=== PATIENT | female | born 1940 | race Caucasian/White ===

== ENCOUNTER 2016-03-01 17:26 | Inpatient (IN) | payer MEDICARE ==
[~2016-03-01] VITALS: Ht 167.6 cm; Wt 68.7 kg
[~2016-03-01 17:26] MED LIST: ALDA50TA2 PO; ARTI99.0 OU; ATEN100T PO; ATEN25TA PO; ATEN50TA2 PO; BACITAB3 PO; CALC500C16 PO; CITA10TA5 PO; CLEO150C PO; DICY1CAP8 PO; DIGO0.12 PO; DILT180C53 PO; FERR325T PO; FLAG500T PO; FURO20TA2 PO; LACT10SO29 PO; LISI-542 PO; MAALSUS20 PO; MAALSUS8 PO; MUPI2OI TOP; PANT40TA2 PO; POTA10CA PO; SENO8.6T10 PO; SPIR25TA2 PO; SUCR1SS PO; SUCR1TA PO; SYST1SOL OU; TENO1TAB4 PO; TRAM50TA2 PO; TYLE325T5 PO; VANC1CAP6 PO; VITA-130 PO; XANA0.25 PO; XIFA550T PO
[2016-03-01 18:43] LABS: EOS # 0.1 K/mm3 (0.0-0.50); EOS % 2.2 % (0.0-3.0); LARGE UNSTAINED CELL # 0.2 K/mm3 (0.0-0.4); LARGE UNSTAINED CELL % 4.6 % (0.0-4.0); LYMPH # 0.6 K/mm3 (1.5-4.5); MEAN CORPUSCULAR HEMOGLOBIN 25.2 pg (27.0-33.0); MEAN CORPUSCULAR HGB CONC 30.6 g/dl (32.0-36.5); MEAN CORPUSCULAR VOLUME 82.2 fl (80.0-96.0); MONO # 0.6 K/mm3 (0.0-0.8); NEUTROPHILS # 2.8 K/mm3 (1.8-7.7); NEUTROPHILS % 66.2 % (36.0-66.0); PLATELET COUNT, AUTOMATED 208 k/mm3 (150-450); RED CELL DISTRIBUTION WIDTH 15.8 % (11.5-14.5); WHITE BLOOD COUNT 4.2 K/mm3 (4.0-10.0)
[2016-03-01 18:55] LABS: ALBUMIN 3.3 GM/DL (3.2-5.2); ALBUMIN/GLOBULIN RATIO 0.97 (1.00-1.93); ALT/SGPT 29 U/L (12-78); AMYLASE 44 U/L (25-115); ANION GAP 7 MEQ/L (8-16); AST/SGOT 35 U/L (15-37); BILIRUBIN,DIRECT 0.3 MG/DL (0.0-0.2); BILIRUBIN,TOTAL 0.8 MG/DL (0.2-1.0); BLOOD UREA NITROGEN 16 MG/DL (7-18); CARBON DIOXIDE LEVEL 27 MEQ/L (21-32); CHLORIDE LEVEL 107 MEQ/L (98-107); CREATININE FOR GFR 0.95 MG/DL (0.55-1.02); GLOMERULAR FILTRATION RATE > 60.0 (>39); GLUCOSE, FASTING 94 MG/DL (83-110); POTASSIUM SERUM 4.2 MEQ/L (3.5-5.1); SODIUM LEVEL 141 MEQ/L (136-145); TOTAL PROTEIN 6.7 GM/DL (6.4-8.2)
[2016-03-01 19:06] LABS: ALKALINE PHOSPHATASE 157 U/L (45-117); DIGOXIN LEVEL 0.6 NG/ML (0.5-2.0); FREE T4 1.27 NG/DL (0.76-1.46)
[2016-03-01] MEDS ORDERED: ISOVUE-370 76% 100ML VIAL (Q9967) As Ordered ONE (19:10)
--- NOTE | 2016-03-01 19:42 | REP ---
AP portable chest: 03/01/2016. Clinical history: Chest pain. Comparison: 02/11/2016, CT chest 02/08/2016. Findings: Mild cardiomegaly with left ventricular configuration of the heart noted. There is a single lead pacer over the left upper chest with lead terminating in the right ventricle. The aorta is mildly tortuous, but normal for age. Airway is intact. Appears to be some venous hypertension, developed since the previous study. I see no macho edema, pleural effusion or dense consolidation. Some underlying minor fibrotic changes noted. No abnormal widening of the mediastinum. Bones demineralized. No free air under the diaphragm. Impression: 1. Some mild cardiomegaly with single lead pacer, but with new mild venous hypertension now present. No pleural effusion, macho edema or dense consolidation. Signed by Elier White MD 03/01/2016 08:06 P
--- NOTE | 2016-03-01 20:20 | REPUSA ---
CLINICAL HISTORY: Chest pain, exclude PE. TECHNIQUE: Multiple incremental axial, coronal and oblique images are obtained from the thoracic inle t to the upper abdomen. Intravenous contrast material was administered as per pulmonary embolism prot ocol. COMMENTS: Dual lead pacemaker is noted in the left chest wall. Scattered left pleural based calcifications seen, please correlate clinically to exclude asbestos exp osure. There is excellent opacification of pulmonary arterial system without evidence for pulmonary embolism . Aorta is of normal caliber without evidence for dissection or aneurysm. There is no evidence of pleural or parenchymal mass. There are no pleural effusions. There is no evid ence of hilar or mediastinal lymphadenopathy. The heart and great vessels are within normal limits. The bony structures are free of lytic or blastic lesions. Multilevel degenerative changes are seen in volving the visualized thoracolumbar spine. Scattered calcifications are seen involving the aorta and major branches compatible with atherosclero sis. IMPRESSION: No evidence for pulmonary embolism. Scattered left pleural based calcifications seen, please correlate clinically to exclude asbestos exp osure. Thank you for your kind referral of this patient.
--- NOTE | 2016-03-01 20:50 | REPUSA ---
CLINICAL HISTORY: Abdominal pain. TECHNIQUE: Multiple axial CT images were obtained through the abdomen and pelvis after administration of intravenous contrast material. COMMENTS: Comparison is made with the prior study dated 02/08/16. The liver is markedly lobulated compatible with cirrhosis. There is no intra or extrahepatic biliary ductal dilatation. There is evidence of wedge shaped area of hypoenhancement in the mid spleen compatible with infarct. Status post cholecystectomy. The pancreas is of normal contour and attenuation characteristics. There is no evidence of adrenal mass. Small hiatal hernia is present. Both kidneys demonstrate prompt and equal nephrograms. The kidneys are normal in size, shape and configuration. There is no evidence of renal or ureteral mass. No renal or ureteral calculi are identified. There is no hydroureter or hydronephrosis. There is no evidence for appendicitis. Diffuse colonic diverticulosis is present. No evidence for small or large bowel obstruction. There is no evidence of abdominal lymphadenopathy. Small amount of perihepatic ascites is seen. Moderate amount of feces is present in the left colon suggesting constipation. There are marked esophageal varices is present compatible with portal hypertension. There is markedly dilated and tortuous recanalized paraumbilical vein. This is also seen in the setting of cirrhosis. Multiple small mesenteric lymph nodes are seen. There is no evidence of intrinsic or extrinsic bladder mass. Images of the lung bases show no evidence of pleural or parenchymal mass. There are no pleural effusions. Left pleural based calcifications are present suggesting remote asbestos exposure. The bony structures are free of lytic or blastic lesions. Multilevel degenerative changes are seen involving the thoracolumbar spine. Scattered calcifications are seen involving the aorta and major branches compatible with atherosclerosis. IMPRESSION: 1. There is evidence of wedge shaped area of hypoenhancement over the mid spleen compatible with infarct. 2. The liver is markedly lobulated compatible with cirrhosis.Small amount of perihepatic ascites is seen. 3. Signs of portal hypertension. 4. Enteritis has resolved since the prior study. Otherwise no interval change.
[2016-03-01] MEDS ORDERED: FERR325T PO (21:02)
[2016-03-01] MEDS ORDERED: ATEN25TA PO (21:02)
[2016-03-01] MEDS ORDERED: SUCR1TAB56 PO (21:02)
[2016-03-01] MEDS ORDERED: TRAM50TA2 PO (21:02)
[2016-03-02] VITALS (7 sets, daily range): BP systolic 90–124; BP diastolic 51–74
[2016-03-02] MEDS ORDERED: PANTOPRAZOLE 40MG INJ (PROTONIX) (C9113) As Ordered ONE (01:20)
[2016-03-02] MEDS ORDERED: PANTOPRAZOLE 40MG TAB (PROTONIX) As Ordered ONE ×2 (01:31→07:48)
[2016-03-02] MEDS: SUCRALFATE 1 GM TAB PO SCH ×5 (01:31→20:20)
[2016-03-02] MEDS: PANTOPRAZOLE 40MG TAB (PROTONIX) PO SCH ×3 (01:34→20:21)
--- NOTE | 2016-03-02 02:19 | HPE ---
DATE OF ADMISSION: 03/01/2016 PRIMARY CARE PROVIDER: Dr. Tiwari. VP [employer] WE[employer]: Dr. Gibbs. CHIEF COMPLAINT: Chest pain. HISTORY OF PRESENT ILLNESS: Ms. Brown is a 75-year-old female with past medical history of atrial fibrillation, status post pacemaker, liver cirrhosis, and also recently diagnosed splenic infarct from last admission in January. Patient was admitted from 02/07 to 02/10, at that time for abdominal pain and subsequently was found to have infarction to her spleen. Since her discharge on the , she was doing well up until approximately 3-4 days ago when she started complaining of worsening chest pain. At baseline, has chest pain with exertion since her pacemaker placement in November 2014. At baseline, has chest pain only when she exerts herself or after ambulation. 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 However, approximately 3-4 days ago started having worsening pain. It started while she was just walking about inside her home. Pain is located in the left side of the left chest, "pinching" in nature, without radiation. Associated with palpitations, which she noticed after her atenolol was decreased from 50 twice a day down to 25 once a day at her last discharge. Also endorses white productive cough which is chronic, bilateral lower extremity edema, lightheadedness, dizziness, weakness, and one episode of nausea. She actually felt weaker today and as she ambulated to the kitchen to do some dishes, she started feeling weak and dizzy and almost passed out, but fortunately got hold of something in time. No syncopal episode. No pillow orthopnea, paroxysmal nocturnal dyspnea. Sleeps on six pillows normally. Does report shortness of breath when her chest pain comes on, but the duration of that lasts while she ambulates and resolves with rest. She was supposed to have her pacemaker interrogated in December; however, because of cancellation, this was not performed. Last visit to primary care provider (PCP) was last month with no changes to medications. She actually had one episode of sharp stabbing pain to her chest while waiting in the emergency room (ER) that lasted approximately 2 minutes and resolved on its own. Pain located also in her left chest. No nausea, vomiting, or shortness of breath at that time. The patient was simply lying in bed when the episode occurred. PAST MEDICAL HISTORY: 1. 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 2. Clostridium (C) difficile colitis. 3. Cirrhosis with portal hypertension. 4. Splenic infarction January 2016. 5. Atrial fibrillation not on anticoagulation due to splenic infarct and recurrent gastrointestinal (GI) bleed. 6. Iron deficiency anemia. 7. Echocardiogram from November 2014 reports ejection fraction (EF) of 75%, right ventricular systolic pressure 30, normal left ventricular (LV) size and wall motion thickness, mildly dilated left atrium with impairment of LV diastolic relaxation, normal right heart chamber with borderline pulmonary hypertension, severe mitral annular calcification without clear inflow tract obstruction, aortic valve sclerosis without stenosis. 8. Diastolic heart failure, EF 75%. 9. Depression. PAST SURGICAL HISTORY: 1. Hysterectomy. 2. Pacemaker insertion. 3. Tonsillectomy. 4. Esophagogastroduodenoscopy (EGD) with banding. 5. Cholecystectomy. 6. Cataract extraction. 7. 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 ALLERGIES: MEPERIDINE, PENICILLIN, SULFA, BENADRYL, unknown reactions. HOME MEDICATIONS: - atenolol 25 mg by mouth daily, dose was changed from previous admission which was 50 mg by mouth twice a day - dicyclomine 10 mg by mouth before food as needed - digoxin 0.125 mg by mouth daily - ferrous sulfate 325 mg by mouth daily - Lasix 20 mg by mouth daily - Bacid one tablet by mouth daily - Protonix 40 mg by mouth twice a day - Systane eye drops one drop both eyes twice a day - spironolactone 25 mg by mouth twice a day - sucralfate 1 gram by mouth before food, nightly - tramadol 50 mg every 8 hours as needed SOCIAL HISTORY: No past, present tobacco. No alcohol or drug use. 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 She had traveled extensively including to [place], [place], [place], [place], [place]. No exposure to asbestos, tuberculosis she is aware of. FAMILY HISTORY: There is history of cardiac disease in her mother requiring pacemaker placement. REVIEW OF SYSTEMS: GENERAL: Denies fevers, chills, night sweats. Positive for approximately 30-pound weight loss in the last year and a half due to constantly being sick and in and out of the hospital. Positive for decreased appetite. HEENT: Positive for headache, lightheadedness as above. No difficulty with speech and swallow. She does report metallic taste to food causing her to have decreased appetite. CARDIOVASCULAR: As above. PULMONARY: As above. GASTROINTESTINAL: Positive for esophageal varices, liver disease, splenic infarct. Had one episode of nausea. No emesis, no hematemesis, hematochezia, melena. GENITOURINARY: No dysuria, urinary urgency, frequency. ONCOLOGY: No history of malignancy. HEMATOLOGY: History of iron deficiency anemia that required transfusions in the past. NEUROLOGICAL: Positive for paresthesia to bilateral hands. No paralysis. MUSCULOSKELETAL: Positive for chronic back pain and leg pain. Has been using a cane with ambulation. ENDOCRINE: No known thyroid or diabetes. LYMPHATICS: No new bumps, lumps, swelling anywhere in neck, axilla, or groin. PHYSICAL EXAMINATION: VITAL SIGNS: Blood pressure 126/66, blood pressure fluctuates anywhere in 101 systolic to 141, heart rate in the 60s to 70s, respiratory rate 18, temperature 96.4, pulse oximetry 100% on room air. Body mass index (BMI) 24. GENERAL: The patient was lying in bed, comfortable, in no acute distress. Alert, awake, oriented times three. No respiratory distress. PSYCHIATRIC: Sad affect, is frustrated at the thought of having to come in and out of the hospital since her pacemaker. HEENT: Normocephalic, atraumatic. Dry oral mucosa. Mouth is edentulous, no sores, lesions, ulcers appreciated. Extraocular movements intact. No facial weakness. NECK: Supple. Trachea midline. No jugular venous distention (JVD). CHEST: Symmetric chest rise. No accessory muscle use. Breath sounds diminished in lung base. Left chest with palpable pacemaker. HEART: Irregular, but not tachycardic, variable S1, S2. No appreciable murmurs. ABDOMEN: Soft, mildly tender to palpation right upper quadrant. No guarding. No rebound. No peritoneal sign. Bowel sounds present. EXTREMITIES: There is fullness to her leg with excessive skin with 1-2+ pitting edema. NEUROLOGIC: Sensory intact. No focal deficits. Did not assess gait. LABORATORY DATA: WBC 4.2, hemoglobin 10.6, hematocrit 34.6, this is improved compared to last discharge, platelets 208, neutrophils 66.2. Sodium 141, potassium 4.2, chloride 107, carbon dioxide 27, BUN 16, creatinine 0.95, glucose 94, calcium 9, direct bilirubin 0.3. AST 35, ALT 29, alkaline phosphatase 157. Troponin is negative. Total protein 6.7. Free T4 1.27. Chest x-ray with mild cardiomegaly with a single chamber pacemaker. No pleural effusion, edema or consolidation. CTA no evidence of PE, scattered left lower base calcifications. CT abdomen and pelvis shows evidence of prior splenic infarct, cirrhotic liver with perihepatic ascites, portal hypertension. No interval change compared to previous. EKG shows rate of 67, irregular. Nonspecific ST-T wave abnormality that was present on prior EKG, low voltage. IMPRESSION AND PLAN: Ms. Brown is a 75-year-old female with past medical history of tachycardia- bradycardia (tachy-eugenia) syndrome, status post pacemaker placement, liver cirrhosis, splenic infarct, presented with chest pain. 1. Chest pain. Possible causes include cardiac, pulmonary, infectious, musculoskeletal versus other. Patient will be admitted and closely monitored in the progressive care unit (PCU). Continue to trend troponin, check EKG in the morning. Patient had a CTA that was unrevealing for a pulmonary embolism (PE). Continue supportive treatment for pain. Her pain is reproducible on physical exam, which is more reassuring. Patient cannot be on aspirin due to varices. 2. Weakness. Could be due to cardiac or iron deficiency anemia. Will check orthostatic blood pressure, stool occult. 3. Tachy-eugenia syndrome, status post pacemaker placement. She is also on atenolol 25 daily. Previously was on 50 twice a day. Her blood pressure has actually been running on the low end; therefore, will continue current dose for now. 4. Atrial fibrillation, as above, she could not be on anticoagulation due to splenic infarct and also recurrent varices requiring banding. Continue digoxin. Level is therapeutic. 5. Iron deficiency anemia. Continue iron supplementation. 6. Diastolic heart failure. Currently appears to be compensated. Will consider continuing her diuretic with hold parameter. 7. Gastroesophageal reflux disease (GERD). Continue home dose Protonix and Carafate. 8. Deep venous thrombosis (DVT) prophylaxis. Check stool occult before considering pharmacological. My preceptor for this patient encounter was Dr. Kya Ling. The preceptor was physically present in the building during the encounter and was fully available as needed. All aspects of the patient interview, examination, medical decision making process, and medical care plan development were reviewed and approved by the preceptor. The preceptor is aware and concurs with the plan as stated in the body of this note and will attest to such by his/her co-signature. SHANEKA
[2016-03-02] MEDS ORDERED: traMADol 50 MG TAB As Ordered ONE (04:06)
[2016-03-02] MEDS: traMADol 50 MG TAB PO PRN ×2 (04:07→15:00)
[2016-03-02 06:52] LABS: BASO % 1.3 % (0.0-1.0); EOS # 0.1 K/mm3 (0.0-0.50); EOS % 3.2 % (0.0-3.0); LARGE UNSTAINED CELL # 0.2 K/mm3 (0.0-0.4); LARGE UNSTAINED CELL % 4.6 % (0.0-4.0); LYMPH # 0.5 K/mm3 (1.5-4.5); LYMPH % 11.9 % (24.0-44.0); MEAN CORPUSCULAR HGB CONC 30.4 g/dl (32.0-36.5); MONO # 0.5 K/mm3 (0.0-0.8); MONO % 13.2 % (0.0-5.0); NEUTROPHILS # 2.6 K/mm3 (1.8-7.7); NEUTROPHILS % 65.8 % (36.0-66.0); PLATELET COUNT, AUTOMATED 177 k/mm3 (150-450); WHITE BLOOD COUNT 3.9 K/mm3 (4.0-10.0)
[2016-03-02 07:10] LABS: ANION GAP 7 MEQ/L (8-16); BLOOD UREA NITROGEN 15 MG/DL (7-18); CALCIUM LEVEL 8.7 MG/DL (8.8-10.2); CARBON DIOXIDE LEVEL 25 MEQ/L (21-32); CHLORIDE LEVEL 111 MEQ/L (98-107); CREATININE FOR GFR 0.87 MG/DL (0.55-1.02); GLOMERULAR FILTRATION RATE > 60.0 (>39); GLUCOSE, FASTING 90 MG/DL (83-110); POTASSIUM SERUM 3.9 MEQ/L (3.5-5.1); SODIUM LEVEL 143 MEQ/L (136-145)
[2016-03-02] MEDS ORDERED: ATENOLOL 25 MG TAB As Ordered ONE (07:48)
[2016-03-02] MEDS ORDERED: FUROSEMIDE 20 MG TAB As Ordered ONE (07:48)
[2016-03-02] MEDS ORDERED: DIGOXIN 0.25 MG TAB As Ordered ONE (07:49)
[2016-03-02] MEDS: DIGOXIN 0.125 MG TAB PO SCH (07:59)
[2016-03-02] MEDS: FUROSEMIDE 20 MG TAB PO SCH (07:59)
[2016-03-02] MEDS: ATENOLOL 25 MG TAB PO SCH (08:00)
[2016-03-02] MEDS: FERROUS SULFATE 325MG TAB PO SCH (10:03)
[2016-03-02] MEDS: SENOKOT S TAB PO SCH ×2 (10:03→20:21)
[2016-03-02] MEDS: SPIRONOLACTONE 25 MG TAB PO SCH ×2 (10:03→20:21)
[2016-03-02] MEDS ORDERED: ONDANSETRON 4MG/2ML VIAL (J2405) As Ordered ONE (12:55)
[2016-03-02] MEDS: ONDANSETRON 4MG/2ML VIAL (J2405) IV PRN (12:57)
--- NOTE | 2016-03-02 15:01 | IPNPDOC ---
Assessment/Plan Date Seen The patient was seen on 03/02/16. Plan / VTE VTE Prophylaxis Ordered?: Yes Plan Plan Text 1. Chest pain. Patient states that her chest pain has been chronic over the last 2+ years localized to the superficial musculoskeletal region around the pacemaker insertion site and reproducible on palpation She describes the pain as discomfort and "pinching sensation." EKG with no acute ST changes Troponin negative 3 CTA negative for pulmonary embolism Continue to monitor on telemetry. 2. Tachy-eugenia syndrome, status post pacemaker placement in 11/[address] Alcaraz Continue atenolol 3. Atrial fibrillation Not a candidate for anticoagulation given history of esophageal varices, splenic infarct Continue digoxin, level is therapeutic. 4. Liver cirrhosis and portal hypertension Cont Lasix, Aldactone 5. Iron deficiency anemia. Continue iron supplementation. 6. Diastolic heart failure. Currently appears to be compensated. 7. Gastroesophageal reflux disease (GERD). Continue home dose Protonix and Carafate. 8. Deep venous thrombosis (DVT) prophylaxis. SCDs Subjective Review of Systems CC/HPI The patient is a 75-year-old female admitted with a reason for visit of Chest Pain. General: Denies: Chills, Night Sweats Constitutional: Denies: Chills, Fever Eyes: Denies: Pain, Vision change ENT: Denies: Ear Pain, Head Aches Skin: Denies: Lesions, Rash Pulmonary: Denies: Cough, Dyspnea Cardiovascular: Denies: Chest Pain, Palpitations Gastrointestinal: Denies: Nausea, Vomiting Genitourinary: Denies: Dysuria, Frequency Hematologic: Denies: Bleeding Excessively, Bruising Objective Physical Examination General Exam: Positive: Alert, Cooperative, No Acute Distress ENT Exam: Positive: Atraumatic, Mucous membr. moist/pink Chest Exam: Positive: Clear to auscultation, Normal air movement Heart Exam: Positive: Normal S1, Normal S2, Rate Normal Abdomen Exam: Positive: Soft, Negative: Tenderness Extremity Exam: Negative: Edema, Swelling, Tenderness Vital Signs/I&O Vital Signs Date Time Temp Pulse Resp B/P Pulse Ox O2 Delivery O2 Flow Rate FiO2 03/02/16 12:00 97.7 67 16 106/55 100 Room Air I&O- Last 24 Hours up to 6 AM 03/02/16 06:00 Intake Total 240 ml Output Total 0 ml Balance 240 ml Laboratory Data Labs 24H Laboratory Tests 2 03/01/16 18:19: Aspartate Amino Transf (AST/SGOT) 35, Alanine Aminotransferase (ALT/SGPT) 29, Alkaline Phosphatase 157H, Total Bilirubin 0.8, Direct Bilirubin 0.3H, Albumin 3.3, Albumin/Globulin Ratio 0.97L, Amylase Level 44, Anion Gap 7L, White Blood Count 4.2, Red Blood Count 4.21, Hemoglobin 10.6L, Hematocrit 34.6L, Mean Corpuscular Volume 82.2, Mean Corpuscular Hemoglobin 25.2L, Mean Corpuscular Hemoglobin Concent 30.6L, Red Cell Distribution Width 15.8H, Platelet Count 208 , Neutrophils (%) (Auto) 66.2H, Lymphocytes (%) (Auto) 13.0L, Monocytes (%) ( Auto) 13.0H, Eosinophils (%) (Auto) 2.2, Basophils (%) (Auto) 1.0, Neutrophils # (Auto) 2.8, Lymphocytes # (Auto) 0.6L, Monocytes # (Auto) 0.6, Eosinophils # ( Auto) 0.1, Basophils # (Auto) 0.0, Calcium Level 9.0, Creatine Kinase MB 1.2, Creatine Kinase MB Relative Index 3.87, Digoxin Level 0.6, Free Thyroxine 1.27, Glomerular Filtration Rate > 60.0, Large Unclassified Cells # 0.2, Large Unclassified Cells % 4.6H, Lipase 262, Thyroid Stimulating Hormone (TSH) 2.090, Total Creatine Kinase 31, Total Protein 6.7, Troponin I < 0.02 03/01/16 23:31: Creatine Kinase MB 1.0, Creatine Kinase MB Relative Index 4.00, Total Creatine Kinase 25L, Troponin I < 0.02 03/02/16 06:33: Anion Gap 7L, White Blood Count 3.9L, Red Blood Count 4.07, Hemoglobin 10.2L, Hematocrit 33.3L, Mean Corpuscular Volume 82.0, Mean Corpuscular Hemoglobin 25.0L, Mean Corpuscular Hemoglobin Concent 30.4L, Red Cell Distribution Width 16.0H, Platelet Count 177, Neutrophils (%) (Auto) 65.8, Lymphocytes (%) (Auto) 11.9L, Monocytes (%) (Auto) 13.2H, Eosinophils (%) (Auto) 3.2H, Basophils (%) ( Auto) 1.3H, Neutrophils # (Auto) 2.6, Lymphocytes # (Auto) 0.5L, Monocytes # ( Auto) 0.5, Eosinophils # (Auto) 0.1, Basophils # (Auto) 0.0, Calcium Level 8.7L , Glomerular Filtration Rate > 60.0, Large Unclassified Cells # 0.2, Large Unclassified Cells % 4.6H, Troponin I < 0.02, Blood Urea Nitrogen 15, Creatinine 0.87, Sodium Level 143, Potassium Level 3.9, Chloride Level 111H, Carbon Dioxide Level 25 CBC/BMP Laboratory Tests 03/01/16 18:19 Red Blood Count 4.21, Mean Corpuscular Volume 82.2, Mean Corpuscular Hemoglobin 25.2 L, Mean Corpuscular Hemoglobin Concent 30.6 L, Red Cell Distribution Width 15.8 H, Neutrophils (%) (Auto) 66.2 H, Lymphocytes (%) (Auto) 13.0 L, Monocytes (%) (Auto) 13.0 H, Eosinophils (%) (Auto) 2.2, Basophils (%) (Auto) 1.0, Neutrophils # (Auto) 2.8, Lymphocytes # (Auto) 0.6 L, Monocytes # (Auto) 0.6, Eosinophils # (Auto) 0.1, Basophils # (Auto) 0.0 03/02/16 06:33 Red Blood Count 4.07, Mean Corpuscular Volume 82.0, Mean Corpuscular Hemoglobin 25.0 L, Mean Corpuscular Hemoglobin Concent 30.4 L, Red Cell Distribution Width 16.0 H, Neutrophils (%) (Auto) 65.8, Lymphocytes (%) (Auto) 11.9 L, Monocytes (% ) (Auto) 13.2 H, Eosinophils (%) (Auto) 3.2 H, Basophils (%) (Auto) 1.3 H, Neutrophils # (Auto) 2.6, Lymphocytes # (Auto) 0.5 L, Monocytes # (Auto) 0.5, Eosinophils # (Auto) 0.1, Basophils # (Auto) 0.0, Calcium Level 8.7 L JOAN BOWLING MD Mar 02, 2016 15:01
--- NOTE | 2016-03-02 15:09 | EDDOCDS ---
Physician Documentation [facility] Name: Pilar Brown Age: 75 yrs Sex: Female : 1940 Arrival Date: 03/01/2016 Time: 17:26 Bed Admit Hold Private MD: Marina Disposition: 03/01/16 22:02 Hospitalization ordered by Kya Ling for Inpatient Admission. Preliminary diagnosis are Unstable angina, Abdominal and pelvic pain. - Bed requested for PCU. - Status is Inpatient Admission. srm - Condition is Stable. - Problem is new. - Symptoms have improved. Historical: - Allergies: Benadryl (hyper and shaky); Meperidine; PENICILLINS; SULFA (SULFONAMIDES); - Home Meds: 1. atenolol 25 mg oral tab once daily 2. ferrous sulfate 325 mg (65 mg iron) Oral cpER daily 3. tramadol 50 mg Oral tab every 8 hours as needed 4. digoxin 125 mcg Oral tab 1 tab once daily 5. furosemide 20 mg Oral tab 1 tab once daily 6. pantoprazole 40 mg oral tab 1 tab 2 times per day 7. Systane (PF) 0.4-0.3 % ophthalmic dpet twice a day 8. spironolactone 25 mg Oral tab 1 tab 2 times per day 9. Sucralfate Oral 10. sucralfate 1 gram Oral tab four times a day 11. dicyclomine 10 mg Oral cap before meals as needed - PMHx: Atrial Fib; Cataracts; c-diff; Cirrhosis; esophageal varicies; GERD; Depression; Hypertension; gi bleed; - PSHx: Cholecystectomy; Pacemaker Insertion; - Social history: Smoking status: Patient states was never smoker of tobacco. No barriers to communication noted, The patient speaks fluent Iranian, Speaks appropriately for age. - Family history: Not pertinent. - : The pt / caregiver states he / she is not on anticoagulants. Home medication list is obtained from the patient. - Exposure Risk Screening:: None identified. Vital Signs: 03/01 17:28 BP 126 / 66; Pulse 79; Resp 18; Temp 96.4; Pulse Ox 100% ; Weight 68.49 kg / 150.99 cmb lbs; Height 5 ft. 6 in. (167.64 cm); Pain 5/10; 17:38 BP 141 / 62 (auto/); af2 17:42 Pulse 68 MON; Pulse Ox 100% ; af2 17:45 BP 132 / 63 (auto/); af2 17:46 Pulse 69 MON; Pulse Ox 100% ; af2 18:00 BP 114 / 55 (auto/); ead 18:01 Pulse 71 MON; Pulse Ox 100% ; ead 18:19 BP 114 / 56 (auto/); ead 18:20 Pulse 68 MON; Resp 18; Pulse Ox 100% on R/A; ead 18:34 BP 105 / 55 (auto/); af2 18:35 Pulse 67 MON; Pulse Ox 100% ; af2 18:49 BP 102 / 50 (auto/); af2 18:50 Pulse 65 MON; Pulse Ox 100% ; af2 19:19 BP 103 / 56 (auto/); af2 19:20 Pulse 75 MON; Pulse Ox 100% ; af2 19:48 BP 103 / 50 (auto/); af2 19:48 Pulse 69 MON; Pulse Ox 98% ; af2 20:19 BP 101 / 55 (auto/); af2 20:20 Pulse 70 MON; Pulse Ox 99% ; af2 20:48 BP 117 / 57 (auto/); af2 20:48 Pulse 72 MON; Pulse Ox 99% ; af2 21:19 BP 103 / 58 (auto/); af2 21:20 Pulse 72 MON; Pulse Ox 98% ; af2 21:48 BP 105 / 58 (auto/); af2 21:48 Pulse 68 MON; Pulse Ox 98% ; af2 17:28 Body Mass Index 24.37 (68.49 kg, 167.64 cm) cmb MDM: 17:34 ECG WITH READING ER PHYS+CARDIAG ordered. EDMS 17:58 IV Saline Lock ordered. ml 17:58 Flagger/Pulse Ox/q 15 min VS ordered. ml 17:58 Rhythm Strip to chart ordered. ml 17:58 CBC with Diff Ordered. EDMS 17:58 MED Profile Ordered. EDMS 17:58 CIP Ordered. EDMS 17:58 Troponin Ordered. EDMS 17:58 Liver Profile Ordered. EDMS 17:58 Amylase Ordered. EDMS 17:58 Lipase Ordered. EDMS 17:58 Digoxin Level Ordered. EDMS 17:58 TSH with Free T4 Ordered. EDMS 18:00 Chest, 1 View Ordered. EDMS 19:00 CBC with Diff Reviewed. ml 19:00 MED Profile Reviewed. ml 19:00 Troponin Reviewed. ml 19:00 Amylase Reviewed. ml 19:00 Lipase Reviewed. ml 19:03 Repeat EKG (put time details section) ordered. ml 19:03 Redraw CIP &Troponin (put time in details section) ordered. ml 19:04 CT ABD & PELVIS: IV Contrast Only Ordered. EDMS 19:04 CT Chest Angio R/O PE Ordered. EDMS 19:05 Financial registration complete. zo 19:05 Redraw CIP &Troponin (put time in details section) complete. ml3 19:05 Repeat EKG (put time details section) complete. ml3 19:06 CARDIAC MARKER PANEL Ordered. EDMS 19:08 ECG WITH READING ER PHYS ordered. EDMS 19:11 [facility] Payment Agreement was scanned into [employer] and attached to record. zo 20:35 BED REQUEST+ADM ordered. EDMS 23:33 CBC WITH DIFFERENTIAL Ordered. EDMS 23:35 Admission / Observation Status ordered. EDMS 23:35 REGULAR DIET ordered. EDMS 23:35 TROPONIN Ordered. EDMS 23:36 PHYSICAL THERAPY EVAL & TREAT ordered. EDMS 23:37 OCCULT BLOOD STOOL SPECIMEN Ordered. EDMS 23:38 ELECTROCARDIOGRAM ADULT ordered. EDMS 03/02 04:05 BASIC METABOLIC PROFILE Ordered. EDMS 13:33 T-Sheet-- Draft Copy was scanned into [employer] and attached to record. gb Signatures: Dispatcher [employer] EDTrinity HealthDalton Aguilar MD MD ml Michelson, Staci, ANGELIKA CARNEY [facility] Des, Lucia, Reg Reg Evert Fernandez RN RN mlb1 Saji Garces, Command Center Officer Unit ml3 Ken Osborn Emily, RN RN ead Sourwine, Sharon, RN RN sls2 Darcy Cortez MD MD fg The chart was reviewed and I authenticate all verbal orders and agree with the evaluation and treatment provided.Corrections: (The following items were deleted from the chart) 04:05 03/01 23:33 BASIC METABOLIC PROFILE ordered. EDMD EDMS Attachments: 19:11 [facility] Payment Agreement zo 03/02 13:33 T-Sheet-- Draft Copy gb MTDD
--- NOTE | 2016-03-02 15:10 | EDDOCDS ---
Nurse's Notes [facility] Name: Pilar Brown Age: 75 yrs Sex: Female : 1940 Arrival Date: 03/01/2016 Time: 17:26 Bed Admit Hold Private MD: Marina Diagnosis: Unstable angina;Abdominal and pelvic pain Presentation: 03/01 17:33 Presenting complaint: Patient states: Intermittent left anterior chest pain began mlb1 Sunday with SOB. Aspirin was not taken prior to arrival. Adult Sepsis Screening: The patient does not have new or worsening altered mentation. Patient's respiratory rate is less than 22. Systolic blood pressure is greater than 100. Patient has a qSOFA score of 0- Negative Sepsis Screen. Suicide/Homicide risk assessment- the patient denies having any suicidal and/or homicidal ideations and does not present with any other emotional, behavioral or mental health complaints. Status: Patient is not a food service agent or dependent. Transition of care: patient was not received from another setting of care. Red Flag criteria, patient assessed and taken directly to a bed. 17:33 Acuity: VICENTE Level 2 mlb1 17:33 Method Of Arrival: Walkin/Carried/Asstd mlb1 Triage Assessment: 17:39 General: Appears in no apparent distress, Behavior is anxious, cooperative. Pain: mlb1 Location: anterior aspect of left upper chest Pain currently is 4 out of 10 on a pain scale. Neurological: No deficits noted. Respiratory: Airway is patent Respiratory effort is even, unlabored. Historical: - Allergies: Benadryl (hyper and shaky); Meperidine; PENICILLINS; SULFA (SULFONAMIDES); - Home Meds: 1. atenolol 25 mg oral tab once daily 2. ferrous sulfate 325 mg (65 mg iron) Oral cpER daily 3. tramadol 50 mg Oral tab every 8 hours as needed 4. digoxin 125 mcg Oral tab 1 tab once daily 5. furosemide 20 mg Oral tab 1 tab once daily 6. pantoprazole 40 mg oral tab 1 tab 2 times per day 7. Systane (PF) 0.4-0.3 % ophthalmic dpet twice a day 8. spironolactone 25 mg Oral tab 1 tab 2 times per day 9. Sucralfate Oral 10. sucralfate 1 gram Oral tab four times a day 11. dicyclomine 10 mg Oral cap before meals as needed - PMHx: Atrial Fib; Cataracts; c-diff; Cirrhosis; esophageal varicies; GERD; Depression; Hypertension; gi bleed; - PSHx: Cholecystectomy; Pacemaker Insertion; - Social history: Smoking status: Patient states was never smoker of tobacco. No barriers to communication noted, The patient speaks fluent [place], Speaks appropriately for age. - Family history: Not pertinent. - : The pt / caregiver states he / she is not on anticoagulants. Home medication list is obtained from the patient. - Exposure Risk Screening:: None identified. Screenin:10 Screening information is obtained from the patient, family members. Fall risk: No risks ead identified. Assistance ADL's: requires no assistance with activities of daily living. Nutritional screening: No deficits noted. Advance Directives: Currently, there is no health care proxy. There is no active DNR order. There is a living will, but a copy is not available at this time. There is an active Power of High Density Talc Coater Operator, Dheeraj Brown (son). information regarding advance directives can be obtained from Dheeraj Brown [phone]. home support is adequate. 18:42 Abuse/DV Screen: The patient / caregiver reports he/she is: not in a situation that ead causes fear, pain or injury. Assessment: 18:26 General: Appears in no apparent distress, Behavior is appropriate for age, cooperative. ead Pain: Location: anterior aspect of left upper chest Pain Quality of pain is described as pinching, Pain began 1 day ago. Neurological: Level of Consciousness is awake, alert, obeys commands, Oriented to person, place, time. Neurological: Denies dizziness. Cardiovascular: Rhythm is irregular. Cardiovascular:. Cardiovascular: Capillary refill < 3 seconds Heart tones S1 S2 present. Respiratory: Airway is patent Respiratory effort is even, unlabored, Reports shortness of breath on exertion. Respiratory: Breath sounds are clear bilaterally. GI: Denies nausea, vomiting, pain. Derm: Skin is pink, warm & dry. 19:13 General: Appears in no apparent distress, Behavior is appropriate for age, cooperative, af2 assumed care of pt at this time. pt assisted with ambulation to bathroom at this time. offers no further complaints. . Neurological: Level of Consciousness is awake, alert, obeys commands, Oriented to person, place, time. Cardiovascular: Capillary refill < 3 seconds in bilateral fingers Heart tones S1 S2 present Rhythm is irregular. Respiratory: Airway is patent Respiratory effort is even, unlabored, Breath sounds are clear bilaterally. Reports shortness of breath on exertion. Derm: Skin is pink, warm & dry. 19:38 General: pt transported down to CT at this time, tolerated procedure well. piv patent, af2 free of edema and erythema.. 20:30 General: Appears in no apparent distress, Behavior is appropriate for age, cooperative. af2 Neurological: Level of Consciousness is awake, alert, obeys commands, Oriented to person, place, time. Cardiovascular: Rhythm is irregular. Respiratory: Airway is patent Respiratory effort is even, unlabored. Derm: Skin is pink, warm & dry. 21:30 General: Appears in no apparent distress, Behavior is appropriate for age, cooperative. af2 Neurological: Level of Consciousness is awake, alert, obeys commands, Oriented to person, place, time. Cardiovascular: Rhythm is irregular. Respiratory: Airway is patent Respiratory effort is even, unlabored. Derm: Skin is pink, warm & dry. 21:45 General: Appears in no apparent distress, Behavior is cooperative, pt states she had an af2 episode of sharp chest pain that went away quickly. notified. . 22:45 General: Appears in no apparent distress, Behavior is appropriate for age, cooperative. af2 General: pt lying on stretcher resting quietly with eyes closed. . Neurological: Level of Consciousness is awake, alert, obeys commands. Cardiovascular: Rhythm is irregular. Respiratory: Airway is patent Respiratory effort is even, unlabored. Derm: Skin is pink, warm & dry. Vital Signs: 17:28 BP 126 / 66; Pulse 79; Resp 18; Temp 96.4; Pulse Ox 100% ; Weight 68.49 kg; Height 5 cmb ft. 6 in. (167.64 cm); Pain 5/10; 17:38 BP 141 / 62 (auto/); af2 17:42 Pulse 68 MON; Pulse Ox 100% ; af2 17:45 BP 132 / 63 (auto/); af2 17:46 Pulse 69 MON; Pulse Ox 100% ; af2 18:00 BP 114 / 55 (auto/); ead 18:01 Pulse 71 MON; Pulse Ox 100% ; ead 18:19 BP 114 / 56 (auto/); ead 18:20 Pulse 68 MON; Resp 18; Pulse Ox 100% on R/A; ead 18:34 BP 105 / 55 (auto/); af2 18:35 Pulse 67 MON; Pulse Ox 100% ; af2 18:49 BP 102 / 50 (auto/); af2 18:50 Pulse 65 MON; Pulse Ox 100% ; af2 19:19 BP 103 / 56 (auto/); af2 19:20 Pulse 75 MON; Pulse Ox 100% ; af2 19:48 BP 103 / 50 (auto/); af2 19:48 Pulse 69 MON; Pulse Ox 98% ; af2 20:19 BP 101 / 55 (auto/); af2 20:20 Pulse 70 MON; Pulse Ox 99% ; af2 20:48 BP 117 / 57 (auto/); af2 20:48 Pulse 72 MON; Pulse Ox 99% ; af2 21:19 BP 103 / 58 (auto/); af2 21:20 Pulse 72 MON; Pulse Ox 98% ; af2 21:48 BP 105 / 58 (auto/); af2 21:48 Pulse 68 MON; Pulse Ox 98% ; af2 17:28 Body Mass Index 24.37 (68.49 kg, 167.64 cm) [facility] Vitals: 17:28 Log In Time: March 01, 2016 at 17:26. [facility] ED Course: 17:28 Patient visited by Natalie Cagle. cmb 17:28 [facility] is Private Physician. cmb 17:28 Patient moved to Waiting cmb 17:30 Maegan Burgos,RN is Primary Nurse. cmb 17:30 Patient moved to 2 cmb 17:32 RN notified that patient meets Red Flag criteria. cmb 17:33 Patient visited by Evert Fernandez, RN. mlb1 17:34 Triage Initiated mlb1 17:40 Patient visited by Evert Fernandez, RN. mlb1 17:41 Dalton Dove MD is Attending Physician. ml 17:41 Patient visited by Dalton Dove MD. ml 17:43 Patient visited by Riana Howard PCA. jlf 17:43 EKG done. (by ED staff). Reviewed by Dalton Dove MD. jlf 18:11 The patient / caregiver is instructed regarding the plan of care and ED course. Cardiac ead monitor on. Pulse ox on. NIBP on. 18:15 Inserted saline lock: 20 gauge in left antecubital area and blood collected. The ead patient tolerated the procedure well. 18:26 Patient visited by Maegan Burgos,ANGELIKA. ead 18:29 Patient visited by Maegan Burgos RN. ead 19:11 [facility] Payment Agreement was scanned into [employer] and attached to record. zo 19:12 Debi Duncan RN is Primary Nurse. af2 19:13 Patient visited by Debi Duncan RN. af2 19:14 Patient visited by Debi Duncan RN. af2 19:17 Attending Physician role handed off by Dalton Dove MD fg 19:17 Darcy Cortez MD is Attending Physician. fg 19:39 Patient visited by Debi Duncan RN. af2 20:24 Chest, 1 View Returned. EDMS 20:25 CT Chest Angio R/O PE Returned. EDMS 20:45 Patient visited by Yadi Álvarez PCA. yobany 21:31 CT ABD & PELVIS: IV Contrast Only Returned. EDMS 21:50 Patient visited by Debi Duncan RN. af2 21:54 Patient visited by Elif Joseph PCA. cln 21:54 EKG done. (by ED staff). Reviewed by Darcy Cortez MD. cln 21:56 Patient visited by Debi Duncan RN. af2 22:02 Kya Ling is Hospitalizing Provider. fg 22:07 Patient moved to Admit Hold cz 22:29 Patient moved to 7 cz 22:33 Patient moved to Admit Hold ml3 22:57 Primary Nurse role handed off by Maegan Burgos RN rs6 23:11 Patient visited by Debi Duncan RN. af2 23:32 CARDIAC MARKER PANEL Sent. cln 12 00:06 Patient moved to 21 cz 00:50 Patient visited by Debi Duncan RN. af2 02:43 Patient moved to Admit Hold cz 06:59 Primary Nurse role handed off by Debi Duncan RN mcp 13:33 T-Sheet-- Draft Copy was scanned into [employer] and attached to record. gb Order Results: Lab Order: CBC with Diff; SPEC'M 01/11/17 18:19 Test: WHITE BLOOD COUNT; Value: 4.2; Range: 4.0-10.0; Units: K/mm3; Status: F Test: RED BLOOD COUNT; Value: 4.21; Range: 4.00-5.40; Units: M/mm3; Status: F Test: HEMOGLOBIN; Value: 10.6; Range: 12.0-16.0; Abnormal: Below low normal; Units: g/dl; Status: F Test: HEMATOCRIT; Value: 34.6; Range: 36.0-47.0; Abnormal: Below low normal; Units: %; Status: F Test: MEAN CORPUSCULAR VOLUME; Value: 82.2; Range: 80.0-96.0; Units: fl; Status: F Test: MEAN CORPUSCULAR HEMOGLOBIN; Value: 25.2; Range: 27.0-33.0; Abnormal: Below low normal; Units: pg; Status: F Test: MEAN CORPUSCULAR HGB CONC; Value: 30.6; Range: 32.0-36.5; Abnormal: Below low normal; Units: g/dl; Status: F Test: RED CELL DISTRIBUTION WIDTH; Value: 15.8; Range: 11.5-14.5; Abnormal: Above high normal; Units: %; Status: F Test: PLATELET COUNT, AUTOMATED; Value: 208; Range: 150-450; Units: k/mm3; Status: F Test: NEUTROPHILS %; Value: 66.2; Range: 36.0-66.0; Abnormal: Above high normal; Units: %; Status: F Test: LYMPH %; Value: 13.0; Range: 24.0-44.0; Abnormal: Below low normal; Units: %; Status: F Test: MONO %; Value: 13.0; Range: 0.0-5.0; Abnormal: Above high normal; Units: %; Status: F Test: EOS %; Value: 2.2; Range: 0.0-3.0; Units: %; Status: F Test: BASO %; Value: 1.0; Range: 0.0-1.0; Units: %; Status: F Test: LARGE UNSTAINED CELL %; Value: 4.6; Range: 0.0-4.0; Abnormal: Above high normal; Units: %; Status: F Test: NEUTROPHILS #; Value: 2.8; Range: 1.8-7.7; Units: K/mm3; Status: F Test: LYMPH #; Value: 0.6; Range: 1.5-4.5; Abnormal: Below low normal; Units: K/mm3; Status: F Test: MONO #; Value: 0.6; Range: 0.0-0.8; Units: K/mm3; Status: F Test: EOS #; Value: 0.1; Range: 0.0-0.50; Units: K/mm3; Status: F Test: BASO #; Value: 0.0; Range: 0.0-0.2; Units: K/mm3; Status: F Test: LARGE UNSTAINED CELL #; Value: 0.2; Range: 0.0-0.4; Units: K/mm3; Status: F Lab Order: MED Profile; SPEC'M 03/01/16 18:19 Test: GLUCOSE, FASTING; Value: 94; Range: 83-110; Units: MG/DL; Status: F Test: BLOOD UREA NITROGEN; Value: 16; Range: 7-18; Units: MG/DL; Status: F Test: CREATININE FOR GFR; Value: 0.95; Range: 0.55-1.02; Units: MG/DL; Status: F Test: GLOMERULAR FILTRATION RATE; Value: > 60.0; Range: >39; Status: F Test: SODIUM LEVEL; Value: 141; Range: 136-145; Units: MEQ/L; Status: F Test: POTASSIUM SERUM; Value: 4.2; Range: 3.5-5.1; Units: MEQ/L; Status: F Test: CHLORIDE LEVEL; Value: 107; Range: 98-107; Units: MEQ/L; Status: F Test: CARBON DIOXIDE LEVEL; Value: 27; Range: 21-32; Units: MEQ/L; Status: F Test: ANION GAP; Value: 7; Range: 8-16; Abnormal: Below low normal; Units: MEQ/L; Status: F Test: CALCIUM LEVEL; Value: 9.0; Range: 8.8-10.2; Units: MG/DL; Status: F Test Note: ; Units are mL/min/1.73 m2 Chronic Kidney Disease Staging per NKF: Stage I & II GFR >=60 Normal to Mildly Decreased Stage III GFR 30-59 Moderately Decreased Stage IV GFR 15-29 Severely Decreased Stage V GFR <15 Very Little GFR Left ESRD GFR <15 on FIRE SPRINKLER FITTER Lab Order: CIP; SPEC'M 03/01/16 18:19 Test: CPK CREATINE PHOSPHOKINASE; Value: 31; Range: 26-192; Units: U/L; Status: F Test: CK-MB VALUE MASS; Value: 1.2; Range: 0.0-3.6; Units: NG/ML; Status: F Test: MB/CK RELATIVE INDEX; Value: 3.87; Range: < OR =4; Status: F Test Note: ; DIAGNOSIS CRITERIA MMB ng/ml Relative Index (RI) NON-AMI < or = 5 N/A [place] > 5 < or = 4 AMI > 5 > 4 Lab Order: Troponin; SPEC'M 03/01/16 18:19 Test: TROPONIN I; Value: < 0.02; Range: < 0.10; Units: NG/ML; Status: F Test Note: ; Troponin I Reference Interval for [employer] LOCI: 99th Percentile= 0.00-0.045 ng/ml Risk Stratification: <= 0.10 ng/ml Decreased Risk for Adverse Clinical Events. 0.10-1.50 ng/ml Increased Risk for Adverse Clinical Events. Evaluation of additional criterion and/or repeat testing in 2-6 hours is suggested to rule out myocardial damage. >= 1.50 ng/ml Indicative of Myocardial Injury. Lab Order: Liver Profile; SPEC'M 03/01/16 18:19 Test: AST/SGOT; Value: 35; Range: 15-37; Units: U/L; Status: F Test: ALT/SGPT; Value: 29; Range: 12-78; Units: U/L; Status: F Test: ALKALINE PHOSPHATASE; Value: 157; Range: 45-117; Abnormal: Above high normal; Units: U/L; Status: F Test: BILIRUBIN,TOTAL; Value: 0.8; Range: 0.2-1.0; Units: MG/DL; Status: F Test: BILIRUBIN,DIRECT; Value: 0.3; Range: 0.0-0.2; Abnormal: Above high normal; Units: MG/DL; Status: F Test: TOTAL PROTEIN; Value: 6.7; Range: 6.4-8.2; Units: GM/DL; Status: F Test: ALBUMIN; Value: 3.3; Range: 3.2-5.2; Units: GM/DL; Status: F Test: ALBUMIN/GLOBULIN RATIO; Value: 0.97; Range: 1.00-1.93; Abnormal: Below low normal; Status: F Lab Order: Amylase; [facility] 03/01/16 18:19 Test: AMYLASE; Value: 44; Range: 25-115; Units: U/L; Status: F Lab Order: Lipase; [facility] 03/01/16 18:19 Test: LIPASE; Value: 262; Range: 73-393; Units: U/L; Status: F Lab Order: Digoxin Level; [facility] 03/01/16 18:19 Test: DIGOXIN LEVEL; Value: 0.6; Range: 0.5-2.0; Units: NG/ML; Status: F Lab Order: TSH with Free T4; [facility] 03/01/16 18:19 Test: THYROID STIMULATING HORMONE; Value: 2.090; Range: 0.358-3.740; Units: uIU/ML; Status: F Test: FREE T4; Value: 1.27; Range: 0.76-1.46; Units: NG/DL; Status: F Lab Order: CARDIAC MARKER PANEL; [facility] 03/01/16 23:31 Test: CPK CREATINE PHOSPHOKINASE; Value: 25; Range: 26-192; Abnormal: Below low normal; Units: U/L; Status: F Test: CK-MB VALUE MASS; Value: 1.0; Range: 0.0-3.6; Units: NG/ML; Status: F Test: MB/CK RELATIVE INDEX; Value: 4.00; Range: < OR =4; Status: F Test: TROPONIN I; Value: < 0.02; Range: < 0.10; Units: NG/ML; Status: F Test Note: ; DIAGNOSIS CRITERIA MMB ng/ml Relative Index (RI) NON-AMI < or = 5 N/A [place] > 5 < or = 4 AMI > 5 > 4 Lab Order: CBC WITH DIFFERENTIAL; [facility] 03/02/16 06:33 Test: WHITE BLOOD COUNT; Value: 3.9; Range: 4.0-10.0; Abnormal: Below low normal; Units: K/mm3; Status: F Test: RED BLOOD COUNT; Value: 4.07; Range: 4.00-5.40; Units: M/mm3; Status: F Test: HEMOGLOBIN; Value: 10.2; Range: 12.0-16.0; Abnormal: Below low normal; Units: g/dl; Status: F Test: HEMATOCRIT; Value: 33.3; Range: 36.0-47.0; Abnormal: Below low normal; Units: %; Status: F Test: MEAN CORPUSCULAR VOLUME; Value: 82.0; Range: 80.0-96.0; Units: fl; Status: F Test: MEAN CORPUSCULAR HEMOGLOBIN; Value: 25.0; Range: 27.0-33.0; Abnormal: Below low normal; Units: pg; Status: F Test: MEAN CORPUSCULAR HGB CONC; Value: 30.4; Range: 32.0-36.5; Abnormal: Below low normal; Units: g/dl; Status: F Test: RED CELL DISTRIBUTION WIDTH; Value: 16.0; Range: 11.5-14.5; Abnormal: Above high normal; Units: %; Status: F Test: PLATELET COUNT, AUTOMATED; Value: 177; Range: 150-450; Units: k/mm3; Status: F Test: NEUTROPHILS %; Value: 65.8; Range: 36.0-66.0; Units: %; Status: F Test: LYMPH %; Value: 11.9; Range: 24.0-44.0; Abnormal: Below low normal; Units: %; Status: F Test: MONO %; Value: 13.2; Range: 0.0-5.0; Abnormal: Above high normal; Units: %; Status: F Test: EOS %; Value: 3.2; Range: 0.0-3.0; Abnormal: Above high normal; Units: %; Status: F Test: BASO %; Value: 1.3; Range: 0.0-1.0; Abnormal: Above high normal; Units: %; Status: F Test: LARGE UNSTAINED CELL %; Value: 4.6; Range: 0.0-4.0; Abnormal: Above high normal; Units: %; Status: F Test: NEUTROPHILS #; Value: 2.6; Range: 1.8-7.7; Units: K/mm3; Status: F Test: LYMPH #; Value: 0.5; Range: 1.5-4.5; Abnormal: Below low normal; Units: K/mm3; Status: F Test: MONO #; Value: 0.5; Range: 0.0-0.8; Units: K/mm3; Status: F Test: EOS #; Value: 0.1; Range: 0.0-0.50; Units: K/mm3; Status: F Test: BASO #; Value: 0.0; Range: 0.0-0.2; Units: K/mm3; Status: F Test: LARGE UNSTAINED CELL #; Value: 0.2; Range: 0.0-0.4; Units: K/mm3; Status: F Lab Order: TROPONIN; SPEC'M 03/02/16 06:33 Test: TROPONIN I; Value: < 0.02; Range: < 0.10; Units: NG/ML; Status: F Test Note: ; Troponin I Reference Interval for [employer] LOCI: 99th Percentile= 0.00-0.045 ng/ml Risk Stratification: <= 0.10 ng/ml Decreased Risk for Adverse Clinical Events. 0.10-1.50 ng/ml Increased Risk for Adverse Clinical Events. Evaluation of additional criterion and/or repeat testing in 2-6 hours is suggested to rule out myocardial damage. >= 1.50 ng/ml Indicative of Myocardial Injury. Lab Order: BASIC METABOLIC PROFILE; SPEC'M 03/02/16 06:33 Test: GLUCOSE, FASTING; Value: 90; Range: 83-110; Units: MG/DL; Status: F Test: BLOOD UREA NITROGEN; Value: 15; Range: 7-18; Units: MG/DL; Status: F Test: CREATININE FOR GFR; Value: 0.87; Range: 0.55-1.02; Units: MG/DL; Status: F Test: GLOMERULAR FILTRATION RATE; Value: > 60.0; Range: >39; Status: F Test: SODIUM LEVEL; Value: 143; Range: 136-145; Units: MEQ/L; Status: F Test: POTASSIUM SERUM; Value: 3.9; Range: 3.5-5.1; Units: MEQ/L; Status: F Test: CHLORIDE LEVEL; Value: 111; Range: 98-107; Abnormal: Above high normal; Units: MEQ/L; Status: F Test: CARBON DIOXIDE LEVEL; Value: 25; Range: 21-32; Units: MEQ/L; Status: F Test: ANION GAP; Value: 7; Range: 8-16; Abnormal: Below low normal; Units: MEQ/L; Status: F Test: CALCIUM LEVEL; Value: 8.7; Range: 8.8-10.2; Abnormal: Below low normal; Units: MG/DL; Status: F Test Note: ; Units are mL/min/1.73 m2 Chronic Kidney Disease Staging per NKF: Stage I & II GFR >=60 Normal to Mildly Decreased Stage III GFR 30-59 Moderately Decreased Stage IV GFR 15-29 Severely Decreased Stage V GFR <15 Very Little GFR Left ESRD GFR <15 on FIRE SPRINKLER FITTER Radiology Order: Chest, 1 View Test: Chest, 1 View REASON FOR EXAMINATION: Chest Pain; AP portable chest: 03/01/2016.; ; Clinical history: Chest pain.; ; Comparison: 02/11/2016, CT chest 02/08/2016.; ; Findings: Mild cardiomegaly with left ventricular configuration of the heart; noted. There is a single lead pacer over the left upper chest with lead; terminating in the right ventricle. The aorta is mildly tortuous, but normal for; age. Airway is intact. Appears to be some venous hypertension, developed since; the previous study. I see no macho edema, pleural effusion or dense; consolidation. Some underlying minor fibrotic changes noted. No abnormal; widening of the mediastinum. Bones demineralized.; ; No free air under the diaphragm.; ; Impression:; ; 1. Some mild cardiomegaly with single lead pacer, but with new mild venous; hypertension now present. No pleural effusion, macho edema or dense; consolidation.; ; ; ; ; Signed by; Elier White MD 03/01/2016 08:06 P; Radiology Order: CT ABD & PELVIS: IV Contrast Only Test: CT ABD & PELVIS: IV Contrast Only REASON FOR EXAMINATION: Abdomen Pain; ; CLINICAL HISTORY: Abdominal pain.; TECHNIQUE: Multiple axial CT images were obtained through the abdomen and pelvis after administration; of intravenous contrast material.; COMMENTS:; Comparison is made with the prior study dated 02/08/16.; The liver is markedly lobulated compatible with cirrhosis. There is no intra or extrahepatic biliary; ductal dilatation. There is evidence of wedge shaped area of hypoenhancement in the mid spleen; compatible with infarct. Status post cholecystectomy. The pancreas is of normal contour and; attenuation characteristics. There is no evidence of adrenal mass. Small hiatal hernia is present.; Both kidneys demonstrate prompt and equal nephrograms. The kidneys are normal in size, shape; and configuration. There is no evidence of renal or ureteral mass. No renal or ureteral calculi are; identified. There is no hydroureter or hydronephrosis.; There is no evidence for appendicitis. Diffuse colonic diverticulosis is present. No; evidence for small or large bowel obstruction. There is no evidence of abdominal lymphadenopathy.; Small amount of perihepatic ascites is seen. Moderate amount of feces is present in the left colon; suggesting constipation. There are marked esophageal varices is present compatible with portal; hypertension. There is markedly dilated and tortuous recanalized paraumbilical vein. This is also; seen in the setting of cirrhosis. Multiple small mesenteric lymph nodes are seen.; There is no evidence of intrinsic or extrinsic bladder mass.; Images of the lung bases show no evidence of pleural or parenchymal mass. There are no pleural; effusions. Left pleural based calcifications are present suggesting remote asbestos exposure.; The bony structures are free of lytic or blastic lesions. Multilevel degenerative changes; are seen involving the thoracolumbar spine.; Scattered calcifications are seen involving the aorta and major branches compatible with; atherosclerosis.; IMPRESSION:; 1. There is evidence of wedge shaped area of hypoenhancement over the mid spleen compatible with; infarct.; 2. The liver is markedly lobulated compatible with cirrhosis.Small amount of perihepatic ascites is; seen.; 3. Signs of portal hypertension.; 4. Enteritis has resolved since the prior study. Otherwise no interval change.; ; ; Radiology Order: CT Chest Angio R/O PE Test: CT Chest Angio R/O PE REASON FOR EXAMINATION: Chest Pain; ; CLINICAL HISTORY: Chest pain, exclude PE.; TECHNIQUE: Multiple incremental axial, coronal and oblique images are obtained from the thoracic inle; t to the upper abdomen. Intravenous contrast material was administered as per pulmonary embolism prot; ocol.; COMMENTS:; Dual lead pacemaker is noted in the left chest wall.; Scattered left pleural based calcifications seen, please correlate clinically to exclude asbestos exp; osure.; There is excellent opacification of pulmonary arterial system without evidence for pulmonary embolism; . Aorta is of normal caliber without evidence for dissection or aneurysm.; There is no evidence of pleural or parenchymal mass. There are no pleural effusions. There is no evid; ence of hilar or mediastinal lymphadenopathy. The heart and great vessels are within normal limits.; The bony structures are free of lytic or blastic lesions. Multilevel degenerative changes are seen in; volving the visualized thoracolumbar spine.; Scattered calcifications are seen involving the aorta and major branches compatible with atherosclero; sis.; IMPRESSION:; No evidence for pulmonary embolism.; Scattered left pleural based calcifications seen, please correlate clinically to exclude asbestos exp; osure.; Thank you for your kind referral of this patient.; ; Outcome: 03/01 22:02 Decision to Hospitalize by Provider. fg 03/02 15:08 Patient left the ED. srm Signatures: Dispatcher [employer] EDMS Dalton Dove MD MD ml Lelia Silva RN RN srm Tomasa Shepherd RN RN mcp Zecher, Calvin, Lucia Santamaria RN, Evert Conn RN RN mlb1 Saji Garces, Resin Painter Unit ml3 Ken Osborn Destiny, EMPLOYMENT SERVICE SPECIALIST EMPLOYMENT SERVICE SPECIALIST yobany Natalie Cagle cmb Riana Howard, EMPLOYMENT SERVICE SPECIALIST EMPLOYMENT SERVICE SPECIALIST Maegan Arzate,RN RN Mary Joyner, EMPLOYMENT SERVICE SPECIALIST EMPLOYMENT SERVICE SPECIALIST rs6 Debi Duncan,RN RN af2 Darcy Cortez MD MD fg Nichols, Crystal, EMPLOYMENT SERVICE SPECIALIST EMPLOYMENT SERVICE SPECIALIST cln MTDD
[2016-03-03] MEDS ORDERED: SLF 3 ML SYR IV PRN (01:00)
[2016-03-03 01:18] VITALS: BP 115/66
[2016-03-03 04:45] VITALS: BP 103/54
[2016-03-03 05:35] LABS: MEAN CORPUSCULAR HEMOGLOBIN 24.8 pg (27.0-33.0); MEAN CORPUSCULAR HGB CONC 30.9 g/dl (32.0-36.5); MEAN CORPUSCULAR VOLUME 80.1 fl (80.0-96.0); PLATELET COUNT, AUTOMATED 166 k/mm3 (150-450); RED CELL DISTRIBUTION WIDTH 17.4 % (11.5-14.5); WHITE BLOOD COUNT 3.5 K/mm3 (4.0-10.0)
[2016-03-03 05:41] LABS: CALCIUM LEVEL 8.8 MG/DL (8.8-10.2); CREATININE FOR GFR 1.08 MG/DL (0.55-1.02); GLOMERULAR FILTRATION RATE 52.9 (>39); POTASSIUM SERUM 4.2 MEQ/L (3.5-5.1)
[2016-03-03 06:04] LABS: ANISOCYTOSIS 2+; BASOPHILS 4 % (0-4); EOSINOPHILS 3 % (0-5); HYPOCHROMASIA 2+
[2016-03-03 06:05] LABS: OVALOCYTES 1+
[2016-03-03] MEDS: SLF 3 ML SYR IV SCH ×3 (06:07→20:28)
[2016-03-03] MEDS: SUCRALFATE 1 GM TAB PO SCH ×4 (07:41→20:27)
[2016-03-03 07:56] VITALS: BP 104/56
[2016-03-03] MEDS ORDERED: NS 1,000 ML IV SCH (08:15)
--- NOTE | 2016-03-03 08:26 | ECGEPIP ---
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
--- NOTE | 2016-03-03 08:26 | ECGEPIP ---
Stationary ECG Study [facility] - ED Test Date: 2016-03-01 Pat Name: CONCEPCION GERMAIN Department: Room: [place] [address] Gender: F Office Helper: caro : 1940 Requested By: Dalton Dove Order Number: [id number] Reading MD: Darwin Correa Measurements Intervals [place] Rate: 69 P: IN: 0 QRS: 12 QRSD: 78 T: -29 QT: 390 QTc: 420 Interpretive Statements ATRIAL FIBRILLATION NONSPECIFIC ST & T-WAVE ABNORMALITY Electronically Signed On 03-03-2016 8:26:10 EST by Darwin Correa
[2016-03-03] MEDS: ATENOLOL 25 MG TAB PO SCH (09:40)
[2016-03-03] MEDS: FERROUS SULFATE 325MG TAB PO SCH (09:40)
[2016-03-03] MEDS: DIGOXIN 0.125 MG TAB PO SCH (09:40)
[2016-03-03] MEDS: PANTOPRAZOLE 40MG TAB (PROTONIX) PO SCH ×2 (09:40→20:27)
[2016-03-03] MEDS: SENOKOT S TAB PO SCH ×2 (09:40→20:27)
--- NOTE | 2016-03-03 09:50 | ECGEPIP ---
Stationary ECG Study [facility] Test Date: 2016-03-02 Pat Name: CONCEPCION GERMAIN Department: Room: [place] [address] Gender: F Police Detention Attendant: BAYLEE : 1940 Requested By: CHAS Byrnes Order Number: [id number] Reading MD: Emmanuel Robertson Measurements Intervals [place] Rate: 64 P: CT: 0 QRS: 5 QRSD: 85 T: -26 QT: 416 QTc: 429 Interpretive Statements Atrial fibrillation Low limb lead volatges ELECTRONIC VENTRICULAR PACEMAKER -- CONTOUR ANALYSIS BASED ON INTRINSIC RHYTHM Nonspecific ST-T wave abnormalities Similar to previous tracing from 03-01-16 Electronically Signed On 03-03-2016 9:50:02 EST by Emmanuel Robertson
[2016-03-03 12:00] VITALS: BP 106/53
--- NOTE | 2016-03-03 14:44 | IPNPDOC ---
Assessment/Plan Date Seen The patient was seen on 03/03/16. Plan / VTE VTE Prophylaxis Ordered?: Yes Plan Plan Text 1. Chest pain. Patient states that her chest pain has been chronic over the last 2+ years localized to the superficial musculoskeletal region around the pacemaker insertion site and reproducible on palpation She describes the pain as discomfort and "pinching sensation." EKG with no acute ST changes Troponin negative 3 CTA negative for pulmonary embolism Patient states that her chest pain has resolved at this time Continue to monitor on telemetry. Acute Kidney Injury Serum Creat 1.08 today (Baseline 0.8-0.9) Will hold nephrotoxins IVF Hydration Repeat BMP in the AM 2. Tachy-eugenia syndrome, status post pacemaker placement in 11/[address] Alcaraz Continue atenolol 3. Atrial fibrillation Not a candidate for anticoagulation given history of esophageal varices, splenic infarct Continue digoxin, level is therapeutic. 4. Liver cirrhosis and portal hypertension Cont Lasix, Aldactone 5. Iron deficiency anemia. Continue iron supplementation. 6. Diastolic heart failure. Currently appears to be compensated. 7. Gastroesophageal reflux disease (GERD). Continue home dose Protonix and Carafate. 8. Deep venous thrombosis (DVT) prophylaxis. SCDs Subjective Review of Systems CC/HPI The patient is a 75-year-old female admitted with a reason for visit of Chest Pain. General: Denies: Chills, Night Sweats Constitutional: Denies: Chills, Fever Eyes: Denies: Pain, Vision change ENT: Denies: Ear Pain, Head Aches Skin: Denies: Lesions, Rash Pulmonary: Denies: Cough, Dyspnea Cardiovascular: Denies: Orthopnea, Palpitations Gastrointestinal: Denies: Abdominal Pain, Nausea, Vomiting Hematologic: Denies: Bleeding Excessively, Bruising Objective Physical Examination General Exam: Positive: Alert, Cooperative, No Acute Distress ENT Exam: Positive: Atraumatic, Mucous membr. moist/pink Chest Exam: Positive: Clear to auscultation, Normal air movement Heart Exam: Positive: Normal S1, Normal S2, Rate Normal Abdomen Exam: Positive: Soft, Negative: Tenderness Extremity Exam: Negative: Edema, Swelling, Tenderness Vital Signs/I&O Vital Signs Date Time Temp Pulse Resp B/P Pulse Ox O2 Delivery O2 Flow Rate FiO2 03/03/16 12:00 96.8 67 18 106/53 99 Room Air I&O- Last 24 Hours up to 6 AM 03/03/16 05:59 Intake Total 1560 ml Output Total 1625 ml Balance -65 ml Laboratory Data Labs 24H Laboratory Tests 2 03/03/16 05:07: Anion Gap 9, Anisocytosis 2+, White Blood Count 3.5L, Red Blood Count 4.13, Hemoglobin 10.2L, Hematocrit 33.0L, Mean Corpuscular Volume 80.1, Mean Corpuscular Hemoglobin 24.8L, Mean Corpuscular Hemoglobin Concent 30.9L, Red Cell Distribution Width 17.4H, Platelet Count 166, Neutrophils (%) (Auto) , Lymphocytes (%) (Auto) , Monocytes (%) (Auto) , Eosinophils (%) (Auto) , Basophils (%) (Auto) , Neutrophils # (Auto) , Lymphocytes # (Auto) , Monocytes # (Auto) , Eosinophils # (Auto) , Basophils # (Auto) , Basophils (Manual) 4, Blood Urea Nitrogen 17, Creatinine 1.08H, Sodium Level 141, Potassium Level 4.2 , Chloride Level 106, Carbon Dioxide Level 26, Calcium Level 8.8, Eosinophils ( Manual) 3, Glomerular Filtration Rate 52.9, Hypochromasia 2+, Large Unclassified Cells # , Large Unclassified Cells % , Lymphocytes (Manual) 12L, Monocytes (Manual) 8, Neutrophils 73, Ovalocytes 1+, Platelet Estimate NORMAL CBC/BMP Laboratory Tests 03/03/16 05:07 Calcium Level 8.8, Red Blood Count 4.13, Mean Corpuscular Volume 80.1, Mean Corpuscular Hemoglobin 24.8 L, Mean Corpuscular Hemoglobin Concent 30.9 L, Red Cell Distribution Width 17.4 H, Neutrophils (%) (Auto) , Lymphocytes (%) (Auto) , Monocytes (%) (Auto) , Eosinophils (%) (Auto) , Basophils (%) (Auto) , Neutrophils # (Auto) , Lymphocytes # (Auto) , Monocytes # (Auto) , Eosinophils # (Auto) , Basophils # (Auto) JOAN BOWLING MD Mar 03, 2016 14:44
[2016-03-03 15:59] VITALS: BP 102/54
[2016-03-03 20:00] VITALS: BP 116/54
[2016-03-04] VITALS (7 sets, daily range): BP systolic 98–136; BP diastolic 51–74
[2016-03-04 05:33] LABS: BASO % 0.7 % (0.0-1.0); EOS # 0.1 K/mm3 (0.0-0.50); EOS % 2.9 % (0.0-3.0); LARGE UNSTAINED CELL # 0.2 K/mm3 (0.0-0.4); LARGE UNSTAINED CELL % 4.3 % (0.0-4.0); LYMPH # 0.7 K/mm3 (1.5-4.5); LYMPH % 16.1 % (24.0-44.0); MEAN CORPUSCULAR HEMOGLOBIN 25.4 pg (27.0-33.0); MEAN CORPUSCULAR HGB CONC 30.7 g/dl (32.0-36.5); MEAN CORPUSCULAR VOLUME 82.6 fl (80.0-96.0); MONO # 0.6 K/mm3 (0.0-0.8); MONO % 13.2 % (0.0-5.0); NEUTROPHILS # 2.6 K/mm3 (1.8-7.7); NEUTROPHILS % 62.8 % (36.0-66.0); PLATELET COUNT, AUTOMATED 152 k/mm3 (150-450); WHITE BLOOD COUNT 4.2 K/mm3 (4.0-10.0)
[2016-03-04 05:42] LABS: ANION GAP 7 MEQ/L (8-16); BLOOD UREA NITROGEN 14 MG/DL (7-18); CALCIUM LEVEL 8.5 MG/DL (8.8-10.2); CARBON DIOXIDE LEVEL 25 MEQ/L (21-32); CHLORIDE LEVEL 111 MEQ/L (98-107); CREATININE FOR GFR 0.85 MG/DL (0.55-1.02); GLOMERULAR FILTRATION RATE > 60.0 (>39); GLUCOSE, FASTING 87 MG/DL (83-110); POTASSIUM SERUM 4.1 MEQ/L (3.5-5.1); SODIUM LEVEL 143 MEQ/L (136-145)
[2016-03-04] MEDS: SLF 3 ML SYR IV SCH ×3 (06:37→21:39)
[2016-03-04] MEDS: DIGOXIN 0.125 MG TAB PO SCH (08:07)
[2016-03-04] MEDS: PANTOPRAZOLE 40MG TAB (PROTONIX) PO SCH ×2 (08:07→21:40)
[2016-03-04] MEDS: SENOKOT S TAB PO SCH ×2 (08:07→21:00)
[2016-03-04] MEDS: FERROUS SULFATE 325MG TAB PO SCH (08:07)
[2016-03-04] MEDS: SUCRALFATE 1 GM TAB PO SCH ×5 (08:07→21:40)
[2016-03-04] MEDS: ATENOLOL 50 MG TAB PO SCH ×2 (09:00→21:00)
[2016-03-04] MEDS: FUROSEMIDE 20 MG TAB PO SCH ×2 (10:15→10:33)
[2016-03-04] MEDS: SPIRONOLACTONE 25 MG TAB PO SCH ×3 (10:15→21:00)
[2016-03-04] MEDS: ATENOLOL 25 MG TAB PO SCH (10:16)
[2016-03-04] MEDS ORDERED: MOM 30ML SUSPENSION UDC PO PRN (11:15)
--- NOTE | 2016-03-04 11:38 | IPNPDOC ---
Assessment/Plan Date Seen The patient was seen on 03/04/16. Plan / VTE VTE Prophylaxis Ordered?: Yes Plan Plan Text 1. Chest pain. Patient states that her chest pain has been chronic over the last 2+ years localized to the superficial musculoskeletal region around the pacemaker insertion site and reproducible on palpation She describes the pain as discomfort and "pinching sensation." EKG with no acute ST changes Troponin negative 3 CTA negative for pulmonary embolism The patient was scheduled to be discharged home this morning, however she developed atrial fibrillation with rapid ventricular rate upon walking. However , she had not taken her atenolol dose this morning. I did reach out to Dr. 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 We will continue to monitor her at this time Acute Kidney Injury, resolved Serum Creatinine back to baseline 2. Tachy-eugenia syndrome, status post pacemaker placement in 11/[address] Alcaraz Continue atenolol 3. Atrial fibrillation Not a candidate for anticoagulation given history of esophageal varices, splenic infarct Continue digoxin, level is therapeutic. 4. Liver cirrhosis and portal hypertension Cont Lasix, Aldactone 5. Iron deficiency anemia. Continue iron supplementation. 6. Diastolic heart failure. Currently appears to be compensated. 7. Gastroesophageal reflux disease (GERD). Continue home dose Protonix and Carafate. 8. Deep venous thrombosis (DVT) prophylaxis. SCDs Subjective Review of Systems CC/HPI The patient is a 75-year-old female admitted with a reason for visit of Chest Pain. General: Denies: Chills, Night Sweats Constitutional: Denies: Chills, Fever Eyes: Denies: Pain, Vision change ENT: Denies: Ear Pain, Head Aches Skin: Denies: Lesions, Rash Pulmonary: Denies: Cough, Dyspnea Cardiovascular: Reports: Chest Pain, Denies: Palpitations Gastrointestinal: Denies: Abdominal Pain, Nausea, Vomiting Hematologic: Denies: Bleeding Excessively, Bruising Objective Physical Examination General Exam: Positive: Alert, Cooperative, No Acute Distress ENT Exam: Positive: Atraumatic, Mucous membr. moist/pink Chest Exam: Positive: Clear to auscultation, Normal air movement Heart Exam: Positive: Normal S1, Normal S2 Telemetry: Positive: Atrial fibrillation Abdomen Exam: Positive: Soft, Negative: Tenderness Extremity Exam: Negative: Edema, Swelling, Tenderness Vital Signs/I&O Vital Signs Date Time Temp Pulse Resp B/P Pulse Ox O2 Delivery O2 Flow Rate FiO2 03/04/16 10:16 92 98/56 03/04/16 08:14 Room Air 03/04/16 08:03 96.9 18 98 03/04/16 00:00 I&O- Last 24 Hours up to 6 AM 03/04/16 05:59 Intake Total 1415 ml Output Total 500 ml Balance 915 ml Laboratory Data Labs 24H Laboratory Tests 2 03/04/16 04:47: Anion Gap 7L, White Blood Count 4.2, Red Blood Count 3.73L, Hemoglobin 9.5L, Hematocrit 30.8L, Mean Corpuscular Volume 82.6, Mean Corpuscular Hemoglobin 25.4L, Mean Corpuscular Hemoglobin Concent 30.7L, Red Cell Distribution Width 16.0H, Platelet Count 152, Neutrophils (%) (Auto) 62.8, Lymphocytes (%) (Auto) 16.1L, Monocytes (%) (Auto) 13.2H, Eosinophils (%) (Auto) 2.9, Basophils (%) ( Auto) 0.7, Neutrophils # (Auto) 2.6, Lymphocytes # (Auto) 0.7L, Monocytes # ( Auto) 0.6, Eosinophils # (Auto) 0.1, Basophils # (Auto) 0.0, Blood Urea Nitrogen 14, Creatinine 0.85, Sodium Level 143, Potassium Level 4.1, Chloride Level 111H, Carbon Dioxide Level 25, Calcium Level 8.5L, Glomerular Filtration Rate > 60.0, Large Unclassified Cells # 0.2, Large Unclassified Cells % 4.3H CBC/BMP Laboratory Tests 03/04/16 04:47 Calcium Level 8.5 L, Red Blood Count 3.73 L, Mean Corpuscular Volume 82.6, Mean Corpuscular Hemoglobin 25.4 L, Mean Corpuscular Hemoglobin Concent 30.7 L, Red Cell Distribution Width 16.0 H, Neutrophils (%) (Auto) 62.8, Lymphocytes (%) ( Auto) 16.1 L, Monocytes (%) (Auto) 13.2 H, Eosinophils (%) (Auto) 2.9, Basophils (%) (Auto) 0.7, Neutrophils # (Auto) 2.6, Lymphocytes # (Auto) 0.7 L, Monocytes # (Auto) 0.6, Eosinophils # (Auto) 0.1, Basophils # (Auto) 0.0 JOAN BOWLING MD Mar 04, 2016 11:38
[2016-03-04] MEDS ORDERED: LACTULOSE 20 GM/30 ML SYRUP UD PO PRN (12:30)
[2016-03-04] MEDS ORDERED: BISACODYL 10 MG SUPP PR PRN (14:45)
[2016-03-04] MEDS: ONDANSETRON 4MG/2ML VIAL (J2405) IV PRN (15:12)
--- NOTE | 2016-03-04 16:08 | EDDOCDS ---
Physician Documentation [facility] Name: Pilar Brown Age: 75 yrs Sex: Female : 1940 Arrival Date: 03/01/2016 Time: 17:26 Bed Admit Hold Private MD: Marina Disposition: 03/01/16 22:02 Hospitalization ordered by Kya Ling for Inpatient Admission. Preliminary diagnosis are Unstable angina, Abdominal and pelvic pain. - Bed requested for PCU. - Status is Inpatient Admission. srm - Condition is Stable. - Problem is new. - Symptoms have improved. Historical: - Allergies: Benadryl (hyper and shaky); Meperidine; PENICILLINS; SULFA (SULFONAMIDES); - Home Meds: 1. atenolol 25 mg oral tab once daily 2. ferrous sulfate 325 mg (65 mg iron) Oral cpER daily 3. tramadol 50 mg Oral tab every 8 hours as needed 4. digoxin 125 mcg Oral tab 1 tab once daily 5. furosemide 20 mg Oral tab 1 tab once daily 6. pantoprazole 40 mg oral tab 1 tab 2 times per day 7. Systane (PF) 0.4-0.3 % ophthalmic dpet twice a day 8. spironolactone 25 mg Oral tab 1 tab 2 times per day 9. Sucralfate Oral 10. sucralfate 1 gram Oral tab four times a day 11. dicyclomine 10 mg Oral cap before meals as needed - PMHx: Atrial Fib; Cataracts; c-diff; Cirrhosis; esophageal varicies; GERD; Depression; Hypertension; gi bleed; - PSHx: Cholecystectomy; Pacemaker Insertion; - Social history: Smoking status: Patient states was never smoker of tobacco. No barriers to communication noted, The patient speaks fluent Grenadian, Speaks appropriately for age. - Family history: Not pertinent. - : The pt / caregiver states he / she is not on anticoagulants. Home medication list is obtained from the patient. - Exposure Risk Screening:: None identified. Vital Signs: 03/01 17:28 BP 126 / 66; Pulse 79; Resp 18; Temp 96.4; Pulse Ox 100% ; Weight 68.49 kg / 150.99 cmb lbs; Height 5 ft. 6 in. (167.64 cm); Pain 5/10; 17:38 BP 141 / 62 (auto/); af2 17:42 Pulse 68 MON; Pulse Ox 100% ; af2 17:45 BP 132 / 63 (auto/); af2 17:46 Pulse 69 MON; Pulse Ox 100% ; af2 18:00 BP 114 / 55 (auto/); ead 18:01 Pulse 71 MON; Pulse Ox 100% ; ead 18:19 BP 114 / 56 (auto/); ead 18:20 Pulse 68 MON; Resp 18; Pulse Ox 100% on R/A; ead 18:34 BP 105 / 55 (auto/); af2 18:35 Pulse 67 MON; Pulse Ox 100% ; af2 18:49 BP 102 / 50 (auto/); af2 18:50 Pulse 65 MON; Pulse Ox 100% ; af2 19:19 BP 103 / 56 (auto/); af2 19:20 Pulse 75 MON; Pulse Ox 100% ; af2 19:48 BP 103 / 50 (auto/); af2 19:48 Pulse 69 MON; Pulse Ox 98% ; af2 20:19 BP 101 / 55 (auto/); af2 20:20 Pulse 70 MON; Pulse Ox 99% ; af2 20:48 BP 117 / 57 (auto/); af2 20:48 Pulse 72 MON; Pulse Ox 99% ; af2 21:19 BP 103 / 58 (auto/); af2 21:20 Pulse 72 MON; Pulse Ox 98% ; af2 21:48 BP 105 / 58 (auto/); af2 21:48 Pulse 68 MON; Pulse Ox 98% ; af2 17:28 Body Mass Index 24.37 (68.49 kg, 167.64 cm) cmb MDM: 17:34 ECG WITH READING ER PHYS+CARDIAG ordered. EDMS 17:58 IV Saline Lock ordered. ml 17:58 Medical Lab Technician/Pulse Ox/q 15 min VS ordered. ml 17:58 Rhythm Strip to chart ordered. ml 17:58 CBC with Diff Ordered. EDMS 17:58 MED Profile Ordered. EDMS 17:58 CIP Ordered. EDMS 17:58 Troponin Ordered. EDMS 17:58 Liver Profile Ordered. EDMS 17:58 Amylase Ordered. EDMS 17:58 Lipase Ordered. EDMS 17:58 Digoxin Level Ordered. EDMS 17:58 TSH with Free T4 Ordered. EDMS 18:00 Chest, 1 View Ordered. EDMS 19:00 CBC with Diff Reviewed. ml 19:00 MED Profile Reviewed. ml 19:00 Troponin Reviewed. ml 19:00 Amylase Reviewed. ml 19:00 Lipase Reviewed. ml 19:03 Repeat EKG (put time details section) ordered. ml 19:03 Redraw CIP &Troponin (put time in details section) ordered. ml 19:04 CT ABD & PELVIS: IV Contrast Only Ordered. EDMS 19:04 CT Chest Angio R/O PE Ordered. EDMS 19:05 Financial registration complete. zo 19:05 Redraw CIP &Troponin (put time in details section) complete. ml3 19:05 Repeat EKG (put time details section) complete. ml3 19:06 CARDIAC MARKER PANEL Ordered. EDMS 19:08 ECG WITH READING ER PHYS ordered. EDMS 19:11 [facility] Payment Agreement was scanned into [employer] and attached to record. zo 20:35 BED REQUEST+ADM ordered. EDMS 23:33 CBC WITH DIFFERENTIAL Ordered. EDMS 23:35 Admission / Observation Status ordered. EDMS 23:35 REGULAR DIET ordered. EDMS 23:35 TROPONIN Ordered. EDMS 23:36 PHYSICAL THERAPY EVAL & TREAT ordered. EDMS 23:37 OCCULT BLOOD STOOL SPECIMEN Ordered. EDMS 23:38 ELECTROCARDIOGRAM ADULT ordered. EDMS 03/02 04:05 BASIC METABOLIC PROFILE Ordered. EDMS 13:33 T-Sheet-- Draft Copy was scanned into [employer] and attached to record. gb 03/03 12:55 ECG/EKG was scanned into [employer] and attached to record. gb 13:38 Trend VS was scanned into [employer] and attached to record. gb 13:39 ECG/EKG was scanned into [employer] and attached to record. gb Signatures: Dispatcher [employer] EDNM Dalton Dove MD MD ml Lelia Silva, RN RN srm Bardariuszt, Lucia, Reg Reg gb Evert Fernandez RN RN mlb1 Saji Garces, Dynamiter Unit ml3 Ken Osborn Emily,RN RN Waleska Cai RN RN sls2 Darcy Cortez MD MD fg The chart was reviewed and I authenticate all verbal orders and agree with the evaluation and treatment provided.Corrections: (The following items were deleted from the chart) 03/02 04:05 03/01 23:33 BASIC METABOLIC PROFILE ordered. EDMS EDMS Attachments: 19:11 [facility] Payment Agreement zo 03/02 13:33 T-Sheet-- Draft Copy gb 03/03 12:55 ECG/EKG gb 13:39 ECG/EKG gb Chart Complete MTDD
--- NOTE | 2016-03-04 16:08 | EDDOCDS ---
Physician Documentation [facility] Name: Pilar Brown Age: 75 yrs Sex: Female : 1940 Arrival Date: 03/01/2016 Time: 17:26 Bed Admit Hold Private MD: Marina Disposition: 03/01/16 22:02 Hospitalization ordered by Kya Ling for Inpatient Admission. Preliminary diagnosis are Unstable angina, Abdominal and pelvic pain. - Bed requested for PCU. - Status is Inpatient Admission. srm - Condition is Stable. - Problem is new. - Symptoms have improved. Historical: - Allergies: Benadryl (hyper and shaky); Meperidine; PENICILLINS; SULFA (SULFONAMIDES); - Home Meds: 1. atenolol 25 mg oral tab once daily 2. ferrous sulfate 325 mg (65 mg iron) Oral cpER daily 3. tramadol 50 mg Oral tab every 8 hours as needed 4. digoxin 125 mcg Oral tab 1 tab once daily 5. furosemide 20 mg Oral tab 1 tab once daily 6. pantoprazole 40 mg oral tab 1 tab 2 times per day 7. Systane (PF) 0.4-0.3 % ophthalmic dpet twice a day 8. spironolactone 25 mg Oral tab 1 tab 2 times per day 9. Sucralfate Oral 10. sucralfate 1 gram Oral tab four times a day 11. dicyclomine 10 mg Oral cap before meals as needed - PMHx: Atrial Fib; Cataracts; c-diff; Cirrhosis; esophageal varicies; GERD; Depression; Hypertension; gi bleed; - PSHx: Cholecystectomy; Pacemaker Insertion; - Social history: Smoking status: Patient states was never smoker of tobacco. No barriers to communication noted, The patient speaks fluent Martiniquais, Speaks appropriately for age. - Family history: Not pertinent. - : The pt / caregiver states he / she is not on anticoagulants. Home medication list is obtained from the patient. - Exposure Risk Screening:: None identified. Vital Signs: 03/01 17:28 BP 126 / 66; Pulse 79; Resp 18; Temp 96.4; Pulse Ox 100% ; Weight 68.49 kg / 150.99 cmb lbs; Height 5 ft. 6 in. (167.64 cm); Pain 5/10; 17:38 BP 141 / 62 (auto/); af2 17:42 Pulse 68 MON; Pulse Ox 100% ; af2 17:45 BP 132 / 63 (auto/); af2 17:46 Pulse 69 MON; Pulse Ox 100% ; af2 18:00 BP 114 / 55 (auto/); ead 18:01 Pulse 71 MON; Pulse Ox 100% ; ead 18:19 BP 114 / 56 (auto/); ead 18:20 Pulse 68 MON; Resp 18; Pulse Ox 100% on R/A; ead 18:34 BP 105 / 55 (auto/); af2 18:35 Pulse 67 MON; Pulse Ox 100% ; af2 18:49 BP 102 / 50 (auto/); af2 18:50 Pulse 65 MON; Pulse Ox 100% ; af2 19:19 BP 103 / 56 (auto/); af2 19:20 Pulse 75 MON; Pulse Ox 100% ; af2 19:48 BP 103 / 50 (auto/); af2 19:48 Pulse 69 MON; Pulse Ox 98% ; af2 20:19 BP 101 / 55 (auto/); af2 20:20 Pulse 70 MON; Pulse Ox 99% ; af2 20:48 BP 117 / 57 (auto/); af2 20:48 Pulse 72 MON; Pulse Ox 99% ; af2 21:19 BP 103 / 58 (auto/); af2 21:20 Pulse 72 MON; Pulse Ox 98% ; af2 21:48 BP 105 / 58 (auto/); af2 21:48 Pulse 68 MON; Pulse Ox 98% ; af2 17:28 Body Mass Index 24.37 (68.49 kg, 167.64 cm) cmb MDM: 17:34 ECG WITH READING ER PHYS+CARDIAG ordered. EDMS 17:58 IV Saline Lock ordered. ml 17:58 Mopper/Pulse Ox/q 15 min VS ordered. ml 17:58 Rhythm Strip to chart ordered. ml 17:58 CBC with Diff Ordered. EDMS 17:58 MED Profile Ordered. EDMS 17:58 CIP Ordered. EDMS 17:58 Troponin Ordered. EDMS 17:58 Liver Profile Ordered. EDMS 17:58 Amylase Ordered. EDMS 17:58 Lipase Ordered. EDMS 17:58 Digoxin Level Ordered. EDMS 17:58 TSH with Free T4 Ordered. EDMS 18:00 Chest, 1 View Ordered. EDMS 19:00 CBC with Diff Reviewed. ml 19:00 MED Profile Reviewed. ml 19:00 Troponin Reviewed. ml 19:00 Amylase Reviewed. ml 19:00 Lipase Reviewed. ml 19:03 Repeat EKG (put time details section) ordered. ml 19:03 Redraw CIP &Troponin (put time in details section) ordered. ml 19:04 CT ABD & PELVIS: IV Contrast Only Ordered. EDMS 19:04 CT Chest Angio R/O PE Ordered. EDMS 19:05 Financial registration complete. zo 19:05 Redraw CIP &Troponin (put time in details section) complete. ml3 19:05 Repeat EKG (put time details section) complete. ml3 19:06 CARDIAC MARKER PANEL Ordered. EDMS 19:08 ECG WITH READING ER PHYS ordered. EDMS 19:11 [facility] [place] was scanned into [employer] and attached to record. zo 20:35 BED REQUEST+ADM ordered. EDMS 23:33 CBC WITH DIFFERENTIAL Ordered. EDMS 23:35 Admission / Observation Status ordered. EDMS 23:35 REGULAR DIET ordered. EDMS 23:35 TROPONIN Ordered. EDMS 23:36 PHYSICAL THERAPY EVAL & TREAT ordered. EDMS 23:37 OCCULT BLOOD STOOL SPECIMEN Ordered. EDMS 23:38 ELECTROCARDIOGRAM ADULT ordered. EDMS 03/02 04:05 BASIC METABOLIC PROFILE Ordered. EDMS 13:33 T-Sheet-- Draft Copy was scanned into [employer] and attached to record. gb 03/03 12:55 ECG/EKG was scanned into [employer] and attached to record. gb 13:38 Trend VS was scanned into [employer] and attached to record. gb 13:39 ECG/EKG was scanned into [employer] and attached to record. gb Signatures: Dispatcher [employer] EDND Dalton Dove MD MD ml Lelia Silva, RN RN srm Bardariuszt, Lucia, Reg Reg gb Evert Fernandez RN RN mlb1 Saji Garces, Teacher Unit ml3 Ken Osborn Emily,RN RN Waleska Cai RN RN sls2 Darcy Cortez MD MD fg The chart was reviewed and I authenticate all verbal orders and agree with the evaluation and treatment provided.Corrections: (The following items were deleted from the chart) 03/02 04:05 03/01 23:33 BASIC METABOLIC PROFILE ordered. EDMS EDMS Attachments: 19:11 [facility] Payment Agreement zo 03/02 13:33 T-Sheet-- Draft Copy gb 03/03 12:55 ECG/EKG gb 13:39 ECG/EKG gb Chart Complete MTDD
--- NOTE | 2016-03-04 16:08 | EDDOCDS ---
Nurse's Notes [facility] Name: Pilar Brown Age: 75 yrs Sex: Female : 1940 Arrival Date: 03/01/2016 Time: 17:26 Bed Admit Hold Private MD: Marina Diagnosis: Unstable angina;Abdominal and pelvic pain Presentation: 03/01 17:33 Presenting complaint: Patient states: Intermittent left anterior chest pain began mlb1 Sunday with SOB. Aspirin was not taken prior to arrival. Adult Sepsis Screening: The patient does not have new or worsening altered mentation. Patient's respiratory rate is less than 22. Systolic blood pressure is greater than 100. Patient has a qSOFA score of 0- Negative Sepsis Screen. Suicide/Homicide risk assessment- the patient denies having any suicidal and/or homicidal ideations and does not present with any other emotional, behavioral or mental health complaints. Status: Patient is not a community service aide or dependent. Transition of care: patient was not received from another setting of care. Red Flag criteria, patient assessed and taken directly to a bed. 17:33 Acuity: VICENTE Level 2 mlb1 17:33 Method Of Arrival: Walkin/Carried/Asstd mlb1 Triage Assessment: 17:39 General: Appears in no apparent distress, Behavior is anxious, cooperative. Pain: mlb1 Location: anterior aspect of left upper chest Pain currently is 4 out of 10 on a pain scale. Neurological: No deficits noted. Respiratory: Airway is patent Respiratory effort is even, unlabored. Historical: - Allergies: Benadryl (hyper and shaky); Meperidine; PENICILLINS; SULFA (SULFONAMIDES); - Home Meds: 1. atenolol 25 mg oral tab once daily 2. ferrous sulfate 325 mg (65 mg iron) Oral cpER daily 3. tramadol 50 mg Oral tab every 8 hours as needed 4. digoxin 125 mcg Oral tab 1 tab once daily 5. furosemide 20 mg Oral tab 1 tab once daily 6. pantoprazole 40 mg oral tab 1 tab 2 times per day 7. Systane (PF) 0.4-0.3 % ophthalmic dpet twice a day 8. spironolactone 25 mg Oral tab 1 tab 2 times per day 9. Sucralfate Oral 10. sucralfate 1 gram Oral tab four times a day 11. dicyclomine 10 mg Oral cap before meals as needed - PMHx: Atrial Fib; Cataracts; c-diff; Cirrhosis; esophageal varicies; GERD; Depression; Hypertension; gi bleed; - PSHx: Cholecystectomy; Pacemaker Insertion; - Social history: Smoking status: Patient states was never smoker of tobacco. No barriers to communication noted, The patient speaks fluent Luxembour[place], Speaks appropriately for age. - Family history: Not pertinent. - : The pt / caregiver states he / she is not on anticoagulants. Home medication list is obtained from the patient. - Exposure Risk Screening:: None identified. Screenin:10 Screening information is obtained from the patient, family members. Fall risk: No risks ead identified. Assistance ADL's: requires no assistance with activities of daily living. Nutritional screening: No deficits noted. Advance Directives: Currently, there is no health care proxy. There is no active DNR order. There is a living will, but a copy is not available at this time. There is an active Power of College Dean, Dheeraj Brown (son). information regarding advance directives can be obtained from Dheeraj Brown [phone]. home support is adequate. 18:42 Abuse/DV Screen: The patient / caregiver reports he/she is: not in a situation that ead causes fear, pain or injury. Assessment: 18:26 General: Appears in no apparent distress, Behavior is appropriate for age, cooperative. ead Pain: Location: anterior aspect of left upper chest Pain Quality of pain is described as pinching, Pain began 1 day ago. Neurological: Level of Consciousness is awake, alert, obeys commands, Oriented to person, place, time. Neurological: Denies dizziness. Cardiovascular: Rhythm is irregular. Cardiovascular:. Cardiovascular: Capillary refill < 3 seconds Heart tones S1 S2 present. Respiratory: Airway is patent Respiratory effort is even, unlabored, Reports shortness of breath on exertion. Respiratory: Breath sounds are clear bilaterally. GI: Denies nausea, vomiting, pain. Derm: Skin is pink, warm & dry. 19:13 General: Appears in no apparent distress, Behavior is appropriate for age, cooperative, af2 assumed care of pt at this time. pt assisted with ambulation to bathroom at this time. offers no further complaints. . Neurological: Level of Consciousness is awake, alert, obeys commands, Oriented to person, place, time. Cardiovascular: Capillary refill < 3 seconds in bilateral fingers Heart tones S1 S2 present Rhythm is irregular. Respiratory: Airway is patent Respiratory effort is even, unlabored, Breath sounds are clear bilaterally. Reports shortness of breath on exertion. Derm: Skin is pink, warm & dry. 19:38 General: pt transported down to CT at this time, tolerated procedure well. piv patent, af2 free of edema and erythema.. 20:30 General: Appears in no apparent distress, Behavior is appropriate for age, cooperative. af2 Neurological: Level of Consciousness is awake, alert, obeys commands, Oriented to person, place, time. Cardiovascular: Rhythm is irregular. Respiratory: Airway is patent Respiratory effort is even, unlabored. Derm: Skin is pink, warm & dry. 21:30 General: Appears in no apparent distress, Behavior is appropriate for age, cooperative. af2 Neurological: Level of Consciousness is awake, alert, obeys commands, Oriented to person, place, time. Cardiovascular: Rhythm is irregular. Respiratory: Airway is patent Respiratory effort is even, unlabored. Derm: Skin is pink, warm & dry. 21:45 General: Appears in no apparent distress, Behavior is cooperative, pt states she had an af2 episode of sharp chest pain that went away quickly. notified. . 22:45 General: Appears in no apparent distress, Behavior is appropriate for age, cooperative. af2 General: pt lying on stretcher resting quietly with eyes closed. . Neurological: Level of Consciousness is awake, alert, obeys commands. Cardiovascular: Rhythm is irregular. Respiratory: Airway is patent Respiratory effort is even, unlabored. Derm: Skin is pink, warm & dry. Vital Signs: 17:28 BP 126 / 66; Pulse 79; Resp 18; Temp 96.4; Pulse Ox 100% ; Weight 68.49 kg; Height 5 cmb ft. 6 in. (167.64 cm); Pain 5/10; 17:38 BP 141 / 62 (auto/); af2 17:42 Pulse 68 MON; Pulse Ox 100% ; af2 17:45 BP 132 / 63 (auto/); af2 17:46 Pulse 69 MON; Pulse Ox 100% ; af2 18:00 BP 114 / 55 (auto/); ead 18:01 Pulse 71 MON; Pulse Ox 100% ; ead 18:19 BP 114 / 56 (auto/); ead 18:20 Pulse 68 MON; Resp 18; Pulse Ox 100% on R/A; ead 18:34 BP 105 / 55 (auto/); af2 18:35 Pulse 67 MON; Pulse Ox 100% ; af2 18:49 BP 102 / 50 (auto/); af2 18:50 Pulse 65 MON; Pulse Ox 100% ; af2 19:19 BP 103 / 56 (auto/); af2 19:20 Pulse 75 MON; Pulse Ox 100% ; af2 19:48 BP 103 / 50 (auto/); af2 19:48 Pulse 69 MON; Pulse Ox 98% ; af2 20:19 BP 101 / 55 (auto/); af2 20:20 Pulse 70 MON; Pulse Ox 99% ; af2 20:48 BP 117 / 57 (auto/); af2 20:48 Pulse 72 MON; Pulse Ox 99% ; af2 21:19 BP 103 / 58 (auto/); af2 21:20 Pulse 72 MON; Pulse Ox 98% ; af2 21:48 BP 105 / 58 (auto/); af2 21:48 Pulse 68 MON; Pulse Ox 98% ; af2 17:28 Body Mass Index 24.37 (68.49 kg, 167.64 cm) [facility] Vitals: 17:28 Log In Time: March 01, 2016 at 17:26. [facility] ED Course: 17:28 Patient visited by Natalie Cagle. cmb 17:28 [facility] is Private Physician. cmb 17:28 Patient moved to Waiting cmb 17:30 Maegan Burgos,RN is Primary Nurse. cmb 17:30 Patient moved to 2 cmb 17:32 RN notified that patient meets Red Flag criteria. cmb 17:33 Patient visited by Evert Fernandez, RN. mlb1 17:34 Triage Initiated mlb1 17:40 Patient visited by Evert Fernandez, RN. mlb1 17:41 Dalton Dove MD is Attending Physician. ml 17:41 Patient visited by Dalton Dove MD. ml 17:43 Patient visited by Riana Howard PCA. jlf 17:43 EKG done. (by ED staff). Reviewed by Dalton Dove MD. jlf 18:11 The patient / caregiver is instructed regarding the plan of care and ED course. Cardiac ead monitor on. Pulse ox on. NIBP on. 18:15 Inserted saline lock: 20 gauge in left antecubital area and blood collected. The ead patient tolerated the procedure well. 18:26 Patient visited by Maegan Burgos,ANGELIKA. ead 18:29 Patient visited by Maegan Burgos RN. ead 19:11 [facility] [place] Payment Agreement was scanned into [employer] and attached to record. zo 19:12 Debi Duncan RN is Primary Nurse. af2 19:13 Patient visited by Debi Duncan RN. af2 19:14 Patient visited by Debi Duncan RN. af2 19:17 Attending Physician role handed off by Dalton Dove MD fg 19:17 Darcy Cortez MD is Attending Physician. fg 19:39 Patient visited by Debi Duncan RN. af2 20:24 Chest, 1 View Returned. EDMS 20:25 CT Chest Angio R/O PE Returned. EDMS 20:45 Patient visited by Yadi Álvarez PCA. yobany 21:31 CT ABD & PELVIS: IV Contrast Only Returned. EDMS 21:50 Patient visited by Debi Duncan RN. af2 21:54 Patient visited by Elif Joseph PCA. cln 21:54 EKG done. (by ED staff). Reviewed by Darcy Cortez MD. cln 21:56 Patient visited by Debi Duncan RN. af2 22:02 Kya Ling is Hospitalizing Provider. fg 22:07 Patient moved to Admit Hold cz 22:29 Patient moved to 7 cz 22:33 Patient moved to Admit Hold ml3 22:57 Primary Nurse role handed off by Maegan Burgos RN rs6 23:11 Patient visited by Debi Duncan RN. af2 23:32 CARDIAC MARKER PANEL Sent. cln 03/02 00:06 Patient moved to 21 cz 00:50 Patient visited by Debi Duncan RN. af2 02:43 Patient moved to Admit Hold cz 06:59 Primary Nurse role handed off by Debi Duncan RN mcp 13:33 T-Sheet-- Draft Copy was scanned into [employer] and attached to record. gb 03/03 12:55 ECG/EKG was scanned into [employer] and attached to record. gb 13:38 Trend VS was scanned into [employer] and attached to record. gb 13:39 ECG/EKG was scanned into [employer] and attached to record. gb Attachments: 13:38 Trend VS gb Order Results: Lab Order: CBC with Diff; SPEC'M 03/01/16 18:19 Test: WHITE BLOOD COUNT; Value: 4.2; Range: 4.0-10.0; Units: K/mm3; Status: F Test: RED BLOOD COUNT; Value: 4.21; Range: 4.00-5.40; Units: M/mm3; Status: F Test: HEMOGLOBIN; Value: 10.6; Range: 12.0-16.0; Abnormal: Below low normal; Units: g/dl; Status: F Test: HEMATOCRIT; Value: 34.6; Range: 36.0-47.0; Abnormal: Below low normal; Units: %; Status: F Test: MEAN CORPUSCULAR VOLUME; Value: 82.2; Range: 80.0-96.0; Units: fl; Status: F Test: MEAN CORPUSCULAR HEMOGLOBIN; Value: 25.2; Range: 27.0-33.0; Abnormal: Below low normal; Units: pg; Status: F Test: MEAN CORPUSCULAR HGB CONC; Value: 30.6; Range: 32.0-36.5; Abnormal: Below low normal; Units: g/dl; Status: F Test: RED CELL DISTRIBUTION WIDTH; Value: 15.8; Range: 11.5-14.5; Abnormal: Above high normal; Units: %; Status: F Test: PLATELET COUNT, AUTOMATED; Value: 208; Range: 150-450; Units: k/mm3; Status: F Test: NEUTROPHILS %; Value: 66.2; Range: 36.0-66.0; Abnormal: Above high normal; Units: %; Status: F Test: LYMPH %; Value: 13.0; Range: 24.0-44.0; Abnormal: Below low normal; Units: %; Status: F Test: MONO %; Value: 13.0; Range: 0.0-5.0; Abnormal: Above high normal; Units: %; Status: F Test: EOS %; Value: 2.2; Range: 0.0-3.0; Units: %; Status: F Test: BASO %; Value: 1.0; Range: 0.0-1.0; Units: %; Status: F Test: LARGE UNSTAINED CELL %; Value: 4.6; Range: 0.0-4.0; Abnormal: Above high normal; Units: %; Status: F Test: NEUTROPHILS #; Value: 2.8; Range: 1.8-7.7; Units: K/mm3; Status: F Test: LYMPH #; Value: 0.6; Range: 1.5-4.5; Abnormal: Below low normal; Units: K/mm3; Status: F Test: MONO #; Value: 0.6; Range: 0.0-0.8; Units: K/mm3; Status: F Test: EOS #; Value: 0.1; Range: 0.0-0.50; Units: K/mm3; Status: F Test: BASO #; Value: 0.0; Range: 0.0-0.2; Units: K/mm3; Status: F Test: LARGE UNSTAINED CELL #; Value: 0.2; Range: 0.0-0.4; Units: K/mm3; Status: F Lab Order: MED Profile; SPEC'M 03/01/16 18:19 Test: GLUCOSE, FASTING; Value: 94; Range: 83-110; Units: MG/DL; Status: F Test: BLOOD UREA NITROGEN; Value: 16; Range: 7-18; Units: MG/DL; Status: F Test: CREATININE FOR GFR; Value: 0.95; Range: 0.55-1.02; Units: MG/DL; Status: F Test: GLOMERULAR FILTRATION RATE; Value: > 60.0; Range: >39; Status: F Test: SODIUM LEVEL; Value: 141; Range: 136-145; Units: MEQ/L; Status: F Test: POTASSIUM SERUM; Value: 4.2; Range: 3.5-5.1; Units: MEQ/L; Status: F Test: CHLORIDE LEVEL; Value: 107; Range: 98-107; Units: MEQ/L; Status: F Test: CARBON DIOXIDE LEVEL; Value: 27; Range: 21-32; Units: MEQ/L; Status: F Test: ANION GAP; Value: 7; Range: 8-16; Abnormal: Below low normal; Units: MEQ/L; Status: F Test: CALCIUM LEVEL; Value: 9.0; Range: 8.8-10.2; Units: MG/DL; Status: F Test Note: ; Units are mL/min/1.73 m2 Chronic Kidney Disease Staging per NKF: Stage I & II GFR >=60 Normal to Mildly Decreased Stage III GFR 30-59 Moderately Decreased Stage IV GFR 15-29 Severely Decreased Stage V GFR <15 Very Little GFR Left ESRD GFR <15 on HOSTAGE NEGOTIATOR Lab Order: CIP; SPEC'M 03/01/16 18:19 Test: CPK CREATINE PHOSPHOKINASE; Value: 31; Range: 26-192; Units: U/L; Status: F Test: CK-MB VALUE MASS; Value: 1.2; Range: 0.0-3.6; Units: NG/ML; Status: F Test: MB/CK RELATIVE INDEX; Value: 3.87; Range: < OR =4; Status: F Test Note: ; DIAGNOSIS CRITERIA MMB ng/ml Relative Index (RI) NON-AMI < or = 5 N/A [place] > 5 < or = 4 AMI > 5 > 4 Lab Order: Troponin; SPEC'M 03/01/16 18:19 Test: TROPONIN I; Value: < 0.02; Range: < 0.10; Units: NG/ML; Status: F Test Note: ; Troponin I Reference Interval for [employer] LOCI: 99th Percentile= 0.00-0.045 ng/ml Risk Stratification: <= 0.10 ng/ml Decreased Risk for Adverse Clinical Events. 0.10-1.50 ng/ml Increased Risk for Adverse Clinical Events. Evaluation of additional criterion and/or repeat testing in 2-6 hours is suggested to rule out myocardial damage. >= 1.50 ng/ml Indicative of Myocardial Injury. Lab Order: Liver Profile; SPEC'M 03/01/16 18:19 Test: AST/SGOT; Value: 35; Range: 15-37; Units: U/L; Status: F Test: ALT/SGPT; Value: 29; Range: 12-78; Units: U/L; Status: F Test: ALKALINE PHOSPHATASE; Value: 157; Range: 45-117; Abnormal: Above high normal; Units: U/L; Status: F Test: BILIRUBIN,TOTAL; Value: 0.8; Range: 0.2-1.0; Units: MG/DL; Status: F Test: BILIRUBIN,DIRECT; Value: 0.3; Range: 0.0-0.2; Abnormal: Above high normal; Units: MG/DL; Status: F Test: TOTAL PROTEIN; Value: 6.7; Range: 6.4-8.2; Units: GM/DL; Status: F Test: ALBUMIN; Value: 3.3; Range: 3.2-5.2; Units: GM/DL; Status: F Test: ALBUMIN/GLOBULIN RATIO; Value: 0.97; Range: 1.00-1.93; Abnormal: Below low normal; Status: F Lab Order: Amylase; [facility] 03/01/16 18:19 Test: AMYLASE; Value: 44; Range: 25-115; Units: U/L; Status: F Lab Order: Lipase; [facility] 03/01/16 18:19 Test: LIPASE; Value: 262; Range: 73-393; Units: U/L; Status: F Lab Order: Digoxin Level; [facility] 03/01/16 18:19 Test: DIGOXIN LEVEL; Value: 0.6; Range: 0.5-2.0; Units: NG/ML; Status: F Lab Order: TSH with Free T4; [facility] 03/01/16 18:19 Test: THYROID STIMULATING HORMONE; Value: 2.090; Range: 0.358-3.740; Units: uIU/ML; Status: F Test: FREE T4; Value: 1.27; Range: 0.76-1.46; Units: NG/DL; Status: F Lab Order: CARDIAC MARKER PANEL; [facility] 03/01/16 23:31 Test: CPK CREATINE PHOSPHOKINASE; Value: 25; Range: 26-192; Abnormal: Below low normal; Units: U/L; Status: F Test: CK-MB VALUE MASS; Value: 1.0; Range: 0.0-3.6; Units: NG/ML; Status: F Test: MB/CK RELATIVE INDEX; Value: 4.00; Range: < OR =4; Status: F Test: TROPONIN I; Value: < 0.02; Range: < 0.10; Units: NG/ML; Status: F Test Note: ; DIAGNOSIS CRITERIA MMB ng/ml Relative Index (RI) NON-AMI < or = 5 N/A [place] > 5 < or = 4 AMI > 5 > 4 Lab Order: CBC WITH DIFFERENTIAL; SPEC'M 03/02/16 06:33 Test: WHITE BLOOD COUNT; Value: 3.9; Range: 4.0-10.0; Abnormal: Below low normal; Units: K/mm3; Status: F Test: RED BLOOD COUNT; Value: 4.07; Range: 4.00-5.40; Units: M/mm3; Status: F Test: HEMOGLOBIN; Value: 10.2; Range: 12.0-16.0; Abnormal: Below low normal; Units: g/dl; Status: F Test: HEMATOCRIT; Value: 33.3; Range: 36.0-47.0; Abnormal: Below low normal; Units: %; Status: F Test: MEAN CORPUSCULAR VOLUME; Value: 82.0; Range: 80.0-96.0; Units: fl; Status: F Test: MEAN CORPUSCULAR HEMOGLOBIN; Value: 25.0; Range: 27.0-33.0; Abnormal: Below low normal; Units: pg; Status: F Test: MEAN CORPUSCULAR HGB CONC; Value: 30.4; Range: 32.0-36.5; Abnormal: Below low normal; Units: g/dl; Status: F Test: RED CELL DISTRIBUTION WIDTH; Value: 16.0; Range: 11.5-14.5; Abnormal: Above high normal; Units: %; Status: F Test: PLATELET COUNT, AUTOMATED; Value: 177; Range: 150-450; Units: k/mm3; Status: F Test: NEUTROPHILS %; Value: 65.8; Range: 36.0-66.0; Units: %; Status: F Test: LYMPH %; Value: 11.9; Range: 24.0-44.0; Abnormal: Below low normal; Units: %; Status: F Test: MONO %; Value: 13.2; Range: 0.0-5.0; Abnormal: Above high normal; Units: %; Status: F Test: EOS %; Value: 3.2; Range: 0.0-3.0; Abnormal: Above high normal; Units: %; Status: F Test: BASO %; Value: 1.3; Range: 0.0-1.0; Abnormal: Above high normal; Units: %; Status: F Test: LARGE UNSTAINED CELL %; Value: 4.6; Range: 0.0-4.0; Abnormal: Above high normal; Units: %; Status: F Test: NEUTROPHILS #; Value: 2.6; Range: 1.8-7.7; Units: K/mm3; Status: F Test: LYMPH #; Value: 0.5; Range: 1.5-4.5; Abnormal: Below low normal; Units: K/mm3; Status: F Test: MONO #; Value: 0.5; Range: 0.0-0.8; Units: K/mm3; Status: F Test: EOS #; Value: 0.1; Range: 0.0-0.50; Units: K/mm3; Status: F Test: BASO #; Value: 0.0; Range: 0.0-0.2; Units: K/mm3; Status: F Test: LARGE UNSTAINED CELL #; Value: 0.2; Range: 0.0-0.4; Units: K/mm3; Status: F Lab Order: TROPONIN; SPEC'M 03/02/16 06:33 Test: TROPONIN I; Value: < 0.02; Range: < 0.10; Units: NG/ML; Status: F Test Note: ; Troponin I Reference Interval for [employer] LOCI: 99th Percentile= 0.00-0.045 ng/ml Risk Stratification: <= 0.10 ng/ml Decreased Risk for Adverse Clinical Events. 0.10-1.50 ng/ml Increased Risk for Adverse Clinical Events. Evaluation of additional criterion and/or repeat testing in 2-6 hours is suggested to rule out myocardial damage. >= 1.50 ng/ml Indicative of Myocardial Injury. Lab Order: BASIC METABOLIC PROFILE; SPEC'M 03/02/16 06:33 Test: GLUCOSE, FASTING; Value: 90; Range: 83-110; Units: MG/DL; Status: F Test: BLOOD UREA NITROGEN; Value: 15; Range: 7-18; Units: MG/DL; Status: F Test: CREATININE FOR GFR; Value: 0.87; Range: 0.55-1.02; Units: MG/DL; Status: F Test: GLOMERULAR FILTRATION RATE; Value: > 60.0; Range: >39; Status: F Test: SODIUM LEVEL; Value: 143; Range: 136-145; Units: MEQ/L; Status: F Test: POTASSIUM SERUM; Value: 3.9; Range: 3.5-5.1; Units: MEQ/L; Status: F Test: CHLORIDE LEVEL; Value: 111; Range: 98-107; Abnormal: Above high normal; Units: MEQ/L; Status: F Test: CARBON DIOXIDE LEVEL; Value: 25; Range: 21-32; Units: MEQ/L; Status: F Test: ANION GAP; Value: 7; Range: 8-16; Abnormal: Below low normal; Units: MEQ/L; Status: F Test: CALCIUM LEVEL; Value: 8.7; Range: 8.8-10.2; Abnormal: Below low normal; Units: MG/DL; Status: F Test Note: ; Units are mL/min/1.73 m2 Chronic Kidney Disease Staging per NKF: Stage I & II GFR >=60 Normal to Mildly Decreased Stage III GFR 30-59 Moderately Decreased Stage IV GFR 15-29 Severely Decreased Stage V GFR <15 Very Little GFR Left ESRD GFR <15 on HOSTAGE NEGOTIATOR Radiology Order: Chest, 1 View Test: Chest, 1 View REASON FOR EXAMINATION: Chest Pain; AP portable chest: 03/01/2016.; ; Clinical history: Chest pain.; ; Comparison: 02/11/2016, CT chest 02/08/2016.; ; Findings: Mild cardiomegaly with left ventricular configuration of the heart; noted. There is a single lead pacer over the left upper chest with lead; terminating in the right ventricle. The aorta is mildly tortuous, but normal for; age. Airway is intact. Appears to be some venous hypertension, developed since; the previous study. I see no macho edema, pleural effusion or dense; consolidation. Some underlying minor fibrotic changes noted. No abnormal; widening of the mediastinum. Bones demineralized.; ; No free air under the diaphragm.; ; Impression:; ; 1. Some mild cardiomegaly with single lead pacer, but with new mild venous; hypertension now present. No pleural effusion, macho edema or dense; consolidation.; ; ; ; ; Signed by; Elier White MD 03/01/2016 08:06 P; Radiology Order: CT ABD & PELVIS: IV Contrast Only Test: CT ABD & PELVIS: IV Contrast Only REASON FOR EXAMINATION: Abdomen Pain; ; CLINICAL HISTORY: Abdominal pain.; TECHNIQUE: Multiple axial CT images were obtained through the abdomen and pelvis after administration; of intravenous contrast material.; COMMENTS:; Comparison is made with the prior study dated 02/08/16.; The liver is markedly lobulated compatible with cirrhosis. There is no intra or extrahepatic biliary; ductal dilatation. There is evidence of wedge shaped area of hypoenhancement in the mid spleen; compatible with infarct. Status post cholecystectomy. The pancreas is of normal contour and; attenuation characteristics. There is no evidence of adrenal mass. Small hiatal hernia is present.; Both kidneys demonstrate prompt and equal nephrograms. The kidneys are normal in size, shape; and configuration. There is no evidence of renal or ureteral mass. No renal or ureteral calculi are; identified. There is no hydroureter or hydronephrosis.; There is no evidence for appendicitis. Diffuse colonic diverticulosis is present. No; evidence for small or large bowel obstruction. There is no evidence of abdominal lymphadenopathy.; Small amount of perihepatic ascites is seen. Moderate amount of feces is present in the left colon; suggesting constipation. There are marked esophageal varices is present compatible with portal; hypertension. There is markedly dilated and tortuous recanalized paraumbilical vein. This is also; seen in the setting of cirrhosis. Multiple small mesenteric lymph nodes are seen.; There is no evidence of intrinsic or extrinsic bladder mass.; Images of the lung bases show no evidence of pleural or parenchymal mass. There are no pleural; effusions. Left pleural based calcifications are present suggesting remote asbestos exposure.; The bony structures are free of lytic or blastic lesions. Multilevel degenerative changes; are seen involving the thoracolumbar spine.; Scattered calcifications are seen involving the aorta and major branches compatible with; atherosclerosis.; IMPRESSION:; 1. There is evidence of wedge shaped area of hypoenhancement over the mid spleen compatible with; infarct.; 2. The liver is markedly lobulated compatible with cirrhosis.Small amount of perihepatic ascites is; seen.; 3. Signs of portal hypertension.; 4. Enteritis has resolved since the prior study. Otherwise no interval change.; ; ; Radiology Order: CT Chest Angio R/O PE Test: CT Chest Angio R/O PE REASON FOR EXAMINATION: Chest Pain; ; CLINICAL HISTORY: Chest pain, exclude PE.; TECHNIQUE: Multiple incremental axial, coronal and oblique images are obtained from the thoracic inle; t to the upper abdomen. Intravenous contrast material was administered as per pulmonary embolism prot; ocol.; COMMENTS:; Dual lead pacemaker is noted in the left chest wall.; Scattered left pleural based calcifications seen, please correlate clinically to exclude asbestos exp; osure.; There is excellent opacification of pulmonary arterial system without evidence for pulmonary embolism; . Aorta is of normal caliber without evidence for dissection or aneurysm.; There is no evidence of pleural or parenchymal mass. There are no pleural effusions. There is no evid; ence of hilar or mediastinal lymphadenopathy. The heart and great vessels are within normal limits.; The bony structures are free of lytic or blastic lesions. Multilevel degenerative changes are seen in; volving the visualized thoracolumbar spine.; Scattered calcifications are seen involving the aorta and major branches compatible with atherosclero; sis.; IMPRESSION:; No evidence for pulmonary embolism.; Scattered left pleural based calcifications seen, please correlate clinically to exclude asbestos exp; osure.; Thank you for your kind referral of this patient.; ; Outcome: 03/01 22:02 Decision to Hospitalize by Provider. fg 03/02 15:08 Patient left the ED. srm Signatures: Dispatcher [employer] EDMS Dalton Dove MD MD ml Lelia Silva RN RN srm Tomasa Shepherd RN Samuel Medina mcp, Lucia Santamaria RN, Ulises Reg Evert Cheek RN RN mlb1 Saji Garces, [facility] ml3 Ken Osborn Destiny, PRODUCT DEVELOPMENT ENGINEER PRODUCT DEVELOPMENT ENGINEER aNtalie Rosas cmRiana Rabago, PRODUCT DEVELOPMENT ENGINEER PRODUCT DEVELOPMENT ENGINEER Maegan Arzate,RN RN Mary Joyner, PRODUCT DEVELOPMENT ENGINEER PRODUCT DEVELOPMENT ENGINEER rs6 Debi Duncan RN RN af2 Darcy Cortez MD MD fg Nichols, Crystal, PRODUCT DEVELOPMENT ENGINEER PRODUCT DEVELOPMENT ENGINEER cln Chart Complete MTDD
[2016-03-05] VITALS: BP 105/57
[2016-03-05 04:00] VITALS: BP 103/56
[2016-03-05 05:30] LABS: BASO % 0.8 % (0.0-1.0); EOS # 0.1 K/mm3 (0.0-0.50); EOS % 2.5 % (0.0-3.0); LARGE UNSTAINED CELL # 0.2 K/mm3 (0.0-0.4); LARGE UNSTAINED CELL % 5.3 % (0.0-4.0); LYMPH # 0.8 K/mm3 (1.5-4.5); LYMPH % 19.7 % (24.0-44.0); MEAN CORPUSCULAR HEMOGLOBIN 24.9 pg (27.0-33.0); MEAN CORPUSCULAR HGB CONC 30.1 g/dl (32.0-36.5); MEAN CORPUSCULAR VOLUME 82.6 fl (80.0-96.0); MONO # 0.6 K/mm3 (0.0-0.8); MONO % 13.7 % (0.0-5.0); NEUTROPHILS # 2.5 K/mm3 (1.8-7.7); NEUTROPHILS % 58.1 % (36.0-66.0); PLATELET COUNT, AUTOMATED 161 k/mm3 (150-450); RED CELL DISTRIBUTION WIDTH 16.2 % (11.5-14.5); WHITE BLOOD COUNT 4.2 K/mm3 (4.0-10.0)
[2016-03-05 05:41] LABS: ANION GAP 8 MEQ/L (8-16); BLOOD UREA NITROGEN 13 MG/DL (7-18); CALCIUM LEVEL 8.4 MG/DL (8.8-10.2); CARBON DIOXIDE LEVEL 25 MEQ/L (21-32); CHLORIDE LEVEL 110 MEQ/L (98-107); CREATININE FOR GFR 0.92 MG/DL (0.55-1.02); GLOMERULAR FILTRATION RATE > 60.0 (>39); GLUCOSE, FASTING 86 MG/DL (83-110); POTASSIUM SERUM 3.7 MEQ/L (3.5-5.1); SODIUM LEVEL 143 MEQ/L (136-145)
[2016-03-05] MEDS: SLF 3 ML SYR IV SCH (06:14)
[2016-03-05] MEDS: SUCRALFATE 1 GM TAB PO SCH (07:36)
[2016-03-05 08:00] VITALS: BP 108/56
[2016-03-05 08:51] VITALS: BP 108/56
[2016-03-05] MEDS: FUROSEMIDE 20 MG TAB PO SCH (08:51)
[2016-03-05] MEDS: SPIRONOLACTONE 25 MG TAB PO SCH (08:51)
[2016-03-05] MEDS: PANTOPRAZOLE 40MG TAB (PROTONIX) PO SCH (08:51)
[2016-03-05] MEDS: SENOKOT S TAB PO SCH (08:51)
[2016-03-05] MEDS: ATENOLOL 50 MG TAB PO SCH (08:51)
[2016-03-05] MEDS: DIGOXIN 0.125 MG TAB PO SCH (08:52)
[2016-03-05] MEDS: FERROUS SULFATE 325MG TAB PO SCH (08:52)
[2016-03-05] MEDS ORDERED: ATEN50TA2 PO (10:20)
--- NOTE | 2016-03-05 13:15 | DS.PDOC ---
Discharge Summary General Date of Admission Mar 01, 2016 at 23:29 Date of Discharge Mar 05, 2016 at 11:18 Discharge Summary PROCEDURES PERFORMED DURING STAY: None. COMPLICATIONS/CHIEF COMPLAINT: Chest Pain ADMISSION DIAGNOSES: 1. . Chest pain DISCHARGE DIAGNOSES: 1. . 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 The patient states that she was well up until 3- 4 days prior to her presentation to the ER when she started complaining of worsening chest pain. The patient states that the chest pain started when she was shoveling snow outside her home. She describes the pain as located in the left side of the chest, pinching in nature, and without radiation. She does state that the chest pain coincided with her atenolol dose being decreased from 50 mg twice a day to 25 mg once a day on her previous discharge. The patient denied any episodes of fevers, chills, syncopal episodes, orthopnea, paroxysmal nocturnal dyspnea, or any abdominal pain, nausea/vomiting/diarrhea. In the ER, the patient's EKG was without any acute changes. In addition, her troponin levels were within normal limits 3. The patient was monitored on telemetry and did not have any notable pauses. The patient's heart rate was noted to be elevated at one point upon ambulation, and the patient did express some chest pain associated with this. However, the patient did not receive her atenolol dose that morning. After administration of atenolol, the patient's heart rate has been well controlled and she has been without any complaints of chest pain. The patient's case was discussed with Dr. Gibbs, with whom she has followed in the past as an outpatient. At this time, there is no need for a pacemaker interrogation as there have been no pauses. We will change the patient back to her original dose of atenolol 50 mg twice a day as this has been adequately controlling her heart rate. In addition, I have advised the patient to check her blood pressure prior to administering her morning blood pressure medications, as she has been noted to be hypotensive at times in the past. I have advised her to follow-up with her primary care physician within one week-she does state that she has an appointment scheduled for this 03/09. Also, the patient has been advised to follow-up with Dr. Gibbs of cardiology within 1-2 weeks. DISCHARGE MEDICATIONS: Please see below. ALLERGIES: Please see below. PHYSICAL EXAMINATION ON DISCHARGE: VITAL SIGNS: Please see below. GENERAL: Awake, alert, oriented 3 in no acute distress HEENT: Normocephalic, atraumatic NECK: No JVD CARDIOVASCULAR EXAMINATION: Normal rate, normal S1, S2 RESPIRATORY EXAMINATION: Clear to auscultation bilaterally ABDOMINAL EXAMINATION: Soft, nontender, nondistended EXTREMITIES: No erythema, no tenderness, 2+ pitting edema in lower his bilaterally LABORATORY DATA: Please see below. IMAGING: CLINICAL HISTORY: Chest pain, exclude PE. TECHNIQUE: Multiple incremental axial, coronal and oblique images are obtained from the thoracic inlet to the upper abdomen. Intravenous contrast material was administered as per pulmonary embolism protocol. COMMENTS: Dual lead pacemaker is noted in the left chest wall. Scattered left pleural based calcifications seen, please correlate clinically to exclude asbestos exposure. There is excellent opacification of pulmonary arterial system without evidence for pulmonary embolism. Aorta is of normal caliber without evidence for dissection or aneurysm. There is no evidence of pleural or parenchymal mass. There are no pleural effusions. There is no evidence of hilar or mediastinal lymphadenopathy. The heart and great vessels are within normal limits. The bony structures are free of lytic or blastic lesions. Multilevel degenerative changes are seen involving the visualized thoracolumbar spine. Scattered calcifications are seen involving the aorta and major branches compatible with atherosclerosis. IMPRESSION: No evidence for pulmonary embolism. Scattered left pleural based calcifications seen, please correlate clinically to exclude asbestos exposure. Thank you for your kind referral of this patient. VTE Prophylaxis ordered?: Yes DISCHARGE CONDITION: Medically stable DISPOSITION: 01 Home, Self-Care ACTIVITY: As tolerated DIET: 2 g low sodium diet DISCHARGE PLAN AND INSTRUCTIONS: 1. . Follow-up with primary care physician with appointment scheduled for . 2. . Follow up with Dr. Gibbs of cardiology within the next 1-2 weeks 3. . TIME SPENT ON DISCHARGE: Greater than 30 minutes. Vital Signs/I&Os Vital Signs Date Time Temp Pulse Resp B/P Pulse Ox O2 Delivery O2 Flow Rate FiO2 03/05/16 08:52 77 03/05/16 08:51 108/56 03/05/16 08:00 96.3 18 98 Room Air 03/04/16 00:00 I&O- Last 24 Hours up to 6 AM 03/05/16 06:00 Intake Total 1140 ml Output Total 1500 ml Balance -360 ml Laboratory Data Labs 24H Laboratory Tests 2 03/05/16 04:42: Anion Gap 8, White Blood Count 4.2, Red Blood Count 3.79L, Hemoglobin 9.4L, Hematocrit 31.3L, Mean Corpuscular Volume 82.6, Mean Corpuscular Hemoglobin 24.9L, Mean Corpuscular Hemoglobin Concent 30.1L, Red Cell Distribution Width 16.2H, Platelet Count 161, Neutrophils (%) (Auto) 58.1, Lymphocytes (%) (Auto) 19.7L, Monocytes (%) (Auto) 13.7H, Eosinophils (%) (Auto) 2.5, Basophils (%) ( Auto) 0.8, Neutrophils # (Auto) 2.5, Lymphocytes # (Auto) 0.8L, Monocytes # ( Auto) 0.6, Eosinophils # (Auto) 0.1, Basophils # (Auto) 0.0, Blood Urea Nitrogen 13, Creatinine 0.92, Sodium Level 143, Potassium Level 3.7, Chloride Level 110H, Carbon Dioxide Level 25, Calcium Level 8.4L, Glomerular Filtration Rate > 60.0, Large Unclassified Cells # 0.2, Large Unclassified Cells % 5.3H CBC/BMP Laboratory Tests 03/05/16 04:42 Calcium Level 8.4 L, Red Blood Count 3.79 L, Mean Corpuscular Volume 82.6, Mean Corpuscular Hemoglobin 24.9 L, Mean Corpuscular Hemoglobin Concent 30.1 L, Red Cell Distribution Width 16.2 H, Neutrophils (%) (Auto) 58.1, Lymphocytes (%) ( Auto) 19.7 L, Monocytes (%) (Auto) 13.7 H, Eosinophils (%) (Auto) 2.5, Basophils (%) (Auto) 0.8, Neutrophils # (Auto) 2.5, Lymphocytes # (Auto) 0.8 L, Monocytes # (Auto) 0.6, Eosinophils # (Auto) 0.1, Basophils # (Auto) 0.0 Medications Scheduled Atenolol (Atenolol) 50 Mg Tab 50 MG PO BID Digoxin (Digoxin) 0.125 Mg Tab 0.125 MG PO DAILY Ferrous Sulfate (Ferrous Sulfate) 325 Mg Tab 325 MG PO DAILY Furosemide (Furosemide) 20 Mg Tab 20 MG PO DAILY Lactobacillus Acidophilus (Bacid) 1 Tab Tab 1 TAB PO DAILY Pantoprazole Sodium (Pantoprazole Sodium) 40 Mg Tab 40 MG PO BID Spironolactone (Spironolactone) 25 Mg Tab 25 MG PO BID Sucralfate (Sucralfate) 1 Gm Tab 1 GM PO ACHS Scheduled PRN Dicyclomine HCl (Dicyclomine HCl) 10 Mg Cap 10 MG PO AC PRN PRN ABDOMINAL PAIN Polyethylene Glycol (Systane 0.4-0.3 %) 15 Ml Meseret 1 DROP OU BID PRN PRN DRY EYES Tramadol HCl (Tramadol HCl) 50 Mg Tab 50 MG PO Q8H PRN PRN PAIN Allergies Coded Allergies: Meperidine (Verified Allergy, Unknown, 05/27/12) Penicillins (Verified Allergy, Unknown, 05/27/12) Penicillins Cross Reactors (Verified Allergy, Unknown, 05/27/12) Sulfa Drugs (Verified Allergy, Unknown, 05/27/12) Sulfa Drugs Cross Reactors (Verified Allergy, Unknown, 05/27/12) Diphenhydramine (Verified Adverse Reaction, Unknown, 11/19/14) JOAN BOWLING MD Mar 05, 2016 13:15
== END 2016-03-05 11:18 | disposition home or self-care (01) | DRG 313 ==
LOC: M ED 17:26 → M ED INP 23:29 → OBSVTOIN 23:29 → M PCU 03-02 15:10
PROVIDERS: ADMIT Internal Medicine Nephrology; ATTEND Internal Medicine
DX: R07.9 Chest pain, unspecified (principal); I50.32 Chronic diastolic (congestive) heart failure; K76.6 Portal hypertension; N17.9 Acute kidney failure, unspecified; R53.1 Weakness; I49.5 Sick sinus syndrome; K74.60 Unspecified cirrhosis of liver; D50.9 Iron deficiency anemia, unspecified; I48.91 Unspecified atrial fibrillation; K21.9 Gastro-esophageal reflux disease without esophagitis; Z95.0 Presence of cardiac pacemaker; Z90.710 Acquired absence of both cervix and uterus; Z90.49 Acquired absence of other specified parts of digestive tract; Z88.0 Allergy status to penicillin; Z88.2 Allergy status to sulfonamides; Z88.8 Allergy status to other drugs, medicaments and biological substances; Z82.49 Family history of ischemic heart disease and other diseases of the circulatory system

== ENCOUNTER → 2016-03-09 | Outpatient (REF) | payer MEDICARE ==
[~2016-03-09] MED LIST changes: +SUCR1TAB56 PO
== END ==
LOC: M LAB REF 16:53
PROVIDERS: ATTEND Family Medicine
DX: R30.0 Dysuria (principal)

== ENCOUNTER → 2016-04-03 | Outpatient (CLI) | payer MEDICARE ==
[2016-04-03 18:35] LABS: ALBUMIN 3.3 GM/DL (3.2-5.2); ALBUMIN/GLOBULIN RATIO 0.89 (1.00-1.93); BILIRUBIN,DIRECT 0.3 MG/DL (0.0-0.2); BILIRUBIN,TOTAL 0.8 MG/DL (0.2-1.0)
[2016-04-03 19:17] LABS: INR 1.14
[2016-04-03 19:26] LABS: BASO % 0.9 % (0.0-1.0); EOS # 0.1 K/mm3 (0.0-0.50); EOS % 2.1 % (0.0-3.0); LYMPH # 0.8 K/mm3 (1.5-4.5); LYMPH % 11.9 % (24.0-44.0); MEAN CORPUSCULAR HEMOGLOBIN 23.7 pg (27.0-33.0); MEAN CORPUSCULAR HGB CONC 28.1 g/dl (32.0-36.5); MEAN CORPUSCULAR VOLUME 84.3 fl (80.0-96.0); MONO # 0.7 K/mm3 (0.0-0.8); MONO % 13.1 % (0.0-5.0); NEUTROPHILS # 3.6 K/mm3 (1.8-7.7); NEUTROPHILS % 68.5 % (36.0-66.0); RED CELL DISTRIBUTION WIDTH 16.5 % (11.5-14.5); WHITE BLOOD COUNT 5.2 K/mm3 (4.0-10.0)
== END ==
LOC: M SMT 12:59
PROVIDERS: ATTEND Internal Medicine Gastroenterology
DX: K74.60 Unspecified cirrhosis of liver (principal); K31.819 Angiodysplasia of stomach and duodenum without bleeding; D50.0 Iron deficiency anemia secondary to blood loss (chronic)

== ENCOUNTER → 2016-04-03 | Outpatient (CLI) | payer MEDICARE ==
[~2016-04-03] MED LIST changes: +CELE10TA PO; +DIFI200T PO; +ERYT5OPO OU; +FERR32TA PO; +HYOS0.1248 PO; +HYOS0.1259 PO; +LASI20TA PO; +LASI40TA PO; +PROP10TA56 PO
[2016-04-03 18:39] LABS: ALBUMIN 3.4 GM/DL (3.2-5.2); ALBUMIN/GLOBULIN RATIO 0.94 (1.00-1.93); BILIRUBIN,TOTAL 0.9 MG/DL (0.2-1.0); CALCIUM LEVEL 8.9 MG/DL (8.8-10.2); CREATININE FOR GFR 1.02 MG/DL (0.55-1.02); GLOMERULAR FILTRATION RATE 56.6 (>39); POTASSIUM SERUM 4.4 MEQ/L (3.5-5.1)
[2016-04-03 19:31] LABS: BASO % 0.9 % (0.0-1.0); EOS # 0.1 K/mm3 (0.0-0.50); EOS % 2.1 % (0.0-3.0); LARGE UNSTAINED CELL # 0.2 K/mm3 (0.0-0.4); LARGE UNSTAINED CELL % 3.6 % (0.0-4.0); LYMPH # 0.8 K/mm3 (1.5-4.5); LYMPH % 11.9 % (24.0-44.0); MEAN CORPUSCULAR HEMOGLOBIN 23.7 pg (27.0-33.0); MEAN CORPUSCULAR HGB CONC 28.1 g/dl (32.0-36.5); MEAN CORPUSCULAR VOLUME 84.3 fl (80.0-96.0); MONO # 0.7 K/mm3 (0.0-0.8); MONO % 13.1 % (0.0-5.0); NEUTROPHILS # 3.6 K/mm3 (1.8-7.7); NEUTROPHILS % 68.5 % (36.0-66.0); PLATELET COUNT, AUTOMATED 210 k/mm3 (150-450); RED CELL DISTRIBUTION WIDTH 16.5 % (11.5-14.5); WHITE BLOOD COUNT 5.2 K/mm3 (4.0-10.0)
[2016-04-03 19:32] LABS: ADD MORPHOLOGY? YES
[2016-04-03 21:29] LABS: ACANTHOCYTES 1+; ANISOCYTOSIS 1+; OVALOCYTES 1+
[2016-04-03 21:30] LABS: HYPOCHROMASIA 2+
== END ==
LOC: M SMT 13:02
PROVIDERS: ATTEND Family Medicine
DX: I85.01 Esophageal varices with bleeding (principal)

== ENCOUNTER → 2016-05-04 | Outpatient (CLI) | payer MEDICARE ==
[~2016-05-04] MED LIST changes: -CELE10TA PO; -DIFI200T PO; -ERYT5OPO OU; -HYOS0.1248 PO; -HYOS0.1259 PO; -LASI20TA PO; -LASI40TA PO; -PROP10TA56 PO
[2016-05-04 18:50] LABS: ALBUMIN 3.3 GM/DL (3.2-5.2); ALKALINE PHOSPHATASE 116 U/L (45-117); ALT/SGPT 20 U/L (12-78); ANION GAP 9 MEQ/L (8-16); AST/SGOT 32 U/L (15-37); BILIRUBIN,TOTAL 0.9 MG/DL (0.2-1.0); BLOOD UREA NITROGEN 14 MG/DL (7-18); CALCIUM LEVEL 8.8 MG/DL (8.8-10.2); CARBON DIOXIDE LEVEL 27 MEQ/L (21-32); CHLORIDE LEVEL 106 MEQ/L (98-107); CREATININE FOR GFR 0.95 MG/DL (0.55-1.02); GLOMERULAR FILTRATION RATE > 60.0 (>39); GLUCOSE, FASTING 118 MG/DL (83-110); SODIUM LEVEL 142 MEQ/L (136-145); TOTAL PROTEIN 6.6 GM/DL (6.4-8.2)
[2016-05-04 19:33] LABS: BASO % 0.7 % (0.0-1.0); EOS # 0.1 K/mm3 (0.0-0.50); EOS % 2.5 % (0.0-3.0); LARGE UNSTAINED CELL # 0.2 K/mm3 (0.0-0.4); LARGE UNSTAINED CELL % 4.6 % (0.0-4.0); LYMPH # 0.7 K/mm3 (1.5-4.5); MEAN CORPUSCULAR HEMOGLOBIN 23.7 pg (27.0-33.0); MEAN CORPUSCULAR HGB CONC 27.9 g/dl (32.0-36.5); MEAN CORPUSCULAR VOLUME 84.8 fl (80.0-96.0); MONO # 0.6 K/mm3 (0.0-0.8); MONO % 12.8 % (0.0-5.0); NEUTROPHILS # 3.1 K/mm3 (1.8-7.7); NEUTROPHILS % 65.4 % (36.0-66.0); PLATELET COUNT, AUTOMATED 241 k/mm3 (150-450); WHITE BLOOD COUNT 4.8 K/mm3 (4.0-10.0)
[2016-05-04 19:36] LABS: ADD MORPHOLOGY? YES
[2016-05-04 20:45] LABS: ANISOCYTOSIS 1+; HYPOCHROMASIA 2+; POIKILOCYTOSIS 1+; SCHISTOCYTES 1+
[2016-05-04 20:49] LABS: ACANTHOCYTES 1+; BURR CELLS 1+; OVALOCYTES 1+
== END ==
LOC: M SMT 12:49
PROVIDERS: ATTEND Family Medicine
DX: K74.60 Unspecified cirrhosis of liver (principal); D50.0 Iron deficiency anemia secondary to blood loss (chronic)

== ENCOUNTER → 2016-05-04 | Outpatient (CLI) | payer MEDICARE ==
[~2016-05-04] MED LIST changes: -FERR32TA PO
[2016-05-04 18:53] LABS: CALCIUM LEVEL 8.7 MG/DL (8.8-10.2); CREATININE FOR GFR 0.97 MG/DL (0.55-1.02); GLOMERULAR FILTRATION RATE 59.9 (>39); POTASSIUM SERUM 4.2 MEQ/L (3.5-5.1)
[2016-05-04 20:14] LABS: MEAN CORPUSCULAR HEMOGLOBIN 23.4 pg (27.0-33.0); MEAN CORPUSCULAR VOLUME 83.6 fl (80.0-96.0); WHITE BLOOD COUNT 4.4 K/mm3 (4.0-10.0)
== END ==
LOC: M SMT 12:52
PROVIDERS: ATTEND Nurse Practitioner Family
DX: I48.2 Chronic atrial fibrillation (principal); I10 Essential (primary) hypertension

== ENCOUNTER 2016-05-09 14:01 | Inpatient (IN) | payer MEDICARE ==
[~2016-05-09] VITALS: Ht 167.6 cm; Wt 70.1 kg
[2016-05-09] MEDS ORDERED: BACITAB3 PO (14:31)
[2016-05-09 16:01] LABS: BASO % 1.1 % (0.0-1.0); EOS # 0.1 K/mm3 (0.0-0.50); EOS % 3.2 % (0.0-3.0); LARGE UNSTAINED CELL # 0.1 K/mm3 (0.0-0.4); LARGE UNSTAINED CELL % 3.7 % (0.0-4.0); LYMPH # 0.7 K/mm3 (1.5-4.5); MEAN CORPUSCULAR HEMOGLOBIN 24.2 pg (27.0-33.0); MEAN CORPUSCULAR HGB CONC 29.3 g/dl (32.0-36.5); MEAN CORPUSCULAR VOLUME 82.5 fl (80.0-96.0); MONO # 0.5 K/mm3 (0.0-0.8); MONO % 12.7 % (0.0-5.0); NEUTROPHILS # 2.5 K/mm3 (1.8-7.7); NEUTROPHILS % 65.3 % (36.0-66.0); PLATELET COUNT, AUTOMATED 215 k/mm3 (150-450); RED CELL DISTRIBUTION WIDTH 16.8 % (11.5-14.5); WHITE BLOOD COUNT 3.8 K/mm3 (4.0-10.0)
--- NOTE | 2016-05-09 16:04 | REP ---
PORTABLE CHEST: AP portable view of the chest is performed and compared to prior study of 03/01/2016. There is cardiomegaly. Mildly prominent interstitial markings are stable with no acute infiltrate. The mediastinal silhouette is unchanged. A left single lead pacemaker is noted. IMPRESSION: Cardiomegaly. No acute infiltrate. Signed by Kadeem Weiss MD 05/09/2016 04:30 P
[2016-05-09 16:20] LABS: ANION GAP 9 MEQ/L (8-16); BLOOD UREA NITROGEN 17 MG/DL (7-18); CALCIUM LEVEL 8.9 MG/DL (8.8-10.2); CARBON DIOXIDE LEVEL 23 MEQ/L (21-32); CHLORIDE LEVEL 109 MEQ/L (98-107); CREATININE FOR GFR 0.99 MG/DL (0.55-1.02); GLOMERULAR FILTRATION RATE 58.5 (>39); GLUCOSE, FASTING 99 MG/DL (83-110); POTASSIUM SERUM 3.7 MEQ/L (3.5-5.1); SODIUM LEVEL 141 MEQ/L (136-145)
[2016-05-09] MEDS ORDERED: ISOVUE-370 76% 100ML VIAL (Q9967) As Ordered ONE (16:58)
[2016-05-09 17:25] LABS: DIGOXIN LEVEL 0.5 NG/ML (0.5-2.0)
--- NOTE | 2016-05-09 17:26 | REP ---
Clinical: Acute chest pain. Technique: Axial contrast enhanced images from the thoracic inlet to the upper abdomen using 100 ml Isovue 370 intravenous contrast material with coronal and sagittal re-formations. Findings: Satisfactory enhancement of the pulmonary vasculature is achieved and no filling defects are identified to suggest pulmonary embolus. Thoracic aorta is normal caliber without aneurysm or dissection. Heart and pericardium are normal. Bilateral lung menchaca demonstrate chronic changes and mild bronchiectasis. No consolidation, nodule or mass lesion. No pleural effusion/reaction. No pneumothorax. No adenopathy. Abdomen demonstrates ascites and varices consistent with cirrhosis. Impression: No evidence for pulmonary embolus. No acute pleuroparenchymal or mediastinal process. Upper abdomen demonstrates ascites and varices consistent with cirrhosis. Signed by Sony White MD 05/09/2016 05:17 P
[2016-05-09 21:30] VITALS: O2SAT 96
[2016-05-09 22:17] LABS: ALBUMIN 3.2 GM/DL (3.2-5.2); ALBUMIN/GLOBULIN RATIO 0.94 (1.00-1.93); BILIRUBIN,DIRECT 0.3 MG/DL (0.0-0.2); BILIRUBIN,TOTAL 0.7 MG/DL (0.2-1.0); TOTAL PROTEIN 6.6 GM/DL (6.4-8.2)
[2016-05-09] MEDS ORDERED: FERR32TA PO (22:49)
[2016-05-09] MEDS ORDERED: ATEN50TA2 PO (22:49)
[2016-05-09] MEDS ORDERED: LACT10SO29 PO (22:49)
[2016-05-09 23:08] LABS: MAGNESIUM LEVEL 2.3 MG/DL (1.8-2.4)
[2016-05-09 23:16] LABS: INR 1.12
[2016-05-10] VITALS (12 sets, daily range): BP systolic 100–133; BP diastolic 53–74; PULSE 81
[2016-05-10] MEDS ORDERED: LACTULOSE 20 GM/30 ML SYRUP UD PO PRN (01:00)
[2016-05-10] MEDS ORDERED: ONDANSETRON 4MG/2ML VIAL (J2405) IV PRN (01:15)
[2016-05-10 01:36] LABS: ERYTHROCYTE SEDIMENTATION RATE 35 mm/hr (0-30)
[2016-05-10 01:38] LABS: DIGOXIN LEVEL 0.6 NG/ML (0.5-2.0)
[2016-05-10] MEDS ORDERED: GASTROGRAFIN SOLUTION 30ML PO ONE (02:00)
--- NOTE | 2016-05-10 02:00 | REPUSA ---
CLINICAL HISTORY: Dizziness. TECHNIQUE: Multiple axial brain CT scan sections were obtained from base to vertex without contrast a dministration. COMMENTS: The study shows normal configuration of sella turcica. There are no intra or extra-axial collections. There is no mass effect or midline shift. There is no evidence of hematoma formation. No hydrocephal us is present. No abnormal calcifications are noted. No significant abnormalities are seen either in the posterior fossa or supratentorial compartment. The sinuses and mastoid air cells are patent. IMPRESSION: No evidence of acute intracranial pathology. Thank you for your kind referral of this patient.
[2016-05-10] MEDS ORDERED: GASTROGRAFIN SOLUTION 30ML (Q9963) As Ordered ONE (02:14)
[2016-05-10] MEDS ORDERED: GASTROGRAFIN SOLUTION 30ML (Q9963) PO ONE (02:30)
--- NOTE | 2016-05-10 02:43 | HPEPDOC ---
General Date of Admission May 09, 2016 at 23:09 Primary Care Physician: CLARENCE STOUT DO Attending Physician: ANA CRISTINA HARPER MD Chief Complaint The patient is a 75-year-old female admitted with a reason for visit of Chest Pain, shortness of breath, dizziness, unsteady gait. Source: Patient Exam Limitations: No limitations, Clinical conditions, Physical impairment Timing/Duration: Week(s), Getting worse Severity: Moderate Associated Symptoms: Chest Pain, Cough, Fever, Chills, Headaches, Loss of appetite, Malaise, Shortness of breath, Syncope (near), Weakness, Dizziness History of Present Illness 87 years old female whom appears to be a poor historian with PMH of Tachy-Joel syndrome s/p pacemaker 2014, C diff colitis, Cirrhosis with portal hypertension , splenic infarction 02/03, chronic afib not on anticoagulation from recurrent GI bleed, recurrent upper GI bleed with gastric antral vascular ectasia (GAVE, Watermelon stomach), depression, iron deficiency anemia, hyperammonemia, diastolic heart failure EF 75% 2015 was sent to ER from Dr. Barney office for dizziness and unstable gait. Per patient she was talking to Dr. Tiwari, who is her PCP and suddenly she felt dizzy and light headed and developed sharp chest pain and she had to lay down. Chest pain she experienced was sharp, pulling like, started on left side and goes across the chest and goes down to her lower back, and both of her arms would go numb. Lasting anywhere between 15 minutes and 1 hour and comes and goes. Worse with exertion or when her heart beat fast, better laying down. She stated her symptom started about 2 years ago when she developed Tachy-Joel syndrome and received pacemaker, and slowly got worse. However, over the past few weeks it has gotten to a point that she would feel like passing out, cant walk around, cant do anything. Last time she went to Dr. Gibbs was about 3 weeks ago, she saw his PA, she also had interrogation of pacemaker at that time and couldnt find any abnormalities. At that time, her Lasix was discontinued, however she gained 9 pounds, and her primary care provider just put her back on it several days ago. In addition, she also reports to left side of her face felt numb and tingling last Sunday when she was sleeping, and reports blurred vision for the past few weeks and cannot focus her vision even with glasses. She also reports to fever 100 to 101 intermittently for the past 3 weeks. She also reports feeling very cold. Admits to diarrhea about 3 times a day for the past few weeks since she was started on iron pills. Denies any nausea, vomiting, blood in stool or dysuria however. Home Medications Scheduled Atenolol (Atenolol) 50 Mg Tab 50 MG PO BID (Reported) Digoxin (Digoxin) 0.125 Mg Tab 0.125 MG PO DAILY (Reported) Ferrous Gluconate (Ferrous Gluconate) 324 Mg Tab 324 MG PO QPM (Reported) Furosemide (Furosemide) 20 Mg Tab 20 MG PO DAILY (Reported) Lactobacillus Acidophilus (Bacid) 1 Tab Tab 1 TAB PO DAILY (Reported) Pantoprazole Sodium (Pantoprazole Sodium) 40 Mg Tab 40 MG PO BID (Reported) Spironolactone (Spironolactone) 25 Mg Tab 25 MG PO QHS (Reported) Sucralfate (Sucralfate) 1 Gm Tab 1 GM PO ACHS (Reported) Scheduled PRN Lactulose (Lactulose) 10 Gm/15 Ml Meseret 15 ML PO DAILY PRN PRN CONSTIPATION ( Reported) Polyethylene Glycol (Systane 0.4-0.3 %) 15 Ml Meseret 1 DROP OU BID PRN PRN DRY EYES (Reported) Allergies Coded Allergies: Meperidine (Verified Allergy, Unknown, 05/27/12) Penicillins (Verified Allergy, Unknown, 05/27/12) Penicillins Cross Reactors (Verified Allergy, Unknown, 05/27/12) Sulfa Drugs (Verified Allergy, Unknown, 05/27/12) Sulfa Drugs Cross Reactors (Verified Allergy, Unknown, 05/27/12) Diphenhydramine (Verified Adverse Reaction, Unknown, 11/19/14) Past Medical History Medical History Tachy-Joel syndrome s/p pacemaker 2014 C diff colitis Cirrhosis with portal hypertension Splenic infarction 02/03 Chronic afib not on anticoagulation from recurrent GI bleed Recurrent upper GI bleed with gastric antral vascular ectasia (GAVE, Watermelon stomach) Depression Iron deficiency anemia Hyperammonemia Diastolic heart failure EF 75% 2014 Surgical History Pacemaker 2014 Hysterectomy Tonsil EGD w/ banding and plasma coagulation Cholecystectomy Cataract extraction Family History Significant Family History: Cancer, Heart disease, Hypertension half her family from cirrhosis, mother had stroke and cancer in her 80s, she also had heart disease Social History * Smoker: Denies, non-smoker Alcohol: Denies Drugs: denies Recent Travel/Sick Contacts: Denies: Recent sick contacts, Recent travel Psychosocial History: No pertinent psych hx Lives alone, she has a son in [place], whom comes to check on her. She doesn' t have friends of more relatives in [place]. Review of Symptoms Constitutional: Reports: Chills, Fever, Lethargy, Malaise, Weakness Eyes: Reports: Vision change, Denies: Pain ENT: Reports: Head Aches, Denies: Dysphagia, Sore Throat Skin: Reports: Itching, Denies: Rash Pulmonary: Reports: Cough, Dyspnea Cardiovascular: Reports: Chest Pain, Edema, Lt Headedness, Orthopnea, Palpitations, Denies: Paroxysmal Noc. Dyspnea Gastrointestinal: Reports: Diarrhea, Denies: Abdominal Pain, Hematochezia, Melena, Nausea, Vomiting Genitourinary: Denies: Dysuria, Frequency, Incontinence Hematologic: Denies: Bleeding Excessively, Bruising Endocrine: Reports: Cold Intolerance, Denies: Polydipsia, Polyphagia, Polyuria Musculoskeletal: Denies: Back Pain, Neck Pain Neurological: Reports: Numbness, Weakness, Denies: Change in speech, Confusion, Seizures Psych: Reports: Mood Normal Physical Examination General Exam: Positive: Alert, Cooperative, No Acute Distress Eye Exam: Positive: Conjunctiva & lids normal, EOMI, PERRLA, Negative: Ptosis, Sclera icteric ENT Exam: Positive: Atraumatic, Mucous membr. moist/pink, Pharynx Normal, Tongue Midline Neck Exam: Positive: JVD, Supple, Negative: Lymphadenopathy Chest Exam: Positive: Rales Heart Exam: Positive: Irregular Rhythm, Murmurs (2/6 systolic), Normal S1, Normal S2 Abdomen Exam: Positive: Soft, Tenderness (right lower quadrant) Extremity Exam: Positive: Edema (none pitting edema), Negative: Clubbing, Cyanosis Skin Exam: Positive: Nl turgor and temperature Neuro Exam: Positive: Cranial Nerves 3-12 NL, Normal Speech, Reflexes 2+, Negative: Strength at 5/5 X4 ext (4/5 bl lower extremity) Psych Exam: Positive: Mental status NL, Oriented x 3 Vital Signs T 97.6, P 76, RR 17, BP 126/62, O2 Sat 96% RA Weight (kg): 71.6 Laboratory Data Labs 24H Laboratory Tests 2 05/09/16 15:12: Anion Gap 9, White Blood Count 3.8L, Red Blood Count 3.65L, Hemoglobin 8.8L, Hematocrit 30.1L, Mean Corpuscular Volume 82.5, Mean Corpuscular Hemoglobin 24.2L, Mean Corpuscular Hemoglobin Concent 29.3L, Red Cell Distribution Width 16.8H, Platelet Count 215, Neutrophils (%) (Auto) 65.3, Lymphocytes (%) (Auto) 14.0L, Monocytes (%) (Auto) 12.7H, Eosinophils (%) (Auto) 3.2H, Basophils (%) ( Auto) 1.1H, Neutrophils # (Auto) 2.5, Lymphocytes # (Auto) 0.7L, Monocytes # ( Auto) 0.5, Eosinophils # (Auto) 0.1, Basophils # (Auto) 0.0, Blood Urea Nitrogen 17, Creatinine 0.99, Sodium Level 141, Potassium Level 3.7, Chloride Level 109H, Carbon Dioxide Level 23, Calcium Level 8.9, Total Creatine Kinase 39 , Creatine Kinase MB 1.2, Creatine Kinase MB Relative Index 3.07, Digoxin Level 0.5, Glomerular Filtration Rate 58.5, Large Unclassified Cells # 0.1, Large Unclassified Cells % 3.7, Troponin I < 0.02 05/09/16 19:50: Total Creatine Kinase 38, Creatine Kinase MB 2.0, Creatine Kinase MB Relative Index 5.26H, Troponin I 0.02, Aspartate Amino Transf (AST/SGOT) 29, Alanine Aminotransferase (ALT/SGPT) 23, Gamma Glutamyl Transpeptidase 103H, Alkaline Phosphatase 127H, Total Bilirubin 0.7, Direct Bilirubin 0.3H, Albumin 3.2, Albumin/Globulin Ratio 0.94L, Magnesium Level 2.3, Total Protein 6.6 05/09/16 22:52: Ammonia 29 05/09/16 23:06: Activated Partial Thromboplast Time 35.5, Prothromb Time International Ratio 1.12, Prothrombin Time 14.5 CBC/BMP Laboratory Tests 05/09/16 15:12 Calcium Level 8.9, Total Creatine Kinase 39, Red Blood Count 3.65 L, Mean Corpuscular Volume 82.5, Mean Corpuscular Hemoglobin 24.2 L, Mean Corpuscular Hemoglobin Concent 29.3 L, Red Cell Distribution Width 16.8 H, Neutrophils (%) ( Auto) 65.3, Lymphocytes (%) (Auto) 14.0 L, Monocytes (%) (Auto) 12.7 H, Eosinophils (%) (Auto) 3.2 H, Basophils (%) (Auto) 1.1 H, Neutrophils # (Auto) 2.5, Lymphocytes # (Auto) 0.7 L, Monocytes # (Auto) 0.5, Eosinophils # (Auto) 0.1, Basophils # (Auto) 0.0 RAD Interpretation STUDY: CXR Rad Actions: Report Reviewed, Films Reviewed RAD Interpretation: Unchanged (cardiomegaly) STUDY: CT Chest Rad Actions: Report Reviewed, Films Reviewed RAD Interpretation: Normal (No PE, no acute process, upper abdomen demonstrates ascites and varices consistent with cirrhosis) STUDY: CT head no contrast Rad Actions: Report Reviewed, Films Reviewed RAD Interpretation: Normal (No evidence of acute intracranial pathology) Plan / VTE VTE Prophylaxis Ordered?: Yes (SCD, she has history of severe GI bleed) Plan Plan 1. Near syncope, etiology unclear, possible due to neurological, cardiac, vs infectious etiologies She admits to blurred vision and gait instability and left sided facial numbness, resolved, not on anticoagulation for afib due to history of severe GI bleed CT head, negative PT consulted, will follow Cardiac with diastolic heart failure and tachy-joel syndrome on pacemaker Her lasix was stopped 3 weeks ago and was recently started after she gained 9 pounds Will obtain Echo BNP Continue lasix 20 mg PO daily, will increase if needed Infectious with diarrhea, cough, fever reported at home Obtain ESR Obtain Blood Cx Obtain GI panel Obtain UA, UCx Obtain rapid flu, strep. pneumo, legionella Endocrine, feeling cold Will check TSH 2. Iron deficiency anemia with hgb of 8.8, at this point it is less likely to be symptomatic anemia due to this is her baseline Will obtain fecal occult Continue Iron supplementation 3. Elevated Alkaline Phosphatase of 127 GGT was 103, patient does have history of cirrhosis obtain CT of abdomen and pelvis 4. Lower right quadrant abdominal pain on examination CT of abdomen and pelvis Follow up GI panel Patient does have history of C diff 5. Tachy-Joel syndrome s/p pacemaker 2014 Had recent interrogation 3 weeks ago At this point patient still believes chest pain was due to pacemaker 6. C diff colitis, follow GI panel Continue bacid 7. Cirrhosis with portal hypertension Continue lactulose Ammonia level 29 on admission 8. Splenic infarction 02/[address] of abdomen and pelvis Possible more susceptible to encapsulated bacterial infections 9. Chronic afib not on anticoagulation from recurrent GI bleed Con Digoxin, atenolol 10. Recurrent upper GI bleed with gastric antral vascular ectasia (GAVE, Watermelon stomach) continue home carafate, protonix 11. Depression 12. Hyperammonemia continue lactulos 13. Diastolic heart failure EF 75% 2014 Continue lasix obtain new echo DVT prophylaxis: SCD only for now due to low hgb and history of severe GI bleed. GME ATTESTATION GME ATTESTATION My preceptor for this patient encounter was physically present in the building during the encounter and was fully available. As needed, all aspects of the patient interview, examination, medical decision making process, and medical care plan development were reviewed and approved by the preceptor. Preceptor is aware and concurs with the plan as stated in the body of this note and will attest to such by his/her cosignature. KOLE TOMAS DO May 10, 2016 02:42
[2016-05-10] MEDS ORDERED: FIORICET TAB PO PRN (03:00)
[2016-05-10] MEDS: ACETAMINOPHEN TAB 650MG DOSE (2X325MG) PO PRN (03:09)
--- NOTE | 2016-05-10 04:20 | REPUSA ---
CLINICAL HISTORY: Abdominal pain. TECHNIQUE: Multiple axial, sagittal and coronal CT images were obtained through the abdomen and pelvi s after administration of intravenous contrast material. COMMENTS: Comparison is made to the prior exam performed on 03/01/2016. Again is noted liver cirrhosis. 1.5 cm well defined hypodense lesion of the segment 4. Unchanged focal hypodensity in the mid aspect of the spleen suggestive of an infarction. Again is noted the ascites and diffuse mesenteric stranding with a congestion secondary to portal hy pertension. Uncomplicated clonic diverticulosis. Moderate large bowel fecal stasis suggestive of constipation. Prior cholecystectomy. Prior hysterectomy. Mild thickening of the cecum and ascending colon. The pancreas is of normal contour and attenuation characteristics. There is no evidence of adrenal ma ss. Both kidneys demonstrate prompt and equal nephrograms. The kidneys are normal in size, shape and conf iguration. There is no evidence of renal or ureteral mass. No renal or ureteral calculi are identifie d. There is no hydroureter or hydronephrosis. No evidence for appendicitis. No evidence for small or large bowel obstruction. There is no evidence of intrinsic or extrinsic bladder mass. Images of the lung bases show no evidence of pleural or parenchymal mass. There are no pleural effusi ons. Bilateral basilar peribronchial interstitial thickening suggestive of bronchitis. Bilateral basi lar atelectatic pulmonary changes. The bony structures are free of lytic or blastic lesions. Multilevel degenerative changes are seen in volving the thoracolumbar spine. Scattered calcifications are seen involving the aorta and major bran ches compatible with atherosclerosis. IMPRESSION: Diverticulosis. Hypodense lesion in segment 4. Splenomegaly. Mild ascites. Splenic infarction. Mesenteric congestion. Moderate large bowel fecal stasis. Thickening of the cecum and ascending colon. Under distention versus mild colitis. Thank you for your kind referral of this patient.
--- NOTE | 2016-05-10 07:19 | ECGEPIP ---
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
--- NOTE | 2016-05-10 07:23 | ECGEPIP ---
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
[2016-05-10] MEDS: PANTOPRAZOLE 40MG TAB (PROTONIX) PO SCH ×2 (08:46→21:24)
[2016-05-10] MEDS: ATENOLOL 50 MG TAB PO SCH ×2 (08:47→21:00)
[2016-05-10] MEDS: DIGOXIN 0.125 MG TAB PO SCH (08:47)
[2016-05-10] MEDS: POLYVINYL ALCOHOL OPHTH SOLN 15 ML(LIQUITEARS) OU SCH ×6 (08:48→21:24)
[2016-05-10] MEDS: SUCRALFATE 1 GM TAB PO SCH ×4 (08:52→21:24)
[2016-05-10] MEDS ORDERED: FUROSEMIDE 20 MG TAB PO SCH (09:00)
[2016-05-10] MEDS ORDERED: LACTOBACILLUS ACIDOPHILUS CAP (BACID) PO SCH (09:00)
[2016-05-10] MEDS ORDERED: TEARS NATURALE FREE OPHTH DROP VIAL OU SCH (09:00)
[2016-05-10 09:19] LABS: ALBUMIN 3.2 GM/DL (3.2-5.2); ALBUMIN/GLOBULIN RATIO 0.94 (1.00-1.93); ALKALINE PHOSPHATASE 125 U/L (45-117); ALT/SGPT 25 U/L (12-78); ANION GAP 8 MEQ/L (8-16); AST/SGOT 32 U/L (15-37); BLOOD UREA NITROGEN 13 MG/DL (7-18); CALCIUM LEVEL 8.8 MG/DL (8.8-10.2); CARBON DIOXIDE LEVEL 25 MEQ/L (21-32); CHLORIDE LEVEL 111 MEQ/L (98-107); GLOMERULAR FILTRATION RATE > 60.0 (>39); GLUCOSE, FASTING 97 MG/DL (83-110); POTASSIUM SERUM 4.4 MEQ/L (3.5-5.1); SODIUM LEVEL 144 MEQ/L (136-145); TOTAL PROTEIN 6.6 GM/DL (6.4-8.2)
[2016-05-10 10:12] LABS: BASO % 0.7 % (0.0-1.0); EOS # 0.1 K/mm3 (0.0-0.50); EOS % 2.8 % (0.0-3.0); LARGE UNSTAINED CELL # 0.2 K/mm3 (0.0-0.4); LYMPH # 0.6 K/mm3 (1.5-4.5); LYMPH % 13.4 % (24.0-44.0); MEAN CORPUSCULAR HEMOGLOBIN 23.2 pg (27.0-33.0); MEAN CORPUSCULAR HGB CONC 27.9 g/dl (32.0-36.5); MEAN CORPUSCULAR VOLUME 83.2 fl (80.0-96.0); MONO # 0.5 K/mm3 (0.0-0.8); MONO % 10.3 % (0.0-5.0); NEUTROPHILS % 68.7 % (36.0-66.0); PLATELET COUNT, AUTOMATED 207 k/mm3 (150-450); RED CELL DISTRIBUTION WIDTH 16.7 % (11.5-14.5); WHITE BLOOD COUNT 4.4 K/mm3 (4.0-10.0)
[2016-05-10] MEDS: metroNIDAZOLE (FLAGYL) 500 MG TAB PO SCH ×2 (16:48→21:24)
[2016-05-10] MEDS ORDERED: ALPRAZolam 0.25 MG TAB PO ONE (19:30)
[2016-05-10] MEDS: SPIRONOLACTONE 25 MG TAB PO SCH (21:00)
[2016-05-10] MEDS: FERROUS GLUCONATE 324 MG TAB PO SCH (21:24)
[2016-05-10] MEDS ORDERED: EUCERIN 120GM CREAM TOP PRN (22:00)
[2016-05-11 06:00] VITALS: BP 111/55
[2016-05-11] MEDS: ACETAMINOPHEN TAB 650MG DOSE (2X325MG) PO PRN (06:48)
[2016-05-11] MEDS: SUCRALFATE 1 GM TAB PO SCH ×4 (06:48→21:04)
[2016-05-11 07:17] LABS: BASO % 0.4 % (0.0-1.0); EOS # 0.2 K/mm3 (0.0-0.50); EOS % 4.2 % (0.0-3.0); LARGE UNSTAINED CELL # 0.2 K/mm3 (0.0-0.4); LARGE UNSTAINED CELL % 5.5 % (0.0-4.0); LYMPH # 0.5 K/mm3 (1.5-4.5); LYMPH % 12.5 % (24.0-44.0); MEAN CORPUSCULAR HEMOGLOBIN 23.3 pg (27.0-33.0); MEAN CORPUSCULAR HGB CONC 28.7 g/dl (32.0-36.5); MEAN CORPUSCULAR VOLUME 81.3 fl (80.0-96.0); MONO # 0.5 K/mm3 (0.0-0.8); MONO % 12.6 % (0.0-5.0); NEUTROPHILS # 2.4 K/mm3 (1.8-7.7); NEUTROPHILS % 64.9 % (36.0-66.0); PLATELET COUNT, AUTOMATED 178 k/mm3 (150-450); WHITE BLOOD COUNT 3.6 K/mm3 (4.0-10.0)
[2016-05-11 07:25] LABS: ADD MORPHOLOGY? YES
[2016-05-11 07:28] LABS: ALBUMIN 2.9 GM/DL (3.2-5.2); ALBUMIN/GLOBULIN RATIO 0.94 (1.00-1.93); ALKALINE PHOSPHATASE 109 U/L (45-117); ALT/SGPT 21 U/L (12-78); ANION GAP 9 MEQ/L (8-16); AST/SGOT 31 U/L (15-37); BILIRUBIN,TOTAL 0.8 MG/DL (0.2-1.0); BLOOD UREA NITROGEN 14 MG/DL (7-18); CALCIUM LEVEL 8.4 MG/DL (8.8-10.2); CARBON DIOXIDE LEVEL 23 MEQ/L (21-32); CHLORIDE LEVEL 112 MEQ/L (98-107); CREATININE FOR GFR 0.82 MG/DL (0.55-1.02); GLOMERULAR FILTRATION RATE > 60.0 (>39); GLUCOSE, FASTING 91 MG/DL (83-110); POTASSIUM SERUM 3.8 MEQ/L (3.5-5.1); SODIUM LEVEL 144 MEQ/L (136-145)
[2016-05-11 07:55] LABS: ANISOCYTOSIS 1+; HYPOCHROMASIA 3+
[2016-05-11 07:57] LABS: SCHISTOCYTES 1+
[2016-05-11 07:58] LABS: ACANTHOCYTES 1+
[2016-05-11] MEDS ORDERED: FUROSEMIDE 20 MG TAB PO SCH (09:00)
[2016-05-11] MEDS: LACTOBACILLUS ACIDOPHILUS CAP (BACID) PO SCH ×2 (09:14→21:04)
[2016-05-11] MEDS: PANTOPRAZOLE 40MG TAB (PROTONIX) PO SCH ×2 (09:15→21:04)
[2016-05-11] MEDS: FIDAXOMICIN 200 MG TAB (DIFICID) PO SCH ×2 (09:17→21:04)
[2016-05-11] MEDS: DIGOXIN 0.125 MG TAB PO SCH (09:17)
[2016-05-11] MEDS: ATENOLOL 50 MG TAB PO SCH (09:17)
[2016-05-11] MEDS: POLYVINYL ALCOHOL OPHTH SOLN 15 ML(LIQUITEARS) OU SCH ×5 (09:18→21:04)
--- NOTE | 2016-05-11 11:02 | IPNPDOC ---
Subjective Date Seen The patient was seen on 05/10/16. Subjective Chief Complaint/HPI The patient is a 75-year-old female admitted with a reason for visit of Chest Pain. Events since last encounter complains of crampy abdominal pain and had 1 episode of diarrhea, no further chest pain , no fever or chills, no nausea or vomiting. Objective Physical Examination General Exam: Positive: Alert, Cooperative, No Acute Distress Eye Exam: Positive: Conjunctiva & lids normal, EOMI, PERRLA, Negative: Ptosis, Sclera icteric ENT Exam: Positive: Atraumatic, Mucous membr. moist/pink, Pharynx Normal, Tongue Midline Neck Exam: Positive: JVD, Supple, Negative: Lymphadenopathy Chest Exam: Positive: Rales Heart Exam: Positive: Irregular Rhythm, Murmurs (2/6 systolic), Normal S1, Normal S2 Abdomen Exam: Positive: Soft, Tenderness (right lower quadrant) Extremity Exam: Positive: Edema (none pitting edema), Negative: Clubbing, Cyanosis Skin Exam: Positive: Nl turgor and temperature Neuro Exam: Positive: Cranial Nerves 3-12 NL, Normal Speech, Reflexes 2+, Negative: Strength at 5/5 X4 ext (4/5 bl lower extremity) Psych Exam: Positive: Mental status NL, Oriented x 3 Assessment /Plan Problems (1) C. difficile diarrhea Status: Acute Problem Text: this is the third episode since november 2015 will start on metronidazole and vanco po will consider stool transplant. (2) Cirrhosis, cryptogenic Status: Chronic Problem Text: with decompensation, has ascites, portal hypertension will increase dose of lasix and continue spironolactone will temporarily reduce atenolol dosage so that we can give more of lasix without dropping blood pressure. continue lactulose prn. (3) Splenic infarct Status: Chronic (4) Diastolic congestive heart failure Status: Chronic Problem Text: continue lasix and spironolactone. 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 (8) Chronic atrial fibrillation Status: Chronic Problem Text: not on anticoagulation because of recurrent GIBs. continue atenolol (9) GAVE (gastric antral vascular ectasia) Status: Chronic Problem Text: with history of recurrent GIBs. hh has dropped from baseline will check fecal occult blood. (10) Anemia Status: Chronic Problem Text: usual h/h between 9 to 10 now lower than usual. will check fecal occult blood, iron studies, b 12 and folate levels. Plan/VTE VTE Prophylaxis Ordered?: Yes (SCD, she has history of severe GI bleed) VS, I&O, 24H, Fishbone Vital Signs/I&O Vital Signs Date Time Temp Pulse Resp B/P Pulse Ox O2 Delivery O2 Flow Rate FiO2 05/10/16 12:00 98.5 75 18 133/63 99 Room Air 05/09/16 15:40 100 I&O- Last 24 Hours up to 6 AM 05/10/16 05:59 Intake Total 360 ml Balance 360 ml Laboratory Data 24H LABS Laboratory Tests 2 05/09/16 15:12: Anion Gap 9, B-Type Natriuretic Peptide 292H, White Blood Count 3.8L, Red Blood Count 3.65L, Hemoglobin 8.8L, Hematocrit 30.1L, Mean Corpuscular Volume 82.5, Mean Corpuscular Hemoglobin 24.2L, Mean Corpuscular Hemoglobin Concent 29.3L, Red Cell Distribution Width 16.8H, Platelet Count 215, Neutrophils (%) (Auto) 65.3, Lymphocytes (%) (Auto) 14.0L, Monocytes (%) (Auto) 12.7H, Eosinophils (%) (Auto) 3.2H, Basophils (%) (Auto) 1.1H, Neutrophils # (Auto) 2.5, Lymphocytes # (Auto) 0.7L, Monocytes # (Auto) 0.5, Eosinophils # (Auto) 0.1, Basophils # (Auto ) 0.0, Blood Urea Nitrogen 17, Creatinine 0.99, Sodium Level 141, Potassium Level 3.7, Chloride Level 109H, Carbon Dioxide Level 23, Calcium Level 8.9, Total Creatine Kinase 39, Creatine Kinase MB 1.2, Creatine Kinase MB Relative Index 3.07, Digoxin Level 0.5, Erythrocyte Sedimentation Rate 35H, Glomerular Filtration Rate 58.5, Large Unclassified Cells # 0.1, Large Unclassified Cells % 3.7, Troponin I < 0.02 05/09/16 19:50: Total Creatine Kinase 38, Creatine Kinase MB 2.0, Creatine Kinase MB Relative Index 5.26H, Digoxin Level 0.6, Troponin I 0.02, Aspartate Amino Transf (AST/ SGOT) 29, Alanine Aminotransferase (ALT/SGPT) 23, Gamma Glutamyl Transpeptidase 103H, Alkaline Phosphatase 127H, Total Bilirubin 0.7, Direct Bilirubin 0.3H, Albumin 3.2, Albumin/Globulin Ratio 0.94L, Magnesium Level 2.3, Thyroid Stimulating Hormone (TSH) 1.910, Total Protein 6.6 05/09/16 22:52: Ammonia 29 05/09/16 23:06: Activated Partial Thromboplast Time 35.5, Prothromb Time International Ratio 1.12, Prothrombin Time 14.5 05/10/16 08:43: Blood Urea Nitrogen 13, Creatinine 0.90, Sodium Level 144, Potassium Level 4.4, Chloride Level 111H, Carbon Dioxide Level 25, Calcium Level 8.8, Aspartate Amino Transf (AST/SGOT) 32, Alanine Aminotransferase (ALT/SGPT) 25, Alkaline Phosphatase 125H, Total Bilirubin 1.0, Total Protein 6.6, Albumin 3.2, Albumin/ Globulin Ratio 0.94L, Anion Gap 8, White Blood Count 4.4, Red Blood Count 3.66L , Hemoglobin 8.5L, Hematocrit 30.5L, Mean Corpuscular Volume 83.2, Mean Corpuscular Hemoglobin 23.2L, Mean Corpuscular Hemoglobin Concent 27.9L, Red Cell Distribution Width 16.7H, Platelet Count 207, Neutrophils (%) (Auto) 68.7H , Lymphocytes (%) (Auto) 13.4L, Monocytes (%) (Auto) 10.3H, Eosinophils (%) ( Auto) 2.8, Basophils (%) (Auto) 0.7, Neutrophils # (Auto) 3.0, Lymphocytes # ( Auto) 0.6L, Monocytes # (Auto) 0.5, Eosinophils # (Auto) 0.1, Basophils # (Auto ) 0.0, Glomerular Filtration Rate > 60.0, Large Unclassified Cells # 0.2, Large Unclassified Cells % 4.0 CBC/BMP Laboratory Tests 05/09/16 15:12 Calcium Level 8.9, Total Creatine Kinase 39, Red Blood Count 3.65 L, Mean Corpuscular Volume 82.5, Mean Corpuscular Hemoglobin 24.2 L, Mean Corpuscular Hemoglobin Concent 29.3 L, Red Cell Distribution Width 16.8 H, Neutrophils (%) ( Auto) 65.3, Lymphocytes (%) (Auto) 14.0 L, Monocytes (%) (Auto) 12.7 H, Eosinophils (%) (Auto) 3.2 H, Basophils (%) (Auto) 1.1 H, Neutrophils # (Auto) 2.5, Lymphocytes # (Auto) 0.7 L, Monocytes # (Auto) 0.5, Eosinophils # (Auto) 0.1, Basophils # (Auto) 0.0 05/10/16 08:43 Calcium Level 8.8, Red Blood Count 3.66 L, Mean Corpuscular Volume 83.2, Mean Corpuscular Hemoglobin 23.2 L, Mean Corpuscular Hemoglobin Concent 27.9 L, Red Cell Distribution Width 16.7 H, Neutrophils (%) (Auto) 68.7 H, Lymphocytes (%) ( Auto) 13.4 L, Monocytes (%) (Auto) 10.3 H, Eosinophils (%) (Auto) 2.8, Basophils (%) (Auto) 0.7, Neutrophils # (Auto) 3.0, Lymphocytes # (Auto) 0.6 L, Monocytes # (Auto) 0.5, Eosinophils # (Auto) 0.1, Basophils # (Auto) 0.0, Aspartate Amino Transf (AST/SGOT) 32, Alanine Aminotransferase (ALT/SGPT) 25, Alkaline Phosphatase 125 H, Total Bilirubin 1.0, Total Protein 6.6, Albumin 3.2 Microbiology Microbiology 05/10/16 Blood Culture, Received Pending 05/10/16 Blood Culture, Received Pending 05/10/16 Gastrointestinal Tract Panel (PCR) - Final, Complete Clostridium Difficile A/B Enteropathogenic E.coli 05/10/16 Influenza Virus Type A Antigen - Final, Complete 05/10/16 Influenza Virus Type B Antigen - Final, Complete NIRALI HEBERT MD May 10, 2016 14:39
--- NOTE | 2016-05-11 11:32 | IPNPDOC ---
Subjective Date Seen The patient was seen on 05/11/16. Subjective Chief Complaint/HPI The patient is a 75-year-old female admitted with a reason for visit of Chest Pain. Events since last encounter feeling better today , no further diarrhea, no abdominal cramps, no chest pain or sob , continues to have pedal edema, no nausea or vomiting. Objective Physical Examination General Exam: Positive: Alert, Cooperative, No Acute Distress Eye Exam: Positive: Conjunctiva & lids normal, EOMI, PERRLA, Negative: Ptosis, Sclera icteric ENT Exam: Positive: Atraumatic, Mucous membr. moist/pink, Pharynx Normal, Tongue Midline Neck Exam: Positive: JVD, Supple, Negative: Lymphadenopathy Chest Exam: Positive: Rales Heart Exam: Positive: Irregular Rhythm, Murmurs (2/6 systolic), Normal S1, Normal S2 Abdomen Exam: Positive: Soft, Tenderness (right lower quadrant) Extremity Exam: Positive: Edema (none pitting edema), Negative: Clubbing, Cyanosis Skin Exam: Positive: Nl turgor and temperature Neuro Exam: Positive: Cranial Nerves 3-12 NL, Normal Speech, Reflexes 2+, Negative: Strength at 5/5 X4 ext (4/5 bl lower extremity) Psych Exam: Positive: Mental status NL, Oriented x 3 Assessment /Plan Problems (1) Dizziness and giddiness Status: Acute Response to Treatment: Improving Problem Text: will check orthostatic BPS. had unstable gait will get pt evaluation. (2) Chest pain Status: Resolved Problem Text: no cardiac event possibly related to chronic splenic infarct or musculoskeletal (3) C. difficile diarrhea Status: Acute Problem Text: this is the third episode since november 2015 will give deficid bid. will consider stool transplant. ID consult (4) Cirrhosis, cryptogenic Status: Chronic Problem Text: with decompensation, has ascites, portal hypertension will increase dose of lasix and continue spironolactone will temporarily reduce atenolol dosage so that we can give more of lasix without dropping blood pressure. continue lactulose prn. (5) Splenic infarct Status: Chronic (6) Diastolic congestive heart failure Status: Chronic Problem Text: continue lasix and spironolactone. 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 (10) Chronic atrial fibrillation Status: Chronic Problem Text: not on anticoagulation because of recurrent GIBs. 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 hh has dropped from baseline will check fecal occult blood. (12) Anemia Status: Chronic Problem Text: usual h/h between 9 to 10 now down to 7.6 will check fecal occult blood, iron studies, b 12 and folate levels. partly dilutional. Plan/VTE VTE Prophylaxis Ordered?: Yes (SCD, she has history of severe GI bleed) VS, I&O, 24H, Fishbone Vital Signs/I&O Vital Signs Date Time Temp Pulse Resp B/P Pulse Ox O2 Delivery O2 Flow Rate FiO2 05/11/16 09:17 96 05/11/16 09:17 130/72 05/11/16 06:00 99.6 20 94 Room Air 05/09/16 15:40 100 I&O- Last 24 Hours up to 6 AM 05/11/16 06:00 Intake Total 960 ml Output Total 500 ml Balance 460 ml Laboratory Data 24H LABS Laboratory Tests 2 05/11/16 06:35: Acanthocytes 1+, Blood Urea Nitrogen 14, Creatinine 0.82, Sodium Level 144, Potassium Level 3.8, Chloride Level 112H, Carbon Dioxide Level 23, Calcium Level 8.4L, Aspartate Amino Transf (AST/SGOT) 31, Alanine Aminotransferase (ALT/ SGPT) 21, Alkaline Phosphatase 109, Total Bilirubin 0.8, Total Protein 6.0L, Albumin 2.9L, Albumin/Globulin Ratio 0.94L, Anion Gap 9, Anisocytosis 1+, White Blood Count 3.6L, Red Blood Count 3.24L, Hemoglobin 7.6L, Hematocrit 26.3L, Mean Corpuscular Volume 81.3, Mean Corpuscular Hemoglobin 23.3L, Mean Corpuscular Hemoglobin Concent 28.7L, Red Cell Distribution Width 17.0H, Platelet Count 178, Neutrophils (%) (Auto) 64.9, Lymphocytes (%) (Auto) 12.5L, Monocytes (%) (Auto) 12.6H, Eosinophils (%) (Auto) 4.2H, Basophils (%) (Auto) 0.4, Neutrophils # (Auto) 2.4, Lymphocytes # (Auto) 0.5L, Monocytes # (Auto) 0.5 , Eosinophils # (Auto) 0.2, Basophils # (Auto) 0.0, Glomerular Filtration Rate > 60.0, Hypochromasia 3+, Large Unclassified Cells # 0.2, Large Unclassified Cells % 5.5H, Platelet Estimate NORMAL, Schistocytes 1+ CBC/BMP Laboratory Tests 05/11/16 06:35 Calcium Level 8.4 L, Aspartate Amino Transf (AST/SGOT) 31, Alanine Aminotransferase (ALT/SGPT) 21, Alkaline Phosphatase 109, Total Bilirubin 0.8, Total Protein 6.0 L, Albumin 2.9 L, Red Blood Count 3.24 L, Mean Corpuscular Volume 81.3, Mean Corpuscular Hemoglobin 23.3 L, Mean Corpuscular Hemoglobin Concent 28.7 L, Red Cell Distribution Width 17.0 H, Neutrophils (%) (Auto) 64.9 , Lymphocytes (%) (Auto) 12.5 L, Monocytes (%) (Auto) 12.6 H, Eosinophils (%) ( Auto) 4.2 H, Basophils (%) (Auto) 0.4, Neutrophils # (Auto) 2.4, Lymphocytes # ( Auto) 0.5 L, Monocytes # (Auto) 0.5, Eosinophils # (Auto) 0.2, Basophils # (Auto ) 0.0 Microbiology Microbiology 05/10/16 Blood Culture - Preliminary, Resulted No growth after 24 hours . All specim... 05/10/16 Blood Culture - Preliminary, Resulted No growth after 24 hours . All specim... 05/10/16 Gastrointestinal Tract Panel (PCR) - Final, Complete Clostridium Difficile A/B Enteropathogenic E.coli 05/10/16 Influenza Virus Type A Antigen - Final, Complete 05/10/16 Influenza Virus Type B Antigen - Final, Complete NIRALI HEBERT MD May 11, 2016 11:32
[2016-05-11 13:02] LABS: PERCENT SATURATION 4.6 % (13.2-37.4)
[2016-05-11 13:05] LABS: FOLATE 15.2 NG/ML (>5.4)
[2016-05-11 14:00] VITALS: BP_SYST 100; BP_SYST 90; BP_DIAS 58; BP_DIAS 64
[2016-05-11] MEDS: FUROSEMIDE 20 MG/2 ML VIAL (J1940) IV SCH (17:28)
[2016-05-11] MEDS: SPIRONOLACTONE 25 MG TAB PO SCH (20:53)
[2016-05-11] MEDS: ATENOLOL 25 MG TAB PO SCH (20:53)
[2016-05-11] MEDS: FERROUS GLUCONATE 324 MG TAB PO SCH (21:04)
--- NOTE | 2016-05-11 21:38 | CR ---
DATE OF CONSULTATION: 05/11/2016 INFECTIOUS DISEASE CONSULTATION I was asked to consult by Dr. Ling for evaluation of Clostridium (C) difficile colitis. HISTORY OF PRESENT ILLNESS: Mrs. Brown is a pleasant 74-year-old female with a history of idiopathic liver cirrhosis, ascites, recurrent gastrointestinal (GI) bleed from esophageal varices and gastric antral vascular ectasia (GAVE) syndrome. The patient was at the doctor's office, Dr. Tiwari, on 05/09/2016 for her routine visit when she started complaining of dizziness, vertigo and unstable gait. An EKG was performed in the office and Dr. Tiwari sent her to the emergency room. The patient stated she was feeling dizzy. She had sharp pains in her chest and had to lay down. These pains and dizzy spells had started about 2 years ago but this was worse than her usual. She had her pacemaker interrogated by Dr. Gibbs's office about 3 weeks ago. She has had low grade fevers 100-101 at home. The patient states she has loose stools but usually is related to lactulose. She has to take iron supplements on a regular basis. Usually she has to take two a day due to recurrent GI bleeds, but she only takes one a day because it is very constipating and she takes lactulose to help with that. She takes lactulose about one a day. She does not seem to realize that the lactulose is also related to her hepatic encephalopathy. The patient states that on admission, she did not have diarrhea. She had her baseline one to two bowel movements a day. The next day, she was given some contrast to do a CT of the abdomen and pelvis on 05/10/2016 and after oral contrast, her diarrhea occurred and the stool was sent for Clostridium difficile. The patient states that she has had three previous episode of Clostridium difficile and usually they are foul-smelling, watery stools, she cannot control them. The CT of the abdomen and pelvis does show diverticulosis, hypodense lesion in the spleen suggestive of a splenic infarct, splenomegaly, mild ascites, mesenteric congestion, moderate large bowel fecal stasis, thickening of the cecum and ascending colon. Under distension versus mild colitis. This patient was started on Flagyl and oral vancomycin, then she changed to fidaxomicin. S he states her bowel movements now are baseline, one to two a day. past medical history is significant for idiopathic liver cirrhosis with ascites, gastroesophageal varices, GAVE syndrome, tachy-eugenia syndrome, atrial fibrillation - not on anticoagulation due to the recurrent GI bleed, iron deficiency anemia, diastolic heart failure, ejection fraction of 75%. She has had three episodes of C difficile in the past. These were all over a year; the first episode occurred in November 2014, the second was in December and then in July 2015. This was the last episode she was treated for, so it is already over 12 months since her previous episode. SURGICAL HISTORY: Pacemaker inserted on 11/24/[address] Alcaraz for tachy- eugenia syndrome, cholecystectomy, hysterectomy, tonsillectomy, endoscopy with banding and plasma coagulation, cholecystectomy, cataract extraction. FAMILY HISTORY: significant for liver disease. REVIEW OF SYSTEMS: The patient states she has intermittent chest pain and dizzy spells. She denies any shortness of breath, nausea or vomiting. She has chronic constipation from iron, takes lactulose which give her soft stools. She has no headache, dysphagia or sore throat. She does complain of itching. No upper or lower extremity weakness. She has had some low grade fevers with chills. SOCIAL HISTORY: She denies smoking or drinking. She is retired from some [employer] services. She lives alone. She has a son in [place] who visits her regularly. LABORATORY DATA: White count was 3.6, hemoglobin 7.6, hematocrit 26.3, platelets 178. Sodium 144, potassium 3.8, chloride 112, bicarbonate 23, BUN 14, creatinine 0.82, glucose 91. Heart: Normal S1, S2, distant. No murmurs. Lungs: Clear. No wheezes, rales or rhonchi. Abdomen is soft, mildly tender in the right upper quadrant. No hepatosplenomegaly.. No guarding. Extremities: +1 edema both lower extremities. No calf tenderness. No rashes. No cyanosis. Neck is supple. No jugular venous distention (JVD). No bruits. Pupils are equal and reactive, anicteric. Oropharynx is clear. She has white discoloration of the tongue but no thrush. Temperature is 99.6, pulse 63, respirations 18, blood pressure 100/64, Oxygen saturation 99% on room air. I IMAGING STUDIES: Chest x-ray showed cardiomegaly with no acute infiltrates. This was a portable chest. CT angiogram shows no evidence of pulmonary embolism or acute pleuroparenchymal or mediastinal process. Upper abdomen demonstrates ascites and varices consistent with cirrhosis. Head CT showed no evidence of acute intracranial pathology. CT of the abdomen showed a possible mild colitis with moderate large bowel fecal stasis, mild ascites, splenic infarction, diverticulosis. There is also a question of whether it was just under distension of the colon not a colitis. IMPRESSION: This is a 75-year-old female with a complicated past medical history mostly relevant for idiopathic liver cirrhosis with decompensated liver failure who has had multiple admissions for GI bleed, chest pain, who presented this time for recurrent chest pain and dizzy spell. She was given contrast to get a CT of the abdomen following which she had diarrhea. After she had diarrhea from the contrast, the patient had a stool sent for Clostridium difficile and it was positive. The CT of the abdomen did show the possibility of mild colitis. The patient now states that she does not have diarrhea, does not have any abdominal pain, it does not feel to her like an episode of Clostridium difficile colitis that she has had over a year ago. She states her bowel movements are stable at one to two a day depending on how much lactulose she takes. On review of previous hospitalization on 02/08 to 02/10, the patient received aztreonam gram IV every 8 hours. She is always on a proton pump inhibitor (PPI). That was the only antibiotic she received for 3 days. MEDICATIONS: - atenolol 25 mg by mouth twice a day - Lasix 20 mg IV every 12 hours - probiotics one tablet by mouth twice a day - Dificid 200 mg by mouth twice a day - Eucerin Cream to extremities - Ferrous gluconate 324 mg by mouth daily - aldactone 25 mg by mouth nightly - digoxin 0.125 mg - Protonix 40 mg by mouth twice a day - Carafate 1 gram by mouth before food and nightly - lactulose 15 mL as needed daily ALLERGIES: MEPERIDINE, DIPHENHYDRAMINE, PENICILLIN, SULFA. Microbiology: Stool for C diff was positive as well as enteropathogenic E-coli. Influenza A and B was negative. Blood cultures two sets, done on 05/10/2016 were negative and stool Hemoccult was negative. PLAN: I am not totally convinced that the patient has Clostridium difficile colitis since she did not have diarrhea until she was given oral contrast for her CT abdomen. Although the patient has had multiple recurrences in the past, the last one was 14 months ago. The patient has received recently antibiotic aztreonam for a couple of days about 3 months ago. She has had low grade. A CT might be suggestive of mild colitis, and therefore, I will treat her as if she has Clostridium difficile, but I am not totally convinced that this is the reason this is not just mere colonization. The patient is currently on fidaxomicin 200 mg by mouth twice a day; she is currently day #1. She is on probiotics twice a day. She will be treated for 10 days whether fidaxomicin or vancomycin. If authorized by her insurance, I would continue with fidaxomicin but otherwise vancomycin would be appropriate as well . The patient does not need to be considered for stool transplantation at this time. She did not fail treatment. She has not had an episode in 14 months. Thank you for consultation. SHANEKA
[2016-05-11 22:00] VITALS: BP_SYST 110; BP_SYST 112; BP_SYST 90; BP_DIAS 48; BP_DIAS 50; BP_DIAS 56
[2016-05-12 06:00] VITALS: BP 104/60
[2016-05-12 06:35] LABS: BASO % 1.1 % (0.0-1.0); EOS # 0.2 K/mm3 (0.0-0.50); EOS % 5.5 % (0.0-3.0); LARGE UNSTAINED CELL # 0.2 K/mm3 (0.0-0.4); LARGE UNSTAINED CELL % 4.4 % (0.0-4.0); LYMPH # 0.7 K/mm3 (1.5-4.5); LYMPH % 17.3 % (24.0-44.0); MEAN CORPUSCULAR HEMOGLOBIN 23.5 pg (27.0-33.0); MEAN CORPUSCULAR HGB CONC 28.9 g/dl (32.0-36.5); MEAN CORPUSCULAR VOLUME 81.3 fl (80.0-96.0); MONO # 0.4 K/mm3 (0.0-0.8); MONO % 11.9 % (0.0-5.0); NEUTROPHILS # 2.1 K/mm3 (1.8-7.7); NEUTROPHILS % 59.7 % (36.0-66.0); PLATELET COUNT, AUTOMATED 202 k/mm3 (150-450); RED CELL DISTRIBUTION WIDTH 16.8 % (11.5-14.5); WHITE BLOOD COUNT 3.4 K/mm3 (4.0-10.0)
[2016-05-12 06:58] LABS: ALKALINE PHOSPHATASE 115 U/L (45-117); ALT/SGPT 25 U/L (12-78); ANION GAP 8 MEQ/L (8-16); AST/SGOT 33 U/L (15-37); BILIRUBIN,TOTAL 0.8 MG/DL (0.2-1.0); BLOOD UREA NITROGEN 14 MG/DL (7-18); CALCIUM LEVEL 8.6 MG/DL (8.8-10.2); CARBON DIOXIDE LEVEL 25 MEQ/L (21-32); CHLORIDE LEVEL 110 MEQ/L (98-107); CREATININE FOR GFR 0.93 MG/DL (0.55-1.02); GLOMERULAR FILTRATION RATE > 60.0 (>39); GLUCOSE, FASTING 88 MG/DL (83-110); POTASSIUM SERUM 3.8 MEQ/L (3.5-5.1); SODIUM LEVEL 143 MEQ/L (136-145)
[2016-05-12] MEDS: FIDAXOMICIN 200 MG TAB (DIFICID) PO SCH ×2 (08:05→22:12)
[2016-05-12] MEDS: FUROSEMIDE 20 MG/2 ML VIAL (J1940) IV SCH ×2 (08:05→17:39)
[2016-05-12] MEDS: LACTOBACILLUS ACIDOPHILUS CAP (BACID) PO SCH ×2 (08:05→22:12)
[2016-05-12] MEDS: SUCRALFATE 1 GM TAB PO SCH ×4 (08:05→22:12)
[2016-05-12] MEDS: ATENOLOL 25 MG TAB PO SCH ×2 (08:06→21:13)
[2016-05-12] MEDS: PANTOPRAZOLE 40MG TAB (PROTONIX) PO SCH ×2 (08:06→22:12)
[2016-05-12] MEDS: DIGOXIN 0.125 MG TAB PO SCH (08:06)
[2016-05-12] MEDS: POLYVINYL ALCOHOL OPHTH SOLN 15 ML(LIQUITEARS) OU SCH ×4 (08:07→22:11)
[2016-05-12] MEDS ORDERED: DIFI200T PO (11:04)
--- NOTE | 2016-05-12 11:11 | IPNPDOC ---
Subjective Date Seen The patient was seen on 05/12/16. Subjective Chief Complaint/HPI The patient is a 75-year-old female admitted with a reason for visit of Chest Pain. Events since last encounter no further diarrhea, her leg swelling is getting better, seen by ID could be c diff colonization vs actual c diff colitis however does not need stool transplant. no fever or chills, no abdominal pain , nausea or vomiting. Still very weak and not functionally at her baseline . She lives alone and has not been cleared by PT for discharge. Objective Physical Examination General Exam: Positive: Alert, Cooperative, No Acute Distress Eye Exam: Positive: Conjunctiva & lids normal, EOMI, PERRLA, Negative: Ptosis, Sclera icteric ENT Exam: Positive: Atraumatic, Mucous membr. moist/pink, Pharynx Normal, Tongue Midline Neck Exam: Positive: JVD, Supple, Negative: Lymphadenopathy Chest Exam: Positive: Rales Heart Exam: Positive: Irregular Rhythm, Murmurs (2/6 systolic), Normal S1, Normal S2 Abdomen Exam: Positive: Soft, Tenderness (right lower quadrant) Extremity Exam: Positive: Edema (none pitting edema), Negative: Clubbing, Cyanosis Skin Exam: Positive: Nl turgor and temperature Neuro Exam: Positive: Cranial Nerves 3-12 NL, Normal Speech, Reflexes 2+, Negative: Strength at 5/5 X4 ext (4/5 bl lower extremity) Psych Exam: Positive: Mental status NL, Oriented x 3 Assessment /Plan Problems (1) Dizziness and giddiness Status: Resolved Response to Treatment: Improving Problem Text: orthostatic BPS are negative. had unstable gait will get pt evaluation. (2) Chest pain Status: Resolved Problem Text: no cardiac event possibly related to chronic splenic infarct or musculoskeletal (3) C. difficile diarrhea Status: Acute Problem Text: this is the third episode since november 2015 will give deficid bid. will consider stool transplant. ID consult (4) Cirrhosis, cryptogenic Status: Chronic Problem Text: with decompensation, has ascites, portal hypertension will increase dose of lasix and continue spironolactone will temporarily reduce atenolol dosage so that we can give more of lasix without dropping blood pressure. continue lactulose prn. (5) Splenic infarct Status: Chronic (6) Diastolic congestive heart failure Status: Chronic Problem Text: continue lasix and spironolactone. 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 (10) Chronic atrial fibrillation Status: Chronic Problem Text: not on anticoagulation because of recurrent GIBs. 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 hh has dropped from baseline will check fecal occult blood. (12) Anemia Status: Chronic Problem Text: usual h/h between 9 to 10 now down to 7.6 will check fecal occult blood, iron studies, b 12 and folate levels. partly dilutional. Plan/VTE VTE Prophylaxis Ordered?: Yes (SCD, she has history of severe GI bleed) VS, I&O, 24H, Fishbone Vital Signs/I&O Vital Signs Date Time Temp Pulse Resp B/P Pulse Ox O2 Delivery O2 Flow Rate FiO2 05/12/16 09:40 Room Air 05/12/16 08:06 80 110/60 05/12/16 06:00 98.1 18 94 05/09/16 15:40 100 I&O- Last 24 Hours up to 6 AM 05/12/16 06:00 Intake Total 1380 ml Output Total 1850 ml Balance -470 ml Laboratory Data 24H LABS Laboratory Tests 2 05/11/16 12:16: C-Reactive Protein, Quantitative 0.99H, Ferritin 16, Folate 15.2, Iron Level 17L , Total Iron Binding Capacity 369, Transferrin % Saturation 4.6L, Vitamin B12 Level 697 05/12/16 06:22: Blood Urea Nitrogen 14, Creatinine 0.93, Sodium Level 143, Potassium Level 3.8, Chloride Level 110H, Carbon Dioxide Level 25, Calcium Level 8.6L, Aspartate Amino Transf (AST/SGOT) 33, Alanine Aminotransferase (ALT/SGPT) 25, Alkaline Phosphatase 115, Total Bilirubin 0.8, Total Protein 6.0L, Albumin 3.0L, Albumin/ Globulin Ratio 1.00, Ammonia 60H, Anion Gap 8, White Blood Count 3.4L, Red Blood Count 3.39L, Hemoglobin 8.0L, Hematocrit 27.6L, Mean Corpuscular Volume 81.3, Mean Corpuscular Hemoglobin 23.5L, Mean Corpuscular Hemoglobin Concent 28.9L, Red Cell Distribution Width 16.8H, Platelet Count 202, Neutrophils (%) ( Auto) 59.7, Lymphocytes (%) (Auto) 17.3L, Monocytes (%) (Auto) 11.9H, Eosinophils (%) (Auto) 5.5H, Basophils (%) (Auto) 1.1H, Neutrophils # (Auto) 2.1 , Lymphocytes # (Auto) 0.7L, Monocytes # (Auto) 0.4, Eosinophils # (Auto) 0.2, Basophils # (Auto) 0.0, Glomerular Filtration Rate > 60.0, Large Unclassified Cells # 0.2, Large Unclassified Cells % 4.4H CBC/BMP Laboratory Tests 05/12/16 06:22 Calcium Level 8.6 L, Aspartate Amino Transf (AST/SGOT) 33, Alanine Aminotransferase (ALT/SGPT) 25, Alkaline Phosphatase 115, Total Bilirubin 0.8, Total Protein 6.0 L, Albumin 3.0 L, Red Blood Count 3.39 L, Mean Corpuscular Volume 81.3, Mean Corpuscular Hemoglobin 23.5 L, Mean Corpuscular Hemoglobin Concent 28.9 L, Red Cell Distribution Width 16.8 H, Neutrophils (%) (Auto) 59.7 , Lymphocytes (%) (Auto) 17.3 L, Monocytes (%) (Auto) 11.9 H, Eosinophils (%) ( Auto) 5.5 H, Basophils (%) (Auto) 1.1 H, Neutrophils # (Auto) 2.1, Lymphocytes # (Auto) 0.7 L, Monocytes # (Auto) 0.4, Eosinophils # (Auto) 0.2, Basophils # ( Auto) 0.0 Microbiology Microbiology 05/10/16 Blood Culture - Preliminary, Resulted No Growth after 48 hours. All Specime... 05/10/16 Blood Culture - Preliminary, Resulted No Growth after 48 hours. All Specime... 05/11/16 Stool Occult Blood (SCARLETT) - Final, Complete 05/10/16 Gastrointestinal Tract Panel (PCR) - Final, Complete Clostridium Difficile A/B Enteropathogenic E.coli 05/10/16 Influenza Virus Type A Antigen - Final, Complete 05/10/16 Influenza Virus Type B Antigen - Final, Complete NIRALI HEBERT MD May 12, 2016 11:11
[2016-05-12 14:00] VITALS: BP 102/58
--- NOTE | 2016-05-12 15:21 | ECHO ---
DATE OF STUDY: 05/11/2016 REFERRING PHYSICIAN: Dr. Elliott Sandhu INDICATION: Dyspnea. HEIGHT: 168 cm. WEIGHT: 71 kilograms. MEASUREMENTS: Ventricular septum: 1.14 cm Posterior wall: 1.12 cm Left ventricle diastole: 4.2 cm Left atrium: 4.2 cm LVOT: 1.74 cm Aortic root: 3.3 cm Aortic annulus: 1.8 cm Proximal ascending aorta: 3.3 cm DOPPLER MEASUREMENTS: Trace aortic regurgitation. Aortic valve velocity: 147 cm/s LVOT velocity: 126 cm/s LVOT VTI: 26.0 cm Very mild mitral regurgitation. Moderate tricuspid regurgitation. Estimated right ventricle systolic pressure: 39 mmHg assuming a right atrial pressure of 10 mmHg Mild pulmonic regurgitation. Pulmonary artery systolic pressure: 39 mmHg by pulmonary acceleration time method DESCRIPTION: Rhythm appeared to be atrial fibrillation and infrequent, but appropriate ventricular demand pacing was present. Image quality was fair. This was a 2D, M-mode, color flow Doppler, and pulse wave Doppler examination and included mitral annular tissue Doppler. CONCLUSIONS: 1. Normal left ventricle internal dimensions and wall thickness. No regional wall motion abnormalites. Hyperdynamic left ventricle (LV) systolic function. Left ventricular ejection fraction (LVEF) 80% by visual estimate. Unable to assess LV diastolic dysfunction in the setting of atrial fibrillation. 2. Small pericardial effusion measuring 0.6 cm over the posterior wall of the left ventricle. No diastolic chamber collapse. 3. Severe left atrial dilatation. 4. Moderate mitral annular calcification. No mitral stenosis. Inferior mild mitral regurgitation. 5. Mild aortic valve sclerosis of a three-cusp aortic valve. Trace aortic regurgitation. 6. Suggestive of mild elevation of both estimated right ventricle systolic pressure and pulmonary artery systolic pressure. Moderate right atrial dilatation. Normal right ventricle size with hyperdynamic RV systolic function. Moderate tricuspid regurgitation. 7. Presence of a cardiac rhythm management endocardial leak coursing towards the right ventricle apex position.
--- NOTE | 2016-05-12 15:23 | IPN ---
DATE: 05/12/2016 SUBJECTIVE: Denies a diarrhea, nausea or vomiting but she was sobbing when we came to visit her today. After we had a long talk with her, it turns out that the patient has a lot of anxiety regarding her illness. She started being sick all the time. She has been told by her primary care providers regarding taking medication for anxiety or depression but she has refused to do so in the past. She then brings up a conversation that her brother at the age of 20 killed himself from an overdose from drug addiction, and when I discussed with her whether she was worried about addition, she stated yes. I did have a long discussion with her regarding new medication selective serotonin reuptake inhibitors (SSRI) that are not addictive. She is still somewhat reluctant to take any medication. She states she has a car but has not driven in a while because she feels anxious whenever she gets in the car, thinking she is going to get another spell with palpitations. She feels the medical office coordinator has worked her up significantly. She has seen them at least three times in the past couple of months, had a Holter monitor most recently in March which only showed a heart rate between 50 and 117 and five premature ventricular contractions (PVCs) and there were no cardiac anomalies that would suggest why she would be having so much palpitation. I again discussed with her that could be anxiety related. OBJECTIVE: Physical exam is benign. Temperature is 98.1, pulse 77, respirations 18, blood pressure 104/60, Oxygen saturation 94% on room air. LABORATORY DATA: White count is 3.4, hemoglobin 8, hematocrit 27.6, platelets 202. Sodium 143, potassium 3.8, chloride 110, bicarb 25, BUN 14, creatinine 0.93, glucose 88, calcium 8.6, ammonia 60. CRP 0.99, total protein 6, albumin 3. IMPRESSION: 1. Clostridium (C.) difficile colonization. The patient does not have diarrhea. She is currently on fidaxomicin and is on day number two. She has a history of C. difficile; status episode was February 2015, at least 13 months ago, and this one I suspect is colonization. I would just treat her with a seven-day course of Dificid or vancomycin or even the option not to treat her would be also appropriate. 2. Decompensated liver cirrhosis, idiopathic. The patient is not on lactulose and her ammonia level was elevated. 3. Depression and anxiety. The patient needs to be treated with an SSRI. Hopefully she was convinced and would take it. I will also discuss it with her primary care provider, Dr. Tiwari. 4. Palpitations could also be related to anxiety, as her cardiac workup so far has been unrevealing.
[2016-05-12 16:25] VITALS: BP 112/72
[2016-05-12] MEDS: SPIRONOLACTONE 25 MG TAB PO SCH (21:14)
[2016-05-12 22:00] VITALS: BP 108/50
[2016-05-12] MEDS: CitaloPRAM (CeleXA) 10 MG TABLET PO SCH (22:12)
[2016-05-12] MEDS: FERROUS GLUCONATE 324 MG TAB PO SCH (22:12)
[2016-05-13 06:00] VITALS: BP_SYST 116; BP_SYST 120; BP_SYST 98; BP_DIAS 58; BP_DIAS 64
[2016-05-13 06:54] LABS: BASO % 0.8 % (0.0-1.0); EOS # 0.1 K/mm3 (0.0-0.50); EOS % 3.6 % (0.0-3.0); LARGE UNSTAINED CELL # 0.2 K/mm3 (0.0-0.4); LARGE UNSTAINED CELL % 4.5 % (0.0-4.0); LYMPH # 0.8 K/mm3 (1.5-4.5); LYMPH % 16.7 % (24.0-44.0); MEAN CORPUSCULAR HEMOGLOBIN 23.2 pg (27.0-33.0); MEAN CORPUSCULAR HGB CONC 28.6 g/dl (32.0-36.5); MEAN CORPUSCULAR VOLUME 81.4 fl (80.0-96.0); MONO # 0.6 K/mm3 (0.0-0.8); MONO % 16.2 % (0.0-5.0); NEUTROPHILS # 2.1 K/mm3 (1.8-7.7); NEUTROPHILS % 58.2 % (36.0-66.0); PLATELET COUNT, AUTOMATED 193 k/mm3 (150-450); WHITE BLOOD COUNT 3.7 K/mm3 (4.0-10.0)
[2016-05-13 06:55] LABS: ADD MORPHOLOGY? YES
[2016-05-13 07:01] LABS: ALBUMIN/GLOBULIN RATIO 0.86 (1.00-1.93); ALKALINE PHOSPHATASE 114 U/L (45-117); ALT/SGPT 23 U/L (12-78); ANION GAP 9 MEQ/L (8-16); AST/SGOT 32 U/L (15-37); BILIRUBIN,TOTAL 0.7 MG/DL (0.2-1.0); BLOOD UREA NITROGEN 14 MG/DL (7-18); CALCIUM LEVEL 8.4 MG/DL (8.8-10.2); CARBON DIOXIDE LEVEL 24 MEQ/L (21-32); CHLORIDE LEVEL 110 MEQ/L (98-107); CREATININE FOR GFR 0.85 MG/DL (0.55-1.02); GLOMERULAR FILTRATION RATE > 60.0 (>39); GLUCOSE, FASTING 102 MG/DL (83-110); POTASSIUM SERUM 3.6 MEQ/L (3.5-5.1); SODIUM LEVEL 143 MEQ/L (136-145); TOTAL PROTEIN 6.5 GM/DL (6.4-8.2)
[2016-05-13 07:24] LABS: ANISOCYTOSIS 1+; HYPOCHROMASIA 2+
[2016-05-13 07:25] LABS: CRENATED RBC 1+; OVALOCYTES 1+; POIKILOCYTOSIS 1+
[2016-05-13] MEDS: SUCRALFATE 1 GM TAB PO SCH ×4 (08:21→20:31)
[2016-05-13] MEDS: POLYVINYL ALCOHOL OPHTH SOLN 15 ML(LIQUITEARS) OU SCH ×4 (09:00→20:31)
--- NOTE | 2016-05-13 09:15 | IPNPDOC ---
Subjective Date Seen The patient was seen on 05/13/16. Subjective Chief Complaint/HPI The patient is a 75-year-old female admitted with a reason for visit of Chest Pain. Events since last encounter yesterday was very emotional crying and depressed extensive counselling done byt YOKASTA , started on antidepressant also the hospital [facility] Assistant came and spoke with her. this am looks calmer , agreeable to go home . hh down from baseline will give 1 unit of prbc. yesterday had an episode of chest pain with dizziness and lightheadedness , vitals were stable and resolved within a few minutes looked to be eithier from splenic infarc region or musculoskeletal and pateint was very anxious and crying at that time. This am has pain on palpation of the left upper quadrant and epigastrium which she says radiates to her back. has poor appetite , says al food tastes like paper. had 2 bowel movements. no fever or chills, no shortness of breath. Objective Physical Examination General Exam: Positive: Alert, Cooperative, No Acute Distress Eye Exam: Positive: Conjunctiva & lids normal, EOMI, PERRLA, Negative: Ptosis, Sclera icteric ENT Exam: Positive: Atraumatic, Mucous membr. moist/pink, Pharynx Normal, Tongue Midline Neck Exam: Positive: JVD, Supple, Negative: Lymphadenopathy Chest Exam: Positive: Rales Heart Exam: Positive: Irregular Rhythm, Murmurs (2/6 systolic), Normal S1, Normal S2 Abdomen Exam: Positive: Soft, Tenderness (left upper quadrant and epigastrium) Extremity Exam: Positive: Edema (none pitting edema), Negative: Clubbing, Cyanosis Skin Exam: Positive: Nl turgor and temperature Neuro Exam: Positive: Cranial Nerves 3-12 NL, Normal Speech, Reflexes 2+, Negative: Strength at 5/5 X4 ext (4/5 bl lower extremity) Psych Exam: Positive: Mental status NL, Oriented x 3 Assessment /Plan Problems (1) Dizziness and giddiness Status: Resolved Response to Treatment: Improving Problem Text: orthostatic BPS are negative. had unstable gait will get pt evaluation. (2) Chest pain Status: Resolved Problem Text: no cardiac event possibly related to chronic splenic infarct or musculoskeletal (3) C. difficile diarrhea Status: Acute Problem Text: this is the third episode since november 2015 will give deficid bid. will consider stool transplant. ID consult (4) Cirrhosis, cryptogenic Status: Chronic Problem Text: with decompensation, has ascites, portal hypertension will increase dose of lasix and continue spironolactone will temporarily reduce atenolol dosage so that we can give more of lasix without dropping blood pressure. continue lactulose prn. (5) Splenic infarct Status: Chronic (6) Diastolic congestive heart failure Status: Chronic Problem Text: continue lasix and spironolactone. 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 (10) Chronic atrial fibrillation Status: Chronic Problem Text: not on anticoagulation because of recurrent GIBs. 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 hh has dropped from baseline will check fecal occult blood. (12) Anemia Status: Chronic Problem Text: usual h/h between 9 to 10 now down to 7.6 will check fecal occult blood, iron studies, b 12 and folate levels. partly dilutional. (13) Depressed Status: Acute Problem Text: started on celexa no suicidal ideas Plan/VTE VTE Prophylaxis Ordered?: Yes (SCD, she has history of severe GI bleed) VS, I&O, 24H, Fishbone Vital Signs/I&O Vital Signs Date Time Temp Pulse Resp B/P Pulse Ox O2 Delivery O2 Flow Rate FiO2 05/13/16 06:00 97 120/58 94 116/58 114 98/64 05/12/16 22:00 98.8 17 96 Room Air 05/09/16 15:40 100 I&O- Last 24 Hours up to 6 AM 05/13/16 06:00 Intake Total 720 ml Output Total 1350 ml Balance -630 ml Laboratory Data 24H LABS Laboratory Tests 2 05/13/16 06:25: Blood Urea Nitrogen 14, Creatinine 0.85, Sodium Level 143, Potassium Level 3.6, Chloride Level 110H, Carbon Dioxide Level 24, Calcium Level 8.4L, Aspartate Amino Transf (AST/SGOT) 32, Alanine Aminotransferase (ALT/SGPT) 23, Alkaline Phosphatase 114, Total Bilirubin 0.7, Total Protein 6.5, Albumin 3.0L, Albumin/ Globulin Ratio 0.86L, Anion Gap 9, Anisocytosis 1+, White Blood Count 3.7L, Red Blood Count 3.50L, Hemoglobin 8.1L, Hematocrit 28.5L, Mean Corpuscular Volume 81.4, Mean Corpuscular Hemoglobin 23.2L, Mean Corpuscular Hemoglobin Concent 28.6L, Red Cell Distribution Width 17.0H, Platelet Count 193, Neutrophils (%) ( Auto) 58.2, Lymphocytes (%) (Auto) 16.7L, Monocytes (%) (Auto) 16.2H, Eosinophils (%) (Auto) 3.6H, Basophils (%) (Auto) 0.8, Neutrophils # (Auto) 2.1 , Lymphocytes # (Auto) 0.8L, Monocytes # (Auto) 0.6, Eosinophils # (Auto) 0.1, Basophils # (Auto) 0.0, Crenated Cell 1+, Glomerular Filtration Rate > 60.0, Hypochromasia 2+, Large Unclassified Cells # 0.2, Large Unclassified Cells % 4.5H, Ovalocytes 1+, Platelet Estimate NORMAL, Poikilocytosis 1+ CBC/BMP Laboratory Tests 05/13/16 06:25 Calcium Level 8.4 L, Aspartate Amino Transf (AST/SGOT) 32, Alanine Aminotransferase (ALT/SGPT) 23, Alkaline Phosphatase 114, Total Bilirubin 0.7, Total Protein 6.5, Albumin 3.0 L, Red Blood Count 3.50 L, Mean Corpuscular Volume 81.4, Mean Corpuscular Hemoglobin 23.2 L, Mean Corpuscular Hemoglobin Concent 28.6 L, Red Cell Distribution Width 17.0 H, Neutrophils (%) (Auto) 58.2 , Lymphocytes (%) (Auto) 16.7 L, Monocytes (%) (Auto) 16.2 H, Eosinophils (%) ( Auto) 3.6 H, Basophils (%) (Auto) 0.8, Neutrophils # (Auto) 2.1, Lymphocytes # ( Auto) 0.8 L, Monocytes # (Auto) 0.6, Eosinophils # (Auto) 0.1, Basophils # (Auto ) 0.0 Microbiology Microbiology 05/10/16 Blood Culture - Preliminary, Resulted No Growth after 48 hours. All Specime... 05/10/16 Blood Culture - Preliminary, Resulted No Growth after 72 hours. All specime... 05/11/16 Stool Occult Blood (SCARLETT) - Final, Complete 05/10/16 Gastrointestinal Tract Panel (PCR) - Final, Complete Clostridium Difficile A/B Enteropathogenic E.coli 05/10/16 Influenza Virus Type A Antigen - Final, Complete 05/10/16 Influenza Virus Type B Antigen - Final, Complete NIRALI HEBERT MD May 13, 2016 09:15
[2016-05-13] MEDS: FIDAXOMICIN 200 MG TAB (DIFICID) PO SCH ×2 (09:45→20:31)
[2016-05-13] MEDS: LACTOBACILLUS ACIDOPHILUS CAP (BACID) PO SCH ×2 (09:45→20:31)
[2016-05-13] MEDS: DIGOXIN 0.125 MG TAB PO SCH (09:46)
[2016-05-13] MEDS: PANTOPRAZOLE 40MG TAB (PROTONIX) PO SCH ×2 (09:46→20:31)
[2016-05-13] MEDS: FUROSEMIDE 20 MG/2 ML VIAL (J1940) IV SCH ×2 (09:47→16:23)
[2016-05-13] MEDS: LACTULOSE 20 GM/30 ML SYRUP UD PO SCH (09:47)
[2016-05-13 14:00] VITALS: BP 110/61
[2016-05-13] MEDS: SPIRONOLACTONE 25 MG TAB PO SCH (20:31)
[2016-05-13] MEDS: CitaloPRAM (CeleXA) 10 MG TABLET PO SCH (20:31)
[2016-05-13] MEDS: FERROUS GLUCONATE 324 MG TAB PO SCH (20:31)
[2016-05-13 22:00] VITALS: BP 121/64
[2016-05-13] MEDS: ACETAMINOPHEN TAB 650MG DOSE (2X325MG) PO PRN (22:12)
[2016-05-14] VITALS (9 sets, daily range): BP systolic 96–132; BP diastolic 51–71
[2016-05-14 06:09] LABS: ADD MORPHOLOGY? YES; BASO % 0.8 % (0.0-1.0); EOS # 0.2 K/mm3 (0.0-0.50); EOS % 4.9 % (0.0-3.0); LARGE UNSTAINED CELL # 0.2 K/mm3 (0.0-0.4); LARGE UNSTAINED CELL % 5.6 % (0.0-4.0); LYMPH # 0.6 K/mm3 (1.5-4.5); LYMPH % 15.6 % (24.0-44.0); MEAN CORPUSCULAR HEMOGLOBIN 24.8 pg (27.0-33.0); MEAN CORPUSCULAR HGB CONC 30.8 g/dl (32.0-36.5); MEAN CORPUSCULAR VOLUME 80.7 fl (80.0-96.0); MONO # 0.5 K/mm3 (0.0-0.8); MONO % 13.9 % (0.0-5.0); NEUTROPHILS # 2.3 K/mm3 (1.8-7.7); NEUTROPHILS % 59.2 % (36.0-66.0); PLATELET COUNT, AUTOMATED 183 k/mm3 (150-450); RED CELL DISTRIBUTION WIDTH 16.7 % (11.5-14.5); WHITE BLOOD COUNT 3.8 K/mm3 (4.0-10.0)
[2016-05-14 06:14] LABS: ALBUMIN 3.1 GM/DL (3.2-5.2); ALBUMIN/GLOBULIN RATIO 1.07 (1.00-1.93); ALKALINE PHOSPHATASE 118 U/L (45-117); ALT/SGPT 22 U/L (12-78); ANION GAP 10 MEQ/L (8-16); AST/SGOT 32 U/L (15-37); BILIRUBIN,TOTAL 1.2 MG/DL (0.2-1.0); BLOOD UREA NITROGEN 14 MG/DL (7-18); CALCIUM LEVEL 8.4 MG/DL (8.8-10.2); CARBON DIOXIDE LEVEL 25 MEQ/L (21-32); CHLORIDE LEVEL 108 MEQ/L (98-107); CREATININE FOR GFR 0.85 MG/DL (0.55-1.02); GLOMERULAR FILTRATION RATE > 60.0 (>39); GLUCOSE, FASTING 93 MG/DL (83-110); POTASSIUM SERUM 3.5 MEQ/L (3.5-5.1); SODIUM LEVEL 143 MEQ/L (136-145)
[2016-05-14 06:42] LABS: ANISOCYTOSIS 1+; HYPOCHROMASIA 1+
[2016-05-14 06:46] LABS: POIKILOCYTOSIS 1+; SCHISTOCYTES 1+
[2016-05-14] MEDS ORDERED: DIFI200T PO (06:51)
[2016-05-14] MEDS ORDERED: LASI40TA PO (06:58)
[2016-05-14] MEDS ORDERED: CELE10TA PO (06:58)
[2016-05-14] MEDS ORDERED: PROP10TA56 PO ×2 (06:58→06:59)
[2016-05-14] MEDS ORDERED: KETOROLAC 30 MG/ML VIAL (J1885) IV ONE (08:00)
[2016-05-14] MEDS: FIDAXOMICIN 200 MG TAB (DIFICID) PO SCH ×2 (08:05→21:46)
[2016-05-14] MEDS: SUCRALFATE 1 GM TAB PO SCH ×4 (08:05→21:47)
[2016-05-14] MEDS: LACTOBACILLUS ACIDOPHILUS CAP (BACID) PO SCH ×2 (08:05→21:46)
[2016-05-14] MEDS: PANTOPRAZOLE 40MG TAB (PROTONIX) PO SCH ×2 (08:05→21:48)
[2016-05-14] MEDS: LACTULOSE 20 GM/30 ML SYRUP UD PO SCH (08:05)
[2016-05-14] MEDS: FUROSEMIDE 20 MG/2 ML VIAL (J1940) IV SCH ×2 (08:06→16:53)
[2016-05-14] MEDS: POLYVINYL ALCOHOL OPHTH SOLN 15 ML(LIQUITEARS) OU SCH ×4 (08:06→21:46)
[2016-05-14] MEDS: DIGOXIN 0.125 MG TAB PO SCH (08:06)
[2016-05-14] MEDS ORDERED: PROPRANOLOL 10 MG TAB PO SCH (09:00)
--- NOTE | 2016-05-14 09:11 | IPNPDOC ---
Subjective Date Seen The patient was seen on 05/14/16. Subjective Chief Complaint/HPI The patient is a 75-year-old female admitted with a reason for visit of Chest Pain. Events since last encounter complaining of severe palpitation and chest discomfort on minimal exertion , pateint has been off her atenolol since admission because of low BPS. , EKG showed a fib. also has persistent left upper quadrant and epigastric pain. no fever or chills, no cough or phlegm , leg swelling better. WIll move pateint to PCU and monitor cardiac rhythm during mobilization. Objective Physical Examination General Exam: Positive: Alert, Cooperative, No Acute Distress Eye Exam: Positive: Conjunctiva & lids normal, EOMI, PERRLA, Negative: Ptosis, Sclera icteric ENT Exam: Positive: Atraumatic, Mucous membr. moist/pink, Pharynx Normal, Tongue Midline Neck Exam: Positive: JVD, Supple, Negative: Lymphadenopathy Chest Exam: Positive: Rales Heart Exam: Positive: Irregular Rhythm, Murmurs (2/6 systolic), Normal S1, Normal S2 Abdomen Exam: Positive: Soft, Tenderness (left upper quadrant and epigastrium) Extremity Exam: Positive: Edema (none pitting edema), Negative: Clubbing, Cyanosis Skin Exam: Positive: Nl turgor and temperature Neuro Exam: Positive: Cranial Nerves 3-12 NL, Normal Speech, Reflexes 2+, Negative: Strength at 5/5 X4 ext (4/5 bl lower extremity) Psych Exam: Positive: Mental status NL, Oriented x 3 Assessment /Plan Problems (1) Chest pain Status: Acute Problem Text: continues to have intermittent palpitation and chest pains, patient becomes symptomatic on mobilization. one ekg showed a fib pulse rate varying between 59 to 109. will move to pcu and monitor overnight. no acute cardiac event Had a Holter done 2 weeks ago showed some sinus tachy and pvcs. (2) Dizziness and giddiness Status: Resolved Problem Text: orthostatic BPS are negative. (3) C. difficile diarrhea Status: Acute Problem Text: this is the third episode since november 2015 will give deficid bid. will consider stool transplant. ID consult (4) Cirrhosis, cryptogenic Status: Chronic Problem Text: with decompensation, has ascites, portal hypertension will increase dose of lasix and continue spironolactone will temporarily reduce atenolol dosage so that we can give more of lasix without dropping blood pressure. continue lactulose prn. (5) Splenic infarct Status: Chronic (6) Diastolic congestive heart failure Status: Chronic Problem Text: continue lasix and spironolactone. 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 (10) Chronic atrial fibrillation Status: Chronic Problem Text: not on anticoagulation because of recurrent GIBs. 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 hh has dropped from baseline will check fecal occult blood. (12) Anemia Status: Chronic Problem Text: usual h/h between 9 to 10 now down to 7.6 will check fecal occult blood, iron studies, b 12 and folate levels. partly dilutional. (13) Depressed Status: Acute Problem Text: started on celexa no suicidal ideas Plan/VTE VTE Prophylaxis Ordered?: Yes (SCD, she has history of severe GI bleed) VS, I&O, 24H, [facility] Vital Signs/I&O Vital Signs Date Time Temp Pulse Resp B/P Pulse Ox O2 Delivery O2 Flow Rate FiO2 05/14/16 08:06 80 05/14/16 06:00 98.1 20 132/59 94 05/13/16 20:35 Room Air 05/09/16 15:40 100 I&O- Last 24 Hours up to 6 AM 05/14/16 06:00 Intake Total 2060 ml Output Total 2100 ml Balance -40 ml Laboratory Data 24H LABS Laboratory Tests 2 05/14/16 05:45: Blood Urea Nitrogen 14, Creatinine 0.85, Sodium Level 143, Potassium Level 3.5, Chloride Level 108H, Carbon Dioxide Level 25, Calcium Level 8.4L, Aspartate Amino Transf (AST/SGOT) 32, Alanine Aminotransferase (ALT/SGPT) 22, Alkaline Phosphatase 118H, Total Bilirubin 1.2#H, Total Protein 6.0L, Albumin 3.1L, Albumin/Globulin Ratio 1.07, Ammonia 53H, Anion Gap 10, Anisocytosis 1+, White Blood Count 3.8L, Red Blood Count 3.72L, Hemoglobin 9.2L, Hematocrit 30.0L, Mean Corpuscular Volume 80.7, Mean Corpuscular Hemoglobin 24.8L, Mean Corpuscular Hemoglobin Concent 30.8L, Red Cell Distribution Width 16.7H, Platelet Count 183, Neutrophils (%) (Auto) 59.2, Lymphocytes (%) (Auto) 15.6L, Monocytes (%) (Auto) 13.9H, Eosinophils (%) (Auto) 4.9H, Basophils (%) (Auto) 0.8, Neutrophils # (Auto) 2.3, Lymphocytes # (Auto) 0.6L, Monocytes # (Auto) 0.5 , Eosinophils # (Auto) 0.2, Basophils # (Auto) 0.0, Glomerular Filtration Rate > 60.0, Hypochromasia 1+, Large Unclassified Cells # 0.2, Large Unclassified Cells % 5.6H, Platelet Estimate NORMAL, Poikilocytosis 1+, Schistocytes 1+ CBC/BMP Laboratory Tests 05/14/16 05:45 Calcium Level 8.4 L, Aspartate Amino Transf (AST/SGOT) 32, Alanine Aminotransferase (ALT/SGPT) 22, Alkaline Phosphatase 118 H, Total Bilirubin 1.2 #H, Total Protein 6.0 L, Albumin 3.1 L, Red Blood Count 3.72 L, Mean Corpuscular Volume 80.7, Mean Corpuscular Hemoglobin 24.8 L, Mean Corpuscular Hemoglobin Concent 30.8 L, Red Cell Distribution Width 16.7 H, Neutrophils (%) ( Auto) 59.2, Lymphocytes (%) (Auto) 15.6 L, Monocytes (%) (Auto) 13.9 H, Eosinophils (%) (Auto) 4.9 H, Basophils (%) (Auto) 0.8, Neutrophils # (Auto) 2.3 , Lymphocytes # (Auto) 0.6 L, Monocytes # (Auto) 0.5, Eosinophils # (Auto) 0.2, Basophils # (Auto) 0.0 Microbiology Microbiology 05/10/16 Blood Culture - Preliminary, Resulted No Growth after 72 hours. All specime... 05/10/16 Blood Culture - Preliminary, Resulted No Growth after 72 hours. All specime... 05/11/16 Stool Occult Blood (SCARLETT) - Final, Complete 05/10/16 Gastrointestinal Tract Panel (PCR) - Final, Complete Clostridium Difficile A/B Enteropathogenic E.coli 05/10/16 Influenza Virus Type A Antigen - Final, Complete 05/10/16 Influenza Virus Type B Antigen - Final, Complete NIRALI HEBERT MD May 14, 2016 09:11
[2016-05-14] MEDS: PROPRANOLOL 10 MG TAB PO SCH ×3 (09:44→21:47)
--- NOTE | 2016-05-14 13:39 | ECGEPIP ---
Stationary ECG Study [facility] Test Date: 2016-05-14 Pat Name: CONCEPCION GERMAIN Department: Room: [place] [address] Gender: F Investment Consultant: BAYLEE : 1940 Requested By: NIRALI HEBERT Order Number: [id number] Reading MD: Emmanuel Alcaraz Measurements Intervals [place] Rate: 68 P: CA: 0 QRS: 9 QRSD: 86 T: -20 QT: 412 QTc: 438 Interpretive Statements ATRIAL FIBRILLATION LOW QRS VOLTAGE IN EXTREMITY LEADS ST-T abnormalities, consider digoxin effect. ABNORMAL RHYTHM ECG No ventricular pacing compared with 05/09/2016 at 1937 hours. Electronically Signed On 05-14-2016 13:39:03 EDT by Emmanuel Alcaraz
[2016-05-14] MEDS: CitaloPRAM (CeleXA) 10 MG TABLET PO SCH (21:46)
[2016-05-14] MEDS: SPIRONOLACTONE 25 MG TAB PO SCH (21:47)
[2016-05-14] MEDS: FERROUS GLUCONATE 324 MG TAB PO SCH (21:48)
[2016-05-15 00:20] VITALS: BP 82/58
[2016-05-15 04:27] VITALS: BP 120/56
--- NOTE | 2016-05-15 07:01 | DSES ---
DATE OF ADMISSION: 05/11/2016 DATE OF DISCHARGE: PRIMARY CARE PROVIDER: Rhiannon Gray DO DISCHARGE DIAGNOSES: 1. Recurrent sensations of palpitations and chest discomfort attributed to chronic atrial fibrillation and intermittent pacemaker discharge. 2. Chronic atrial fibrillation. 3. Pacemaker in place. 4. Severe anxiety and depression. 5. Possible Clostridium difficile from colitis versus colonization. 6. Cryptogenic cirrhosis. 7. History of splenic infarct. 8. Diastolic congestive heart failure (CHF). 9. Gastroesophageal reflux disease (GERD). 10. 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 11. Chronic anemia. 12. History of hypertension. 13. History of tachybrady syndrome status post pacemaker in 2014. 14. History of recurrent gastrointestinal (GI) bleed, so not on anticoagulation. 15. History of portal hypertension. DISCHARGE MEDICATIONS: - Celexa 10 mg at bedtime - Dificid 200 mg by mouth twice a day - Lasix 40 mg by mouth daily - propranolol 10 mg by mouth three times a day - digoxin 0.125 mg by mouth daily - ferrous gluconate 324 mg by mouth daily - lactobacillus one tablet by mouth daily - lactulose 15 mL by mouth daily as needed for constipation - pantoprazole 40 mg by mouth twice a day - spironolactone 25 mg at bedtime - sucralfate 1 gram by mouth before meals and at bedtime - Systane eye drops both eyes twice a day as needed for dry eyes HOSPITAL COURSE: This is a 75-year-old female who presented to the hospital from primary care doctors office for chest pain, shortness of breath, dizziness and lightheadedness, and unsteady gait. The patient was noted to have chronic atrial fibrillation with pacemaker in place. She had a presyncopal episode with some left sided numbness which resolved spontaneously. The patient is not on anticoagulation because of a history of recurrent gastrointestinal (GI) bleeds from GAVE disease and portal hypertension with esophageal varices. The patient was monitored on telemetry. She had an echocardiogram done, cardiac enzymes, and EKGs done. Except for variations in heart rate ranging from 40s to 100s and intermittent demand pacemaker discharge, the patient did not have any arrhythmia. The patient did have some orthostatic blood pressures positive, so the patient's atenolol was stopped and was started on propranolol lower dose. She had one episode of loose motion after oral contrast, which was tested for C. difficile and was found to be positive, however, the patient did not have any further diarrhea, so it was felt it is more of a colonizer rather than actual C. difficile colitis. She was seen by Dr. Reina who suggested a short course of Dificid for seven days. Patient also chronic anemic and has iron deficiency. Her hemoglobin and hematocrit had trended down to 7.6, so she received 1 unit of blood transfusion. During her hospitalization, the patient was very emotional and crying all day long, and seemed to be very depressed and anxious, so the patient was started on Celexa, which the patient seemed to be tolerating. Patient and family services (PFS) had discussed with the patient about going to an assisted living facility, however, the patient denied and wanted to go back home. Throughout the hospitalization, the patient continued to complain of palpitations and chest discomfort whenever she would move around, so she was taken back to telemetry from the medical/surgical floor and it just showed an increased up to about 96-100 on ambulation with underlying atrial fibrillation. Did not show any other arrhythmias. At present, the patient is comfortable. Vitals are stable. Functionally, the patient is at baseline and is going to be discharged home in stable condition. PHYSICAL EXAMINATION: VITAL SIGNS: Temperature 99.1, pulse 64, respiratory rate 18, blood pressure 120/56, pulse oximetry 95% in room air. GENERAL: Patient is awake, alert and oriented times three, sitting up in bed in no acute distress. HEENT: Normocephalic, atraumatic. Moist mucous membranes. Anicteric eyes. CHEST: Clear to auscultation. CARDIOVASCULAR: S1 and S2 irregular. No rub, murmur or gallop. ABDOMEN: Soft, nontender. Bowel sounds present. EXTREMITIES: 1+ edema. LABORATORY DATA: WBC 3.8, hemoglobin 9.2, platelets 183. Sodium 143, potassium 3.5, chloride 108, bicarb 25, BUN 14, creatinine 0.8, glucose 93, calcium 8.4, ammonia 53. INR was 1.12. Digoxin level was 0.6. CT of the abdomen and pelvis showed 1.5 cm hypodense lesion in segment IV of the liver, unchanged. Density in the mid aspect of the spleen suggestive of infarction. Ascites. Diffuse mesenteric stranding with congestion secondary to portal hypertension. Colonic diverticulosis. Fecal stasis. Prior cholecystectomy. Prior hysterectomy. Mild thickening of the cecum and ascending colon. Kidney's are normal. Bladder is normal. There was no evidence of pleural or parenchymal mass or pleural effusions. There was bibasilar peribronchial interstitial thickening suggestive of bronchitis and bibasilar atelectatic changes. Bony structures were free from lytic or blastic lesions. There was multilevel degenerative changes involving the thoracolumbar spine. CT angiogram of the chest did not show any evidence of pulmonary embolism. There was no acute pleural, parenchymal or mediastinal process. Abdomen demonstrated ascites and varices. CT head no evidence of acute intracranial pathology. DISPOSITION: The patient is discharged home in stable condition. DISCHARGE INSTRUCTIONS: Patient to followup with primary care provider in two weeks. 2 gram sodium diet. Activity as tolerated. It was felt that the patient is very sensitive to mild fluctuations in heart rate and especially as she is very anxious and depressed, so the variations in heart rate is causing her to feel palpitations and chest discomfort, making her hyperventilate and feel lightheaded and dizzy. She had a couple of episodes during her hospitalization, but during each episode her vital signs were stable and telemetry showed atrial fibrillation with rate around 100.
[2016-05-15] MEDS: SUCRALFATE 1 GM TAB PO SCH ×2 (07:30→12:00)
[2016-05-15 08:23] VITALS: BP 109/58
[2016-05-15] MEDS: POLYVINYL ALCOHOL OPHTH SOLN 15 ML(LIQUITEARS) OU SCH (09:00)
[2016-05-15 10:03] VITALS: BP 109/58
[2016-05-15] MEDS: LACTOBACILLUS ACIDOPHILUS CAP (BACID) PO SCH (10:03)
[2016-05-15] MEDS: PROPRANOLOL 10 MG TAB PO SCH (10:03)
[2016-05-15] MEDS: LACTULOSE 20 GM/30 ML SYRUP UD PO SCH (10:03)
[2016-05-15] MEDS: FUROSEMIDE 20 MG/2 ML VIAL (J1940) IV SCH (10:03)
[2016-05-15] MEDS: DIGOXIN 0.125 MG TAB PO SCH (10:03)
[2016-05-15] MEDS: FIDAXOMICIN 200 MG TAB (DIFICID) PO SCH (10:03)
[2016-05-15] MEDS: PANTOPRAZOLE 40MG TAB (PROTONIX) PO SCH (10:04)
== END 2016-05-15 12:46 | disposition home or self-care (01) | DRG 372 ==
LOC: M ED 15:50 → M ED INP 23:09 → M MSPAV 05-10 14:30 → OBSVTOIN 05-11 11:08 → M PCU 05-14 10:42
PROVIDERS: ADMIT Internal Medicine; ATTEND Internal Medicine Nephrology
DX: A04.7 Enterocolitis due to Clostridium difficile (principal); K76.6 Portal hypertension; I50.32 Chronic diastolic (congestive) heart failure; E72.20 Disorder of urea cycle metabolism, unspecified; I85.10 Secondary esophageal varices without bleeding; R55 Syncope and collapse; R26.81 Unsteadiness on feet; I49.5 Sick sinus syndrome; I48.2 Chronic atrial fibrillation; K74.69 Other cirrhosis of liver; D73.5 Infarction of spleen; F32.9 Major depressive disorder, single episode, unspecified; D50.9 Iron deficiency anemia, unspecified; R07.9 Chest pain, unspecified; F41.9 Anxiety disorder, unspecified; R19.7 Diarrhea, unspecified; Z79.899 Other long term (current) drug therapy; K31.819 Angiodysplasia of stomach and duodenum without bleeding; Z95.0 Presence of cardiac pacemaker; Z88.0 Allergy status to penicillin; Z88.8 Allergy status to other drugs, medicaments and biological substances; Z88.2 Allergy status to sulfonamides

== ENCOUNTER 2016-06-22 09:16 | Emergency (ER) | payer MEDICARE ==
[~2016-06-22] VITALS: Ht 167.6 cm; Wt 70.3 kg
[~2016-06-22 09:16] MED LIST changes: +CELE10TA PO; +DIFI200T PO; +FERR32TA PO; +LASI40TA PO; +PROP10TA56 PO
[2016-06-22] MEDS ORDERED: LASI20TA PO (09:47)
--- NOTE | 2016-06-22 10:12 | ECGEPIP ---
Stationary ECG Study [facility] - ED Test Date: 2016-06-22 Pat Name: CONCEPCION GERMAIN Department: Room: - Gender: F Cord Splicer: RUT : 1940 Requested By: Darwin Anaya Order Number: [id number] Reading MD: Kaylah Uribe Measurements Intervals [place] Rate: 65 P: AR: 0 QRS: 29 QRSD: 74 T: 9 QT: 406 QTc: 425 Interpretive Statements ATRIAL FIBRILLATION ELECTRONIC VENTRICULAR PACEMAKER LOW QRS VOLTAGE IN EXTREMITY LEADS ABNORMAL RHYTHM ECG Electronically Signed On 06-22-2016 10:12:29 EDT by Kaylah Uribe
[2016-06-22 11:02] LABS: BASO # 0.1 K/mm3 (0.0-0.2); BASO % 1.4 % (0.0-1.0); EOS # 0.2 K/mm3 (0.0-0.50); EOS % 3.1 % (0.0-3.0); LARGE UNSTAINED CELL # 0.2 K/mm3 (0.0-0.4); LARGE UNSTAINED CELL % 3.6 % (0.0-4.0); LYMPH # 0.7 K/mm3 (1.5-4.5); MEAN CORPUSCULAR HEMOGLOBIN 25.2 pg (27.0-33.0); MEAN CORPUSCULAR HGB CONC 29.8 g/dl (32.0-36.5); MEAN CORPUSCULAR VOLUME 84.8 fl (80.0-96.0); MONO # 0.6 K/mm3 (0.0-0.8); MONO % 11.2 % (0.0-5.0); NEUTROPHILS # 3.5 K/mm3 (1.8-7.7); NEUTROPHILS % 69.6 % (36.0-66.0); PLATELET COUNT, AUTOMATED 222 k/mm3 (150-450); RED CELL DISTRIBUTION WIDTH 17.7 % (11.5-14.5); WHITE BLOOD COUNT 5.1 K/mm3 (4.0-10.0)
[2016-06-22 11:08] LABS: ANION GAP 11 MEQ/L (8-16); BLOOD UREA NITROGEN 12 MG/DL (7-18); CALCIUM LEVEL 8.7 MG/DL (8.8-10.2); CARBON DIOXIDE LEVEL 25 MEQ/L (21-32); CHLORIDE LEVEL 108 MEQ/L (98-107); CREATININE FOR GFR 0.82 MG/DL (0.55-1.02); GLOMERULAR FILTRATION RATE > 60.0 (>39); GLUCOSE, FASTING 78 MG/DL (83-110); POTASSIUM SERUM 4.9 MEQ/L (3.5-5.1); SODIUM LEVEL 144 MEQ/L (136-145)
[2016-06-22 11:18] LABS: DIGOXIN LEVEL 0.8 NG/ML (0.5-2.0)
--- NOTE | 2016-06-22 11:26 | REP ---
Chest one-view HISTORY: Cough Comparison: 05/09/2016 The lungs are clear. The cardiac silhouette is enlarged. The pulmonary vasculature is normal in appearance. A cardiac pacemaker is present. Impression: Cardiomegaly. Signed by Corby Gunter MD 06/22/2016 11:18 A
[2016-06-22 13:47] VITALS: O2SAT 98
[2016-06-22 15:07] VITALS: BP 155/75
== END 2016-06-22 15:09 | disposition home or self-care (01) ==
LOC: M ED 09:55
DX: R09.1 Pleurisy (principal); F41.9 Anxiety disorder, unspecified; I51.7 Cardiomegaly; Z86.718 Personal history of other venous thrombosis and embolism; Z79.899 Other long term (current) drug therapy

== ENCOUNTER 2016-06-30 18:55 | Inpatient (IN) | payer MEDICARE ==
[~2016-06-30] VITALS: Ht 167.6 cm; Wt 76.4 kg
[~2016-06-30 18:55] MED LIST changes: +LASI20TA PO
[2016-06-30] MEDS ORDERED: HYOS0.1259 PO (19:09)
[2016-06-30] MEDS ORDERED: MORPHINE 4 MG/ML 1ML SYRINGE IV PRN (19:45)
[2016-06-30] MEDS ORDERED: ONDANSETRON 4MG/2ML VIAL (J2405) IV ONE (19:45)
[2016-06-30 19:51] LABS: BASO # 0.1 K/mm3 (0.0-0.2); BASO % 0.6 % (0.0-1.0); EOS # 0.2 K/mm3 (0.0-0.50); EOS % 1.7 % (0.0-3.0); LARGE UNSTAINED CELL # 0.3 K/mm3 (0.0-0.4); LARGE UNSTAINED CELL % 2.6 % (0.0-4.0); LYMPH # 0.7 K/mm3 (1.5-4.5); LYMPH % 6.3 % (24.0-44.0); MEAN CORPUSCULAR HEMOGLOBIN 25.2 pg (27.0-33.0); MEAN CORPUSCULAR HGB CONC 29.6 g/dl (32.0-36.5); MEAN CORPUSCULAR VOLUME 85.1 fl (80.0-96.0); MONO # 0.7 K/mm3 (0.0-0.8); MONO % 6.3 % (0.0-5.0); NEUTROPHILS # 8.5 K/mm3 (1.8-7.7); NEUTROPHILS % 82.6 % (36.0-66.0); PLATELET COUNT, AUTOMATED 249 k/mm3 (150-450); RED CELL DISTRIBUTION WIDTH 17.6 % (11.5-14.5); WHITE BLOOD COUNT 10.3 K/mm3 (4.0-10.0)
[2016-06-30 19:57] LABS: INR 1.08
[2016-06-30 20:22] LABS: ALBUMIN 3.3 GM/DL (3.2-5.2); ALBUMIN/GLOBULIN RATIO 0.85 (1.00-1.93); ALKALINE PHOSPHATASE 110 U/L (45-117); ALT/SGPT 30 U/L (12-78); ANION GAP 8 MEQ/L (8-16); AST/SGOT 33 U/L (15-37); BILIRUBIN,DIRECT 0.3 MG/DL (0.0-0.2); BLOOD UREA NITROGEN 14 MG/DL (7-18); CALCIUM LEVEL 8.6 MG/DL (8.8-10.2); CARBON DIOXIDE LEVEL 25 MEQ/L (21-32); CHLORIDE LEVEL 108 MEQ/L (98-107); CREATININE FOR GFR 0.87 MG/DL (0.55-1.02); GLOMERULAR FILTRATION RATE > 60.0 (>39); GLUCOSE, FASTING 90 MG/DL (83-110); POTASSIUM SERUM 3.9 MEQ/L (3.5-5.1); SODIUM LEVEL 141 MEQ/L (136-145); TOTAL PROTEIN 7.2 GM/DL (6.4-8.2)
[2016-06-30 20:31] LABS: DIGOXIN LEVEL 0.6 NG/ML (0.5-2.0)
[2016-06-30] MEDS ORDERED: ISOVUE-370 76% 100ML VIAL (Q9967) As Ordered ONE (21:02)
--- NOTE | 2016-06-30 21:50 | REPUSA ---
CT of the abdomen and pelvis with contrast Clinical statement: Pain. Technique: Multiple axial CT images were obtained from the base of the lungs through the floor of the pelvis utilizing 5 mm axial slices after administration of nonionic intravenous contrast. Coronal an d sagittal reconstructions were also obtained. Comparison: 03/01/2016. Findings: Chest: The visualized lung bases are clear. There is a small hiatal hernia. Abdomen: The pancreas, kidneys, gallbladder, and adrenal glands are unremarkable. The lateral splenic deformity is stable. Nodularity to the liver contour is noted. Collateral veins from the portal yissel ous structures are again noted.. The aorta is within normal limits. There is no evidence of abdominal lymphadenopathy There is moderate amount of diffuse abdominal ascites. Pelvis: There is bowel wall thickening in the right colon, without evidence of obstruction. Sigmoid d iverticulosis is noted without evidence of diverticulitis. The remainder of the bowel is unremarkable . Moderate diffuse ascites is noted. The urinary bladder is within normal limits. The other pelvic st ructures appear grossly intact. There is no evidence of pelvic lymphadenopathy. Bones: There are no suspicious osseous abnormalities seen. Impression: 1. Bowel wall thickening in the ascending colon, most consistent with an infectious or inflammatory c olitis. No evidence of bowel obstruction. 2. Sigmoid diverticulosis, without evidence of diverticulitis. 3. Stable changes from cirrhosis and portal venous hypertension noted. Moderate amount of abdominal and pelvic ascites is seen diffusely. 4. The deformity in the lateral aspect of the spleen is stable. 5. Small hiatal hernia.
[2016-06-30] MEDS ORDERED: CIPROFLOXACIN 400 MG in APPROPRIATE DILUENT 1 EA IV ONE (23:15)
[2016-06-30] MEDS ORDERED: metroNIDAZOLE 500 MG in APPROPRIATE DILUENT 1 EA IV ONE (23:15)
[2016-07-01] VITALS (7 sets, daily range): BP systolic 99–125; BP diastolic 51–60
[2016-07-01] MEDS ORDERED: MORPHINE 2 MG/ML 1ML SYRINGE IV PRN ×2 (00:15→16:30)
[2016-07-01] MEDS ORDERED: ONDANSETRON 4 MG TAB (S0181) PO PRN (00:15)
[2016-07-01] MEDS ORDERED: HYOS0.1248 PO (01:06)
[2016-07-01] MEDS ORDERED: PROP10TA56 PO (01:12)
[2016-07-01] MEDS ORDERED: DIFI200T PO (01:12)
[2016-07-01] MEDS ORDERED: CELE10TA PO (01:12)
[2016-07-01] MEDS ORDERED: ERYT5OPO OU (01:13)
[2016-07-01] MEDS: NS 1,000 ML IV SCH ×3 (02:01→16:59)
[2016-07-01] MEDS: VANCOMYCIN ORAL SOL 250MG/5ML ORAL SYRINGE PO SCH ×5 (02:44→23:57)
[2016-07-01] MEDS ORDERED: POLYVINYL ALCOHOL OPHTH SOLN 15 ML(LIQUITEARS) OU PRN (03:15)
[2016-07-01] MEDS ORDERED: HYOSCYAMINE SULFATE 0.125 MG SUBL TABLET PO PRN (03:15)
--- NOTE | 2016-07-01 03:27 | HPEPDOC ---
Medical History and Physical Date of Admission July 01, 2016 at 00:07 History and Physical HISTORY AND PHYSICAL Date of admission: 07/01/2016 PCP: Dr. Rhiannon Gray Chief complaint: Abdominal pain, vomiting, and diarrhea HPI: 75-year-old female with history of tachybradycardia syndrome status post pacemaker, C. difficile colitis, cirrhosis with portal hypertension, splenic infarct, chronic A. fib, recurrent upper GI bleed with gastric antral vascular ectasia (GAVE, watermelon stomach), depression, iron deficiency anemia, hyperammonemia, chronic diastolic CHF who presented to the emergency department with abdominal pain, vomiting, and diarrhea. She states that this all began early this morning. She noted that she had pain in her stomach that extended into her back, and she describes it as intermittent and sharp. She has not been able to find anything that makes it better or anything that makes it worse. She also reports that she has been vomiting and having diarrhea and that both of these are green. She endorses approximately 4-5 stools today. She denies any sick contacts. Past medical history: history of tachybradycardia syndrome status post pacemaker , C. difficile colitis, cirrhosis with portal hypertension, splenic infarct, chronic A. fib, recurrent upper GI bleed with gastric antral vascular ectasia ( GAVE, watermelon stomach), depression, iron deficiency anemia, hyperammonemia, chronic diastolic CHF Past surgical history: Pacemaker placement, hysterectomy, tonsillectomy, cholecystectomy, EGD with banding and plasma coagulation, cataract surgery Family history: She states that approximately half of her family has from cirrhosis. Her mother had a stroke and cancer as well as heart disease. Social history: The patient states she has never smoked. She also denies any current drug use. She states that she used to be an occasional social drinker, but she no longer drinks any alcohol. She lives alone but has a son who lives locally. Allergies: Benadryl, meperidine, penicillins, sulfa Review of systems: General: Positive for subjective fever and chills Eyes: Positive for ocular drainage for the last month ENT: Negative for sore throat and nose bleed Cardiovascular: Negative for chest pain, positive for palpitations Respiratory: Positive for cough, negative for shortness of breath GI: Positive for nausea, vomiting, diarrhea, abdominal pain Musculoskeletal: Positive for back pain Skin: Negative for rash Neuro: Positive for dizziness, negative for headache, numbness, tingling Psych: Negative for for suicidal ideation and depression Endocrine: Negative for polyuria : Negative for dysuria Heme: Negative for bruising and bleeding Home meds: See below Physical exam: Vital signs: Vital Sign - Last 24 Hours 06/30/16 06/30/16 06/30/16 06/30/16 18:56 19:55 19:57 19:58 Temp 99.0 Pulse 111 88 64 Resp 20 20 B/P (MAP) 116/64 (81) 114/53 104/59 (74) Pulse Ox 100 100 O2 Delivery Room Air 06/30/16 06/30/16 06/30/16 06/30/16 20:07 20:07 20:13 20:28 Pulse 86 88 86 Resp 20 20 B/P (MAP) 106/56 (73) 110/58 (75) Pulse Ox 99 100 88 100 O2 Delivery Room Air Room Air 06/30/16 06/30/16 06/30/16 06/30/16 20:30 20:43 20:58 21:13 Pulse 82 88 90 Resp 16 B/P (MAP) 118/59 (78) 122/59 (80) 117/55 (75) Pulse Ox 100 100 100 06/30/16 06/30/16 06/30/16 06/30/16 21:28 21:43 21:58 22:13 Pulse 92 90 92 82 B/P (MAP) 119/54 (75) 116/54 (74) 109/59 (76) 104/58 (73) Pulse Ox 100 100 100 100 06/30/16 06/30/16 06/30/16 06/30/16 22:28 22:43 22:58 23:13 Pulse 72 84 86 54 B/P (MAP) 108/52 (70) 100/55 (70) 112/59 (76) 94/50 (65) Pulse Ox 99 99 99 98 06/30/16 06/30/16 06/30/16 07/01/16 23:28 23:43 23:58 00:13 Pulse 94 88 80 80 B/P (MAP) 106/67 (80) 95/55 (68) Pulse Ox 99 100 100 100 07/01/16 07/01/16 07/01/16 07/01/16 00:28 00:43 00:58 01:07 Temp 99.0 Pulse 82 80 76 74 Resp 16 B/P (MAP) 91/52 (65) Pulse Ox 100 100 100 98 O2 Delivery Nasal Cannula Gen.: awake, alert, no acute distress Eyes: Extraocular movements intact, normal sclera ENT: Dry mucous membranes Cardiovascular: Irregularly irregular Lungs: clear to auscultation bilaterally, no rales, rhonchi, or wheeze Abdomen: Soft, tender to palpation diffusely Extremities: Bilateral, nonpitting edema of the lower extremities Neuro: alert and oriented 3, normal speech, no focal deficits Psych: Normal mood with congruent affect Labs and radiology: See below WBC 10.[address] of the abdomen and pelvis shows ascending colitis, as well as stable cirrhosis and portal hypertension with moderate ascites Assessment and plan: 75-year-old female with history of tachybradycardia syndrome status post pacemaker, C. difficile colitis, cirrhosis with portal hypertension, splenic infarct, chronic A. fib, recurrent upper GI bleed with gastric antral vascular ectasia (GAVE, watermelon stomach), depression, iron deficiency anemia, hyperammonemia, chronic diastolic CHF who presented to the emergency department with abdominal pain, vomiting, and diarrhea. She has been admitted with colitis which is suspected to be secondary to C. difficile. 1. Colitis: The patient reported a history of C. difficile, but noted that it was accompanied only by some loose stools and she had never previously had any abdominal pain. The patient was not clear about when she had C. difficile, but I suspect that she was recently diagnosed, as her home medication list reports dificid. At this time, we will check a GI panel, as well as UA, urine culture and blood cultures. We will start her on Cipro and Flagyl, as well as by mouth vancomycin. We will also check a fecal occult blood. Continue home Bacid. Continue IV fluids with clear liquid diet. 2. History of tachybradycardia syndrome status post pacemaker, chronic A. fib: The patient will be monitored on telemetry. We will continue her home digoxin. She is not on anticoagulation secondary to her history of multiple upper GI bleeds. We will also hold her home beta miracle as her blood pressure is somewhat soft. 3. Cirrhosis with portal hypertension: Given the patient's fluid losses today, we will hold her Lasix and spironolactone. As mentioned above, we are holding her beta miracle secondary to her soft blood pressures. 4. Splenic infarct: CT of the abdomen and pelvis notes that this is stable. 5. Depression: Continue home Celexa. 6. Chronic diastolic CHF: Given the patient's fluid losses today, I'm concerned that she is a little bit dry. We will hold her home Lasix and spironolactone. We will gently hydrate her and follow her fluid status closely. Echo completed 2 months ago shows preserved EF. DVT prophylaxis: SCDs Dispo: admit as an inpatient to the service of Dr. Robertson CODE STATUS: DNR/DNI Vital Signs Vital Signs Date Time Temp Pulse Resp B/P (MAP) Pulse Ox O2 Delivery O2 Flow Rate FiO2 07/01/16 01:07 99.0 74 16 91/52 (65) 98 Nasal Cannula Laboratory Data Labs 24H Laboratory Tests 2 06/30/16 19:36: White Blood Count 10.3H, Red Blood Count 4.14, Hemoglobin 10.4L, Hematocrit 35.2L, Mean Corpuscular Volume 85.1, Mean Corpuscular Hemoglobin 25.2L, Mean Corpuscular Hemoglobin Concent 29.6L, Red Cell Distribution Width 17.6H, Platelet Count 249, Neutrophils (%) (Auto) 82.6H, Lymphocytes (%) (Auto) 6.3L, Monocytes (%) (Auto) 6.3H, Eosinophils (%) (Auto) 1.7, Basophils (%) (Auto) 0.6 , Neutrophils # (Auto) 8.5H, Lymphocytes # (Auto) 0.7L, Monocytes # (Auto) 0.7, Eosinophils # (Auto) 0.2, Basophils # (Auto) 0.1, Large Unclassified Cells % 2.6 , Large Unclassified Cells # 0.3, Prothrombin Time 14.1, Prothromb Time International Ratio 1.08, Activated Partial Thromboplast Time 30.0, Anion Gap 8 , Glomerular Filtration Rate > 60.0, Calcium Level 8.6L, Aspartate Amino Transf (AST/SGOT) 33, Alanine Aminotransferase (ALT/SGPT) 30, Alkaline Phosphatase 110 , Total Bilirubin 1.0, Direct Bilirubin 0.3H, Total Creatine Kinase 35, Creatine Kinase MB 1.0, Creatine Kinase MB Relative Index 2.85, Troponin I < 0.02, Total Protein 7.2, Albumin 3.3, Albumin/Globulin Ratio 0.85L, Lipase 287, Digoxin Level 0.6 06/30/16 20:22: Lactic Acid Level 2.1*H 07/01/16 02:20: Lactic Acid Level 1.8 CBC/BMP Laboratory Tests 06/30/16 19:36 Red Blood Count 4.14, Mean Corpuscular Volume 85.1, Mean Corpuscular Hemoglobin 25.2 L, Mean Corpuscular Hemoglobin Concent 29.6 L, Red Cell Distribution Width 17.6 H, Neutrophils (%) (Auto) 82.6 H, Lymphocytes (%) (Auto) 6.3 L, Monocytes ( %) (Auto) 6.3 H, Eosinophils (%) (Auto) 1.7, Basophils (%) (Auto) 0.6, Neutrophils # (Auto) 8.5 H, Lymphocytes # (Auto) 0.7 L, Monocytes # (Auto) 0.7, Eosinophils # (Auto) 0.2, Basophils # (Auto) 0.1 Microbiology Microbiology 06/30/16 Blood Culture, Received Pending 06/30/16 Blood Culture, Received Pending Home Medications Scheduled Citalopram Hydrobromide (Celexa) 10 Mg Tab, 10 MG PO QHS Digoxin (Digoxin) 0.125 Mg Tab, 0.125 MG PO DAILY Erythromycin (Erythromycin) 1 Dose/1 Gm Oint, 0 OU QHS Fidaxomicin (Dificid) 200 Mg Tab, 200 MG PO BID Furosemide (Lasix) 20 Mg Tab, 20 MG PO DAILY Lactobacillus Acidophilus (Bacid) 1 Tab Tab, 1 TAB PO DAILY Pantoprazole Sodium (Pantoprazole Sodium) 40 Mg Tab, 40 MG PO BID Propranolol HCl (Propranolol HCl) 10 Mg Tab, 10 MG PO BID Spironolactone (Spironolactone) 25 Mg Tab, 25 MG PO QHS Sucralfate (Sucralfate) 1 Gm Tab, 1 GM PO ACHS Scheduled PRN Hyoscyamine Sulfate (Hyoscyamine Sulfate) 0.125 Mg Tab, 0.125 MG PO Q4H PRN for ABDOMINAL PAIN Polyethylene Glycol (Systane 0.4-0.3 %) 15 Ml [place], 1 DROP OU BID PRN for DRY EYES Allergies Coded Allergies: Meperidine (Verified Allergy, Unknown, 06/22/16) Penicillins (Verified Allergy, Unknown, 06/22/16) Sulfa Drugs (Verified Allergy, Unknown, 06/22/16) Diphenhydramine (Verified Adverse Reaction, Unknown, 06/22/16) ENDY CHACON July 01, 2016 03:27
[2016-07-01] MEDS: CitaloPRAM (CeleXA) 10 MG TABLET PO SCH ×3 (04:28→20:56)
[2016-07-01] MEDS: ERYTHROMYCIN OPHTH OINT OU SCH ×2 (04:31→20:56)
[2016-07-01] MEDS: metroNIDAZOLE 500 MG in APPROPRIATE DILUENT 1 EA IV SCH ×3 (08:37→23:57)
[2016-07-01] MEDS: SUCRALFATE 1 GM TAB PO SCH ×4 (08:37→20:56)
[2016-07-01] MEDS: DIGOXIN 0.125 MG TAB PO SCH (09:59)
[2016-07-01] MEDS: PANTOPRAZOLE 40MG TAB (PROTONIX) PO SCH ×2 (09:59→20:56)
[2016-07-01] MEDS: LACTOBACILLUS ACIDOPHILUS CAP (BACID) PO SCH (09:59)
[2016-07-01] MEDS: ONDANSETRON 4MG/2ML VIAL (J2405) IV PRN (12:10)
[2016-07-01] MEDS: CIPROFLOXACIN 400 MG in APPROPRIATE DILUENT 1 EA IV SCH (15:05)
[2016-07-01] MEDS ORDERED: MORPHINE 2 MG/ML 1ML SYRINGE IV ONE (15:30)
[2016-07-01] MEDS ORDERED: PROMETHAZINE INJ 25 MG/ML VIAL (J2550) IV PRN (16:30)
--- NOTE | 2016-07-01 16:44 | ECGEPIP ---
Stationary ECG Study [facility] - ED Test Date: 2016-06-30 Pat Name: CONCEPCION GERMAIN Department: Room: [place] [address] Gender: F Master Baker: ct : 1940 Requested By: SAM LINDSEY Order Number: [id number] Reading MD: Kaylah Uribe Measurements Intervals [place] Rate: 89 P: [place]: 0 QRS: 29 QRSD: 71 T: -23 QT: 368 QTc: 449 Interpretive Statements ATRIAL FIBRILLATION LOW QRS VOLTAGE IN EXTREMITY LEADS MODERATE ST DEPRESSION INCREASED RATE 06/22/16 Electronically Signed On 07-01-2016 16:44:08 EDT by Kaylah Uribe
[2016-07-01 17:03] LABS: BASO % 0.3 % (0.0-1.0); EOS # 0.1 K/mm3 (0.0-0.50); EOS % 1.4 % (0.0-3.0); LARGE UNSTAINED CELL # 0.2 K/mm3 (0.0-0.4); LARGE UNSTAINED CELL % 2.2 % (0.0-4.0); LYMPH # 0.5 K/mm3 (1.5-4.5); LYMPH % 5.5 % (24.0-44.0); MEAN CORPUSCULAR HEMOGLOBIN 25.3 pg (27.0-33.0); MONO # 0.5 K/mm3 (0.0-0.8); MONO % 5.9 % (0.0-5.0); NEUTROPHILS # 7.6 K/mm3 (1.8-7.7); NEUTROPHILS % 84.7 % (36.0-66.0); PLATELET COUNT, AUTOMATED 199 k/mm3 (150-450); RED CELL DISTRIBUTION WIDTH 17.3 % (11.5-14.5)
[2016-07-01 17:05] LABS: ADD MORPHOLOGY? YES
[2016-07-01 17:14] LABS: ALBUMIN 2.8 GM/DL (3.2-5.2); ALBUMIN/GLOBULIN RATIO 0.9 (1.00-1.93); BILIRUBIN,TOTAL 2.1 MG/DL (0.2-1.0); CALCIUM LEVEL 7.7 MG/DL (8.8-10.2); CREATININE FOR GFR 1.07 MG/DL (0.55-1.02); GLOMERULAR FILTRATION RATE 53.5 (>39); POTASSIUM SERUM 4.1 MEQ/L (3.5-5.1); TOTAL PROTEIN 5.9 GM/DL (6.4-8.2)
[2016-07-01 18:12] LABS: ANISOCYTOSIS 1+; HYPOCHROMASIA 2+; OVALOCYTES 1+; POLYCHROMASIA 1+
[2016-07-01 18:13] LABS: ACANTHOCYTES 1+
[2016-07-02 00:49] VITALS: BP 111/55
[2016-07-02] MEDS: CIPROFLOXACIN 400 MG in APPROPRIATE DILUENT 1 EA IV SCH ×2 (02:11→13:42)
[2016-07-02 04:39] VITALS: BP 120/56
[2016-07-02] MEDS: VANCOMYCIN ORAL SOL 250MG/5ML ORAL SYRINGE PO SCH ×3 (05:02→17:10)
[2016-07-02 05:20] LABS: BASO % 0.3 % (0.0-1.0); EOS % 0.3 % (0.0-3.0); LARGE UNSTAINED CELL # 0.3 K/mm3 (0.0-0.4); LARGE UNSTAINED CELL % 2.5 % (0.0-4.0); LYMPH # 0.7 K/mm3 (1.5-4.5); LYMPH % 4.5 % (24.0-44.0); MEAN CORPUSCULAR HEMOGLOBIN 25.2 pg (27.0-33.0); MEAN CORPUSCULAR HGB CONC 29.5 g/dl (32.0-36.5); MEAN CORPUSCULAR VOLUME 85.4 fl (80.0-96.0); MONO % 9.9 % (0.0-5.0); NEUTROPHILS # 8.4 K/mm3 (1.8-7.7); NEUTROPHILS % 82.4 % (36.0-66.0); PLATELET COUNT, AUTOMATED 160 k/mm3 (150-450); RED CELL DISTRIBUTION WIDTH 17.4 % (11.5-14.5); WHITE BLOOD COUNT 10.2 K/mm3 (4.0-10.0)
[2016-07-02 05:43] LABS: ALBUMIN 2.6 GM/DL (3.2-5.2); ALBUMIN/GLOBULIN RATIO 0.79 (1.00-1.93); CALCIUM LEVEL 7.7 MG/DL (8.8-10.2); CREATININE FOR GFR 1.07 MG/DL (0.55-1.02); GLOMERULAR FILTRATION RATE 53.5 (>39); MAGNESIUM LEVEL 2.1 MG/DL (1.8-2.4); POTASSIUM SERUM 4.1 MEQ/L (3.5-5.1); TOTAL PROTEIN 5.9 GM/DL (6.4-8.2)
--- NOTE | 2016-07-02 07:00 | REP ---
ABDOMINAL SERIES: Cross table lateral and supine films of the abdomen and pelvis demonstrate no evidence of free intraperitoneal air. A couple of mildly dilated small bowel loops are seen in the left mid abdomen. Air and fecal material scattered throughout the colon. A small amount of excreted IV contrast is seen in the bladder. There are degenerative changes of the spine. There are metallic clips in the right upper quadrant. An accompanying view of the chest demonstrates no acute infiltrate. Heart is not significantly enlarged. There is a left single lead pacemaker. IMPRESSION: A couple of mildly dilated small bowel loops in the left mid abdomen. I suspect this represents a mild ileus. Signed by Kadeem Weiss MD 07/02/2016 07:50 P
[2016-07-02 08:00] VITALS: BP 105/53
[2016-07-02] MEDS: LACTOBACILLUS ACIDOPHILUS CAP (BACID) PO SCH (08:18)
[2016-07-02] MEDS: DIGOXIN 0.125 MG TAB PO SCH (08:19)
[2016-07-02] MEDS: metroNIDAZOLE 500 MG in APPROPRIATE DILUENT 1 EA IV SCH ×2 (08:19→17:10)
[2016-07-02] MEDS: PANTOPRAZOLE 40MG TAB (PROTONIX) PO SCH ×2 (08:19→20:53)
[2016-07-02] MEDS: SUCRALFATE 1 GM TAB PO SCH ×4 (08:19→20:53)
--- NOTE | 2016-07-02 08:37 | IPNPDOC ---
Subjective Date Seen The patient was seen on 07/02/16. Subjective Chief Complaint/HPI The patient is a 75-year-old female admitted with a reason for visit of Colitis. Events since last encounter Improved from last evening, has not required morphine overnight, still has some abd discomfort, but not enough to effect her sleep- she slept well Pulmonary: Denies: Dyspnea, Cough Cardiovascular: Denies: Chest Pain Gastrointestinal: Reports: Nausea, Abdominal Pain, Denies: Vomiting, Diarrhea, Constipation Objective Physical Examination General Exam: Positive: Alert, Cooperative Eye Exam: Negative: Sclera icteric ENT Exam: Positive: Mucous membr. moist/pink Chest Exam: Positive: Diminished, Negative: Rales, Rhonchi, Wheezing Heart Exam: Positive: Rate Normal, Irregular Rhythm, Normal S1, Normal S2 Telemetry: Positive: Atrial fibrillation, Tachycardia (intermittent) Abdomen Exam: Positive: Normal bowel sounds, Soft, Tenderness (mild BLQ) Extremity Exam: Negative: Edema Assessment /Plan Problems (1) Colitis, acute Status: Acute Problem Text: possible c. diff, although having formed stools on cipro/flagyl/po vanco Yesterday had increasing pain, was seen by Dr. Alcala, we discussed watchful waiting (2) Tachy-eugenia syndrome Status: Chronic Problem Text: atrial fibrillation, not tachycardia (3) Cirrhosis Status: Chronic Problem Text: with portal hypertension (4) Control of atrial fibrillation with pacemaker Status: Acute (5) GAVE (gastric antral vascular ectasia) Status: Chronic Problem Text: history of recurrent GI bleed- with down trending hgb on ivf, repeat labs tomorrow- no current evidence of ongoing significant gi blood loss (6) Diastolic congestive heart failure Status: Chronic Problem Text: compensated VS, I&O, 24H, Fishbone Vital Signs/I&O Vital Signs Date Time Temp Pulse Resp B/P (MAP) Pulse Ox O2 Delivery O2 Flow Rate FiO2 07/02/16 08:19 84 07/02/16 04:39 99.2 18 120/56 (77) 93 Room Air I&O- Last 24 Hours up to 6 AM 07/02/16 06:00 Intake Total 1945 ml Output Total 950 ml Balance 995 ml Laboratory Data 24H LABS Laboratory Tests 2 07/01/16 16:34: White Blood Count 9.0, Red Blood Count 3.60L, Hemoglobin 9.1L, Hematocrit 31.3L , Mean Corpuscular Volume 87.0, Mean Corpuscular Hemoglobin 25.3L, Mean Corpuscular Hemoglobin Concent 29.0L, Red Cell Distribution Width 17.3H, Platelet Count 199, Neutrophils (%) (Auto) 84.7H, Lymphocytes (%) (Auto) 5.5L, Monocytes (%) (Auto) 5.9H, Eosinophils (%) (Auto) 1.4, Basophils (%) (Auto) 0.3 , Neutrophils # (Auto) 7.6, Lymphocytes # (Auto) 0.5L, Monocytes # (Auto) 0.5, Eosinophils # (Auto) 0.1, Basophils # (Auto) 0.0, Large Unclassified Cells % 2.2 , Large Unclassified Cells # 0.2, Platelet Estimate NORMAL, Polychromasia 1+, Hypochromasia 2+, Anisocytosis 1+, Ovalocytes 1+, Acanthocytes 1+, Anion Gap 10 , Glomerular Filtration Rate 53.5, Lactic Acid Level 2.7*H, Blood Urea Nitrogen 13, Creatinine 1.07H, Sodium Level 140, Potassium Level 4.1, Chloride Level 106 , Carbon Dioxide Level 24, Calcium Level 7.7L, Aspartate Amino Transf (AST/SGOT ) 37, Alanine Aminotransferase (ALT/SGPT) 25, Alkaline Phosphatase 142H, Total Bilirubin 2.1#H, Total Protein 5.9L, Albumin 2.8L, Albumin/Globulin Ratio 0.90L 07/01/16 21:00: Lactic Acid Followup at 4 Hours 1.0 07/02/16 05:02: White Blood Count 10.2H, Red Blood Count 3.36L, Hemoglobin 8.4L, Hematocrit 28.7L, Mean Corpuscular Volume 85.4, Mean Corpuscular Hemoglobin 25.2L, Mean Corpuscular Hemoglobin Concent 29.5L, Red Cell Distribution Width 17.4H, Platelet Count 160, Neutrophils (%) (Auto) 82.4H, Lymphocytes (%) (Auto) 4.5L, Monocytes (%) (Auto) 9.9H, Eosinophils (%) (Auto) 0.3, Basophils (%) (Auto) 0.3 , Neutrophils # (Auto) 8.4H, Lymphocytes # (Auto) 0.7L, Monocytes # (Auto) 1.0H , Eosinophils # (Auto) 0.0, Basophils # (Auto) 0.0, Large Unclassified Cells % 2.5, Large Unclassified Cells # 0.3, Anion Gap 9, Glomerular Filtration Rate 53.5, Blood Urea Nitrogen 12, Creatinine 1.07H, Sodium Level 139, Potassium Level 4.1, Chloride Level 108H, Carbon Dioxide Level 22, Calcium Level 7.7L, Aspartate Amino Transf (AST/SGOT) 31, Alanine Aminotransferase (ALT/SGPT) 23, Alkaline Phosphatase 121H, Total Bilirubin 2.0H, Total Protein 5.9L, Albumin 2.6L, Albumin/Globulin Ratio 0.79L, Magnesium Level 2.1 CBC/BMP Laboratory Tests 07/01/16 16:34 Red Blood Count 3.60 L, Mean Corpuscular Volume 87.0, Mean Corpuscular Hemoglobin 25.3 L, Mean Corpuscular Hemoglobin Concent 29.0 L, Red Cell Distribution Width 17.3 H, Neutrophils (%) (Auto) 84.7 H, Lymphocytes (%) (Auto ) 5.5 L, Monocytes (%) (Auto) 5.9 H, Eosinophils (%) (Auto) 1.4, Basophils (%) ( Auto) 0.3, Neutrophils # (Auto) 7.6, Lymphocytes # (Auto) 0.5 L, Monocytes # ( Auto) 0.5, Eosinophils # (Auto) 0.1, Basophils # (Auto) 0.0, Calcium Level 7.7 L , Aspartate Amino Transf (AST/SGOT) 37, Alanine Aminotransferase (ALT/SGPT) 25, Alkaline Phosphatase 142 H, Total Bilirubin 2.1 #H, Total Protein 5.9 L, Albumin 2.8 L 07/02/16 05:02 Red Blood Count 3.36 L, Mean Corpuscular Volume 85.4, Mean Corpuscular Hemoglobin 25.2 L, Mean Corpuscular Hemoglobin Concent 29.5 L, Red Cell Distribution Width 17.4 H, Neutrophils (%) (Auto) 82.4 H, Lymphocytes (%) (Auto ) 4.5 L, Monocytes (%) (Auto) 9.9 H, Eosinophils (%) (Auto) 0.3, Basophils (%) ( Auto) 0.3, Neutrophils # (Auto) 8.4 H, Lymphocytes # (Auto) 0.7 L, Monocytes # ( Auto) 1.0 H, Eosinophils # (Auto) 0.0, Basophils # (Auto) 0.0, Calcium Level 7.7 L, Aspartate Amino Transf (AST/SGOT) 31, Alanine Aminotransferase (ALT/SGPT ) 23, Alkaline Phosphatase 121 H, Total Bilirubin 2.0 H, Total Protein 5.9 L, Albumin 2.6 L Microbiology Microbiology 06/30/16 Blood Culture - Preliminary, Resulted No growth after 24 hours . All specim... 06/30/16 Blood Culture - Preliminary, Resulted No growth after 24 hours . All specim... 07/01/16 Urine Culture, Received Pending TOSIN CAMPBELL MD July 02, 2016 08:37
[2016-07-02 12:00] VITALS: BP 108/57
[2016-07-02] MEDS: MORPHINE 2 MG/ML 1ML SYRINGE IV PRN ×2 (12:37→15:49)
[2016-07-02 16:00] VITALS: BP 114/55
[2016-07-02] MEDS: NS 1,000 ML IV SCH (17:10)
[2016-07-02 19:22] VITALS: BP 136/60
[2016-07-02] MEDS: ERYTHROMYCIN OPHTH OINT OU SCH (20:52)
[2016-07-02] MEDS: CitaloPRAM (CeleXA) 10 MG TABLET PO SCH (20:52)
[2016-07-03] VITALS (7 sets, daily range): BP systolic 96–123; BP diastolic 53–59
[2016-07-03] MEDS: metroNIDAZOLE 500 MG in APPROPRIATE DILUENT 1 EA IV SCH ×2 (00:42→08:30)
[2016-07-03] MEDS: VANCOMYCIN ORAL SOL 250MG/5ML ORAL SYRINGE PO SCH ×5 (00:42→23:56)
[2016-07-03] MEDS: CIPROFLOXACIN 400 MG in APPROPRIATE DILUENT 1 EA IV SCH (02:34)
[2016-07-03] MEDS: NS 1,000 ML IV SCH (05:16)
[2016-07-03 05:27] LABS: BASO % 0.4 % (0.0-1.0); EOS # 0.1 K/mm3 (0.0-0.50); LARGE UNSTAINED CELL # 0.2 K/mm3 (0.0-0.4); LARGE UNSTAINED CELL % 3.4 % (0.0-4.0); LYMPH # 0.6 K/mm3 (1.5-4.5); LYMPH % 4.4 % (24.0-44.0); MEAN CORPUSCULAR HEMOGLOBIN 25.4 pg (27.0-33.0); MEAN CORPUSCULAR HGB CONC 29.7 g/dl (32.0-36.5); MEAN CORPUSCULAR VOLUME 85.5 fl (80.0-96.0); MONO # 0.6 K/mm3 (0.0-0.8); MONO % 8.8 % (0.0-5.0); PLATELET COUNT, AUTOMATED 154 k/mm3 (150-450); RED CELL DISTRIBUTION WIDTH 17.4 % (11.5-14.5); WHITE BLOOD COUNT 7.3 K/mm3 (4.0-10.0)
[2016-07-03 05:38] LABS: ALBUMIN 2.5 GM/DL (3.2-5.2); ALBUMIN/GLOBULIN RATIO 0.74 (1.00-1.93); ALKALINE PHOSPHATASE 108 U/L (45-117); ALT/SGPT 18 U/L (12-78); ANION GAP 8 MEQ/L (8-16); AST/SGOT 25 U/L (15-37); BILIRUBIN,TOTAL 1.2 MG/DL (0.2-1.0); BLOOD UREA NITROGEN 10 MG/DL (7-18); CALCIUM LEVEL 7.8 MG/DL (8.8-10.2); CARBON DIOXIDE LEVEL 22 MEQ/L (21-32); CHLORIDE LEVEL 108 MEQ/L (98-107); CREATININE FOR GFR 0.94 MG/DL (0.55-1.02); GLOMERULAR FILTRATION RATE > 60.0 (>39); GLUCOSE, FASTING 106 MG/DL (83-110); MAGNESIUM LEVEL 2.2 MG/DL (1.8-2.4); POTASSIUM SERUM 3.7 MEQ/L (3.5-5.1); SODIUM LEVEL 138 MEQ/L (136-145); TOTAL PROTEIN 5.9 GM/DL (6.4-8.2)
[2016-07-03] MEDS: LACTOBACILLUS ACIDOPHILUS CAP (BACID) PO SCH (08:30)
[2016-07-03] MEDS: DIGOXIN 0.125 MG TAB PO SCH (08:30)
[2016-07-03] MEDS: PANTOPRAZOLE 40MG TAB (PROTONIX) PO SCH ×2 (08:30→22:03)
[2016-07-03] MEDS: SUCRALFATE 1 GM TAB PO SCH ×4 (08:31→22:03)
[2016-07-03] MEDS: MORPHINE 2 MG/ML 1ML SYRINGE IV PRN (12:14)
[2016-07-03] MEDS: metroNIDAZOLE (FLAGYL) 500 MG TAB PO SCH ×2 (14:14→22:02)
--- NOTE | 2016-07-03 16:14 | REP ---
Clinical: Pain and swelling. Technique: Real time andrea scale and color Doppler evaluation using linear high frequency transducer. Findings: Ultrasound examination of the left upper extremity deep venous structures demonstrates nonocclusive thrombus through the proximal to mid cephalic vein along with occlusive thrombus in the distal cephalic vein in the antecubital fossa. Axillary, subclavian, visualized jugular, brachial and basilic veins appear patent and normal. Impression: Partially occlusive thrombus seen in the cephalic vein as described above. Signed by Sony White MD 07/03/2016 04:05 P
--- NOTE | 2016-07-03 16:28 | IPNPDOC ---
Subjective Date Seen The patient was seen on 07/03/16. Subjective Chief Complaint/HPI The patient is a 75-year-old female admitted with a reason for visit of Colitis. Events since last encounter LUE swelling, tolerating diet, abd pain improved, no chest pain, not short of breath Constitutional: Denies: Chills, Fever Pulmonary: Denies: Dyspnea, Cough Cardiovascular: Denies: Chest Pain Gastrointestinal: Reports: Abdominal Pain, Denies: Nausea, Vomiting Objective Physical Examination General Exam: Positive: Alert, No Acute Distress Eye Exam: Negative: Sclera icteric ENT Exam: Positive: Mucous membr. moist/pink Chest Exam: Positive: Diminished, Negative: Rales, Rhonchi, Wheezing Heart Exam: Positive: Rate Normal, Irregular Rhythm, Normal S1, Normal S2 Telemetry: Positive: Atrial fibrillation, Tachycardia (intermittent) Abdomen Exam: Positive: Normal bowel sounds, Soft, Negative: Tenderness Extremity Exam: Negative: Edema Assessment /Plan Problems (1) Colitis, acute Status: Acute Problem Text: possible c. 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 Problem Text: history of recurrent GI bleed- with stable hgb, repeat labs tomorrow- no current evidence of ongoing significant gi blood loss (6) Diastolic congestive heart failure Status: Chronic Problem Text: compensated, ivf discontinued 07/03/16 (7) DVT (deep venous thrombosis) Problem Text: left upper extremity, cephalic vein- no medication indicated, provoked, warm compresses ordered VS, I&O, 24H, Fishbone Vital Signs/I&O Vital Signs Date Time Temp Pulse Resp B/P (MAP) Pulse Ox O2 Delivery O2 Flow Rate FiO2 07/03/16 14:04 22 07/03/16 08:30 108 07/03/16 07:35 98.6 110/53 (72) 95 Room Air I&O- Last 24 Hours up to 6 AM 07/03/16 06:00 Intake Total 1725 ml Output Total 800 ml Balance 925 ml Laboratory Data 24H LABS Laboratory Tests 2 07/03/16 04:48: White Blood Count 7.3, Red Blood Count 3.31L, Hemoglobin 8.4L, Hematocrit 28.2L , Mean Corpuscular Volume 85.5, Mean Corpuscular Hemoglobin 25.4L, Mean Corpuscular Hemoglobin Concent 29.7L, Red Cell Distribution Width 17.4H, Platelet Count 154, Neutrophils (%) (Auto) 82.0H, Lymphocytes (%) (Auto) 4.4L, Monocytes (%) (Auto) 8.8H, Eosinophils (%) (Auto) 1.0, Basophils (%) (Auto) 0.4 , Neutrophils # (Auto) 6.0, Lymphocytes # (Auto) 0.6L, Monocytes # (Auto) 0.6, Eosinophils # (Auto) 0.1, Basophils # (Auto) 0.0, Large Unclassified Cells % 3.4 , Large Unclassified Cells # 0.2, Anion Gap 8, Glomerular Filtration Rate > 60.0 , Blood Urea Nitrogen 10, Creatinine 0.94, Sodium Level 138, Potassium Level 3.7 , Chloride Level 108H, Carbon Dioxide Level 22, Calcium Level 7.8L, Aspartate Amino Transf (AST/SGOT) 25, Alanine Aminotransferase (ALT/SGPT) 18, Alkaline Phosphatase 108, Total Bilirubin 1.2H, Total Protein 5.9L, Albumin 2.5L, Magnesium Level 2.2, Albumin/Globulin Ratio 0.74L CBC/BMP Laboratory Tests 07/03/16 04:48 Red Blood Count 3.31 L, Mean Corpuscular Volume 85.5, Mean Corpuscular Hemoglobin 25.4 L, Mean Corpuscular Hemoglobin Concent 29.7 L, Red Cell Distribution Width 17.4 H, Neutrophils (%) (Auto) 82.0 H, Lymphocytes (%) (Auto ) 4.4 L, Monocytes (%) (Auto) 8.8 H, Eosinophils (%) (Auto) 1.0, Basophils (%) ( Auto) 0.4, Neutrophils # (Auto) 6.0, Lymphocytes # (Auto) 0.6 L, Monocytes # ( Auto) 0.6, Eosinophils # (Auto) 0.1, Basophils # (Auto) 0.0, Calcium Level 7.8 L , Aspartate Amino Transf (AST/SGOT) 25, Alanine Aminotransferase (ALT/SGPT) 18, Alkaline Phosphatase 108, Total Bilirubin 1.2 H, Total Protein 5.9 L, Albumin 2.5 L Microbiology Microbiology 06/30/16 Blood Culture - Preliminary, Resulted No Growth after 48 hours. All Specime... 06/30/16 Blood Culture - Preliminary, Resulted No Growth after 48 hours. All Specime... 07/01/16 Urine Culture - Final, Complete FLMIRTA,TOSIN Azul MD July 03, 2016 16:28
[2016-07-03] MEDS: METOPROLOL TART 12.5 MG PER 1/2 TAB PO SCH ×2 (18:00→23:57)
[2016-07-03] MEDS: CIPROFLOXACIN 500 MG TAB PO SCH (18:15)
[2016-07-03] MEDS: ERYTHROMYCIN OPHTH OINT OU SCH (22:02)
[2016-07-03] MEDS: CitaloPRAM (CeleXA) 10 MG TABLET PO SCH (22:03)
[2016-07-04 04:00] VITALS: BP 101/52
[2016-07-04] MEDS: CIPROFLOXACIN 500 MG TAB PO SCH ×2 (06:12→17:06)
[2016-07-04] MEDS: metroNIDAZOLE (FLAGYL) 500 MG TAB PO SCH ×3 (06:12→21:55)
[2016-07-04] MEDS: VANCOMYCIN ORAL SOL 250MG/5ML ORAL SYRINGE PO SCH ×4 (06:12→23:25)
[2016-07-04] MEDS: METOPROLOL TART 12.5 MG PER 1/2 TAB PO SCH ×4 (06:13→23:24)
[2016-07-04] MEDS: ONDANSETRON 4MG/2ML VIAL (J2405) IV PRN ×2 (06:16→14:51)
[2016-07-04 06:42] LABS: BASO % 0.8 % (0.0-1.0); EOS # 0.2 K/mm3 (0.0-0.50); EOS % 2.5 % (0.0-3.0); LARGE UNSTAINED CELL # 0.3 K/mm3 (0.0-0.4); LARGE UNSTAINED CELL % 3.9 % (0.0-4.0); LYMPH # 0.4 K/mm3 (1.5-4.5); LYMPH % 5.4 % (24.0-44.0); MEAN CORPUSCULAR HEMOGLOBIN 25.3 pg (27.0-33.0); MEAN CORPUSCULAR HGB CONC 29.2 g/dl (32.0-36.5); MEAN CORPUSCULAR VOLUME 86.6 fl (80.0-96.0); MONO # 0.7 K/mm3 (0.0-0.8); MONO % 11.1 % (0.0-5.0); NEUTROPHILS # 4.9 K/mm3 (1.8-7.7); NEUTROPHILS % 76.3 % (36.0-66.0); PLATELET COUNT, AUTOMATED 189 k/mm3 (150-450); RED CELL DISTRIBUTION WIDTH 17.6 % (11.5-14.5); WHITE BLOOD COUNT 6.4 K/mm3 (4.0-10.0)
[2016-07-04 06:47] LABS: ADD MORPHOLOGY? YES
[2016-07-04 06:53] LABS: ALBUMIN 2.3 GM/DL (3.2-5.2); ALBUMIN/GLOBULIN RATIO 0.68 (1.00-1.93); ALKALINE PHOSPHATASE 98 U/L (45-117); ALT/SGPT 15 U/L (12-78); ANION GAP 8 MEQ/L (8-16); AST/SGOT 18 U/L (15-37); BILIRUBIN,TOTAL 0.8 MG/DL (0.2-1.0); BLOOD UREA NITROGEN 11 MG/DL (7-18); CALCIUM LEVEL 7.5 MG/DL (8.8-10.2); CARBON DIOXIDE LEVEL 21 MEQ/L (21-32); CHLORIDE LEVEL 108 MEQ/L (98-107); CREATININE FOR GFR 0.82 MG/DL (0.55-1.02); GLOMERULAR FILTRATION RATE > 60.0 (>39); GLUCOSE, FASTING 104 MG/DL (83-110); POTASSIUM SERUM 3.7 MEQ/L (3.5-5.1); SODIUM LEVEL 137 MEQ/L (136-145); TOTAL PROTEIN 5.7 GM/DL (6.4-8.2)
[2016-07-04 07:02] LABS: ANISOCYTOSIS 1+; HYPOCHROMASIA 3+
--- NOTE | 2016-07-04 07:09 | IPNPDOC ---
Subjective Date Seen The patient was seen on 07/04/16. Subjective Chief Complaint/HPI The patient is a 75-year-old female admitted with a reason for visit of Colitis. General: Denies: ROS Unobtainable, Chills, Night Sweats, Fatigue, Malaise, Normal Appetite, Other Symptoms Constitutional: Denies: Chills, Fever, Malaise, Night Sweats, Weakness, Fatigue , Weight Loss, Lethargy, Other Eyes: Denies: Pain, Vision change, Conjunctivae inflammation, Eyelid inflammation, Redness, Other ENT: Denies: Head Aches, Ear Pain, Dysphagia, Sinus Congestion, Post Nasal Drip , Sore Throat, Epistaxis, Other Symptoms Skin: Denies: Rash, Lesions, Jaundice, Bruising, Itching, Dry, Breakdown, Nail Changes, Other Pulmonary: Denies: Dyspnea, Cough, Pleuritic Chest Pain, Other Symptoms Cardiovascular: Denies: Chest Pain, Palpitations, Orthopnea, Paroxysmal Noc. Dyspnea, Edema, Lt Headedness, Other Symptoms Gastrointestinal: Reports: Nausea, Abdominal Pain (much improved since admission), Denies: Vomiting, Diarrhea, Constipation, Melena, Hematochezia, Other Symptoms Objective Physical Examination General Exam: Positive: Alert, Cooperative, No Acute Distress Eye Exam: Negative: Sclera icteric ENT Exam: Positive: Mucous membr. moist/pink Chest Exam: Positive: Diminished, Negative: Rales, Rhonchi, Wheezing Heart Exam: Positive: Rate Normal, Irregular Rhythm, Normal S1, Normal S2 Telemetry: Positive: Atrial fibrillation, Tachycardia (intermittent), Bradycardia (intermittent) Abdomen Exam: Positive: Normal bowel sounds, Soft, Negative: Tenderness Extremity Exam: Negative: Edema Psych Exam: Positive: Oriented x 3 Assessment /Plan Problems (1) Colitis, acute Status: Acute Response to Treatment: Improving Discussed With: Patient Problem Specific Plan: Monitor Clinically, Repeat Labs Problem Text: possible c. diff, although having formed stools on po cipro/po flagyl/po vanco watchful waiting Improved from admission (2) Tachy-eugenia syndrome Status: Chronic Discussed With: Patient Problem Text: atrial fibrillation, episodes eugenia/tachy (3) Cirrhosis Status: Chronic Problem Text: with portal hypertension no clear etiology - patient states does have liver disease s/p workup which was unrevealing (4) Control of atrial fibrillation with pacemaker Status: Chronic (5) GAVE (gastric antral vascular ectasia) Status: Chronic Problem Text: history of recurrent GI bleed- with stable hgb no current evidence of ongoing significant gi blood loss (6) Diastolic congestive heart failure Status: Chronic Problem Text: compensated, ivf discontinued 07/03/16 (7) DVT (deep venous thrombosis) Problem Text: left upper extremity, cephalic vein- no medication indicated, provoked, warm compresses ordered Plan/VTE VTE Prophylaxis Ordered?: Yes (mechanical) Plan IVF: Discontinue Diet: Continue Current Activity: Continue Current Therapy: PT Diagnostics: Repeat Labs in AM VS, I&O, 24H, Fishbone Vital Signs/I&O Vital Signs Date Time Temp Pulse Resp B/P (MAP) Pulse Ox O2 Delivery O2 Flow Rate FiO2 07/04/16 06:13 75 106/82 07/04/16 04:00 98.8 20 95 Room Air I&O- Last 24 Hours up to 6 AM 07/04/16 06:00 Intake Total 1920 ml Output Total 400 ml Balance 1520 ml Laboratory Data 24H LABS Laboratory Tests 2 07/04/16 06:06: White Blood Count 6.4, Red Blood Count 3.42L, Hemoglobin 8.6L, Hematocrit 29.6L , Mean Corpuscular Volume 86.6, Mean Corpuscular Hemoglobin 25.3L, Mean Corpuscular Hemoglobin Concent 29.2L, Red Cell Distribution Width 17.6H, Platelet Count 189, Neutrophils (%) (Auto) 76.3H, Lymphocytes (%) (Auto) 5.4L, Monocytes (%) (Auto) 11.1H, Eosinophils (%) (Auto) 2.5, Basophils (%) (Auto) 0.8 , Neutrophils # (Auto) 4.9, Lymphocytes # (Auto) 0.4L, Monocytes # (Auto) 0.7, Eosinophils # (Auto) 0.2, Basophils # (Auto) 0.0, Large Unclassified Cells % 3.9 , Large Unclassified Cells # 0.3, Anion Gap 8, Glomerular Filtration Rate > 60.0 , Blood Urea Nitrogen 11, Creatinine 0.82, Sodium Level 137, Potassium Level 3.7 , Chloride Level 108H, Carbon Dioxide Level 21, Calcium Level 7.5L, Aspartate Amino Transf (AST/SGOT) 18, Alanine Aminotransferase (ALT/SGPT) 15, Alkaline Phosphatase 98, Total Bilirubin 0.8, Total Protein 5.7L, Albumin 2.3L, Magnesium Level 2.0, Albumin/Globulin Ratio 0.68L CBC/BMP Laboratory Tests 07/04/16 06:06 Red Blood Count 3.42 L, Mean Corpuscular Volume 86.6, Mean Corpuscular Hemoglobin 25.3 L, Mean Corpuscular Hemoglobin Concent 29.2 L, Red Cell Distribution Width 17.6 H, Neutrophils (%) (Auto) 76.3 H, Lymphocytes (%) (Auto ) 5.4 L, Monocytes (%) (Auto) 11.1 H, Eosinophils (%) (Auto) 2.5, Basophils (%) (Auto) 0.8, Neutrophils # (Auto) 4.9, Lymphocytes # (Auto) 0.4 L, Monocytes # ( Auto) 0.7, Eosinophils # (Auto) 0.2, Basophils # (Auto) 0.0, Calcium Level 7.5 L , Aspartate Amino Transf (AST/SGOT) 18, Alanine Aminotransferase (ALT/SGPT) 15, Alkaline Phosphatase 98, Total Bilirubin 0.8, Total Protein 5.7 L, Albumin 2.3 L Microbiology Microbiology 06/30/16 Blood Culture - Preliminary, Resulted No Growth after 72 hours. All specime... 06/30/16 Blood Culture - Preliminary, Resulted No Growth after 72 hours. All specime... 07/01/16 Urine Culture - Final, Complete DAINA GRAVES MD July 04, 2016 07:09
[2016-07-04 07:35] VITALS: BP 99/55
[2016-07-04] MEDS: PANTOPRAZOLE 40MG TAB (PROTONIX) PO SCH ×2 (08:18→21:55)
[2016-07-04] MEDS: LACTOBACILLUS ACIDOPHILUS CAP (BACID) PO SCH (08:18)
[2016-07-04] MEDS: SUCRALFATE 1 GM TAB PO SCH ×4 (08:19→21:54)
[2016-07-04] MEDS: DIGOXIN 0.125 MG TAB PO SCH (08:19)
[2016-07-04 12:00] VITALS: BP 115/63
[2016-07-04 16:00] VITALS: BP 106/64
[2016-07-04 20:00] VITALS: BP 91/52
[2016-07-04] MEDS: CitaloPRAM (CeleXA) 10 MG TABLET PO SCH (21:54)
[2016-07-04] MEDS: ERYTHROMYCIN OPHTH OINT OU SCH (22:29)
[2016-07-04 23:59] VITALS: BP 98/54
[2016-07-05 04:00] VITALS: BP 104/55
[2016-07-05 05:18] LABS: BASO % 0.7 % (0.0-1.0); EOS # 0.2 K/mm3 (0.0-0.50); LARGE UNSTAINED CELL # 0.2 K/mm3 (0.0-0.4); LARGE UNSTAINED CELL % 4.7 % (0.0-4.0); LYMPH # 0.4 K/mm3 (1.5-4.5); LYMPH % 10.7 % (24.0-44.0); MEAN CORPUSCULAR HEMOGLOBIN 26.1 pg (27.0-33.0); MONO # 0.5 K/mm3 (0.0-0.8); MONO % 11.4 % (0.0-5.0); NEUTROPHILS # 2.8 K/mm3 (1.8-7.7); NEUTROPHILS % 67.5 % (36.0-66.0); PLATELET COUNT, AUTOMATED 199 k/mm3 (150-450); RED CELL DISTRIBUTION WIDTH 17.4 % (11.5-14.5); WHITE BLOOD COUNT 4.1 K/mm3 (4.0-10.0)
[2016-07-05 05:29] LABS: ALBUMIN 2.3 GM/DL (3.2-5.2); ALBUMIN/GLOBULIN RATIO 0.74 (1.00-1.93); ALKALINE PHOSPHATASE 88 U/L (45-117); ALT/SGPT 13 U/L (12-78); ANION GAP 8 MEQ/L (8-16); AST/SGOT 18 U/L (15-37); BILIRUBIN,TOTAL 0.6 MG/DL (0.2-1.0); BLOOD UREA NITROGEN 11 MG/DL (7-18); CALCIUM LEVEL 7.6 MG/DL (8.8-10.2); CARBON DIOXIDE LEVEL 21 MEQ/L (21-32); CHLORIDE LEVEL 110 MEQ/L (98-107); CREATININE FOR GFR 0.73 MG/DL (0.55-1.02); GLOMERULAR FILTRATION RATE > 60.0 (>39); GLUCOSE, FASTING 95 MG/DL (83-110); POTASSIUM SERUM 3.5 MEQ/L (3.5-5.1); SODIUM LEVEL 139 MEQ/L (136-145); TOTAL PROTEIN 5.4 GM/DL (6.4-8.2)
[2016-07-05] MEDS: METOPROLOL TART 12.5 MG PER 1/2 TAB PO SCH ×3 (05:40→17:36)
[2016-07-05] MEDS: CIPROFLOXACIN 500 MG TAB PO SCH ×2 (05:41→17:33)
[2016-07-05] MEDS: metroNIDAZOLE (FLAGYL) 500 MG TAB PO SCH ×3 (05:41→21:20)
[2016-07-05] MEDS: VANCOMYCIN ORAL SOL 250MG/5ML ORAL SYRINGE PO SCH ×3 (05:41→17:33)
[2016-07-05] MEDS: ONDANSETRON 4MG/2ML VIAL (J2405) IV PRN ×2 (05:55→19:47)
[2016-07-05 07:27] VITALS: BP 91/54
--- NOTE | 2016-07-05 08:21 | IPNPDOC ---
Subjective Date Seen The patient was seen on 07/05/16. Subjective Chief Complaint/HPI The patient is a 75-year-old female admitted with a reason for visit of Colitis. General: Denies: ROS Unobtainable, Chills, Night Sweats, Fatigue, Malaise, Normal Appetite, Other Symptoms Constitutional: Denies: Chills, Fever, Malaise, Night Sweats, Weakness, Fatigue , Weight Loss, Lethargy, Other Eyes: Denies: Pain, Vision change, Conjunctivae inflammation, Eyelid inflammation, Redness, Other ENT: Denies: Head Aches, Ear Pain, Dysphagia, Sinus Congestion, Post Nasal Drip , Sore Throat, Epistaxis, Other Symptoms Skin: Denies: Rash, Lesions, Jaundice, Bruising, Itching, Dry, Breakdown, Nail Changes, Other Pulmonary: Denies: Dyspnea, Cough, Pleuritic Chest Pain, Other Symptoms Cardiovascular: Denies: Chest Pain, Palpitations, Orthopnea, Paroxysmal Noc. Dyspnea, Edema, Lt Headedness, Other Symptoms Gastrointestinal: Reports: Nausea, Vomiting, Denies: Abdominal Pain, Diarrhea, Constipation, Melena, Hematochezia, Other Symptoms Objective Physical Examination General Exam: Positive: Alert, Cooperative, No Acute Distress Eye Exam: Positive: Conjunctiva & lids normal, Negative: Sclera icteric ENT Exam: Positive: Mucous membr. moist/pink Chest Exam: Positive: Clear to auscultation, Diminished, Negative: Rales, Rhonchi, Wheezing Heart Exam: Positive: Rate Normal, Irregular Rhythm, Normal S1, Normal S2 Telemetry: Positive: Bradycardia (intermittent) Abdomen Exam: Positive: Normal bowel sounds, Soft, Negative: Tenderness Extremity Exam: Negative: Edema Psych Exam: Positive: Oriented x 3 Assessment /Plan Problems (1) Colitis, acute Status: Acute Response to Treatment: Improving Discussed With: Patient Problem Specific Plan: Monitor Clinically, Repeat Labs Problem Text: possible c. diff, although having formed stools on po cipro/po flagyl/po vanco watchful waiting pain Improved from admission, but still nausea/vomiting will likely dc cipro (2) Tachy-eugenia syndrome Status: Chronic Discussed With: Patient Problem Text: atrial fibrillation, episodes eugenia/tachy (3) Cirrhosis Status: Chronic Problem Text: with portal hypertension no clear etiology - patient states does have liver disease s/p workup which was unrevealing today states was told never to take BB by GI - curious recommendation, possible told never to stop BB? (4) Control of atrial fibrillation with pacemaker Status: Chronic (5) GAVE (gastric antral vascular ectasia) Status: Chronic Problem Text: history of recurrent GI bleed- with stable hgb no current evidence of ongoing significant gi blood loss (6) Diastolic congestive heart failure Status: Chronic Problem Text: compensated, ivf discontinued 07/03/16 (7) DVT (deep venous thrombosis) Problem Text: left upper extremity, cephalic vein- no medication indicated, provoked, warm compresses ordered Plan/VTE VTE Prophylaxis Ordered?: Yes (mechanical) Plan IVF: Discontinue Diet: Continue Current Activity: Continue Current Therapy: PT Medications: Taper Antibiotics Diagnostics: Repeat Labs in AM VS, I&O, 24H, Fishbone Vital Signs/I&O Vital Signs Date Time Temp Pulse Resp B/P (MAP) Pulse Ox O2 Delivery O2 Flow Rate FiO2 07/05/16 07:27 97.4 68 18 91/54 (66) 94 Room Air I&O- Last 24 Hours up to 6 AM 07/05/16 06:00 Intake Total 900 ml Output Total 650 ml Balance 250 ml Laboratory Data 24H LABS Laboratory Tests 2 07/05/16 04:57: White Blood Count 4.1, Red Blood Count 3.24L, Hemoglobin 8.5L, Hematocrit 28.2L , Mean Corpuscular Volume 87.0, Mean Corpuscular Hemoglobin 26.1L, Mean Corpuscular Hemoglobin Concent 30.0L, Red Cell Distribution Width 17.4H, Platelet Count 199, Neutrophils (%) (Auto) 67.5H, Lymphocytes (%) (Auto) 10.7L, Monocytes (%) (Auto) 11.4H, Eosinophils (%) (Auto) 5.0H, Basophils (%) (Auto) 0.7, Neutrophils # (Auto) 2.8, Lymphocytes # (Auto) 0.4L, Monocytes # (Auto) 0.5 , Eosinophils # (Auto) 0.2, Basophils # (Auto) 0.0, Large Unclassified Cells % 4.7H, Large Unclassified Cells # 0.2, Anion Gap 8, Glomerular Filtration Rate > 60.0, Blood Urea Nitrogen 11, Creatinine 0.73, Sodium Level 139, Potassium Level 3.5, Chloride Level 110H, Carbon Dioxide Level 21, Calcium Level 7.6L, Aspartate Amino Transf (AST/SGOT) 18, Alanine Aminotransferase (ALT/SGPT) 13, Alkaline Phosphatase 88, Total Bilirubin 0.6, Total Protein 5.4L, Albumin 2.3L, Magnesium Level 2.0, Albumin/Globulin Ratio 0.74L CBC/BMP Laboratory Tests 07/05/16 04:57 Red Blood Count 3.24 L, Mean Corpuscular Volume 87.0, Mean Corpuscular Hemoglobin 26.1 L, Mean Corpuscular Hemoglobin Concent 30.0 L, Red Cell Distribution Width 17.4 H, Neutrophils (%) (Auto) 67.5 H, Lymphocytes (%) (Auto ) 10.7 L, Monocytes (%) (Auto) 11.4 H, Eosinophils (%) (Auto) 5.0 H, Basophils ( %) (Auto) 0.7, Neutrophils # (Auto) 2.8, Lymphocytes # (Auto) 0.4 L, Monocytes # (Auto) 0.5, Eosinophils # (Auto) 0.2, Basophils # (Auto) 0.0, Calcium Level 7.6 L, Aspartate Amino Transf (AST/SGOT) 18, Alanine Aminotransferase (ALT/SGPT ) 13, Alkaline Phosphatase 88, Total Bilirubin 0.6, Total Protein 5.4 L, Albumin 2.3 L Microbiology Microbiology 06/30/16 Blood Culture - Preliminary, Resulted No Growth after 72 hours. All specime... 06/30/16 Blood Culture - Preliminary, Resulted No Growth after 72 hours. All specime... 07/01/16 Urine Culture - Final, Complete DAINA GRAVES MD July 05, 2016 08:21
[2016-07-05] MEDS: LACTOBACILLUS ACIDOPHILUS CAP (BACID) PO SCH (08:44)
[2016-07-05] MEDS: DIGOXIN 0.125 MG TAB PO SCH (08:44)
[2016-07-05] MEDS: PANTOPRAZOLE 40MG TAB (PROTONIX) PO SCH ×2 (08:44→21:20)
[2016-07-05] MEDS: SUCRALFATE 1 GM TAB PO SCH ×3 (08:44→17:33)
[2016-07-05 11:48] VITALS: BP 98/48
[2016-07-05 15:58] VITALS: BP 94/51
[2016-07-05 20:00] VITALS: BP 101/56
[2016-07-05] MEDS: CitaloPRAM (CeleXA) 10 MG TABLET PO SCH (21:20)
[2016-07-05 23:59] VITALS: BP 116/62
[2016-07-06] MEDS: ERYTHROMYCIN OPHTH OINT OU SCH ×2 (00:19→20:49)
[2016-07-06] MEDS: SUCRALFATE 1 GM TAB PO SCH ×5 (00:19→20:46)
[2016-07-06] MEDS: METOPROLOL TART 12.5 MG PER 1/2 TAB PO SCH ×4 (00:28→17:50)
[2016-07-06] MEDS: VANCOMYCIN ORAL SOL 250MG/5ML ORAL SYRINGE PO SCH ×2 (00:28→05:49)
[2016-07-06 05:39] LABS: BASO % 1.3 % (0.0-1.0); EOS # 0.2 K/mm3 (0.0-0.50); EOS % 5.5 % (0.0-3.0); LARGE UNSTAINED CELL # 0.2 K/mm3 (0.0-0.4); LARGE UNSTAINED CELL % 5.1 % (0.0-4.0); LYMPH # 0.6 K/mm3 (1.5-4.5); LYMPH % 10.7 % (24.0-44.0); MEAN CORPUSCULAR HEMOGLOBIN 25.4 pg (27.0-33.0); MEAN CORPUSCULAR HGB CONC 30.2 g/dl (32.0-36.5); MEAN CORPUSCULAR VOLUME 84.1 fl (80.0-96.0); MONO # 0.6 K/mm3 (0.0-0.8); MONO % 13.9 % (0.0-5.0); NEUTROPHILS # 2.6 K/mm3 (1.8-7.7); NEUTROPHILS % 63.6 % (36.0-66.0); PLATELET COUNT, AUTOMATED 218 k/mm3 (150-450); RED CELL DISTRIBUTION WIDTH 17.4 % (11.5-14.5); WHITE BLOOD COUNT 4.1 K/mm3 (4.0-10.0)
[2016-07-06 05:46] VITALS: BP 108/62
[2016-07-06] MEDS: metroNIDAZOLE (FLAGYL) 500 MG TAB PO SCH (05:49)
[2016-07-06] MEDS: CIPROFLOXACIN 500 MG TAB PO SCH (05:49)
[2016-07-06 05:56] LABS: ALBUMIN 2.3 GM/DL (3.2-5.2); ALBUMIN/GLOBULIN RATIO 0.79 (1.00-1.93); ALKALINE PHOSPHATASE 88 U/L (45-117); ALT/SGPT 12 U/L (12-78); ANION GAP 8 MEQ/L (8-16); AST/SGOT 18 U/L (15-37); BILIRUBIN,TOTAL 0.6 MG/DL (0.2-1.0); BLOOD UREA NITROGEN 10 MG/DL (7-18); CALCIUM LEVEL 7.7 MG/DL (8.8-10.2); CARBON DIOXIDE LEVEL 21 MEQ/L (21-32); CHLORIDE LEVEL 110 MEQ/L (98-107); CREATININE FOR GFR 0.68 MG/DL (0.55-1.02); GLOMERULAR FILTRATION RATE > 60.0 (>39); GLUCOSE, FASTING 95 MG/DL (83-110); MAGNESIUM LEVEL 1.9 MG/DL (1.8-2.4); POTASSIUM SERUM 3.5 MEQ/L (3.5-5.1); SODIUM LEVEL 139 MEQ/L (136-145); TOTAL PROTEIN 5.2 GM/DL (6.4-8.2)
[2016-07-06] MEDS: ONDANSETRON 4MG/2ML VIAL (J2405) IV PRN (06:51)
[2016-07-06 08:00] VITALS: BP 99/55
--- NOTE | 2016-07-06 08:56 | IPNPDOC ---
Subjective Date Seen The patient was seen on 07/06/16. Subjective Chief Complaint/HPI The patient is a 75-year-old female admitted with a reason for visit of Colitis. General: Denies: ROS Unobtainable, Chills, Night Sweats, Fatigue, Malaise, Normal Appetite, Other Symptoms Constitutional: Denies: Chills, Fever, Malaise, Night Sweats, Weakness, Fatigue , Weight Loss, Lethargy, Other Eyes: Denies: Pain, Vision change, Conjunctivae inflammation, Eyelid inflammation, Redness, Other ENT: Denies: Head Aches, Ear Pain, Dysphagia, Sinus Congestion, Post Nasal Drip , Sore Throat, Epistaxis, Other Symptoms Skin: Denies: Rash, Lesions, Jaundice, Bruising, Itching, Dry, Breakdown, Nail Changes, Other Pulmonary: Denies: Dyspnea, Cough, Pleuritic Chest Pain, Other Symptoms Cardiovascular: Denies: Chest Pain, Palpitations, Orthopnea, Paroxysmal Noc. Dyspnea, Edema, Lt Headedness, Other Symptoms Gastrointestinal: Reports: Nausea, Vomiting, Denies: Abdominal Pain, Diarrhea, Constipation, Melena, Hematochezia, Other Symptoms Objective Physical Examination General Exam: Positive: Alert, Cooperative, No Acute Distress, Other (elderly, frail) Eye Exam: Positive: Conjunctiva & lids normal, Negative: Sclera icteric ENT Exam: Positive: Mucous membr. moist/pink Chest Exam: Positive: Clear to auscultation, Diminished, Negative: Rales, Rhonchi, Wheezing Heart Exam: Positive: Rate Normal, Irregular Rhythm, Normal S1, Normal S2 Telemetry: Positive: Atrial fibrillation Abdomen Exam: Positive: Normal bowel sounds, Soft, Negative: Tenderness Extremity Exam: Negative: Edema Psych Exam: Positive: Oriented x 3 Assessment /Plan Problems (1) Colitis, acute Status: Acute Response to Treatment: Improving Discussed With: Patient Problem Specific Plan: Monitor Clinically, Repeat Labs Problem Text: Cdiff + transition abx to dificid still nausea/vomiting (2) Tachy-eugenia syndrome Status: Chronic Discussed With: Patient Problem Text: atrial fibrillation, episodes eugenia/tachy (3) Cirrhosis Status: Chronic Problem Text: with portal hypertension no clear etiology - patient states does have liver disease s/p workup which was unrevealing today states was told never to take BB by GI - curious recommendation, possible told never to stop BB? (4) Control of atrial fibrillation with pacemaker Status: Chronic (5) GAVE (gastric antral vascular ectasia) Status: Chronic Problem Text: history of recurrent GI bleed- with stable hgb no current evidence of ongoing significant gi blood loss (6) Diastolic congestive heart failure Status: Chronic Problem Text: compensated, ivf discontinued 07/03/16 (7) DVT (deep venous thrombosis) Problem Text: left upper extremity, cephalic vein- no medication indicated, provoked, warm compresses ordered Plan/VTE VTE Prophylaxis Ordered?: Yes (mechanical) Plan IVF: Discontinue Diet: Continue Current Activity: Continue Current Therapy: PT Medications: Start Antibiotics, Taper Antibiotics Diagnostics: Repeat Labs in AM Transitioned abx to dificid GI panel +Cdiff still +n/v transfer to medical floor VS, I&O, 24H, [facility] Vital Signs/I&O Vital Signs Date Time Temp Pulse Resp B/P (MAP) Pulse Ox O2 Delivery O2 Flow Rate FiO2 07/06/16 08:00 97.8 71 18 99/55 (70) 97 Room Air I&O- Last 24 Hours up to 6 AM 07/06/16 06:00 Intake Total 260 ml Output Total 750 ml Balance -490 ml Laboratory Data 24H LABS Laboratory Tests 2 07/06/16 05:23: White Blood Count 4.1, Red Blood Count 3.34L, Hemoglobin 8.5L, Hematocrit 28.1L , Mean Corpuscular Volume 84.1, Mean Corpuscular Hemoglobin 25.4L, Mean Corpuscular Hemoglobin Concent 30.2L, Red Cell Distribution Width 17.4H, Platelet Count 218, Neutrophils (%) (Auto) 63.6, Lymphocytes (%) (Auto) 10.7L, Monocytes (%) (Auto) 13.9H, Eosinophils (%) (Auto) 5.5H, Basophils (%) (Auto) 1.3H, Neutrophils # (Auto) 2.6, Lymphocytes # (Auto) 0.6L, Monocytes # (Auto) 0.6, Eosinophils # (Auto) 0.2, Basophils # (Auto) 0.0, Large Unclassified Cells % 5.1H, Large Unclassified Cells # 0.2, Anion Gap 8, Glomerular Filtration Rate > 60.0, Blood Urea Nitrogen 10, Creatinine 0.68, Sodium Level 139, Potassium Level 3.5, Chloride Level 110H, Carbon Dioxide Level 21, Calcium Level 7.7L, Aspartate Amino Transf (AST/SGOT) 18, Alanine Aminotransferase (ALT/SGPT) 12, Alkaline Phosphatase 88, Total Bilirubin 0.6, Total Protein 5.2L, Albumin 2.3L, Magnesium Level 1.9, Albumin/Globulin Ratio 0.79L CBC/BMP Laboratory Tests 07/06/16 05:23 Red Blood Count 3.34 L, Mean Corpuscular Volume 84.1, Mean Corpuscular Hemoglobin 25.4 L, Mean Corpuscular Hemoglobin Concent 30.2 L, Red Cell Distribution Width 17.4 H, Neutrophils (%) (Auto) 63.6, Lymphocytes (%) (Auto) 10.7 L, Monocytes (%) (Auto) 13.9 H, Eosinophils (%) (Auto) 5.5 H, Basophils (% ) (Auto) 1.3 H, Neutrophils # (Auto) 2.6, Lymphocytes # (Auto) 0.6 L, Monocytes # (Auto) 0.6, Eosinophils # (Auto) 0.2, Basophils # (Auto) 0.0, Calcium Level 7.7 L, Aspartate Amino Transf (AST/SGOT) 18, Alanine Aminotransferase (ALT/SGPT ) 12, Alkaline Phosphatase 88, Total Bilirubin 0.6, Total Protein 5.2 L, Albumin 2.3 L Microbiology Microbiology 06/30/16 Blood Culture - Final, Complete NO GROWTH AFTER 5 DAYS 06/30/16 Blood Culture - Final, Complete NO GROWTH AFTER 5 DAYS 07/05/16 Gastrointestinal Tract Panel (PCR) - Final, Complete Clostridium Difficile A/B 07/01/16 Urine Culture - Final, Complete DAINA GRAVES MD July 06, 2016 08:56
[2016-07-06 10:10] LABS: DIGOXIN LEVEL 0.5 NG/ML (0.5-2.0)
[2016-07-06] MEDS: FIDAXOMICIN 200 MG TAB (DIFICID) PO SCH ×2 (10:20→20:46)
[2016-07-06] MEDS: PANTOPRAZOLE 40MG TAB (PROTONIX) PO SCH ×2 (10:20→20:46)
[2016-07-06] MEDS: LACTOBACILLUS ACIDOPHILUS CAP (BACID) PO SCH (10:20)
[2016-07-06] MEDS: DIGOXIN 0.125 MG TAB PO SCH (10:20)
[2016-07-06 12:00] VITALS: BP 96/55
[2016-07-06 14:08] VITALS: BP 104/58
[2016-07-06] MEDS: CitaloPRAM (CeleXA) 10 MG TABLET PO SCH (21:25)
[2016-07-06 22:00] VITALS: BP 98/56
[2016-07-07] MEDS: METOPROLOL TART 12.5 MG PER 1/2 TAB PO SCH ×2 (00:03→05:18)
[2016-07-07 05:18] VITALS: BP 100/52
[2016-07-07 06:00] VITALS: BP 100/52
[2016-07-07 06:22] LABS: BASO # 0.1 K/mm3 (0.0-0.2); BASO % 1.1 % (0.0-1.0); EOS # 0.2 K/mm3 (0.0-0.50); EOS % 3.8 % (0.0-3.0); LARGE UNSTAINED CELL # 0.3 K/mm3 (0.0-0.4); LARGE UNSTAINED CELL % 5.5 % (0.0-4.0); LYMPH # 0.4 K/mm3 (1.5-4.5); LYMPH % 8.9 % (24.0-44.0); MEAN CORPUSCULAR HEMOGLOBIN 25.5 pg (27.0-33.0); MEAN CORPUSCULAR HGB CONC 29.5 g/dl (32.0-36.5); MEAN CORPUSCULAR VOLUME 86.6 fl (80.0-96.0); MONO # 0.6 K/mm3 (0.0-0.8); MONO % 13.3 % (0.0-5.0); NEUTROPHILS # 3.2 K/mm3 (1.8-7.7); NEUTROPHILS % 67.4 % (36.0-66.0); PLATELET COUNT, AUTOMATED 234 k/mm3 (150-450); RED CELL DISTRIBUTION WIDTH 17.3 % (11.5-14.5); WHITE BLOOD COUNT 4.8 K/mm3 (4.0-10.0)
[2016-07-07 06:36] LABS: ALBUMIN 2.5 GM/DL (3.2-5.2); ALBUMIN/GLOBULIN RATIO 0.81 (1.00-1.93); ALKALINE PHOSPHATASE 91 U/L (45-117); ALT/SGPT 12 U/L (12-78); ANION GAP 6 MEQ/L (8-16); AST/SGOT 21 U/L (15-37); BILIRUBIN,TOTAL 0.7 MG/DL (0.2-1.0); BLOOD UREA NITROGEN 9 MG/DL (7-18); CALCIUM LEVEL 7.7 MG/DL (8.8-10.2); CARBON DIOXIDE LEVEL 23 MEQ/L (21-32); CHLORIDE LEVEL 109 MEQ/L (98-107); CREATININE FOR GFR 0.75 MG/DL (0.55-1.02); GLOMERULAR FILTRATION RATE > 60.0 (>39); GLUCOSE, FASTING 95 MG/DL (83-110); MAGNESIUM LEVEL 1.9 MG/DL (1.8-2.4); POTASSIUM SERUM 3.6 MEQ/L (3.5-5.1); SODIUM LEVEL 138 MEQ/L (136-145); TOTAL PROTEIN 5.6 GM/DL (6.4-8.2)
[2016-07-07] MEDS: PANTOPRAZOLE 40MG TAB (PROTONIX) PO SCH ×2 (08:11→20:32)
[2016-07-07] MEDS: DIGOXIN 0.125 MG TAB PO SCH (08:11)
[2016-07-07] MEDS: FIDAXOMICIN 200 MG TAB (DIFICID) PO SCH ×2 (08:11→20:32)
[2016-07-07] MEDS: LACTOBACILLUS ACIDOPHILUS CAP (BACID) PO SCH (08:11)
[2016-07-07] MEDS: SUCRALFATE 1 GM TAB PO SCH ×4 (08:11→20:32)
[2016-07-07] MEDS ORDERED: DIFI200T PO (11:32)
[2016-07-07 14:00] VITALS: BP 110/52
--- NOTE | 2016-07-07 17:00 | REP ---
Clinical: Ascites. Technique: Real time andrea scale ultrasound examination using curved array transducer. Findings: A moderate to significant amount of ascites is appreciated throughout the abdomen and pelvis. Impression: Moderate to significant amount of ascites within the abdomen and pelvis. Signed by Sony White MD 07/07/2016 04:40 P
[2016-07-07] MEDS ORDERED: FUROSEMIDE 20 MG/2 ML VIAL (J1940) IV ONE (17:30)
[2016-07-07 17:32] VITALS: BP 112/60
[2016-07-07] MEDS: CitaloPRAM (CeleXA) 10 MG TABLET PO SCH (20:32)
[2016-07-07] MEDS: ERYTHROMYCIN OPHTH OINT OU SCH (20:32)
[2016-07-07] MEDS: MORPHINE 2 MG/ML 1ML SYRINGE IV PRN (20:46)
[2016-07-07 22:00] VITALS: BP 112/68
[2016-07-08 06:00] VITALS: BP 110/62
[2016-07-08 06:17] LABS: BASO # 0.1 K/mm3 (0.0-0.2); EOS # 0.1 K/mm3 (0.0-0.50); EOS % 1.7 % (0.0-3.0); LARGE UNSTAINED CELL # 0.2 K/mm3 (0.0-0.4); LARGE UNSTAINED CELL % 3.5 % (0.0-4.0); LYMPH # 0.7 K/mm3 (1.5-4.5); MEAN CORPUSCULAR HEMOGLOBIN 24.8 pg (27.0-33.0); MEAN CORPUSCULAR HGB CONC 29.4 g/dl (32.0-36.5); MEAN CORPUSCULAR VOLUME 84.4 fl (80.0-96.0); MONO # 0.7 K/mm3 (0.0-0.8); MONO % 10.3 % (0.0-5.0); NEUTROPHILS # 4.8 K/mm3 (1.8-7.7); NEUTROPHILS % 75.5 % (36.0-66.0); PLATELET COUNT, AUTOMATED 250 k/mm3 (150-450); RED CELL DISTRIBUTION WIDTH 17.2 % (11.5-14.5); WHITE BLOOD COUNT 6.3 K/mm3 (4.0-10.0)
[2016-07-08 06:26] LABS: ADD MORPHOLOGY? YES
[2016-07-08 06:55] LABS: ALBUMIN 2.6 GM/DL (3.2-5.2); ALBUMIN/GLOBULIN RATIO 0.79 (1.00-1.93); ALKALINE PHOSPHATASE 94 U/L (45-117); ALT/SGPT 13 U/L (12-78); ANION GAP 7 MEQ/L (8-16); AST/SGOT 22 U/L (15-37); BILIRUBIN,TOTAL 0.8 MG/DL (0.2-1.0); BLOOD UREA NITROGEN 10 MG/DL (7-18); CALCIUM LEVEL 7.7 MG/DL (8.8-10.2); CARBON DIOXIDE LEVEL 24 MEQ/L (21-32); CHLORIDE LEVEL 107 MEQ/L (98-107); CREATININE FOR GFR 0.76 MG/DL (0.55-1.02); GLOMERULAR FILTRATION RATE > 60.0 (>39); GLUCOSE, FASTING 97 MG/DL (83-110); MAGNESIUM LEVEL 1.8 MG/DL (1.8-2.4); POTASSIUM SERUM 3.5 MEQ/L (3.5-5.1); SODIUM LEVEL 138 MEQ/L (136-145); TOTAL PROTEIN 5.9 GM/DL (6.4-8.2)
[2016-07-08 07:04] LABS: HYPOCHROMASIA 1+
[2016-07-08 07:05] LABS: ANISOCYTOSIS 1+
[2016-07-08] MEDS: SUCRALFATE 1 GM TAB PO SCH ×4 (09:09→21:55)
[2016-07-08] MEDS: PANTOPRAZOLE 40MG TAB (PROTONIX) PO SCH ×2 (09:09→21:55)
[2016-07-08] MEDS: LACTOBACILLUS ACIDOPHILUS CAP (BACID) PO SCH (09:09)
[2016-07-08] MEDS: FIDAXOMICIN 200 MG TAB (DIFICID) PO SCH ×2 (09:09→21:55)
[2016-07-08] MEDS: DIGOXIN 0.125 MG TAB PO SCH (09:10)
--- NOTE | 2016-07-08 10:23 | IPNPDOC ---
Subjective Date Seen The patient was seen on 07/08/16. Subjective Chief Complaint/HPI The patient is a 75-year-old female admitted with a reason for visit of Colitis. General: Denies: ROS Unobtainable, Chills, Night Sweats, Fatigue, Malaise, Normal Appetite, Other Symptoms Constitutional: Denies: Chills, Fever, Malaise, Night Sweats, Weakness, Fatigue , Weight Loss, Lethargy, Other Eyes: Denies: Pain, Vision change, Conjunctivae inflammation, Eyelid inflammation, Redness, Other ENT: Denies: Head Aches, Ear Pain, Dysphagia, Sinus Congestion, Post Nasal Drip , Sore Throat, Epistaxis, Other Symptoms Skin: Denies: Rash, Lesions, Jaundice, Bruising, Itching, Dry, Breakdown, Nail Changes, Other Pulmonary: Reports: Dyspnea, Cough, Denies: Pleuritic Chest Pain, Other Symptoms Cardiovascular: Denies: Chest Pain, Palpitations, Orthopnea, Paroxysmal Noc. Dyspnea, Edema, Lt Headedness, Other Symptoms Gastrointestinal: Reports: Abdominal Pain, Denies: Nausea, Vomiting, Diarrhea, Constipation, Melena, Hematochezia, Other Symptoms Genitourinary: Denies: Dysuria, Frequency, Incontinence, Hematuria, Retention, Other Symptoms Objective Physical Examination General Exam: Positive: Alert, Cooperative, No Acute Distress, Other (elderly, frail) Eye Exam: Positive: Conjunctiva & lids normal, EOMI, Negative: Sclera icteric ENT Exam: Positive: Mucous membr. moist/pink Chest Exam: Positive: Clear to auscultation, Diminished, Negative: Rales, Rhonchi, Wheezing Heart Exam: Positive: Rate Normal, Irregular Rhythm, Normal S1, Normal S2 Abdomen Exam: Positive: Normal bowel sounds, Soft, Tenderness Extremity Exam: Negative: Edema Psych Exam: Positive: Oriented x 3 Assessment /Plan Problems (1) Colitis, acute Status: Acute Response to Treatment: Improving Discussed With: Patient Problem Specific Plan: Monitor Clinically, Repeat Labs Problem Text: Cdiff + dificid (2) Tachy-eugenia syndrome Status: Chronic Discussed With: Patient Problem Text: atrial fibrillation, episodes eugenia/tachy (3) Cirrhosis Status: Chronic Problem Text: with portal hypertension no clear etiology - patient states does have liver disease s/p workup which was unrevealing discontinued BB therapy US = significant ascites - paracentesis ordered, d/w GI, will resume lasix/ aldactone Could be good candidate for TIPS (4) Control of atrial fibrillation with pacemaker Status: Chronic (5) GAVE (gastric antral vascular ectasia) Status: Chronic Problem Text: history of recurrent GI bleed- with stable hgb no current evidence of ongoing significant gi blood loss (6) Diastolic congestive heart failure Status: Chronic Problem Text: compensated, ivf discontinued 07/03/16 (7) DVT (deep venous thrombosis) Problem Text: left upper extremity, cephalic vein- no medication indicated, provoked, warm compresses ordered Plan/VTE VTE Prophylaxis Ordered?: Yes (mechanical) Plan IVF: Discontinue Diet: Continue Current Activity: Continue Current Therapy: PT Medications: Start Antibiotics, Taper Antibiotics Diagnostics: Repeat Labs in AM Paracentesis, resume diuretics, continue dificid. Outpatient eval for TIPS. VS, I&O, 24H, Fishbone Vital Signs/I&O Vital Signs Date Time Temp Pulse Resp B/P (MAP) Pulse Ox O2 Delivery O2 Flow Rate FiO2 07/08/16 09:10 115 07/08/16 06:00 98.3 18 110/62 (78) 96 Room Air I&O- Last 24 Hours up to 6 AM 07/08/16 06:00 Intake Total 840 ml Output Total 1125 ml Balance -285 ml Laboratory Data 24H LABS Laboratory Tests 2 07/08/16 05:47: White Blood Count 6.3, Red Blood Count 3.80L, Hemoglobin 9.4L, Hematocrit 32.1L , Mean Corpuscular Volume 84.4, Mean Corpuscular Hemoglobin 24.8L, Mean Corpuscular Hemoglobin Concent 29.4L, Red Cell Distribution Width 17.2H, Platelet Count 250, Neutrophils (%) (Auto) 75.5H, Lymphocytes (%) (Auto) 8.0L, Monocytes (%) (Auto) 10.3H, Eosinophils (%) (Auto) 1.7, Basophils (%) (Auto) 1.0 , Neutrophils # (Auto) 4.8, Lymphocytes # (Auto) 0.7L, Monocytes # (Auto) 0.7, Eosinophils # (Auto) 0.1, Basophils # (Auto) 0.1, Large Unclassified Cells % 3.5 , Large Unclassified Cells # 0.2, Platelet Estimate NORMAL, Hypochromasia 1+, Anisocytosis 1+, Anion Gap 7L, Glomerular Filtration Rate > 60.0, Blood Urea Nitrogen 10, Creatinine 0.76, Sodium Level 138, Potassium Level 3.5, Chloride Level 107, Carbon Dioxide Level 24, Calcium Level 7.7L, Aspartate Amino Transf ( AST/SGOT) 22, Alanine Aminotransferase (ALT/SGPT) 13, Alkaline Phosphatase 94, Total Bilirubin 0.8, Total Protein 5.9L, Albumin 2.6L, Magnesium Level 1.8, Albumin/Globulin Ratio 0.79L CBC/BMP Laboratory Tests 07/08/16 05:47 Red Blood Count 3.80 L, Mean Corpuscular Volume 84.4, Mean Corpuscular Hemoglobin 24.8 L, Mean Corpuscular Hemoglobin Concent 29.4 L, Red Cell Distribution Width 17.2 H, Neutrophils (%) (Auto) 75.5 H, Lymphocytes (%) (Auto ) 8.0 L, Monocytes (%) (Auto) 10.3 H, Eosinophils (%) (Auto) 1.7, Basophils (%) (Auto) 1.0, Neutrophils # (Auto) 4.8, Lymphocytes # (Auto) 0.7 L, Monocytes # ( Auto) 0.7, Eosinophils # (Auto) 0.1, Basophils # (Auto) 0.1, Calcium Level 7.7 L , Aspartate Amino Transf (AST/SGOT) 22, Alanine Aminotransferase (ALT/SGPT) 13, Alkaline Phosphatase 94, Total Bilirubin 0.8, Total Protein 5.9 L, Albumin 2.6 L Microbiology Microbiology 06/30/16 Blood Culture - Final, Complete NO GROWTH AFTER 5 DAYS 06/30/16 Blood Culture - Final, Complete NO GROWTH AFTER 5 DAYS 07/06/16 Stool Occult Blood (SCARLETT) - Final, Complete 07/05/16 Gastrointestinal Tract Panel (PCR) - Final, Complete Clostridium Difficile A/B 07/01/16 Urine Culture - Final, Complete DAINA GRAVES MD July 08, 2016 10:23
[2016-07-08] MEDS ORDERED: FUROSEMIDE 20 MG/2 ML VIAL (J1940) IV ONE (11:30)
[2016-07-08] MEDS: FUROSEMIDE 20 MG TAB PO SCH (11:32)
[2016-07-08 14:00] VITALS: BP 100/58
[2016-07-08] MEDS: SPIRONOLACTONE 25 MG TAB PO SCH (21:56)
[2016-07-08] MEDS: ERYTHROMYCIN OPHTH OINT OU SCH (21:56)
[2016-07-08] MEDS: CitaloPRAM (CeleXA) 10 MG TABLET PO SCH (21:56)
[2016-07-08 22:00] VITALS: BP 104/62
[2016-07-09 06:00] VITALS: BP 98/54
[2016-07-09 06:47] VITALS: BP 98/54
[2016-07-09] MEDS: SUCRALFATE 1 GM TAB PO SCH ×4 (09:04→20:55)
[2016-07-09] MEDS: FIDAXOMICIN 200 MG TAB (DIFICID) PO SCH ×2 (09:04→20:55)
[2016-07-09] MEDS: PANTOPRAZOLE 40MG TAB (PROTONIX) PO SCH ×2 (09:04→20:55)
[2016-07-09] MEDS: LACTOBACILLUS ACIDOPHILUS CAP (BACID) PO SCH (09:04)
[2016-07-09] MEDS: FUROSEMIDE 20 MG TAB PO SCH (09:04)
[2016-07-09] MEDS: DIGOXIN 0.125 MG TAB PO SCH (09:05)
--- NOTE | 2016-07-09 10:00 | IPNPDOC ---
Subjective Date Seen The patient was seen on 07/09/16. Subjective Chief Complaint/HPI The patient is a 75-year-old female admitted with a reason for visit of Colitis. General: Denies: ROS Unobtainable, Chills, Night Sweats, Fatigue, Malaise, Normal Appetite, Other Symptoms Constitutional: Denies: Chills, Fever, Malaise, Night Sweats, Weakness, Fatigue , Weight Loss, Lethargy, Other Eyes: Denies: Pain, Vision change, Conjunctivae inflammation, Eyelid inflammation, Redness, Other ENT: Denies: Head Aches, Ear Pain, Dysphagia, Sinus Congestion, Post Nasal Drip , Sore Throat, Epistaxis, Other Symptoms Skin: Denies: Rash, Lesions, Jaundice, Bruising, Itching, Dry, Breakdown, Nail Changes, Other Pulmonary: Reports: Cough, Denies: Dyspnea, Pleuritic Chest Pain, Other Symptoms Cardiovascular: Denies: Chest Pain, Palpitations, Orthopnea, Paroxysmal Noc. Dyspnea, Edema, Lt Headedness, Other Symptoms Gastrointestinal: Reports: Abdominal Pain, Denies: Nausea, Vomiting, Diarrhea, Constipation, Melena, Hematochezia, Other Symptoms Objective Physical Examination General Exam: Positive: Alert, Cooperative, No Acute Distress, Other (elderly, frail) Eye Exam: Positive: Conjunctiva & lids normal, EOMI, Negative: Sclera icteric ENT Exam: Positive: Mucous membr. moist/pink Chest Exam: Positive: Clear to auscultation, Diminished, Negative: Rales, Rhonchi, Wheezing Heart Exam: Positive: Rate Normal, Irregular Rhythm, Normal S1, Normal S2 Abdomen Exam: Positive: Normal bowel sounds, Soft, Tenderness Extremity Exam: Negative: Edema Psych Exam: Positive: Oriented x 3 Assessment /Plan Problems (1) Colitis, acute Status: Acute Response to Treatment: Improving Discussed With: Patient Problem Specific Plan: Monitor Clinically, Repeat Labs Problem Text: Cdiff + dificid (2) Tachy-eugenia syndrome Status: Chronic Discussed With: Patient Problem Text: atrial fibrillation, episodes eugenia/tachy (3) Cirrhosis Status: Chronic Discussed With: Patient Problem Specific Plan: Monitor Clinically Problem Text: with portal hypertension no clear etiology - patient does have liver disease s/p workup which was unrevealing discontinued BB therapy US = significant ascites - paracentesis ordered planned for Monday 07/10 d/w GI, will resume lasix/aldactone Could be good candidate for TIPS (4) Control of atrial fibrillation with pacemaker Status: Chronic (5) GAVE (gastric antral vascular ectasia) Status: Chronic Problem Text: history of recurrent GI bleed- with stable hgb no current evidence of ongoing significant gi blood loss (6) Diastolic congestive heart failure Status: Chronic Problem Text: compensated, ivf discontinued 07/03/16 (7) DVT (deep venous thrombosis) Problem Text: left upper extremity, cephalic vein- no medication indicated, provoked, warm compresses ordered Plan/VTE VTE Prophylaxis Ordered?: Yes (mechanical) Plan IVF: Discontinue Diet: Continue Current Activity: Continue Current Therapy: PT Medications: Start Antibiotics, Taper Antibiotics Diagnostics: Repeat Labs in AM Continue lasix/aldactone for ascites as per home regimen. Plan for paracentesis tomorrow, 07/10/16. Continue Dificid for CDiff. Fevers noted - BCx, UCx, CXR pending. VS, I&O, 24H, Fishbone Vital Signs/I&O Vital Signs Date Time Temp Pulse Resp B/P (MAP) Pulse Ox O2 Delivery O2 Flow Rate FiO2 07/09/16 09:05 91 07/09/16 06:47 98/54 (69) 07/09/16 06:00 98.1 18 94 Room Air I&O- Last 24 Hours up to 6 AM 07/09/16 05:59 Intake Total 1320 ml Output Total 2150 ml Balance -830 ml Laboratory Data Microbiology Microbiology 06/30/16 Blood Culture - Final, Complete NO GROWTH AFTER 5 DAYS 06/30/16 Blood Culture - Final, Complete NO GROWTH AFTER 5 DAYS 07/06/16 Stool Occult Blood (SCARLETT) - Final, Complete 07/05/16 Gastrointestinal Tract Panel (PCR) - Final, Complete Clostridium Difficile A/B 07/01/16 Urine Culture - Final, Complete DAINA GRAVES MD July 09, 2016 10:00
--- NOTE | 2016-07-09 11:16 | REP ---
Clinical: Cough and fever. Technique: PA and lateral. Comparison: 06/22/2016. Findings: Mediastinum and cardiac silhouette stable. Lung men[place] demonstrate chronic changes including calcified granulomata. No acute consolidation, effusion, or pneumothorax. Skeletal structures intact. Impression: Chronic stable changes. No acute cardiopulmonary process. Signed by Sony White MD 07/09/2016 11:08 A
[2016-07-09 13:44] LABS: RENAL EPITHELIAL CELLS 1 /HPF
[2016-07-09 14:00] VITALS: BP 108/58
[2016-07-09] MEDS: MORPHINE 2 MG/ML 1ML SYRINGE IV PRN (19:44)
[2016-07-09] MEDS: SPIRONOLACTONE 25 MG TAB PO SCH (20:55)
[2016-07-09] MEDS: CitaloPRAM (CeleXA) 10 MG TABLET PO SCH (20:55)
[2016-07-09] MEDS: ERYTHROMYCIN OPHTH OINT OU SCH (20:56)
[2016-07-09 22:00] VITALS: BP 100/60
[2016-07-10 06:00] VITALS: BP 118/62
[2016-07-10 08:20] LABS: INR 1.3
[2016-07-10 08:23] LABS: WHITE BLOOD COUNT 4.9 K/mm3 (4.0-10.0)
[2016-07-10 08:24] LABS: BASO % 0.9 % (0.0-1.0); DIFF SLIDE NUMBER 115; EOS # 0.2 K/mm3 (0.0-0.50); EOS % 3.5 % (0.0-3.0); LARGE UNSTAINED CELL # 0.2 K/mm3 (0.0-0.4); LARGE UNSTAINED CELL % 3.3 % (0.0-4.0); LYMPH # 0.5 K/mm3 (1.5-4.5); LYMPH % 10.1 % (24.0-44.0); MEAN CORPUSCULAR HEMOGLOBIN 24.7 pg (27.0-33.0); MEAN CORPUSCULAR HGB CONC 29.6 g/dl (32.0-36.5); MEAN CORPUSCULAR VOLUME 83.5 fl (80.0-96.0); MONO # 0.5 K/mm3 (0.0-0.8); MONO % 10.1 % (0.0-5.0); NEUTROPHILS # 3.5 K/mm3 (1.8-7.7); NEUTROPHILS % 72.2 % (36.0-66.0); PLATELET COUNT, AUTOMATED 202 k/mm3 (150-450); RED CELL DISTRIBUTION WIDTH 17.2 % (11.5-14.5)
[2016-07-10 08:36] LABS: ALBUMIN 2.7 GM/DL (3.2-5.2); ALBUMIN/GLOBULIN RATIO 0.87 (1.00-1.93); ALKALINE PHOSPHATASE 91 U/L (45-117); ALT/SGPT 16 U/L (12-78); ANION GAP 10 MEQ/L (8-16); AST/SGOT 26 U/L (15-37); BILIRUBIN,TOTAL 0.9 MG/DL (0.2-1.0); BLOOD UREA NITROGEN 9 MG/DL (7-18); CALCIUM LEVEL 7.9 MG/DL (8.8-10.2); CARBON DIOXIDE LEVEL 24 MEQ/L (21-32); CHLORIDE LEVEL 105 MEQ/L (98-107); CREATININE FOR GFR 0.65 MG/DL (0.55-1.02); GLOMERULAR FILTRATION RATE > 60.0 (>39); GLUCOSE, FASTING 92 MG/DL (83-110); POTASSIUM SERUM 3.2 MEQ/L (3.5-5.1); SODIUM LEVEL 139 MEQ/L (136-145); TOTAL PROTEIN 5.8 GM/DL (6.4-8.2)
[2016-07-10] MEDS: FUROSEMIDE 20 MG TAB PO SCH (09:50)
[2016-07-10] MEDS: PANTOPRAZOLE 40MG TAB (PROTONIX) PO SCH ×2 (09:51→20:36)
[2016-07-10] MEDS: LACTOBACILLUS ACIDOPHILUS CAP (BACID) PO SCH (09:51)
[2016-07-10] MEDS: SUCRALFATE 1 GM TAB PO SCH ×4 (09:51→20:36)
[2016-07-10] MEDS: DIGOXIN 0.125 MG TAB PO SCH (09:51)
[2016-07-10] MEDS: FIDAXOMICIN 200 MG TAB (DIFICID) PO SCH ×2 (09:52→20:36)
--- NOTE | 2016-07-10 11:04 | IPNPDOC ---
Subjective Date Seen The patient was seen on 07/10/16. Subjective Chief Complaint/HPI The patient is a 75-year-old female admitted with a reason for visit of Colitis. General: Denies: ROS Unobtainable, Chills, Night Sweats, Fatigue, Malaise, Normal Appetite, Other Symptoms Constitutional: Denies: Chills, Fever, Malaise, Night Sweats, Weakness, Fatigue , Weight Loss, Lethargy, Other Eyes: Denies: Pain, Vision change, Conjunctivae inflammation, Eyelid inflammation, Redness, Other ENT: Denies: Head Aches, Ear Pain, Dysphagia, Sinus Congestion, Post Nasal Drip , Sore Throat, Epistaxis, Other Symptoms Skin: Denies: Rash, Lesions, Jaundice, Bruising, Itching, Dry, Breakdown, Nail Changes, Other Pulmonary: Reports: Dyspnea, Cough, Denies: Pleuritic Chest Pain, Other Symptoms Cardiovascular: Reports: Orthopnea, Denies: Chest Pain, Palpitations, Paroxysmal Noc. Dyspnea, Edema, Lt Headedness, Other Symptoms Gastrointestinal: Reports: Abdominal Pain, Denies: Nausea, Vomiting, Diarrhea, Constipation, Melena, Hematochezia, Other Symptoms Objective Physical Examination General Exam: Positive: Alert, Cooperative, No Acute Distress, Other (elderly, frail) Eye Exam: Positive: Conjunctiva & lids normal, EOMI, Negative: Sclera icteric ENT Exam: Positive: Mucous membr. moist/pink Chest Exam: Positive: Clear to auscultation, Wheezing, Diminished Heart Exam: Positive: Rate Normal, Irregular Rhythm, Normal S1, Normal S2 Abdomen Exam: Positive: Normal bowel sounds, Soft, Tenderness Extremity Exam: Negative: Edema Psych Exam: Positive: Oriented x 3 Assessment /Plan Problems (1) Colitis, acute Status: Acute Response to Treatment: Improving Discussed With: Patient Problem Specific Plan: Monitor Clinically, Repeat Labs Problem Text: Cdiff + dificid (2) Tachy-eugenia syndrome Status: Chronic Discussed With: Patient Problem Text: atrial fibrillation, episodes eugenia/tachy (3) Cirrhosis Status: Chronic Discussed With: Patient Problem Specific Plan: Monitor Clinically Problem Text: with portal hypertension no clear etiology - patient does have liver disease s/p workup which was unrevealing discontinued BB therapy US = significant ascites - paracentesis ordered planned for today d/w GI, will resume lasix/aldactone Could be good candidate for TIPS (4) Control of atrial fibrillation with pacemaker Status: Chronic (5) GAVE (gastric antral vascular ectasia) Status: Chronic Problem Text: history of recurrent GI bleed- with stable hgb no current evidence of ongoing significant gi blood loss (6) Diastolic congestive heart failure Status: Chronic Problem Text: compensated, ivf discontinued 07/03/16 (7) DVT (deep venous thrombosis) Problem Text: left upper extremity, cephalic vein- no medication indicated, provoked, warm compresses ordered Plan/VTE VTE Prophylaxis Ordered?: Yes (mechanical) Plan IVF: Discontinue Diet: Continue Current Activity: Continue Current Therapy: PT Diagnostics: Repeat Labs in AM Anticipated Discharge: Home, Home With Services Plan for paracentesis today. Continue diuretics. Diarrhea resolved - continue dificid. VS, I&O, 24H, Fishbone Vital Signs/I&O Vital Signs Date Time Temp Pulse Resp B/P (MAP) Pulse Ox O2 Delivery O2 Flow Rate FiO2 07/10/16 09:51 92 07/10/16 06:00 98.2 18 118/62 (80) 95 Room Air I&O- Last 24 Hours up to 6 AM 07/10/16 05:59 Intake Total 1380 ml Output Total 850 ml Balance 530 ml Laboratory Data 24H LABS Laboratory Tests 2 07/09/16 13:15: Urine Appearance HAZY, Urine Color YELLOW, Urine pH 6.0, Urine Specific [place] 1.011, Urine Protein NEGATIVE, Urine Glucose (UA) NEGATIVE, Urine Ketones NEGATIVE, Urine Urobilinogen 0.2, Urine Bilirubin NEGATIVE, Urine Leukocyte Esterase 2+H, Urine Blood NEGATIVE, Urine Nitrite NEGATIVE, Urine WBC (Auto) 3, Urine RBC (Auto) 4H, Urine Hyaline Casts (Auto) 0, Urine Bacteria (Auto) NEGATIVE, Urine Squamous Epithelial Cells 6, Urine Renal Epithelial Cells 1, Urine Mucus (Auto) SMALL, Urine Sperm (Auto) 07/10/16 07:51: White Blood Count 4.9, Red Blood Count 3.83L, Hemoglobin 9.5L, Hematocrit 31.9L , Mean Corpuscular Volume 83.5, Mean Corpuscular Hemoglobin 24.7L, Mean Corpuscular Hemoglobin Concent 29.6L, Red Cell Distribution Width 17.2H, Platelet Count 202, Neutrophils (%) (Auto) 72.2H, Lymphocytes (%) (Auto) 10.1L, Monocytes (%) (Auto) 10.1H, Eosinophils (%) (Auto) 3.5H, Basophils (%) (Auto) 0.9, Neutrophils # (Auto) 3.5, Lymphocytes # (Auto) 0.5L, Monocytes # (Auto) 0.5 , Eosinophils # (Auto) 0.2, Basophils # (Auto) 0.0, Large Unclassified Cells % 3.3, Large Unclassified Cells # 0.2, Prothrombin Time 16.3H, Prothromb Time International Ratio 1.30, Anion Gap 10, Glomerular Filtration Rate > 60.0, Blood Urea Nitrogen 9, Creatinine 0.65, Sodium Level 139, Potassium Level 3.2L, Chloride Level 105, Carbon Dioxide Level 24, Calcium Level 7.9L, Aspartate Amino Transf (AST/SGOT) 26, Alanine Aminotransferase (ALT/SGPT) 16, Alkaline Phosphatase 91, Total Bilirubin 0.9, Total Protein 5.8L, Albumin 2.7L, Albumin/ Globulin Ratio 0.87L CBC/BMP Laboratory Tests 07/10/16 07:51 Red Blood Count 3.83 L, Mean Corpuscular Volume 83.5, Mean Corpuscular Hemoglobin 24.7 L, Mean Corpuscular Hemoglobin Concent 29.6 L, Red Cell Distribution Width 17.2 H, Neutrophils (%) (Auto) 72.2 H, Lymphocytes (%) (Auto ) 10.1 L, Monocytes (%) (Auto) 10.1 H, Eosinophils (%) (Auto) 3.5 H, Basophils ( %) (Auto) 0.9, Neutrophils # (Auto) 3.5, Lymphocytes # (Auto) 0.5 L, Monocytes # (Auto) 0.5, Eosinophils # (Auto) 0.2, Basophils # (Auto) 0.0, Calcium Level 7.9 L, Aspartate Amino Transf (AST/SGOT) 26, Alanine Aminotransferase (ALT/SGPT ) 16, Alkaline Phosphatase 91, Total Bilirubin 0.9, Total Protein 5.8 L, Albumin 2.7 L Microbiology Microbiology 07/09/16 Blood Culture - Preliminary, Resulted No growth after 24 hours . All specim... 07/09/16 Blood Culture - Preliminary, Resulted No growth after 24 hours . All specim... 06/30/16 Blood Culture - Final, Complete NO GROWTH AFTER 5 DAYS 06/30/16 Blood Culture - Final, Complete NO GROWTH AFTER 5 DAYS 07/06/16 Stool Occult Blood (SCARLETT) - Final, Complete 07/05/16 Gastrointestinal Tract Panel (PCR) - Final, Complete Clostridium Difficile A/B 07/09/16 Urine Culture - Final, Complete 07/01/16 Urine Culture - Final, Complete DAINA GRAVES MD July 10, 2016 11:04
[2016-07-10 11:09] LABS: MAGNESIUM LEVEL 1.8 MG/DL (1.8-2.4)
[2016-07-10] MEDS ORDERED: POTASSIUM CHLORIDE 10% LIQ 20 MEQ/15 ML UDC PO ONE (11:15)
[2016-07-10 14:00] VITALS: BP 123/53
[2016-07-10 18:28] LABS: TOTAL PROTEIN, BODY FLUID 0.9 G/DL (NOT ESTABLISHED)
[2016-07-10 18:48] LABS: BF DIFF IF INDICATED? YES (NO); RBC ASCITES FLUID < 10 (<10mm3 cells/uL); TNC ASCITES FLUID 188 cells/uL (0-20)
[2016-07-10 19:27] LABS: CC BF DIFF EXAM CYTOCENTRIFUGE
[2016-07-10] MEDS: CitaloPRAM (CeleXA) 10 MG TABLET PO SCH ×2 (20:36→20:40)
[2016-07-10] MEDS: SPIRONOLACTONE 25 MG TAB PO SCH (20:36)
[2016-07-10] MEDS: ERYTHROMYCIN OPHTH OINT OU SCH (20:37)
[2016-07-10] MEDS: MORPHINE 2 MG/ML 1ML SYRINGE IV PRN (20:37)
[2016-07-10 22:00] VITALS: BP 117/55
[2016-07-11 06:00] VITALS: BP 111/59
[2016-07-11 07:10] LABS: BASO % 0.7 % (0.0-1.0); EOS # 0.2 K/mm3 (0.0-0.50); EOS % 4.3 % (0.0-3.0); LARGE UNSTAINED CELL # 0.1 K/mm3 (0.0-0.4); LARGE UNSTAINED CELL % 3.1 % (0.0-4.0); LYMPH # 0.6 K/mm3 (1.5-4.5); LYMPH % 9.3 % (24.0-44.0); MEAN CORPUSCULAR HEMOGLOBIN 24.9 pg (27.0-33.0); MEAN CORPUSCULAR HGB CONC 30.1 g/dl (32.0-36.5); MEAN CORPUSCULAR VOLUME 82.8 fl (80.0-96.0); MONO # 0.5 K/mm3 (0.0-0.8); MONO % 11.9 % (0.0-5.0); NEUTROPHILS # 3.2 K/mm3 (1.8-7.7); NEUTROPHILS % 70.7 % (36.0-66.0); PLATELET COUNT, AUTOMATED 200 k/mm3 (150-450); RED CELL DISTRIBUTION WIDTH 17.1 % (11.5-14.5); WHITE BLOOD COUNT 4.5 K/mm3 (4.0-10.0)
[2016-07-11 07:11] LABS: ANION GAP 8 MEQ/L (8-16); BLOOD UREA NITROGEN 8 MG/DL (7-18); CALCIUM LEVEL 7.9 MG/DL (8.8-10.2); CARBON DIOXIDE LEVEL 26 MEQ/L (21-32); CHLORIDE LEVEL 104 MEQ/L (98-107); CREATININE FOR GFR 0.71 MG/DL (0.55-1.02); GLOMERULAR FILTRATION RATE > 60.0 (>39); GLUCOSE, FASTING 84 MG/DL (83-110); POTASSIUM SERUM 3.5 MEQ/L (3.5-5.1); SODIUM LEVEL 138 MEQ/L (136-145)
[2016-07-11 07:17] LABS: ADD MORPHOLOGY? YES
[2016-07-11 07:57] LABS: ANISOCYTOSIS 1+; HYPOCHROMASIA 2+
[2016-07-11] MEDS: FIDAXOMICIN 200 MG TAB (DIFICID) PO SCH (08:35)
[2016-07-11] MEDS: DIGOXIN 0.125 MG TAB PO SCH (08:35)
[2016-07-11] MEDS: SUCRALFATE 1 GM TAB PO SCH ×2 (08:35→12:14)
[2016-07-11] MEDS: LACTOBACILLUS ACIDOPHILUS CAP (BACID) PO SCH (08:35)
[2016-07-11] MEDS: PANTOPRAZOLE 40MG TAB (PROTONIX) PO SCH (08:35)
[2016-07-11] MEDS: FUROSEMIDE 20 MG TAB PO SCH (08:36)
--- NOTE | 2016-07-11 08:41 | REP ---
ULTRASOUND GUIDED PARACENTESIS: The procedure was performed under direct supervision of Dr. Love. The risks and benefits of the procedure were explained to the patient and informed consent obtained. The largest pocket of fluid was localized in the right lower quadrant using ultrasound guidance. An 8-Faroese multi-side hole catheter was inserted using trocar technique. 3250 mL of clear yellow fluid was withdrawn with a sample sent to the lab for analysis. The patient tolerated the procedure well and there were no immediate complications. Reviewed by ADELE Davila 07/11/2016 10:24 AEdited and Signed by Kong Love MD 07/11/2016 05:05 P
--- NOTE | 2016-07-12 11:28 | DSES ---
DATE OF ADMISSION: 07/01/2016 DATE OF DISCHARGE: 07/11/2016 SPECIALISTS INVOLVED IN CARE: None. COMPLICATIONS DURING STAY: None. PROCEDURES PERFORMED DURING STAY: None. DISCHARGE DIAGNOSES: 1. Acute Clostridium difficile colitis. 2. Tachybrady syndrome. 3. Cirrhosis. 4. Atrial fibrillation with pacemaker. 5. Gastric antral vascular ectasia (GAVE). 6. Diastolic congestive heart failure, compensated. SUMMARY OF PRESENTATION: This is a 75-year-old patient of Dr. Tiwari who was admitted to the hospitalist service and was treated empirically for C. Diffile. She had a stool study which showed C. Difficile in the hospital. It showed slow improvement. She then unfortunately suffered a left upper extremity cephalic vein thrombosis which was treated with warm compresses. She did suffer from episodes of tachy and bradycardia. Stool hemoccult was noted to be positive, which is not unlikely in the history of GAVE, but she did not require transfusion during her stay. Hemoglobin and hematocrit (H and H) was relatively stable. On the day of discharge, she is doing well. She has no complaints of pain, chest pain, shortness of breath. Temperature is 99.4 with a T-max overnight of 100.2. Pulse 79. Respiratory rate 18. Blood pressure 111/59. 94% on room air. Breathing is symmetrical and rested. Heart is distant sounding. Abdomen soft, doughy and nontender. White cell count is 4.5, hemoglobin 9, and platelets of 200. BUN 8 and creatinine 0.7. DISCHARGE INSTRUCTIONS: Follow up with Dr. Tiwari on 07/14/2016 at 11:00 a.m. Continue Dificid 200 mg by mouth twice daily for ten days, citalopram 10 mg by mouth daily at bedtime, digoxin 0.125 mg by mouth daily, erythromycin eye drops as needed, Lasix 20 mg by mouth daily, hyoscyamine 0.125 mg by mouth every 4 hours as needed for abdominal pain, lactobacillus one tablet by mouth daily, Protonix 40 mg by mouth twice daily, Systane eye drops twice daily, propranolol 10 mg by mouth twice daily, spironolactone 25 mg by mouth daily at bedtime, sucralfate 1 gram by mouth before meals and at bedtime.
== END 2016-07-11 14:35 | disposition home or self-care (01) | DRG 372 ==
LOC: M ED 20:32 → M ED INP 07-01 00:07 → M PCU 07-01 13:00 → M MSPAV 07-06 14:20
PROVIDERS: ADMIT Hospitalist; ATTEND Internal Medicine
PROC: 0W9G3ZZ Drainage of Peritoneal Cavity, Percutaneous Approach (ICD-10-PCS; principal; 2016-07-10)
DX: A04.7 Enterocolitis due to Clostridium difficile (principal); I50.32 Chronic diastolic (congestive) heart failure; K76.6 Portal hypertension; I82.612 Acute embolism and thrombosis of superficial veins of left upper extremity; I48.91 Unspecified atrial fibrillation; Z95.0 Presence of cardiac pacemaker; K31.819 Angiodysplasia of stomach and duodenum without bleeding; Z79.899 Other long term (current) drug therapy; F32.9 Major depressive disorder, single episode, unspecified; D50.9 Iron deficiency anemia, unspecified; Z88.0 Allergy status to penicillin; Z88.2 Allergy status to sulfonamides; Z88.8 Allergy status to other drugs, medicaments and biological substances; I49.5 Sick sinus syndrome

== ENCOUNTER 2016-07-31 16:56 | Observation (INO) | payer MEDICAID, MEDICARE ==
[~2016-07-31] VITALS: Ht 167.6 cm; Wt 65.2 kg
[~2016-07-31 16:56] MED LIST changes: +ERYT5OPO OU; +HYOS0.1248 PO; +HYOS0.1259 PO
[2016-07-31] MEDS ORDERED: FERR325T69 PO (17:10)
[2016-07-31 18:11] LABS: BASO # 0.1 K/mm3 (0.0-0.2); BASO % 1.2 % (0.0-1.0); EOS # 0.1 K/mm3 (0.0-0.50); EOS % 2.8 % (0.0-3.0); LARGE UNSTAINED CELL # 0.1 K/mm3 (0.0-0.4); LARGE UNSTAINED CELL % 2.2 % (0.0-4.0); LYMPH # 0.7 K/mm3 (1.5-4.5); LYMPH % 12.8 % (24.0-44.0); MEAN CORPUSCULAR HEMOGLOBIN 24.4 pg (27.0-33.0); MEAN CORPUSCULAR HGB CONC 30.6 g/dl (32.0-36.5); MEAN CORPUSCULAR VOLUME 79.7 fl (80.0-96.0); MONO # 0.8 K/mm3 (0.0-0.8); MONO % 15.8 % (0.0-5.0); NEUTROPHILS # 3.2 K/mm3 (1.8-7.7); NEUTROPHILS % 65.2 % (36.0-66.0); PLATELET COUNT, AUTOMATED 384 k/mm3 (150-450); RED CELL DISTRIBUTION WIDTH 16.7 % (11.5-14.5); WHITE BLOOD COUNT 4.9 K/mm3 (4.0-10.0)
[2016-07-31 18:13] LABS: ADD MORPHOLOGY? YES
[2016-07-31 18:29] LABS: ALBUMIN 2.7 GM/DL (3.2-5.2); ALBUMIN/GLOBULIN RATIO 0.61 (1.00-1.93); ALKALINE PHOSPHATASE 182 U/L (45-117); ALT/SGPT 23 U/L (12-78); ANION GAP 8 MEQ/L (8-16); AST/SGOT 33 U/L (15-37); BILIRUBIN,DIRECT 0.2 MG/DL (0.0-0.2); BILIRUBIN,TOTAL 0.7 MG/DL (0.2-1.0); BLOOD UREA NITROGEN 14 MG/DL (7-18); CALCIUM LEVEL 8.7 MG/DL (8.8-10.2); CARBON DIOXIDE LEVEL 25 MEQ/L (21-32); CHLORIDE LEVEL 106 MEQ/L (98-107); CREATININE FOR GFR 0.94 MG/DL (0.55-1.02); GLOMERULAR FILTRATION RATE > 60.0 (>39); GLUCOSE, FASTING 109 MG/DL (83-110); POTASSIUM SERUM 4.2 MEQ/L (3.5-5.1); SODIUM LEVEL 139 MEQ/L (136-145); TOTAL PROTEIN 7.1 GM/DL (6.4-8.2)
[2016-07-31 19:26] LABS: ANISOCYTOSIS 2+; HYPOCHROMASIA 2+; MICROCYTOSIS 2+
[2016-07-31] MEDS ORDERED: NS 1,000 ML IV SCH (23:00)
[2016-07-31] MEDS ORDERED: POLYVINYL ALCOHOL OPHTH SOLN 15 ML(LIQUITEARS) OU PRN (23:00)
[2016-07-31] MEDS: SPIRONOLACTONE 25 MG TAB PO SCH (23:29)
[2016-07-31] MEDS: SUCRALFATE 1 GM TAB PO SCH (23:30)
[2016-07-31] MEDS: PROPRANOLOL 10 MG TAB PO SCH (23:30)
[2016-07-31] MEDS: PANTOPRAZOLE 40MG TAB (PROTONIX) PO SCH (23:34)
[2016-08-01] MEDS ORDERED: MORPHINE 2 MG/ML 1ML SYRINGE IV PRN ×2 (00:30→02:15)
[2016-08-01] MEDS ORDERED: MORPHINE 2 MG/ML 1ML SYRINGE As Ordered ONE (00:35)
[2016-08-01] MEDS ORDERED: ONDANSETRON 4MG/2ML VIAL (J2405) As Ordered ONE (02:29)
[2016-08-01] MEDS ORDERED: ONDANSETRON 4 MG TAB (S0181) PO PRN (02:30)
[2016-08-01 03:15] VITALS: BP 113/57
[2016-08-01 06:10] VITALS: BP 92/62
[2016-08-01 07:40] LABS: MEAN CORPUSCULAR HEMOGLOBIN 24.1 pg (27.0-33.0); MEAN CORPUSCULAR HGB CONC 29.6 g/dl (32.0-36.5); MEAN CORPUSCULAR VOLUME 81.5 fl (80.0-96.0); RED CELL DISTRIBUTION WIDTH 16.6 % (11.5-14.5); WHITE BLOOD COUNT 5.5 K/mm3 (4.0-10.0)
[2016-08-01 07:41] LABS: ALBUMIN 2.7 GM/DL (3.2-5.2); ALBUMIN/GLOBULIN RATIO 0.71 (1.00-1.93); ALKALINE PHOSPHATASE 272 U/L (45-117); ALT/SGPT 29 U/L (12-78); ANION GAP 6 MEQ/L (8-16); AST/SGOT 63 U/L (15-37); BILIRUBIN,TOTAL 1.2 MG/DL (0.2-1.0); BLOOD UREA NITROGEN 14 MG/DL (7-18); CALCIUM LEVEL 8.4 MG/DL (8.8-10.2); CARBON DIOXIDE LEVEL 27 MEQ/L (21-32); CHLORIDE LEVEL 104 MEQ/L (98-107); CREATININE FOR GFR 0.79 MG/DL (0.55-1.02); GLOMERULAR FILTRATION RATE > 60.0 (>39); GLUCOSE, FASTING 96 MG/DL (83-110); POTASSIUM SERUM 4.2 MEQ/L (3.5-5.1); SODIUM LEVEL 137 MEQ/L (136-145); TOTAL PROTEIN 6.5 GM/DL (6.4-8.2)
[2016-08-01 08:00] VITALS: BP 103/55
[2016-08-01] MEDS: PANTOPRAZOLE 40MG TAB (PROTONIX) PO SCH ×2 (08:36→20:50)
[2016-08-01] MEDS: FUROSEMIDE 40 MG/4 ML VIAL (J1940) IV SCH (08:36)
[2016-08-01] MEDS: SUCRALFATE 1 GM TAB PO SCH (08:36)
[2016-08-01] MEDS: DIGOXIN 0.125 MG TAB PO SCH (08:37)
[2016-08-01] MEDS: PROPRANOLOL 10 MG TAB PO SCH ×2 (08:48→20:51)
[2016-08-01] MEDS ORDERED: GI COCKTAIL 50ML BTL(HYOSCYAMINE/MAALOX/LIDOCAINE VISCOUS)(1:3:1) PO PRN (09:45)
[2016-08-01] MEDS: SUCRALFATE SUSP 1GM/10ML UD PO SCH ×3 (12:21→20:51)
[2016-08-01 15:44] VITALS: BP 105/58
[2016-08-01 17:10] VITALS: BP 133/67
[2016-08-01] MEDS: SPIRONOLACTONE 25 MG TAB PO SCH (20:50)
[2016-08-01 22:00] VITALS: BP 109/70
[2016-08-02 06:00] VITALS: BP 107/60
[2016-08-02 06:18] LABS: MEAN CORPUSCULAR HEMOGLOBIN 24.3 pg (27.0-33.0); MEAN CORPUSCULAR HGB CONC 30.3 g/dl (32.0-36.5); MEAN CORPUSCULAR VOLUME 80.2 fl (80.0-96.0); RED CELL DISTRIBUTION WIDTH 16.7 % (11.5-14.5); WHITE BLOOD COUNT 4.5 K/mm3 (4.0-10.0)
[2016-08-02 06:36] LABS: ALBUMIN 2.8 GM/DL (3.2-5.2); ALBUMIN/GLOBULIN RATIO 0.72 (1.00-1.93); ALKALINE PHOSPHATASE 272 U/L (45-117); ALT/SGPT 30 U/L (12-78); ANION GAP 6 MEQ/L (8-16); AST/SGOT 50 U/L (15-37); BLOOD UREA NITROGEN 12 MG/DL (7-18); CALCIUM LEVEL 8.9 MG/DL (8.8-10.2); CARBON DIOXIDE LEVEL 28 MEQ/L (21-32); CHLORIDE LEVEL 100 MEQ/L (98-107); CREATININE FOR GFR 0.96 MG/DL (0.55-1.02); GLOMERULAR FILTRATION RATE > 60.0 (>39); GLUCOSE, FASTING 92 MG/DL (83-110); POTASSIUM SERUM 3.9 MEQ/L (3.5-5.1); SODIUM LEVEL 134 MEQ/L (136-145); TOTAL PROTEIN 6.7 GM/DL (6.4-8.2)
[2016-08-02] MEDS: SUCRALFATE SUSP 1GM/10ML UD PO SCH ×2 (08:49→11:35)
[2016-08-02] MEDS: DIGOXIN 0.125 MG TAB PO SCH (08:50)
[2016-08-02 09:00] VITALS: BP 108/60
[2016-08-02] MEDS: PROPRANOLOL 10 MG TAB PO SCH (09:00)
[2016-08-02] MEDS: PANTOPRAZOLE 40MG TAB (PROTONIX) PO SCH (09:01)
[2016-08-02] MEDS: FUROSEMIDE 40 MG/4 ML VIAL (J1940) IV SCH (09:02)
[2016-08-02] MEDS ORDERED: Hyoscyamine/Maalox/Lidoca Visc PO (10:45)
== END 2016-08-02 12:56 | disposition home or self-care (01) ==
LOC: M ED 19:38 → M ED INP 23:00 → M MSPAV 08-01 17:03
PROVIDERS: ADMIT Internal Medicine; ATTEND Internal Medicine Nephrology
DX: R10.9 Unspecified abdominal pain (principal); K74.69 Other cirrhosis of liver; K31.819 Angiodysplasia of stomach and duodenum without bleeding; D53.9 Nutritional anemia, unspecified; D73.5 Infarction of spleen; I48.2 Chronic atrial fibrillation; I49.5 Sick sinus syndrome; Z95.0 Presence of cardiac pacemaker; I50.30 Unspecified diastolic (congestive) heart failure; F32.9 Major depressive disorder, single episode, unspecified; F41.9 Anxiety disorder, unspecified; I11.9 Hypertensive heart disease without heart failure; Z79.899 Other long term (current) drug therapy
CPT/HCPCS: 36415; 71010; 80048; 80053; 80076; 81001; 82550; 82553; 83690; 83880; 84443; 84484; 85025; 85027; 93005; 93041; 94760; 96374; 96375; 96376; 99285; G0378; J1940; J2405

== ENCOUNTER → 2016-08-10 | Outpatient (CLI) | payer MEDICARE, MEDICAID ==
[~2016-08-10] MED LIST changes: +FERR325T69 PO; +Hyoscyamine/Maalox/Lidoca Visc PO
[2016-08-10 19:10] LABS: BLOOD UREA NITROGEN 10 MG/DL (7-18); CREATININE FOR GFR 0.83 MG/DL (0.55-1.02); GLOMERULAR FILTRATION RATE > 60.0 (>39)
== END ==
LOC: M SMT 14:31
PROVIDERS: ATTEND Internal Medicine Gastroenterology
DX: K74.60 Unspecified cirrhosis of liver (principal); K31.819 Angiodysplasia of stomach and duodenum without bleeding

== ENCOUNTER → 2016-08-17 | Outpatient (CLI) | payer MEDICARE ==
[~2016-08-17] MED LIST changes: +ASPI1TAB PO; +BACITAB PO; -BACITAB3 PO; -DILT180C53 PO; +DILT180C71 PO; +FERR1TAB8 PO; +FERR240T PO; -FERR325T PO; +GASTROGRAFIN SOLUTION 30ML (Q9963) As Ordered ONE; +ISOVUE-370 76% 100ML VIAL (Q9967) As Ordered ONE; +REFR1DRO8 OU; -VITA-130 PO; +VITA500T PO
--- NOTE | 2016-08-17 20:49 | REP ---
Clinical: Cirrhosis and abdominal pain with possible splenic infarction. Technique: Contrast enhanced images from the lung bases to the pubic symphysis using oral and 100 ml Isovue 370 intravenous contrast material with precontrast and delayed images of the abdomen as well as coronal and sagittal re-formations. Comparison: 06/30/2016. Findings: Liver demonstrates coarse and echo texture and micronodular contour along with ruperto hepatic ascites, recanalized umbilical vein, esophageal varices, portosystemic shunting consistent with cirrhosis. There appears to be low density in the intrahepatic portal veins suggesting portal vein thrombosis and recanalization. The spleen demonstrates low density wedge-shaped peripheral lesion consistent with prior splenic infarction. Edema and mucosal thickening to the ascending colon is in none sequelae of cirrhosis. Scattered mesenteric adenopathy is nonspecific and again likely related to cirrhosis. Pancreas and bilateral adrenal glands are normal. Kidneys are grossly unremarkable. There is no evidence for bowel obstruction. Colonic and sigmoid diverticula noted without acute diverticulitis. Pelvis demonstrates normal bladder. Evidence for prior hysterectomy. Small amount of ascites extends into the pelvis. No free air. Abdominal aorta is without aneurysm or dissection. Musculoskeletal structures demonstrate age-related degenerative changes. Impression: 1. Findings as described above compatible with cirrhosis including what appears to be portal vein thrombosis and associated recanalization, recanalized umbilical vein and varices, continued evidence for prior splenic infarction, mucosal changes to the ascending colon and scattered mesenteric lymph nodes. Small amount of perihepatic and pelvic ascites also identified and consistent with cirrhosis. 2. Diverticulosis without acute diverticulitis. 3. Further chronic changes as described above. Signed by Sony White MD 08/17/2016 08:41 P
== END ==
LOC: M RAD 14:59
PROVIDERS: ATTEND Internal Medicine Gastroenterology
DX: K74.60 Unspecified cirrhosis of liver (principal); K57.30 Diverticulosis of large intestine without perforation or abscess without bleeding; R18.8 Other ascites
CPT/HCPCS: 74178; Q9963; Q9967

== ENCOUNTER → 2016-09-12 | Day surgery (SDC) | payer MEDICARE ==
[~2016-09-12] VITALS: Ht 167.6 cm; Wt 65.8 kg
[~2016-09-12] MED LIST changes: +BALANCED SALT IRRIGATION SOLUTION 500ML BAG (FOR OR EYE MACHINE) As Ordered ONE; +CYCLOPENTOLATE 2% OPHTH SOLN 2ML BTL As Ordered ONE; +CYCLOPENTOLATE 2% OPHTH SOLN 2ML BTL OS ONE; -GASTROGRAFIN SOLUTION 30ML (Q9963) As Ordered ONE; +HEALON DUET (HEALON 10MG/ML 0.55ML & HEALON ENDOCOAT 30MG/ML 0.85ML) As Ordered ONE; -ISOVUE-370 76% 100ML VIAL (Q9967) As Ordered ONE; +LIDOCAINE 1% SDV 5 ML VIAL As Ordered ONE; +LIDOCAINE 4% INJ 5 ML AMP OU ONE; +LR 500 ML IV ONE; +MIDAZOLAM INJ 2 MG/2 ML VIAL (J2250) As Ordered ONE; +MOXIFLOXACIN IN BSS 0.25MG/0.25ML INTRACAMERAL INJ (OR EYE ONLY)(J2280) As Ordered ONE; +OFLOXACIN 0.3 % (OCUFLOX) OPTH SOL 5ML As Ordered ONE; +OFLOXACIN 0.3 % (OCUFLOX) OPTH SOL 5ML OS ONE; +PHENYLEPHRINE 2.5% OPHTH SOL 2ML As Ordered ONE; +PHENYLEPHRINE 2.5% OPHTH SOL 2ML OS ONE; +POVIDONE-IODINE 5% OPHTH PREP SOL 30ML As Ordered ONE; +TRIAMCINOLONE PRES FR 40 MG/ML 1ML(TRIESENCE)(OR EYE ONLY)(J3300 PER 1MG) As Ordered ONE; +TROPICAMIDE 1% OPHTH SOLN 2ML As Ordered ONE; +TROPICAMIDE 1% OPHTH SOLN 2ML OS ONE; +fentaNYL 100 MCG/2 ML INJECTION (J3010) As Ordered ONE
[2016-09-12 13:05] VITALS: BP 100/51
== END | disposition home or self-care (01) ==
LOC: M SDC 07:56
PROVIDERS: ATTEND Ophthalmology
DX: H26.9 Unspecified cataract (principal); I48.91 Unspecified atrial fibrillation; I11.0 Hypertensive heart disease with heart failure; I50.32 Chronic diastolic (congestive) heart failure; R60.0 Localized edema; K58.9 Irritable bowel syndrome, unspecified; D50.9 Iron deficiency anemia, unspecified; R06.02 Shortness of breath; M12.9 Arthropathy, unspecified; K74.60 Unspecified cirrhosis of liver; A04.7 Enterocolitis due to Clostridium difficile; I85.01 Esophageal varices with bleeding; K74.0 Hepatic fibrosis; K44.9 Diaphragmatic hernia without obstruction or gangrene; F41.8 Other specified anxiety disorders; R16.1 Splenomegaly, not elsewhere classified; K21.9 Gastro-esophageal reflux disease without esophagitis; F32.9 Major depressive disorder, single episode, unspecified; D61.818 Other pancytopenia; Z88.2 Allergy status to sulfonamides; Z88.5 Allergy status to narcotic agent; Z88.8 Allergy status to other drugs, medicaments and biological substances; Z79.899 Other long term (current) drug therapy; Z95.0 Presence of cardiac pacemaker; Z90.710 Acquired absence of both cervix and uterus
CPT/HCPCS: 66984; J2250; J2280; J3010; J3300; V2632

== ENCOUNTER 2016-09-27 15:21 | Observation (INO) | payer MEDICARE, MEDICAID ==
[~2016-09-27] VITALS: Ht 167.6 cm; Wt 68.2 kg
[~2016-09-27 15:21] MED LIST changes: -ASPI1TAB PO; -BALANCED SALT IRRIGATION SOLUTION 500ML BAG (FOR OR EYE MACHINE) As Ordered ONE; -CYCLOPENTOLATE 2% OPHTH SOLN 2ML BTL As Ordered ONE; -CYCLOPENTOLATE 2% OPHTH SOLN 2ML BTL OS ONE; -FERR240T PO; -HEALON DUET (HEALON 10MG/ML 0.55ML & HEALON ENDOCOAT 30MG/ML 0.85ML) As Ordered ONE; -LIDOCAINE 1% SDV 5 ML VIAL As Ordered ONE; -LIDOCAINE 4% INJ 5 ML AMP OU ONE; -LR 500 ML IV ONE; -MIDAZOLAM INJ 2 MG/2 ML VIAL (J2250) As Ordered ONE; -MOXIFLOXACIN IN BSS 0.25MG/0.25ML INTRACAMERAL INJ (OR EYE ONLY)(J2280) As Ordered ONE; -OFLOXACIN 0.3 % (OCUFLOX) OPTH SOL 5ML As Ordered ONE; -OFLOXACIN 0.3 % (OCUFLOX) OPTH SOL 5ML OS ONE; -PHENYLEPHRINE 2.5% OPHTH SOL 2ML As Ordered ONE; -PHENYLEPHRINE 2.5% OPHTH SOL 2ML OS ONE; -POVIDONE-IODINE 5% OPHTH PREP SOL 30ML As Ordered ONE; -REFR1DRO8 OU; -TRIAMCINOLONE PRES FR 40 MG/ML 1ML(TRIESENCE)(OR EYE ONLY)(J3300 PER 1MG) As Ordered ONE; -TROPICAMIDE 1% OPHTH SOLN 2ML As Ordered ONE; -TROPICAMIDE 1% OPHTH SOLN 2ML OS ONE; -fentaNYL 100 MCG/2 ML INJECTION (J3010) As Ordered ONE
[2016-09-27 16:45] LABS: ADD MANUAL DIFFER YES; DIFF SLIDE NUMBER 299; MEAN CORPUSCULAR HEMOGLOBIN 21.9 pg (27.0-33.0); MEAN CORPUSCULAR HGB CONC 28.5 g/dl (32.0-36.5); MEAN CORPUSCULAR VOLUME 76.9 fl (80.0-96.0); PLATELET COUNT, AUTOMATED 213 k/mm3 (150-450); RED CELL DISTRIBUTION WIDTH 17.6 % (11.5-14.5); WHITE BLOOD COUNT 5.2 K/mm3 (4.0-10.0)
[2016-09-27 17:12] LABS: BASOPHILS 2 % (0-4); EOSINOPHILS 2 % (0-5)
[2016-09-27 17:13] LABS: ANISOCYTOSIS 1+; HYPOCHROMASIA 2+; MICROCYTOSIS 2+; POIKILOCYTOSIS 1+
[2016-09-27 17:16] LABS: ALBUMIN 3.3 GM/DL (3.2-5.2); ALBUMIN/GLOBULIN RATIO 1.06 (1.00-1.93); ALKALINE PHOSPHATASE 109 U/L (45-117); ALT/SGPT 26 U/L (12-78); ANION GAP 10 MEQ/L (8-16); AST/SGOT 25 U/L (15-37); BILIRUBIN,DIRECT 0.4 MG/DL (0.0-0.2); BILIRUBIN,TOTAL 1.2 MG/DL (0.2-1.0); BLOOD UREA NITROGEN 15 MG/DL (7-18); CALCIUM LEVEL 8.8 MG/DL (8.8-10.2); CARBON DIOXIDE LEVEL 25 MEQ/L (21-32); CHLORIDE LEVEL 108 MEQ/L (98-107); CREATININE FOR GFR 0.75 MG/DL (0.55-1.02); GLOMERULAR FILTRATION RATE > 60.0 (>39); GLUCOSE, FASTING 85 MG/DL (83-110); POTASSIUM SERUM 3.8 MEQ/L (3.5-5.1); SODIUM LEVEL 143 MEQ/L (136-145); TOTAL PROTEIN 6.4 GM/DL (6.4-8.2)
[2016-09-27] MEDS ORDERED: PANTOPRAZOLE 40MG INJ (PROTONIX) (C9113) IV ONE (17:30)
[2016-09-27 17:58] LABS: DIGOXIN LEVEL 0.8 NG/ML (0.5-2.0)
[2016-09-27] MEDS ORDERED: FERR240T PO (18:29)
[2016-09-27] MEDS ORDERED: ASPI1TAB PO (18:32)
[2016-09-27] MEDS ORDERED: REFR1DRO8 OU (18:32)
--- NOTE | 2016-09-27 18:32 | REP ---
HISTORY: Near syncopal episode. COMPARISON: 07/31/2016 The technique utilized in obtaining the radiograph has magnified the cardiac silhouette and accentuated the interstitial markings. There is no significant change from the prior exam. There is cardiomegaly. The pacemaker is unchanged. The lungs are clear. IMPRESSION: Cardiomegaly. No acute disease. Signed by Freddie Self DO 09/27/2016 06:59 P
[2016-09-27] MEDS ORDERED: ONDANSETRON 4MG/2ML VIAL (J2405) IV PRN (19:00)
[2016-09-27] MEDS ORDERED: SUCRALFATE 1 GM TAB PO PRN (19:45)
--- NOTE | 2016-09-27 20:36 | ECGEPIP ---
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
[2016-09-27 22:00] VITALS: BP 108/53
[2016-09-27] MEDS: PANTOPRAZOLE 40MG TAB (PROTONIX) PO SCH (23:00)
[2016-09-27] MEDS: SPIRONOLACTONE 25 MG TAB PO SCH (23:00)
[2016-09-27] MEDS: PROPRANOLOL 10 MG TAB PO SCH (23:01)
[2016-09-28 06:00] VITALS: BP 105/56
[2016-09-28 07:19] LABS: ADD MANUAL DIFFER YES; MEAN CORPUSCULAR HEMOGLOBIN 23.6 pg (27.0-33.0); MEAN CORPUSCULAR HGB CONC 30.3 g/dl (32.0-36.5); MEAN CORPUSCULAR VOLUME 77.7 fl (80.0-96.0); PLATELET COUNT, AUTOMATED 181 k/mm3 (150-450); RED CELL DISTRIBUTION WIDTH 17.6 % (11.5-14.5); WHITE BLOOD COUNT 4.6 K/mm3 (4.0-10.0)
[2016-09-28 07:37] LABS: ANION GAP 6 MEQ/L (8-16); BLOOD UREA NITROGEN 15 MG/DL (7-18); CALCIUM LEVEL 8.6 MG/DL (8.8-10.2); CARBON DIOXIDE LEVEL 27 MEQ/L (21-32); CHLORIDE LEVEL 108 MEQ/L (98-107); CREATININE FOR GFR 0.85 MG/DL (0.55-1.02); GLOMERULAR FILTRATION RATE > 60.0 (>39); GLUCOSE, FASTING 83 MG/DL (83-110); POTASSIUM SERUM 3.8 MEQ/L (3.5-5.1); SODIUM LEVEL 141 MEQ/L (136-145)
[2016-09-28] MEDS: LACTOBACILLUS ACIDOPHILUS CAP (BACID) PO SCH (08:03)
[2016-09-28] MEDS: DIGOXIN 0.125 MG TAB PO SCH (08:03)
[2016-09-28] MEDS: PANTOPRAZOLE 40MG TAB (PROTONIX) PO SCH ×2 (08:03→21:03)
[2016-09-28] MEDS: FUROSEMIDE 20 MG TAB PO SCH (08:04)
[2016-09-28] MEDS: PROPRANOLOL 10 MG TAB PO SCH ×3 (08:04→21:00)
[2016-09-28 08:50] LABS: EOSINOPHILS 2 % (0-5)
[2016-09-28 08:51] LABS: ANISOCYTOSIS 1+; HYPOCHROMASIA 2+
[2016-09-28 08:52] LABS: POIKILOCYTOSIS 2+; POLYCHROMASIA 1+
--- NOTE | 2016-09-28 13:59 | HPE ---
DATE OF ADMISSION: 09/27/2016 PRIMARY CARE PROVIDER: Dr. Rhiannon Gray CHIEF COMPLAINT: Dizziness, lightheadedness, weakness, and tiredness for 2 days. 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 Portal vein thrombosis with associated recanalization as per CT scan of the abdomen. Recanalized umbilical vein as per CT scan of the abdomen. Gastric antral vascular ectasia with history of recurrent gastrointestinal bleeds, not on any anticoagulation. Chronic atrial fibrillation. Pacemaker in situ due tachybrady syndrome Diastolic congestive heart failure. Chronic abdominal pain, intermittent, due to gastritis and duodenitis. Anxiety and depression. Chronic splenic infarct. Gastroesophageal reflux disease. Hypertension. Chronic anemia. History of Clostridium (C) difficile infection in the past. Diverticulosis of the colon. Hiatal hernia HISTORY OF PRESENT ILLNESS: This is a 76-year-old female who was doing pretty well since her last admission about 2 months ago. Then, she started feeling sick over the past 2 days. She was feeling weak, tired, dizzy, and lightheaded. She took rest for a day and woke up this morning thinking that she would feel better. However, she was extremely dizzy and lightheaded, and almost fell. She checked her blood pressures at home, which she noted to be going up and down throughout the day. She was also feeling nauseous, so she came to be evaluated in the emergency room. The patient recently had cataract surgery. However, even after the surgery, her vision is still pretty poor and blurred, and she felt that her vision was worse over the past 2 days, and she felt that she could not focus, and her vision was fluctuating. In the emergency room, the patient was found to have a hemoglobin of 7.3, which is about 2 points below her baseline. The patient's orthostatic blood pressures were negative for any changes. The patient's guaiac was positive in the emergency room. The patient was diagnosed with symptomatic anemia and admitted to the hospitalist service. PAST SURGICAL HISTORY: Pacemaker placement. Hysterectomy. Tonsillectomy. Cholecystectomy. Esophagogastroduodenoscopy (EGD) with banding of the esophageal varices and plasma iron coagulation of gastric antral vascular ectasia. Cataract surgery. ALLERGIES: To DIPHENHYDRAMINE, MEPERIDINE, PENICILLIN, SULFA DRUGS. HOME MEDICATIONS: - aspirin 81 mg daily - carboxymethylcellulose for dry eyes - digoxin 0.125 mg by mouth daily - ferrous gluconate 240 mg by mouth at bedtime - Lasix 20 mg by mouth daily - lactobacillus one tablet by mouth daily - pantoprazole 40 mg by mouth twice a day - propranolol 10 mg by mouth twice a day - spironolactone 25 mg at bedtime - sucralfate 1 gram by mouth before meals and at bedtime SOCIAL HISTORY: The patient denies smoking. Denies use of alcohol or any recreational drugs. FAMILY HISTORY: Insignificant. PHYSICAL EXAMINATION: VITAL SIGNS: Temperature 97.5, pulse 76, blood pressure 132/62, pulse oximetry 100% in room air. GENERAL: The patient awake, alert, oriented times three. Lying down in bed in no acute distress. HEENT: Normocephalic, atraumatic. Moist mucous membranes. Anicteric eyes. CHEST: Clear to auscultation. CARDIOVASCULAR: S1, S2. Regular. No rub or gallop. There is a sharp systolic murmur. ABDOMEN: Soft, mildly tender in the right upper quadrant. No guarding or rigidity. Bowel sounds normal. EXTREMITIES: Trace edema. LABORATORY DATA: WBC 5.2, hemoglobin 7.3, platelets 213, neutrophil 81, lymphocytes 7%. Sodium 143, potassium 3.8, chloride 108, bicarbonate 25, BUN 15, creatinine 0.7, calcium 8.8, total bilirubin 1.2. Other liver function tests (LFTs) are normal. Albumin 3.3. REVIEW OF SYSTEMS: Ten-point review of systems are negative except those mentioned in history of present illness (HPI). ASSESSMENT AND PLAN: This is a 76-year-old female with cryptogenic cirrhosis, ascites, esophageal varices, gastric antral vascular ectasias, splenic infarct, and portal vein and umbilical vein thromboses, admitted for symptomatic anemia. PLAN: 1. Symptomatic anemia. Will give 2 units of blood transfusion and monitor hemoglobin and hematocrit. If hemoglobin and hematocrit continue to drop in spite of transfusion, will consult GI. The patient has chronic anemia, but there is acute worsening, possibly due to gastrointestinal (GI) bleed from gastric antral vascular ectasia (GAVE) syndrome. 2. Acute on chronic blood loss anemia, possibly from slow bleeding from gastric antral vascular ectasia. Will give blood transfusion and monitor hemoglobin and hematocrit. If required, will consult GI if hemoglobin and hematocrit drops in spite of transfusion. 3. 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 Stable at this point. Will continue with Lasix and spironolactone and propranolol. 4. Chronic abdominal pain due to chronic splenic infarct, as well as portal vein thrombosis with recanalization, as well as possible gastritis and duodenitis. Will continue with proton pump inhibitors (PPIs) and sucralfate. Stable at this point. 5. Chronic atrial fibrillation, rate controlled. Will continue with digoxin. The patient is not on anticoagulation because of recurrent GI bleeds in the past. 6. Deep venous thrombosis (DVT) prophylaxis has been ordered. 7. Gastrointestinal (GI) prophylaxis has been ordered. 8. Anxiety and depression. Stable at this point. 9. Pacemaker in place because of tachybrady syndrome. 10. History of hypertension but at present blood pressure low normal. Will continue to monitor. Will continue with propranolol. 11. Diastolic congestive heart failure. No signs of fluid overload at this point. Will continue with Lasix and spironolactone. MTDD
[2016-09-28 14:00] VITALS: BP 117/54
--- NOTE | 2016-09-28 16:33 | IPNPDOC ---
Text Note Date of Service The patient was seen on 09/28/16. NOTE Subjective: Patient seen and examined at bedside. Denies fevers, chills, headache, chest pain, SOB, nausea, vomiting, cough, diarrhea, constipation. Had a BM this morning which was small and loose, but denies blood in the stool. Was able to walk around in the room a little bit without feeling dizzy or having a fainting spell. States she does feel a little weak and dizzy still now. In addition, she has blurred vision as she's had cataract removal surgery around 2 weeks ago. Otherwise, has no acute complaints. Objective: Please see VS and PE below. Laboratory data: Labs were significant for Hgb of 7.3 on admission, then 9, and then 9.5 after transfusion of 2 units PRBCs. At 11 AM, Hgb fell down to 9.3. MCV: 77.7. BMP was unremarkable. Please see below for full labs. Imaging: CXR on 09/27: Cardiomegaly. No acute disease. Assessment/Plan: 76 yo F with a PMH significant for multiple GI bleeds hx, cryptogenic cirrhosis , ascites, grade I esophageal varices, gastric antral vascular ectasias, splenic infarct, and portal vein and umbilical vein thromboses presents for symptomatic acute on chronic blood loss anemia. She is admitted to the Med/Surg unit. Symptomatic acute on chronic blood loss anemia: Came in with Hgb of 7.3 with symptoms of dizziness and lightheadedness for 2 days prior to admission and nausea. Is status-post 2 units PRBCs. Patient's Hgb was 9.5 after 2 units of PRBCs, but had dropped down to 9.3 at 11 AM. Continue to monitor CBCs and strict Is/Os. Dr. Armen Shahid of Gastroenterology has been consulted and stated that he would come see the patient to decide if patient will need EGD. Etiology of GI bleed could be from GAVE syndrome (gastric antral vascular ectasia) vs. other upper or lower GI bleed source. Zofran for nausea. Continue sucralfate and protonix. Will order stool for occult blood testing. Weakness: have ordered physical therapy consult. 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 Continue lasix , spironolactone, and propranolol. Continue to monitor BMPs daily. Chronic abdominal pain due to chronic splenic infarct, portal vein thrombosis with recanalization, as well as possible gastritis and duodenitis: Stable. Continue PPI and sucralfate. GERD: continue protonix Chronic atrial fibrillation: rate controlled. Not on any anticoagulation due to hx of multiple recurrent GI bleeds in the past as well as gastric antral vascular ectasia. Continue digoxin and propanolol. Continue monitor electrolytes and BMP every day. Diastolic congestive heart failure: No signs of fluid overload at this point in time. Continue lasix and spironolactone. Tachybrady Syndrome Hx: has pacemaker in place H/O HTN: BP stable and WNL today. Will continue to monitor. On 2g Na diet. Continue propanalol. Anxiety: stable Depression: stable Continue home medications. DVT ppx: TEDs. No pharmacologic DVT ppx due to bleeding risk. GI ppx: continue protonix. Immunizations as per protocol. My preceptor for this patient encounter was Dr. Marianela Caputo, and was physically present in the building during the encounter and was fully available. As needed, all aspects of the patient interview, examination, medical decision making process, and medical care plan development were reviewed and approved by the preceptor. Preceptor is aware and concurs with the plan as stated in the body of this note and will attest to such by his/her cosignature. VS,Fishbone, I+O VS, Fishbone, I+O Laboratory Tests 09/27/16 15:52 Red Blood Count 3.33 L, Mean Corpuscular Volume 76.9 L, Mean Corpuscular Hemoglobin 21.9 L, Mean Corpuscular Hemoglobin Concent 28.5 L, Red Cell Distribution Width 17.6 H 09/27/16 16:37 09/28/16 02:27 09/28/16 06:43 Red Blood Count 4.04, Mean Corpuscular Volume 77.7 L, Mean Corpuscular Hemoglobin 23.6 L, Mean Corpuscular Hemoglobin Concent 30.3 L, Red Cell Distribution Width 17.6 H, Calcium Level 8.6 L 09/28/16 11:00 Vital Signs Date Time Temp Pulse Resp B/P (MAP) Pulse Ox O2 Delivery O2 Flow Rate FiO2 09/28/16 09:00 Room Air 09/28/16 08:03 65 09/28/16 06:00 98.0 18 105/56 (72) 97 I&O- Last 24 Hours up to 6 AM 09/28/16 06:00 Intake Total 0 ml Output Total 600 ml Balance -600 ml Physical Examination Physical Examination Vital Signs/I&O Vital Signs Date Time Temp Pulse Resp B/P (MAP) Pulse Ox O2 Delivery O2 Flow Rate FiO2 09/28/16 14:00 98.6 60 18 117/54 (75) 98 Room Air I&O- Last 24 Hours up to 6 AM 09/28/16 06:00 Intake Total 0 ml Output Total 600 ml Balance -600 ml General Exam: Positive: alert, attentive, talkative, cooperative, no acute distress, oriented times three ENT EXAM: Positive: normocephalic, atraumatic Neck Exam: Positive: Full range of motion, Supple, Normal inspection, Negative: Lymphadenopathy, Thyromegaly Chest Exam: Positive: Clear to auscultation, Negative: Wheezing, Rales, Rhonchi Heart Exam: Positive: Irregular Rhythm (Irregularly irregular rhythm. Regular rate. ) Abdominal Exam: Positive: Normal bowel sounds, Soft, Nondistended, Other, Negative: Nontender, Hepatospenomegaly Extremity Exam: Positive: Edema (mild edema in ankles bilaterally.), Negative: Clubbing, Cyanosis Skin Exam: Positive: Warm, Dry, Negative: Rashes Neuro Exam: Positive: Normal Speech, Other (No focal neurologic deficits appreciated. ) Psych Exam: Positive: Mental status NL, Mood NL, Memory Intact, Alert and oriented x 3 Laboratory Data Labs 24H Laboratory Tests 2 09/27/16 16:37: Anion Gap 10, Glomerular Filtration Rate > 60.0, Calcium Level 8.8, Aspartate Amino Transf (AST/SGOT) 25, Alanine Aminotransferase (ALT/SGPT) 26, Alkaline Phosphatase 109, Total Bilirubin 1.2H, Direct Bilirubin 0.4H, Total Creatine Kinase 38, Creatine Kinase MB 1.7, Creatine Kinase MB Relative Index 4.47H, Troponin I < 0.02, Total Protein 6.4, Albumin 3.3, Albumin/Globulin Ratio 1.06, Digoxin Level 0.8 09/28/16 06:43: Anion Gap 6L, Glomerular Filtration Rate > 60.0, Calcium Level 8.6L, Neutrophils 78H, Lymphocytes (Manual) 13L, Monocytes (Manual) 7, Eosinophils ( Manual) 2, Platelet Estimate NORMAL, Polychromasia 1+, Hypochromasia 2+, Poikilocytosis 2+, Anisocytosis 1+, Macrocytosis 1+, Blood Urea Nitrogen 15, Creatinine 0.85, Sodium Level 141, Potassium Level 3.8, Chloride Level 108H, Carbon Dioxide Level 27 CBC/BMP Laboratory Tests 09/27/16 16:37 09/28/16 02:27 09/28/16 06:43 Red Blood Count 4.04, Mean Corpuscular Volume 77.7 L, Mean Corpuscular Hemoglobin 23.6 L, Mean Corpuscular Hemoglobin Concent 30.3 L, Red Cell Distribution Width 17.6 H, Calcium Level 8.6 L 09/28/16 11:00 JOAN COX OGPA-1 Sep 28, 2016 14:37
[2016-09-28 21:00] VITALS: BP 106/59
[2016-09-28] MEDS: SPIRONOLACTONE 25 MG TAB PO SCH (21:03)
[2016-09-28 22:00] VITALS: BP 106/59
[2016-09-29 06:00] VITALS: BP 122/58
[2016-09-29 06:53] LABS: ADD MANUAL DIFFER YES; MEAN CORPUSCULAR HEMOGLOBIN 23.4 pg (27.0-33.0); MEAN CORPUSCULAR HGB CONC 29.8 g/dl (32.0-36.5); MEAN CORPUSCULAR VOLUME 78.5 fl (80.0-96.0); PLATELET COUNT, AUTOMATED 169 k/mm3 (150-450); RED CELL DISTRIBUTION WIDTH 17.9 % (11.5-14.5); WHITE BLOOD COUNT 3.8 K/mm3 (4.0-10.0)
[2016-09-29 06:56] LABS: ANION GAP 8 MEQ/L (8-16); BLOOD UREA NITROGEN 17 MG/DL (7-18); CALCIUM LEVEL 9.1 MG/DL (8.8-10.2); CARBON DIOXIDE LEVEL 26 MEQ/L (21-32); CHLORIDE LEVEL 112 MEQ/L (98-107); CREATININE FOR GFR 0.78 MG/DL (0.55-1.02); GLOMERULAR FILTRATION RATE > 60.0 (>39); GLUCOSE, FASTING 104 MG/DL (83-110); POTASSIUM SERUM 3.7 MEQ/L (3.5-5.1); SODIUM LEVEL 146 MEQ/L (136-145)
[2016-09-29 07:46] LABS: BANDS 3 % (< 11); BASOPHILS 1 % (0-4); EOSINOPHILS 3 % (0-5)
[2016-09-29 07:49] LABS: ANISOCYTOSIS 2+; MICROCYTOSIS 1+; POIKILOCYTOSIS 1+
[2016-09-29] MEDS: FUROSEMIDE 20 MG TAB PO SCH (08:31)
[2016-09-29] MEDS: PANTOPRAZOLE 40MG TAB (PROTONIX) PO SCH (08:31)
[2016-09-29] MEDS: LACTOBACILLUS ACIDOPHILUS CAP (BACID) PO SCH (08:31)
[2016-09-29] MEDS: DIGOXIN 0.125 MG TAB PO SCH (08:32)
[2016-09-29] MEDS: PROPRANOLOL 10 MG TAB PO SCH (08:32)
--- NOTE | 2016-09-30 20:17 | DSES ---
DATE OF ADMISSION: 09/27/2016 DATE OF DISCHARGE: 09/29/2016 DISCHARGE DIAGNOSIS: Symptomatic anemia secondary to acute blood loss anemia. SECONDARY DIAGNOSES: 1. Gastric antral vascular ectasia. 2. Cryptogenic cirrhosis. 3. Chronic atrial fibrillation. 4. Tachy/eugenia syndrome status post pacer. 5. Chronic diastolic congestive heart failure. 6. Chronic abdominal pain. 7. Anxiety/depression. 8. Chronic splenic infarction. 9. Gastroesophageal reflux disease. 10. Hypertension. 11. Portal vein thrombosis. 12. Diverticulosis. HOSPITAL COURSE: Patient is a 76-year-old female who was recently discharged two months ago, who reported for the past several days progressively worsening symptoms of orthostasis, dyspnea on exertion and fatigue. She presented to the emergency room and was found to have a hemoglobin of 7.3. She has a history of recurrent gastrointestinal (GI) bleeds. She recently had a scope eight months [address] by Dr. Shahid in which he used an Argon laser to blast a gastric antral vascular ectasia. Patient received two units and had a positive response and had good, prompt resolution of her symptoms. During the patient's stay, she was seen and evaluated by Dr. Shahid of gastroenterology, who was formally consulted. He felt the patient did not need inpatient endoscopy, but suspected that her bleeding was secondary to this and she would benefit from outpatient endoscopy, which he would set up with her outpatient. SUBJECTIVE: This morning, the patient reports she is feeling well and has no complaints. OBJECTIVE: VITAL SIGNS: Temperature 97.8 pulse 76, respiratory rate 18, blood pressure 122/58, oxygen saturation 96% on room air. GENERAL: She is a frail, elderly female laying in bed. She is in no distress. HEENT: Cranial nerves II-XII grossly intact. Moist mucous membranes. No elevation of central venous pressure (CVP). CARDIOVASCULAR EXAMINATION: S1, S2. Irregularly irregular. RESPIRATORY EXAMINATION: Clear. She was kyphotic. ABDOMINAL EXAMINATION: Benign. EXTREMITIES: No clubbing, cyanosis or edema. LABORATORY STUDIES: WBC 3.8, hemoglobin 9.4 and stable, platelet count 169. Chemistry panel: Sodium 146, potassium 3.7, chloride 112, bicarbonate 26, BUN 17, creatinine 0.7. No significant imaging. ASSESSMENT AND PLAN: This is a 72-year-old female with symptomatic anemia secondary to acute blood loss anemia. PROBLEMS: 1. Symptomatic anemia secondary to acute blood loss anemia, likely related to Gastric antral vascular ectasia (GAVE). The patient will have an outpatient endoscopy. She had a positive response to blood. I suspect her bleed is slow and chronic, given her positive response and a slightly bit of slow, downward trend. She has been seen by Dr. Shahid, who has done a previous endoscopy and he feels this is also the case, that she will likely need repeat Argon laser and will arrange for this in the near future in the outpatient setting. It is certainly possible that she has slow bleeding ulcer. She is on Protonix twice a day, high dosage. She has a history of esophageal varices, grade 1. I feel that this is less likely the source of bleeding given the slow nature. 2. Atrial fibrillation. She is rate controlled with propranolol and digoxin. She is not on anticoagulation secondary to her recurrent bleeding. 3. Cryptogenic cirrhosis. She is on Lasix, propranolol, aldactone. 4. Tachy/eugenia syndrome. She is status post a pacer. 5. Chronic diastolic congestive heart failure. She is on Lasix and well-compensated at this time. 6. Chronic abdominal pain. Stable. No medication required at this time. 7. Deep venous thrombosis (DVT) prophylaxis. She was on sequentials and thromboembolitic deterrents (TEDs) while here in the hospital. No pharmacological anticoagulants secondary to bleeding. DISPOSITION: The patient is being discharged home. She has been cleared by physical therapy. She is to follow up with her primary care provider (PCP) within seven days [address]. Shahid within seven days. Her activity and diet are as prior to admission. MEDICATIONS AT THE TIME OF DISCHARGE: - Refresh tears one drop each eye as needed for dry eye - digoxin 0.125 mg daily - ferrous gluconate 240 mg at bedtime - Lasix 20 mg daily - Bacid one tablet daily - Protonix 40 mg twice a day - propranolol 10 mg twice a day - aldactone 25 mg at bedtime - Carafate 1 gram before meals and at bedtime Greater than 30 minutes spent organizing disposition.
== END 2016-09-29 11:32 | disposition home or self-care (01) ==
LOC: M ED 15:21 → M ED INP 18:48 → M MSPAV 21:22
PROVIDERS: ADMIT Internal Medicine Nephrology; ATTEND Internal Medicine
DX: D62 Acute posthemorrhagic anemia (principal); K31.819 Angiodysplasia of stomach and duodenum without bleeding; K74.69 Other cirrhosis of liver; I48.2 Chronic atrial fibrillation; I49.5 Sick sinus syndrome; Z95.0 Presence of cardiac pacemaker; I50.32 Chronic diastolic (congestive) heart failure; R10.9 Unspecified abdominal pain; F41.9 Anxiety disorder, unspecified; F32.9 Major depressive disorder, single episode, unspecified; K21.9 Gastro-esophageal reflux disease without esophagitis; K44.9 Diaphragmatic hernia without obstruction or gangrene; I10 Essential (primary) hypertension; I81 Portal vein thrombosis; K57.32 Diverticulitis of large intestine without perforation or abscess without bleeding; Z79.899 Other long term (current) drug therapy; Z79.82 Long term (current) use of aspirin
CPT/HCPCS: 36415; 36430; 71010; 80048; 80076; 80162; 82550; 82553; 84484; 85014; 85018; 85025; 86850; 86900; 86901; 86920; 93005; 93041; 94760; 96374; 97161; 99285; C9113; G0378; P9016

== ENCOUNTER → 2016-10-09 | Outpatient (CLI) | payer MEDICARE, MEDICAID ==
[~2016-10-09] MED LIST changes: +ASPI1TAB PO; +FERR240T PO; +REFR1DRO8 OU
[2016-10-09 18:19] LABS: ADD MORPHOLOGY? YES; BASO # 0.1 K/mm3 (0.0-0.2); BASO % 1.3 % (0.0-1.0); EOS # 0.2 K/mm3 (0.0-0.50); LARGE UNSTAINED CELL # 0.1 K/mm3 (0.0-0.4); LARGE UNSTAINED CELL % 2.4 % (0.0-4.0); LYMPH # 0.6 K/mm3 (1.5-4.5); LYMPH % 12.3 % (24.0-44.0); MEAN CORPUSCULAR HGB CONC 29.5 g/dl (32.0-36.5); MEAN CORPUSCULAR VOLUME 81.4 fl (80.0-96.0); MONO # 0.6 K/mm3 (0.0-0.8); MONO % 14.2 % (0.0-5.0); NEUTROPHILS # 2.9 K/mm3 (1.8-7.7); NEUTROPHILS % 65.8 % (36.0-66.0); PLATELET COUNT, AUTOMATED 205 k/mm3 (150-450); RED CELL DISTRIBUTION WIDTH 19.1 % (11.5-14.5); WHITE BLOOD COUNT 4.4 K/mm3 (4.0-10.0)
[2016-10-09 18:52] LABS: ANISOCYTOSIS 2+; HYPOCHROMASIA 2+; OVALOCYTES 1+
[2016-10-09 18:53] LABS: POIKILOCYTOSIS 1+
== END ==
LOC: M SMT 14:20
PROVIDERS: ATTEND Internal Medicine Gastroenterology
DX: D50.9 Iron deficiency anemia, unspecified (principal); K31.819 Angiodysplasia of stomach and duodenum without bleeding

== ENCOUNTER 2016-10-16 11:06 | Outpatient (CLI) | payer MEDICARE, MEDICAID ==
[~2016-10-16] VITALS: Ht 167.6 cm; Wt 66.7 kg
[~2016-10-16 11:06] MED LIST changes: +NS 1,000 ML IV ONE
[2016-10-16] MEDS ORDERED: PROPOFOL 200 MG/20 ML VIAL As Ordered ONE (12:39)
[2016-10-16] MEDS ORDERED: LIDOCAINE 2% INJ 100 MG/5 ML SDV (FOR ANES.) As Ordered ONE (12:39)
[2016-10-16] MEDS ORDERED: PHENYLephrine HCL 500 MCG/5 ML (100MCG/ML) SYRINGE (J2370) As Ordered ONE (12:41)
--- NOTE | 2016-10-16 12:58 | ROOR ---
Patient Name: Pilar Brown Procedure Date: 10/16/2016 12:11 PM Date of : 1940 Age: 76 Room: [facility] Gender: Female Note Status: Finalized Procedure: Egd + Apc + Variceal Banding Indications: Iron deficiency anemia secondary to chronic blood loss, Recent gastrointestinal bleeding Providers: Armen Shahid MD Referring MD: Rhiannon STOUT DO Requesting Provider: Medicines: Monitored Anesthesia Care Complications: No immediate complications. Procedure: Pre-Anesthesia Assessment: - The heart rate, respiratory rate, oxygen saturations, blood pressure, adequacy of pulmonary ventilation, and response to care were monitored throughout the procedure. The Endoscope was introduced through the mouth, and advanced to the second part of duodenum. The upper GI endoscopy was accomplished without difficulty. The patient tolerated the procedure well. Findings: Grade II varices were found in the lower third of the esophagus. They were medium in size. Four bands were successfully placed with incomplete eradication of varices. There was no bleeding during, and at the end, of the procedure. A small hiatal hernia was present. Mild gastric antral vascular ectasia without bleeding was present in the gastric antrum. Coagulation for tissue destruction using argon plasma at 0.8 liters/minute and 35 cash was successful. The exam of the duodenum was otherwise normal. Impression: - Grade II esophageal varices. Incompletely eradicated. Banded. - Small hiatal hernia. - Gastric antral vascular ectasia without bleeding. Treated with argon plasma coagulation (APC). - No specimens collected. - The examination was otherwise normal. Recommendation: - Patient has a contact number available for emergencies. The signs and symptoms of potential delayed complications were discussed with the patient. Return to normal activities tomorrow. Written discharge instructions were provided to the patient. - High fiber diet. - Discharge patient to home. - Continue present medications. - Continue present medications. - Return to referring physician. - Return to GI clinic in 6 weeks. - The findings and recommendations were discussed with the patient's family. Armen Shahid MD Armen Shahid MD 10/16/2016 12:58:12 PM This report has been signed electronically. Number of Addenda: 0 Note Initiated On: 10/16/2016 12:11 PM Estimated Blood Loss: Estimated blood loss: none.
[2016-10-16] MEDS ORDERED: ONDANSETRON 4MG/2ML VIAL (J2405) As Ordered ONE (13:00)
[2016-10-16] MEDS ORDERED: MORPHINE 2 MG/ML 1ML SYRINGE As Ordered ONE (13:45)
[2016-10-16] MEDS ORDERED: ONDANSETRON 4MG/2ML VIAL (J2405) IV ONE (14:00)
[2016-10-16] MEDS ORDERED: MORPHINE 2 MG/ML 1ML SYRINGE IV ONE (14:00)
[2016-10-16 14:06] VITALS: BP 138/76
[2016-10-16] MEDS ORDERED: MORPHINE 2 MG/ML 1ML SYRINGE IV PRN (14:15)
--- NOTE | 2016-10-16 15:10 | ECGEPIP ---
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 No significant change compared with 09/27/2016. Electronically Signed On 10-16-2016 15:10:46 EDT by Emmanuel Alcaraz
== END 2016-10-16 14:25 | disposition home or self-care (01) ==
LOC: M OPP 11:06
PROVIDERS: ATTEND Internal Medicine Gastroenterology
DX: D50.0 Iron deficiency anemia secondary to blood loss (chronic) (principal); K92.2 Gastrointestinal hemorrhage, unspecified; K31.819 Angiodysplasia of stomach and duodenum without bleeding; K44.9 Diaphragmatic hernia without obstruction or gangrene; I85.00 Esophageal varices without bleeding; I48.91 Unspecified atrial fibrillation; K74.60 Unspecified cirrhosis of liver; R10.11 Right upper quadrant pain; I10 Essential (primary) hypertension; R60.0 Localized edema; Z95.0 Presence of cardiac pacemaker; K52.9 Noninfective gastroenteritis and colitis, unspecified; K57.92 Diverticulitis of intestine, part unspecified, without perforation or abscess without bleeding; K58.9 Irritable bowel syndrome, unspecified; R12 Heartburn; K29.70 Gastritis, unspecified, without bleeding; I73.00 Raynaud's syndrome without gangrene; M19.90 Unspecified osteoarthritis, unspecified site; F41.9 Anxiety disorder, unspecified; F32.9 Major depressive disorder, single episode, unspecified; R51 Headache; Z86.19 Personal history of other infectious and parasitic diseases; Z88.8 Allergy status to other drugs, medicaments and biological substances; Z88.0 Allergy status to penicillin; Z88.2 Allergy status to sulfonamides; Z79.899 Other long term (current) drug therapy; Z80.0 Family history of malignant neoplasm of digestive organs
CPT/HCPCS: 43244; 43270; 93005; J2370; J2405

== ENCOUNTER → 2016-11-10 | Outpatient (CLI) | payer MEDICARE, MEDICAID ==
[~2016-11-10] MED LIST changes: -NS 1,000 ML IV ONE
[2016-11-10 18:42] LABS: ALBUMIN 3.4 GM/DL (3.2-5.2); ALBUMIN/GLOBULIN RATIO 0.94 (1.00-1.93); ALKALINE PHOSPHATASE 112 U/L (45-117); ALT/SGPT 30 U/L (12-78); ANION GAP 8 MEQ/L (8-16); AST/SGOT 36 U/L (15-37); BILIRUBIN,TOTAL 0.9 MG/DL (0.2-1.0); BLOOD UREA NITROGEN 11 MG/DL (7-18); CALCIUM LEVEL 8.7 MG/DL (8.8-10.2); CARBON DIOXIDE LEVEL 27 MEQ/L (21-32); CHLORIDE LEVEL 108 MEQ/L (98-107); CREATININE FOR GFR 0.84 MG/DL (0.55-1.02); FERRITIN 24 NG/ML (8-252); GLOMERULAR FILTRATION RATE > 60.0 (>39); GLUCOSE, FASTING 96 MG/DL (83-110); PERCENT SATURATION 7.7 % (13.2-45.0); POTASSIUM SERUM 4.1 MEQ/L (3.5-5.1); SODIUM LEVEL 143 MEQ/L (136-145); TOTAL IRON BINDING CAPACITY 405 UG/DL (250-450)
[2016-11-10 19:28] LABS: ADD MANUAL DIFFER YES; MEAN CORPUSCULAR HEMOGLOBIN 25.9 pg (27.0-33.0); MEAN CORPUSCULAR HGB CONC 30.3 g/dl (32.0-36.5); MEAN CORPUSCULAR VOLUME 85.4 fl (80.0-96.0); PLATELET COUNT, AUTOMATED 194 k/mm3 (150-450); RED CELL DISTRIBUTION WIDTH 19.3 % (11.5-14.5); WHITE BLOOD COUNT 5.2 K/mm3 (4.0-10.0)
[2016-11-10 20:41] LABS: BASOPHILS 2 % (0-4); EOSINOPHILS 5 % (0-5)
[2016-11-10 20:42] LABS: ANISOCYTOSIS 2+; HYPOCHROMASIA 2+; OVALOCYTES 1+; POIKILOCYTOSIS 2+
== END ==
LOC: M SMT 13:14
PROVIDERS: ATTEND Family Medicine
DX: I85.01 Esophageal varices with bleeding (principal); K74.0 Hepatic fibrosis; D50.9 Iron deficiency anemia, unspecified

== ENCOUNTER → 2016-11-17 | Outpatient (REF) | payer MEDICARE, MEDICAID | LOC: M LAB REF 16:08 | PROVIDERS: ATTEND Family Medicine | DX: L57.0 Actinic keratosis (principal) ==

== ENCOUNTER → 2016-12-05 | Outpatient (CLI) | payer MEDICARE, MEDICAID ==
[2016-12-05 17:41] LABS: BASO # 0.1 10^3/uL (0.0-0.2); BASO % 1.8 % (0.0-1.0); EOS # 0.2 10^3/uL (0.0-0.50); EOS % 3.3 % (0.0-3.0); IMMATURE GRANULOCYTE % 0.7 % (0-0); LYMPH # 0.6 10^3/uL (1.5-4.5); MEAN CORPUSCULAR HEMOGLOBIN 26.3 pg (27.0-33.0); MEAN CORPUSCULAR VOLUME 87.7 fl (80.0-96.0); MONO # 0.9 10^3/uL (0.0-0.8); MONO % 15.5 % (0.0-5.0); NEUTROPHILS # 4.1 10^3/uL (1.8-7.7); NEUTROPHILS % 68.7 % (36.0-66.0); PLATELET COUNT, AUTOMATED 216 10^3/uL (150-450)
[2016-12-05 18:02] LABS: POSITIVE MORPH POS FLAG; RED CELL DISTRIBUTION WIDTH 20.6 % (11.5-14.5)
[2016-12-05 18:03] LABS: ADD MORPHOLOGY? YES
[2016-12-05 19:00] LABS: ALBUMIN 3.4 GM/DL (3.2-5.2); ALBUMIN/GLOBULIN RATIO 0.94 (1.00-1.93); ALKALINE PHOSPHATASE 132 U/L (45-117); ALT/SGPT 36 U/L (12-78); ANION GAP 5 MEQ/L (8-16); AST/SGOT 38 U/L (15-37); BILIRUBIN,TOTAL 0.9 MG/DL (0.2-1.0); BLOOD UREA NITROGEN 15 MG/DL (7-18); CALCIUM LEVEL 9.1 MG/DL (8.8-10.2); CARBON DIOXIDE LEVEL 28 MEQ/L (21-32); CHLORIDE LEVEL 108 MEQ/L (98-107); CREATININE FOR GFR 0.88 MG/DL (0.55-1.02); FERRITIN 23 NG/ML (8-252); GLOMERULAR FILTRATION RATE > 60.0 (>39); GLUCOSE, FASTING 89 MG/DL (83-110); POTASSIUM SERUM 4.7 MEQ/L (3.5-5.1); SODIUM LEVEL 141 MEQ/L (136-145); TOTAL IRON BINDING CAPACITY 409 UG/DL (250-450)
[2016-12-05 21:01] LABS: ANISOCYTOSIS 2+; MICROCYTOSIS 1+
[2016-12-05 21:03] LABS: HYPOCHROMASIA 1+; POLYCHROMASIA 1+
== END ==
LOC: M SMT 13:34
PROVIDERS: ATTEND Internal Medicine Gastroenterology
DX: I85.01 Esophageal varices with bleeding (principal); K74.60 Unspecified cirrhosis of liver; D50.9 Iron deficiency anemia, unspecified

== ENCOUNTER → 2016-12-06 | Outpatient (REF) | payer MEDICARE, MEDICAID | LOC: M LAB REF 09:21 | PROVIDERS: ATTEND Family Medicine | DX: A09 Infectious gastroenteritis and colitis, unspecified (principal) ==

== ENCOUNTER → 2016-12-08 | Outpatient (REF) | payer MEDICARE | LOC: M LAB REF 14:27 | PROVIDERS: ATTEND Family Medicine | DX: R30.0 Dysuria (principal); N76.0 Acute vaginitis ==

== ENCOUNTER → 2016-12-15 | Outpatient (REF) | payer MEDICARE | LOC: M LAB REF 16:06 | PROVIDERS: ATTEND Family Medicine | DX: D48.5 Neoplasm of uncertain behavior of skin (principal) ==

== ENCOUNTER → 2017-01-02 | Outpatient (CLI) | payer MEDICARE ==
[2017-01-02 18:55] LABS: ALBUMIN 3.3 GM/DL (3.2-5.2); ALBUMIN/GLOBULIN RATIO 0.94 (1.00-1.93); ALKALINE PHOSPHATASE 128 U/L (45-117); ALT/SGPT 36 U/L (12-78); ANION GAP 7 MEQ/L (8-16); AST/SGOT 41 U/L (7-37); BILIRUBIN,TOTAL 0.9 MG/DL (0.2-1.0); BLOOD UREA NITROGEN 16 MG/DL (7-18); CARBON DIOXIDE LEVEL 29 MEQ/L (21-32); CHLORIDE LEVEL 108 MEQ/L (98-107); CREATININE FOR GFR 0.91 MG/DL (0.55-1.02); FERRITIN 25 NG/ML (8-252); GLOMERULAR FILTRATION RATE > 60.0 (>39); GLUCOSE, FASTING 97 MG/DL (83-110); PERCENT SATURATION 11.8 % (13.2-45.0); POTASSIUM SERUM 3.9 MEQ/L (3.5-5.1); SODIUM LEVEL 144 MEQ/L (136-145); TOTAL IRON BINDING CAPACITY 399 UG/DL (250-450); TOTAL PROTEIN 6.8 GM/DL (6.4-8.2)
[2017-01-02 19:02] LABS: BASO # 0.1 10^3/uL (0.0-0.2); BASO % 1.6 % (0.0-1.0); EOS # 0.2 10^3/uL (0.0-0.50); EOS % 2.4 % (0.0-3.0); IMMATURE GRANULOCYTE % 0.5 % (0-0); LYMPH # 0.6 10^3/uL (1.5-4.5); LYMPH % 9.6 % (24.0-44.0); MEAN CORPUSCULAR HEMOGLOBIN 27.6 pg (27.0-33.0); MEAN CORPUSCULAR HGB CONC 30.2 g/dl (32.0-36.5); MEAN CORPUSCULAR VOLUME 91.2 fl (80.0-96.0); MONO % 15.9 % (0.0-5.0); NEUTROPHILS # 4.4 10^3/uL (1.8-7.7); PLATELET COUNT, AUTOMATED 224 10^3/uL (150-450); RED CELL DISTRIBUTION WIDTH 18.2 % (11.5-14.5); WHITE BLOOD COUNT 6.3 10^3/uL (4.0-10.0)
== END ==
LOC: M SMT 13:36
PROVIDERS: ATTEND Family Medicine
DX: I85.01 Esophageal varices with bleeding (principal); K74.60 Unspecified cirrhosis of liver; D50.9 Iron deficiency anemia, unspecified

== ENCOUNTER 2017-02-02 16:09 | Inpatient (IN) | payer MEDICARE ==
[~2017-02-02] VITALS: Ht 170.2 cm; Wt 71.8 kg
[2017-02-02] MEDS ORDERED: CEFD1CAP8 PO (16:44)
[2017-02-02] MEDS ORDERED: PROP1TAB29 PO (16:44)
--- NOTE | 2017-02-02 17:26 | REP ---
Portable chest, 05:03 p.m., single AP view, patient sitting: Comparison is 09/27/2016. The lung [place] are clear and unchanged. There is cardiomegaly, unchanged. There is a single lead pacemaker, unchanged. Marion, mediastinum, and bony thorax are unchanged. No acute cardiopulmonary findings. Chronic cardiomegaly and pacemaker are again identified. Signed by Kadeem Guadalupe MD 02/02/2017 05:18 P
[2017-02-02] MEDS ORDERED: ALPRAZolam 0.25 MG TAB PO ONE (17:45)
[2017-02-02 17:55] LABS: BASO # 0.1 10^3/uL (0.0-0.2); EOS # 0.3 10^3/uL (0.0-0.50); EOS % 4.9 % (0.0-3.0); IMMATURE GRANULOCYTE % 0.8 % (0-0); LYMPH # 0.8 10^3/uL (1.5-4.5); LYMPH % 12.5 % (24.0-44.0); MEAN CORPUSCULAR HEMOGLOBIN 28.2 pg (27.0-33.0); MEAN CORPUSCULAR HGB CONC 30.7 g/dl (32.0-36.5); MEAN CORPUSCULAR VOLUME 91.7 fl (80.0-96.0); MONO # 1.2 10^3/uL (0.0-0.8); MONO % 19.9 % (0.0-5.0); NEUTROPHILS # 3.6 10^3/uL (1.8-7.7); NEUTROPHILS % 59.9 % (36.0-66.0); PLATELET COUNT, AUTOMATED 227 10^3/uL (150-450); RED CELL DISTRIBUTION WIDTH 17.2 % (11.5-14.5); WHITE BLOOD COUNT 6.1 10^3/uL (4.0-10.0)
--- NOTE | 2017-02-02 18:06 | REP ---
CT brain without contrast: History: CVA. Comparison head CT study: May 10, 2016 CT findings: Bone window settings demonstrate an intact bony calvarium. There is some mucosal thickening in the right sphenoid sinus. Vascular calcifications is noted in the carotid arteries bilaterally. There is mild diffuse cerebral atrophy. There is no evidence of intracranial hemorrhage, extra-axial fluid collection, mass, infarct or midline shift. Physiologic calcification is noted in the basal ganglia bilaterally, unchanged. Impression: Vascular calcification and mild diffuse atrophy. No acute intracranial abnormality. Signed by Kong Love MD 02/03/2017 07:18 P
[2017-02-02 18:09] LABS: ANION GAP 8 MEQ/L (8-16); BLOOD UREA NITROGEN 11 MG/DL (7-18); CALCIUM LEVEL 8.4 MG/DL (8.8-10.2); CARBON DIOXIDE LEVEL 25 MEQ/L (21-32); CHLORIDE LEVEL 110 MEQ/L (98-107); CREATININE FOR GFR 0.96 MG/DL (0.55-1.02); GLOMERULAR FILTRATION RATE > 60.0 (>39); GLUCOSE, FASTING 92 MG/DL (83-110); POTASSIUM SERUM 4.6 MEQ/L (3.5-5.1); SODIUM LEVEL 143 MEQ/L (136-145)
[2017-02-02 18:20] LABS: INR 1.08
[2017-02-02] MEDS ORDERED: ACETAMINOPHEN TAB 650MG DOSE (2X325MG) PO PRN (20:45)
[2017-02-02] MEDS: PROPRANOLOL 10 MG TAB PO SCH (22:00)
[2017-02-02] MEDS: SUCRALFATE 1 GM TAB PO SCH (22:00)
[2017-02-02] MEDS ORDERED: ALPRAZolam 0.25 MG TAB PO PRN (22:15)
--- NOTE | 2017-02-02 22:22 | HPE ---
DATE OF ADMISSION: 02/02/2017 PRIMARY CARE PROVIDER: Dr. Gray. ATTENDING PHYSICIAN: Dr. De Santiago CHIEF COMPLAINT: Trouble talking as well as left arm weakness. HISTORY OF PRESENT ILLNESS: The patient is a 76-year-old white female with multiple chronic medical conditions, and Ms. Brown came to the hospital for evaluation of above complaints. The history provided by herself however, she is a poor historian and her son is with her in the ER. Per son, patient lives by herself independently and recently she was sick and actually she had some cold symptoms. Yesterday she went to Urgent Care and she was prescribed Cefdinir for possible upper respiratory infection. The patient states yesterday she took her antibiotics and then she went to sleep. This morning she woke up, she was not feeling good, and she complained some troubling talking and some tingling and weakness in the arms, and she called her son around 2:00 pm. Meanwhile she called Urgent Care and then 911 was called around 3:30 and she was brought to the hospital for full evaluation. Otherwise, she could not provide any details. In the ER her initial workup including head CT, chest x-ray, as well as CBC and basic metabolic profile which did not find any acute changes. Because she had a pacemaker, so she cannot go for brain MRI. Neurologist Dr. Casas was contacted by Dr. Correa from the ER and Dr. Casas recommended to admit the patient for observation. I do not know the details of the discussion between Dr. Correa and Dr. Casas and the medicine service called for admission around 8:30 p.m. REVIEW OF SYSTEMS: Denies fever, no chills, no headache, no palpitations, no shortness of breath, no chest pain, no coughing, no abdominal pain, no diarrhea, no dysuria. She complains some trouble talking as well as weakness in the left arm. All other systems reviewed were negative. PAST MEDICAL HISTORY: 1. Cryptogenic cirrhosis with esophageal varices. 2. History of recurrent GI bleed. This is why the patient is not on anticoagulation treatment. 3. Chronic atrial fibrillation. Status post pacemaker placement. 4. Chronic diastolic congestive heart failure (CHF). 5. Chronic abdominal pain intermittent due to gastritis and duodenitis. 6. Anxiety and depression. 7. Acid reflux. 8. Hypertension. 9. Chronic anemia. 10. Clostridium (C.) difficile diarrhea in the past. PAST SURGICAL HISTORY: 1. Hysterectomy. 2. Tonsillectomy. 3. Cholecystectomy. 4. Pacemaker placement. 5. Esophagogastroduodenoscopy (EGD) with banding of esophageal varices and laser coagulation treatment of gastric AV malformation. ALLERGIES: She is allergic to MEPERIDINE, PENICILLIN, SULFA DRUGS. SOCIAL HISTORY: No tobacco use. No alcohol abuse. No illicit drug abuse. She lives by herself. She is FULL CODE. FAMILY HISTORY: No history of diabetes, stroke or high blood pressure. HOME MEDICATIONS: - Carafate 1 gram four times daily - spironolactone 25 mg oral daily - propranolol 10 mg oral twice a day - Protonix 40 mg oral daily - Lasix 20 mg oral daily - digoxin 0.125 mg oral daily PHYSICAL EXAMINATION: VITAL SIGNS: Temperature 98.7, heart rate 74, respiratory rate 20, blood pressure 140/64, oxygen saturation 100% on room air. GENERAL: She is awake, alert and oriented times three. She is seen in moderate distress and it seems like she has trouble to talk. HEENT: Atraumatic. Pupils equal, round, react to light. No jaundice. Extraocular muscles intact. Ears/nose/throat: Without abnormality and mouth mucous a little bit dry. Lungs: Clear. No wheezing. No crackles. Heart: S1, S2. Irregular. Not tachycardic. No murmur. Abdomen: Soft, bowel sounds positive, nontender. Lower extremity: She has +2 edema in bilateral lower extremities and cranial nerves grossly intact and muscle strength left arm weakness about 4/5 on right side normal. Reflexes normal. Skin: No rash. Psychological: No acute psychosis, but looks very anxious. DIAGNOSTICS: Labs include the following: CBC and differential showed WBC 6.1, hemoglobin and hematocrit 9.8/31.9, platelets 227, sodium 143, potassium 4.6, chloride 110, bicarbonate 25, BUN 11, creatinine 0.9. Glucose 92. Head CT without any acute changes. Chest x-ray reviewed. No acute changes. IMPRESSION: 1. Possible ischemic stroke or transient ischemic attack (TIA). 2. Cryptogenic cirrhosis with ascites. 3. Chronic atrial fibrillation, not on any anticoagulant treatment. 4. Hypertension. 5. Chronic anemia. PLAN: The patient will be admitted to PCU for close monitoring. I ordered a neuro check every 4 hours. Will start her on aspirin 81 mg oral daily. She is not on any anticoagulant treatment due to history of GI bleed. Will continue her home medications and I will hold her Cefdinir since there is no evidence of active bacterial infection. Meanwhile will check her digoxin as well as ammonia level. Will consult neurologist, Dr. Casas. SHANEKA
[2017-02-02] MEDS: SPIRONOLACTONE 25 MG TAB PO SCH (22:23)
[2017-02-02 23:30] VITALS: BP 102/51
[2017-02-02] MEDS: HEPARIN SOD (PORCINE) 5000 UNITS/ML VIAL SC SCH ×2 (23:38→23:42)
[2017-02-02] MEDS: SENOKOT S TAB PO SCH (23:39)
[2017-02-03] MEDS: ONDANSETRON 4 MG TAB (S0181) PO PRN (03:46)
[2017-02-03 04:00] VITALS: BP 98/52
--- NOTE | 2017-02-03 04:35 | ECGEPIP ---
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
[2017-02-03] MEDS: HEPARIN SOD (PORCINE) 5000 UNITS/ML VIAL SC SCH ×3 (05:29→22:00)
[2017-02-03] MEDS: SUCRALFATE 1 GM TAB PO SCH ×4 (07:30→23:26)
[2017-02-03 08:00] VITALS: BP 104/57
[2017-02-03] MEDS: PANTOPRAZOLE 40MG TAB (PROTONIX) PO SCH (09:00)
[2017-02-03] MEDS: DIGOXIN 0.125 MG TAB PO SCH (09:00)
[2017-02-03] MEDS: PROPRANOLOL 10 MG TAB PO SCH ×2 (09:00→21:00)
[2017-02-03] MEDS: LACTOBACILLUS ACIDOPHILUS CAP (BACID) PO SCH (09:00)
[2017-02-03] MEDS: FUROSEMIDE 20 MG TAB PO SCH (09:00)
[2017-02-03] MEDS: SENOKOT S TAB PO SCH ×2 (09:00→23:28)
[2017-02-03] MEDS: ASPIRIN 81 MG ENTERIC TAB PO SCH (09:46)
--- NOTE | 2017-02-03 11:37 | REP ---
Bilateral carotid duplex ultrasound: Bilateral carotid artery duplex ultrasound: Peak flow velocity analysis: RIGHT LEFT ICA Peak flow velocity cm/sec 77 88 ICA Diastolic flow velocity cm/sec 21 25 ICA/CCA Ratio 1.03 1.17 ECA Peak flow velocity cm/sec 95 95 CCA Peak flow velocity cm/sec 75 75 There is shallow atheromatous plaque bilaterally extending from the common carotid arteries into the bulbs bilaterally. There is a small shallow atheromatous plaque medially in the bifurcations bilaterally. Peak flow velocities are normal. The findings indicate less than 50% narrowing bilaterally. There is no significant stenosis on the right on the left. There is antegrade flow in the vertebral arteries bilaterally. Signed by Kadeem Guadalupe MD 02/03/2017 11:29 A
[2017-02-03 12:00] VITALS: BP 97/56
--- NOTE | 2017-02-03 14:23 | IPNPDOC ---
Subjective Date Seen The patient was seen on 02/03/17. Subjective Chief Complaint/HPI The patient is a 76-year-old female admitted with a reason for visit of Ischemic Stroke. Events since last encounter Patient seen and examined at the bedside. States that she knows what she wants to say, but is unable to choose the right words. Objective Physical Examination General Exam: Positive: Alert, Cooperative, No Acute Distress, Other (Patient having difficulty expressing thoughts with words. Noted to be frustrated/ anxious about this.) Eye Exam: Positive: EOMI, Negative: Sclera icteric, Ptosis ENT Exam: Positive: Atraumatic, Mucous membr. moist/pink Neck Exam: Negative: JVD Chest Exam: Positive: Clear to auscultation, Normal air movement Heart Exam: Positive: Rate Normal, Normal S1, Normal S2 Telemetry: Positive: Atrial fibrillation Abdomen Exam: Positive: Soft, Negative: Tenderness Extremity Exam: Negative: Tenderness, Swelling Neuro Exam: Positive: Cranial Nerves 3-12 NL, Other (LUE with decreased hand nut feeder strength. Otherwise the patient has 5/5 strength in all extremities proximally.) Assessment /Plan Plan/VTE VTE Prophylaxis Ordered?: Yes Plan Expressive Aphasia, Mild LUE weakness possibly 2/[address] Head negative in ER Unable to obtain MRI Brain 2/2 Pacemaker 2D ECHO, U/S Carotids ordered Repeat CT Head ordered for tomorrow Patient at a high risk for CVA 2/2 Atrial Fibrillation and not being anticoagulated due to history of GI Bleed from underlying liver cirrhosis with Grade II esophageal varices and gastric antral vascular ectasia On ASA, Statin PT/OT, Speech therapy eval ordered Neurology on board Atrial fibrillation Not a candidate for anticoagulation given history of esophageal varices Continue digoxin, level is therapeutic. Hx of Tachy-eugenia syndrome status post pacemaker placement in 11/[address] Alcaraz Liver cirrhosis and Esophageal varices Cont Lasix, Aldactone GERD Continue Protonix, Carafate DVT Prophylaxis SCDs/TEDs Disposition-pending clinical improvement. PT/OT on board functional optimization. VS, I&O, 24H, Fishbone Vital Signs/I&O Vital Signs Date Time Temp Pulse Resp B/P (MAP) Pulse Ox O2 Delivery O2 Flow Rate FiO2 02/03/17 12:00 98.4 72 22 97/56 (70) 100 Room Air I&O- Last 24 Hours up to 6 AM 02/04/17 06:00 Intake Total 240 ml Output Total 300 ml Balance -60 ml Laboratory Data 24H LABS Laboratory Tests 2 02/02/17 17:03: Bedside Glucose (Misc Panel) 83 02/02/17 17:26: Prothrombin Time 14.2, Prothromb Time International Ratio 1.08, Activated Partial Thromboplast Time 31.9, Anion Gap 8, Glomerular Filtration Rate > 60.0, Blood Urea Nitrogen 11, Creatinine 0.96, Sodium Level 143, Potassium Level 4.6, Chloride Level 110H, Carbon Dioxide Level 25, Calcium Level 8.4L, Total Creatine Kinase 39, Creatine Kinase MB 1.2, Creatine Kinase MB Relative Index 3.07, Troponin I 0.02 02/02/17 17:30: Immature Granulocyte % (Auto) 0.8H, White Blood Count 6.1, Red Blood Count 3.48L , Hemoglobin 9.8L, Hematocrit 31.9L, Mean Corpuscular Volume 91.7, Mean Corpuscular Hemoglobin 28.2, Mean Corpuscular Hemoglobin Concent 30.7L, Red Cell Distribution Width 17.2H, Platelet Count 227, Neutrophils (%) (Auto) 59.9, Lymphocytes (%) (Auto) 12.5L, Monocytes (%) (Auto) 19.9H, Eosinophils (%) (Auto ) 4.9H, Basophils (%) (Auto) 2.0H, Neutrophils # (Auto) 3.6, Lymphocytes # (Auto ) 0.8L, Monocytes # (Auto) 1.2H, Eosinophils # (Auto) 0.3, Basophils # (Auto) 0.1, Immature Granulocyte # (Auto) 0.1H, Nucleated Red Blood Cells % (auto) 0.0 02/02/17 21:02: Ammonia 40H, Digoxin Level 0.6 CBC/BMP Laboratory Tests 02/02/17 17:26 Calcium Level 8.4 L, Total Creatine Kinase 39 02/02/17 17:30 Red Blood Count 3.48 L, Mean Corpuscular Volume 91.7, Mean Corpuscular Hemoglobin 28.2, Mean Corpuscular Hemoglobin Concent 30.7 L, Red Cell Distribution Width 17.2 H, Neutrophils (%) (Auto) 59.9, Lymphocytes (%) (Auto) 12.5 L, Monocytes (%) (Auto) 19.9 H, Eosinophils (%) (Auto) 4.9 H, Basophils (% ) (Auto) 2.0 H, Neutrophils # (Auto) 3.6, Lymphocytes # (Auto) 0.8 L, Monocytes # (Auto) 1.2 H, Eosinophils # (Auto) 0.3, Basophils # (Auto) 0.1 JOAN BOWLING MD Feb 03, 2017 14:23
[2017-02-03 14:30] VITALS: BP 100/56
[2017-02-03 16:00] VITALS: BP 109/58
[2017-02-03 20:00] VITALS: BP 117/63
[2017-02-03] MEDS: SPIRONOLACTONE 25 MG TAB PO SCH (21:00)
[2017-02-04] VITALS (7 sets, daily range): BP systolic 89–123; BP diastolic 49–65
[2017-02-04] MEDS: HEPARIN SOD (PORCINE) 5000 UNITS/ML VIAL SC SCH ×3 (06:00→22:00)
--- NOTE | 2017-02-04 07:10 | REPUSA ---
CLINICAL HISTORY: Stroke. TECHNIQUE: Multiple axial brain CT scan sections were obtained from base to vertex without contrast a dministration. COMMENTS: Comparison to prior exam performed on 02/02/2017. There is interval appearance of a 3.4x2.7 cm right frontal/temporal cortical/subcortical hypodensity suggestive of acute/subacute ischemia in the territory of the right middle cerebral artery. The study shows normal configuration of sella turcica. There are no intra or extra-axial collections. There is no mass effect or midline shift. There is no evidence of hematoma formation. No hydrocephal us is present. No abnormal calcifications are noted. The sinuses and mastoid air cells are patent. IMPRESSION: Interval appearance of a 3.4x2.7 cm right frontal/temporal cortical/subcortical hypodensity suggestiv e of acute/subacute ischemia in the territory of right middle cerebral artery. Thank you for your kind referral of this patient.
[2017-02-04 08:17] LABS: MEAN CORPUSCULAR HEMOGLOBIN 28.4 pg (27.0-33.0); MEAN CORPUSCULAR HGB CONC 30.8 g/dl (32.0-36.5); MEAN CORPUSCULAR VOLUME 92.4 fl (80.0-96.0); PLATELET COUNT, AUTOMATED 195 10^3/uL (150-450); RED CELL DISTRIBUTION WIDTH 17.1 % (11.5-14.5); WHITE BLOOD COUNT 4.6 10^3/uL (4.0-10.0)
[2017-02-04 08:43] LABS: CALCIUM LEVEL 8.2 MG/DL (8.8-10.2); CREATININE FOR GFR 1.05 MG/DL (0.55-1.02); GLOMERULAR FILTRATION RATE 54.5 (>39); POTASSIUM SERUM 4.4 MEQ/L (3.5-5.1)
[2017-02-04] MEDS: LACTOBACILLUS ACIDOPHILUS CAP (BACID) PO SCH (08:44)
[2017-02-04] MEDS: SUCRALFATE 1 GM TAB PO SCH ×4 (08:44→22:50)
[2017-02-04] MEDS: SENOKOT S TAB PO SCH ×2 (08:45→22:50)
[2017-02-04] MEDS: FUROSEMIDE 20 MG TAB PO SCH (08:45)
[2017-02-04] MEDS: DIGOXIN 0.125 MG TAB PO SCH (08:45)
[2017-02-04] MEDS: PANTOPRAZOLE 40MG TAB (PROTONIX) PO SCH (08:45)
[2017-02-04] MEDS: PROPRANOLOL 10 MG TAB PO SCH ×2 (08:45→21:00)
[2017-02-04] MEDS: ASPIRIN 81 MG ENTERIC TAB PO SCH (08:45)
--- NOTE | 2017-02-04 11:37 | CR ---
DATE OF CONSULTATION: 02/04/2017 REQUESTING PHYSICIAN: Dr. Jean REASON FOR CONSULTATION: Trouble talking and left arm weakness. HISTORY OF PRESENT ILLNESS: Pilar Brown is a 76-year-old woman with a history of cirrhosis, esophageal varices and history of recurrent GI bleeding, chronic atrial fibrillation status post pacemaker placement, who was brought to [facility] due to trouble speaking and left arm weakness. The patient had a cold and went to Urgent Care and was given antibiotics. She has had a cold for the last 3 weeks. She states that she had trouble walking over the last couple of days and felt intermittent trouble with speech. She has a history of chronic right shoulder pain and yesterday noted weakness of her left arm as well, in addition to right arm weakness, which is due to her chronic shoulder pain. She felt tingling, numbness and weakness in her arms. She called her son around 2:00 in the afternoon. Her symptoms started after she took a nap on the day of admission. She woke up with these symptoms. She was brought to [facility] by the emergency medical services a couple of hours later. She cannot have MRI scan of brain due to her pacemaker. She denies any headaches, neck or back pain. She denies any weakness in her legs. She denies any numbness, weakness in her legs. PAST MEDICAL HISTORY: 1. Cirrhosis of liver with esophageal varices and recurrent GI bleeding due to which the patient is not on anticoagulation. 2. Chronic atrial fibrillation, status post pacemaker placement. 3. Chronic congestive diastolic heart failure. 4. Anxiety. 5. Depression. 6. Acid reflux. 7. Hypertension. 8. Anemia. 9. Hysterectomy. 10. Tonsillectomy. 11. Cholecystectomy. ALLERGIES: MEPERIDINE, PENICILLIN, SULFA. SOCIAL HISTORY: She denies smoking, alcohol or illicit drugs. She lives alone. FAMILY HISTORY: No family history of diabetes, stroke or hypertension. HOME MEDICATIONS: - spironolactone 25 mg by mouth daily - propranolol 10 mg by mouth twice a day - Protonix 40 mg by mouth daily - Lasix 20 mg by mouth daily - digoxin 0.125 mg by mouth daily - Carafate 1 gram by mouth four times a day REVIEW OF SYSTEMS: All systems were reviewed and found to be noncontributory except as mentioned in history present illness. PHYSICAL EXAMINATION: Temperature 98.4, pulse 72, blood pressure 97/56, 100% saturation on room air. HEART: Irregularly irregular. LUNGS: Clear to auscultation. ABDOMEN: Soft, nontender, nondistended. EXTREMITIES: No pedal edema. No gross musculoskeletal abnormalities. EARS/NOSE/THROAT: Examination is within normal limits. No signs of meningeal irritation. The patient is awake, alert, oriented to place, person and time. Normal speech, comprehension and repetition. Extraocular muscles are intact. No facial weakness. Tongue and uvula midline. 4+/5 strength in bilateral upper extremities with pain. 5/5 strength in bilateral lower extremities. Deep tendon flexes are 1+ throughout. Plantars are downgoing. She has decreased cold, pinprick and vibration sensation in her feet. Gait could not be tested. DIAGNOSTIC STUDIES: CT scan of her head showed mild atrophy and small-vessel ischemic disease of brain. Carotid ultrasound showed less than 50% bilateral carotid artery stenosis. ASSESSMENT: 1. Possible right frontal ischemic stroke. 2. Transient ischemic attack is in differential diagnosis. 3. Chronic atrial fibrillation, pacemaker placement. 4. Cirrhosis, esophageal varices and GI bleeding. PLAN: 1. Aspirin 81 mg by mouth daily. 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 daily. 2. Protonix 40 mg by mouth daily and Carafate 1 gram by mouth four times a day. 3. Physical and occupational therapy.
--- NOTE | 2017-02-04 14:08 | IPNPDOC ---
Subjective Date Seen The patient was seen on 02/04/17. Subjective Chief Complaint/HPI The patient is a 76-year-old female admitted with a reason for visit of Ischemic Stroke. Events since last encounter Patient seen and examined at bedside. States that her speech is improved today compared to yesterday. In addition, she also states that the numbness and tingling in her left upper extremity is also improved. Denies any acute overnight events. Objective Physical Examination General Exam: Positive: Alert, Cooperative, No Acute Distress Eye Exam: Positive: EOMI, Negative: Sclera icteric, Ptosis ENT Exam: Positive: Atraumatic, Mucous membr. moist/pink Neck Exam: Negative: JVD Chest Exam: Positive: Clear to auscultation, Normal air movement Heart Exam: Positive: Rate Normal, Normal S1, Normal S2 Telemetry: Positive: Atrial fibrillation Abdomen Exam: Positive: Soft, Negative: Tenderness Extremity Exam: Negative: Tenderness, Swelling Neuro Exam: Positive: Strength at 5/5 X4 ext, Cranial Nerves 3-12 NL Assessment /Plan Plan/VTE VTE Prophylaxis Ordered?: Yes Plan Expressive Aphasia, Mild LUE weakness possibly 2/[address] Head negative in ER on admission Unable to obtain MRI Brain 2/2 Pacemaker 2D ECHO pending U/S Carotids unrevealing Repeat CT Head revealed Interval appearance of a 3.4x2.7 cm right frontal/ temporal cortical/subcortical hypodensity suggestive of acute/subacute ischemia in the territory of right middle cerebral artery. Patient at a high risk for CVA 2/2 Atrial Fibrillation and not being anticoagulated due to history of GI Bleed from underlying liver cirrhosis with Grade II esophageal varices and gastric antral vascular ectasia On ASA, Statin--We will touch base with GI (Dr. Shahid) regarding antiplatelet therapy given aforementioned history. I have discussed the benefits, risks, and alternative options associated with antiplatelet, anticoagulation therapy with the patient extensively. She has verbalized understanding of the same. PT/OT, Speech therapy pending Neurology on board Atrial fibrillation Not a candidate for anticoagulation given history of esophageal varices Continue digoxin, level is therapeutic. Hx of Tachy-eugenia syndrome status post pacemaker placement in 11/[address] 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 PT/OT on board functional optimization. VS, I&O, 24H, Fishbone Vital Signs/I&O Vital Signs Date Time Temp Pulse Resp B/P (MAP) Pulse Ox O2 Delivery O2 Flow Rate FiO2 02/04/17 12:00 99.0 70 18 119/56 (77) 96 Room Air I&O- Last 24 Hours up to 6 AM 02/05/17 06:00 Intake Total 680 ml Balance 680 ml Laboratory Data 24H LABS Laboratory Tests 2 02/04/17 07:59: Nucleated Red Blood Cells % (auto) 0.0, Anion Gap 8, Glomerular Filtration Rate 54.5, Blood Urea Nitrogen 13, Creatinine 1.05H, Sodium Level 141, Potassium Level 4.4, Chloride Level 110H, Carbon Dioxide Level 23, Calcium Level 8.2L CBC/BMP Laboratory Tests 02/04/17 07:59 Red Blood Count 3.27 L, Mean Corpuscular Volume 92.4, Mean Corpuscular Hemoglobin 28.4, Mean Corpuscular Hemoglobin Concent 30.8 L, Red Cell Distribution Width 17.1 H, Calcium Level 8.2 L JOAN BOWLING MD Feb 04, 2017 14:08
[2017-02-04] MEDS: SPIRONOLACTONE 25 MG TAB PO SCH (21:00)
[2017-02-05] VITALS (7 sets, daily range): BP systolic 106–140; BP diastolic 54–80
[2017-02-05] MEDS: HEPARIN SOD (PORCINE) 5000 UNITS/ML VIAL SC SCH (05:17)
[2017-02-05 05:28] LABS: MEAN CORPUSCULAR HGB CONC 31.3 g/dl (32.0-36.5); MEAN CORPUSCULAR VOLUME 89.6 fl (80.0-96.0); PLATELET COUNT, AUTOMATED 174 10^3/uL (150-450); RED CELL DISTRIBUTION WIDTH 16.8 % (11.5-14.5); WHITE BLOOD COUNT 3.9 10^3/uL (4.0-10.0)
[2017-02-05 05:39] LABS: ANION GAP 9 MEQ/L (8-16); BLOOD UREA NITROGEN 12 MG/DL (7-18); CALCIUM LEVEL 8.1 MG/DL (8.8-10.2); CARBON DIOXIDE LEVEL 23 MEQ/L (21-32); CHLORIDE LEVEL 109 MEQ/L (98-107); CREATININE FOR GFR 0.77 MG/DL (0.55-1.02); GLOMERULAR FILTRATION RATE > 60.0 (>39); GLUCOSE, FASTING 92 MG/DL (83-110); MAGNESIUM LEVEL 2.1 MG/DL (1.8-2.4); POTASSIUM SERUM 3.8 MEQ/L (3.5-5.1); SODIUM LEVEL 141 MEQ/L (136-145)
--- NOTE | 2017-02-05 06:12 | ECHO ---
DATE OF STUDY: 02/04/2017 REFERRING PHYSICIAN: Dr. Phillip De Santiago INDICATION: Acute stroke. HEIGHT: 67 inches. WEIGHT: 156 pounds. 2-D MEASUREMENTS: Aortic root: 3.2 cm Proximal ascending aorta: 3.5 cm Left atrium: 5.1 cm Ventricular septum: 0.94 cm Posterior wall: 1.02 cm Left ventricle diastole: 4.1 cm Left ventricle systole: 2.1 cm Left atrial volume index: 112 Inferior vena cava: 2.1 cm DOPPLER MEASUREMENTS: Very mild aortic regurgitation Aortic valve velocity: 139 cm/sec LVOT velocity: 152 cm/sec LVOT VTI: 27.2 cm Moderate mitral regurgitation No mitral stenosis Mitral E velocity: 159 cm/sec Mitral deceleration time: 289 ms Mild tricuspid regurgitation Estimated right ventricular systolic pressure 28 mmHg assuming a right atrial pressure of 5 mmHg Pulmonary artery systolic pressure: 25 mmHg by pulmonary acceleration time method MITRAL ANNULAR TISSUE DOPPLER: E prime lateral: 7.7 cm/sec E prime septal: 7.8 cm/sec DESCRIPTION: The rhythm appeared to be atrial fibrillation. Image quality was fair. This was a 2-D, M-mode, color flow Doppler and pulse wave Doppler examination and included mitral annular tissue Doppler. CONCLUSIONS: 1. Normal left ventricle internal dimensions and wall thickness. Normal regional wall motion and wall thickening. Normal LV systolic function. LVEF 65-70% by visual estimate. 2. Severe left atrial dilatation. 3. Severe mitral annular calcification. Moderate mitral valve regurgitation. No mitral stenosis. 4. Mild aortic valve sclerosis of a 3-cuspid aortic valve. Very mild aortic regurgitation. 5. Very small pericardial effusion. 6. Appearance of a right ventricle pacing lead in the right ventricle.
[2017-02-05] MEDS: PROPRANOLOL 10 MG TAB PO SCH ×3 (08:29→21:34)
[2017-02-05] MEDS: LACTOBACILLUS ACIDOPHILUS CAP (BACID) PO SCH (08:29)
[2017-02-05] MEDS: PANTOPRAZOLE 40MG TAB (PROTONIX) PO SCH (08:29)
[2017-02-05] MEDS: FERROUS GLUCONATE 324 MG TAB PO SCH ×2 (08:30→21:33)
[2017-02-05] MEDS: SENOKOT S TAB PO SCH ×2 (08:30→21:33)
[2017-02-05] MEDS: DIGOXIN 0.125 MG TAB PO SCH (08:31)
[2017-02-05] MEDS: SUCRALFATE 1 GM TAB PO SCH ×4 (08:31→21:33)
[2017-02-05] MEDS: FUROSEMIDE 20 MG TAB PO SCH (08:31)
[2017-02-05] MEDS: ONDANSETRON 4 MG TAB (S0181) PO PRN ×2 (08:43→21:40)
--- NOTE | 2017-02-05 12:58 | IPNPDOC ---
Subjective Date Seen The patient was seen on 02/05/17. Subjective Chief Complaint/HPI The patient is a 76-year-old female admitted with a reason for visit of Ischemic Stroke. Events since last encounter Patient seen and examined at the bedside this morning. States that her difficulty in expressing her thoughts has improved. She denies any acute complaints of any focal deficits at this time. She reports that she has been able to tolerate a by mouth diet, and notes that she has been working with physical therapy. Denies any other acute complaints at this time. Objective Physical Examination General Exam: Positive: Alert, Cooperative, No Acute Distress Eye Exam: Positive: EOMI, Negative: Sclera icteric, Ptosis ENT Exam: Positive: Atraumatic, Mucous membr. moist/pink Neck Exam: Negative: JVD Chest Exam: Positive: Clear to auscultation, Normal air movement Heart Exam: Positive: Rate Normal, Normal S1, Normal S2 Telemetry: Positive: Atrial fibrillation Abdomen Exam: Positive: Soft, Negative: Tenderness Extremity Exam: Negative: Tenderness, Swelling Neuro Exam: Positive: Strength at 5/5 X4 ext, Cranial Nerves 3-12 NL Psych Exam: Positive: Oriented x 3 Assessment /Plan Plan/VTE VTE Prophylaxis Ordered?: Yes Plan Expressive Aphasia, Mild LUE weakness possibly 2/[address] Head negative in ER on admission Unable to obtain MRI Brain 2/2 Pacemaker 2D ECHO notable for Normal EF, severe left atrial dilatation U/S Carotids unrevealing Repeat CT Head revealed Interval appearance of a 3.4x2.7 cm right frontal/ temporal cortical/subcortical hypodensity suggestive of acute/subacute ischemia in the territory of right middle cerebral artery. Patient at a high risk for CVA 2/2 Atrial Fibrillation and not being anticoagulated due to history of GI Bleed from underlying liver cirrhosis with Grade II esophageal varices and gastric antral vascular ectasia I did discuss starting ASA 81mg with Dr. Shahid of GI, who has discussed this with Cardiology as well in view of the patient's aforementioned history. He has stated that the patient can be started on ASA 81mg with PPI coverage. I have discussed the benefits, risks, and alternative options associated with antiplatelet, anticoagulation therapy with the patient extensively. She has verbalized understanding of the same. Cont Statin PT/OT, Speech therapy pending Neurology on board Atrial fibrillation Not a candidate for anticoagulation given history of esophageal varices Continue digoxin, level is therapeutic. Hx of Tachy-eugenia syndrome status post pacemaker placement in 11/[address] 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 PT/OT on board functional optimization. VS, I&O, 24H, Fishbone Vital Signs/I&O Vital Signs Date Time Temp Pulse Resp B/P (MAP) Pulse Ox O2 Delivery O2 Flow Rate FiO2 02/05/17 12:00 98.2 77 18 106/59 (75) 99 Room Air I&O- Last 24 Hours up to 6 AM 02/06/17 06:00 Intake Total 360 ml Balance 360 ml Laboratory Data 24H LABS Laboratory Tests 2 02/05/17 04:53: Nucleated Red Blood Cells % (auto) 0.0, Anion Gap 9, Glomerular Filtration Rate > 60.0, Blood Urea Nitrogen 12, Creatinine 0.77, Sodium Level 141, Potassium Level 3.8, Chloride Level 109H, Carbon Dioxide Level 23, Calcium Level 8.1L, Magnesium Level 2.1 CBC/BMP Laboratory Tests 02/05/17 04:53 Red Blood Count 3.07 L, Mean Corpuscular Volume 89.6, Mean Corpuscular Hemoglobin 28.0, Mean Corpuscular Hemoglobin Concent 31.3 L, Red Cell Distribution Width 16.8 H, Calcium Level 8.1 L JOAN BOWLING MD Feb 05, 2017 12:58
[2017-02-05] MEDS: ATORVASTATIN 20 MG TAB PO SCH (15:10)
[2017-02-05] MEDS: ASPIRIN 81 MG ENTERIC TAB PO SCH (15:11)
[2017-02-05] MEDS ORDERED: POLYVINYL ALCOHOL OPHTH SOLN 15 ML(LIQUITEARS) OU PRN (20:00)
[2017-02-05] MEDS: SPIRONOLACTONE 25 MG TAB PO SCH ×2 (21:00→21:33)
[2017-02-06] VITALS (7 sets, daily range): BP systolic 93–118; BP diastolic 53–68
[2017-02-06 05:26] LABS: MEAN CORPUSCULAR HEMOGLOBIN 27.6 pg (27.0-33.0); MEAN CORPUSCULAR HGB CONC 31.3 g/dl (32.0-36.5); MEAN CORPUSCULAR VOLUME 88.3 fl (80.0-96.0); PLATELET COUNT, AUTOMATED 169 10^3/uL (150-450); RED CELL DISTRIBUTION WIDTH 16.7 % (11.5-14.5); WHITE BLOOD COUNT 4.8 10^3/uL (4.0-10.0)
[2017-02-06 05:51] LABS: ANION GAP 10 MEQ/L (8-16); BLOOD UREA NITROGEN 11 MG/DL (7-18); CALCIUM LEVEL 7.8 MG/DL (8.8-10.2); CARBON DIOXIDE LEVEL 22 MEQ/L (21-32); CHLORIDE LEVEL 110 MEQ/L (98-107); CREATININE FOR GFR 0.79 MG/DL (0.55-1.02); GLOMERULAR FILTRATION RATE > 60.0 (>39); GLUCOSE, FASTING 85 MG/DL (83-110); POTASSIUM SERUM 3.7 MEQ/L (3.5-5.1); SODIUM LEVEL 142 MEQ/L (136-145)
[2017-02-06] MEDS: ASPIRIN 81 MG ENTERIC TAB PO SCH (09:39)
[2017-02-06] MEDS: SUCRALFATE 1 GM TAB PO SCH ×4 (09:39→20:50)
[2017-02-06] MEDS: ATORVASTATIN 20 MG TAB PO SCH (09:40)
[2017-02-06] MEDS: FERROUS GLUCONATE 324 MG TAB PO SCH ×2 (09:40→20:50)
[2017-02-06] MEDS: PROPRANOLOL 10 MG TAB PO SCH ×2 (09:40→20:46)
[2017-02-06] MEDS: DIGOXIN 0.125 MG TAB PO SCH (09:40)
[2017-02-06] MEDS: SENOKOT S TAB PO SCH ×2 (09:40→20:50)
[2017-02-06] MEDS: PANTOPRAZOLE 40MG TAB (PROTONIX) PO SCH (09:40)
[2017-02-06] MEDS: LACTOBACILLUS ACIDOPHILUS CAP (BACID) PO SCH (09:40)
[2017-02-06] MEDS: FUROSEMIDE 20 MG TAB PO SCH (09:41)
[2017-02-06] MEDS: SPIRONOLACTONE 25 MG TAB PO SCH (20:46)
[2017-02-07 04:00] VITALS: BP 114/63
[2017-02-07 05:37] LABS: MEAN CORPUSCULAR HEMOGLOBIN 28.4 pg (27.0-33.0); MEAN CORPUSCULAR HGB CONC 32.2 g/dl (32.0-36.5); MEAN CORPUSCULAR VOLUME 88.2 fl (80.0-96.0); PLATELET COUNT, AUTOMATED 162 10^3/uL (150-450); RED CELL DISTRIBUTION WIDTH 16.7 % (11.5-14.5); WHITE BLOOD COUNT 4.6 10^3/uL (4.0-10.0)
[2017-02-07 05:49] LABS: ANION GAP 7 MEQ/L (8-16); BLOOD UREA NITROGEN 13 MG/DL (7-18); CARBON DIOXIDE LEVEL 25 MEQ/L (21-32); CHLORIDE LEVEL 109 MEQ/L (98-107); GLOMERULAR FILTRATION RATE > 60.0 (>39); GLUCOSE, FASTING 85 MG/DL (83-110); MAGNESIUM LEVEL 2.2 MG/DL (1.8-2.4); POTASSIUM SERUM 3.7 MEQ/L (3.5-5.1); SODIUM LEVEL 141 MEQ/L (136-145)
[2017-02-07 08:00] VITALS: BP 129/60
--- NOTE | 2017-02-07 08:06 | IPN ---
DATE: 02/06/2017 Patient seen and examined. No acute events overnight. Able to ambulate. Denies any chest pain, pressure, or discomfort. Denies any shortness of breath. Denies any diarrhea. VITAL SIGNS: Temperature 99, pulse 71, respirations 18, blood pressure 101/68, pulse oximetry 100% on room air. LABORATORY DATA: WBC 4.8, hemoglobin and hematocrit 8.7/27.8, platelets 169. Chemistry: Sodium 142, potassium 3.7, chloride 110, bicarbonate 22, BUN 11, creatinine 0.9. PHYSICAL EXAMINATION: GENERAL: Patient alert, comfortable in no acute distress. HEENT: Normocephalic, atraumatic. PULMONARY: Bilaterally clear to auscultation. CARDIAC: Irregularly irregular, S1, S2. ABDOMEN: Soft, nontender. Positive bowel sounds. EXTREMITIES: No clubbing, cyanosis, or edema. ASSESSMENT AND PLAN: This is a 76-year-old female patient with underlying medical history of cryptogenic cirrhosis and esophageal varices and history of gastrointestinal (GI) bleed, atrial fibrillation, not on anticoagulation due to recurrent GI bleed with pacemaker, diastolic congestive heart failure, abdominal pain, intermittently due to gastritis and duodenitis, anxiety, depression, gastroesophageal reflux disease (GERD), hypertension, chronic anemia, Clostridium (C) difficile diarrhea in the past, presented to the hospital with expressive aphasia and also mild left upper extremity weakness with ischemic cerebrovascular accident (CVA). 1. Expressive aphasia with mild left upper extremity weakness secondary to ischemic CVA. CT scan appreciated. Unable to do MRI due to pacemaker. Echo appreciated. Showing severe left atrial dilatation. Ultrasound carotid unrevealing. Repeat CT reveals internal appearance of 3.4 x 3.7 cm right frontotemporal cortical subcortical hypodensity suggestive of acute versus subacute ischemic stroke, right MCA territory. Given patient was high risk of CVA secondary to atrial fibrillation and not being anticoagulated secondary to recurrent GI bleed with underlying liver cirrhosis due to grade 2 esophageal varices, case was discussed with neurology as well as gastroenterology. Patient placed on 81 of aspirin along with proton pump inhibitor (PPI) but will not place the patient on anticoagulation given the risk of massive uncontrolled GI bleed is way too high. Case discussed with the patient as well. Patient is aware of the risk of recurrent stroke. Patient symptoms are much improved. Continue statin, physical therapy (PT), occupational therapy (OT), speech and swallow. 2. Atrial fibrillation. Patient not a candidate for anticoagulation due to esophageal varices with recurrent bleed. Continue digoxin. 3. History of tachycardia/bradycardia syndrome. Patient with a pacemaker. 4. Idiopathic liver cirrhosis with esophageal varices. Lasix, Aldactone, PPI has been given, Carafate. 5. GERD. Continue Protonix and Carafate. 6. History of C. difficile. Continue probiotics. Continue propranolol. 7. Cirrhosis with esophageal varices. 8. Deep vein thrombosis (DVT) prophylaxis. Continue compression device. DISPOSITION: Likely discharge in the next 24 hours. Physical therapy. Patient and family services (PFS) for possible Life [facility].
[2017-02-07] MEDS: FUROSEMIDE 20 MG TAB PO SCH (08:28)
[2017-02-07] MEDS: PANTOPRAZOLE 40MG TAB (PROTONIX) PO SCH (08:28)
[2017-02-07] MEDS: FERROUS GLUCONATE 324 MG TAB PO SCH (08:28)
[2017-02-07 08:29] VITALS: BP 110/68
[2017-02-07] MEDS: LACTOBACILLUS ACIDOPHILUS CAP (BACID) PO SCH (08:29)
[2017-02-07] MEDS: SUCRALFATE 1 GM TAB PO SCH (08:29)
[2017-02-07] MEDS: PROPRANOLOL 10 MG TAB PO SCH (08:29)
[2017-02-07] MEDS: DIGOXIN 0.125 MG TAB PO SCH (08:30)
[2017-02-07] MEDS: ATORVASTATIN 20 MG TAB PO SCH (08:30)
[2017-02-07] MEDS: SENOKOT S TAB PO SCH (08:30)
[2017-02-07] MEDS: ASPIRIN 81 MG ENTERIC TAB PO SCH (08:30)
[2017-02-07] MEDS ORDERED: ATOR1TAB21 PO (10:09)
[2017-02-07] MEDS ORDERED: ASPI81TAEC PO (10:09)
[2017-02-07 12:00] VITALS: BP 114/59
--- NOTE | 2017-02-07 15:42 | DSES ---
DATE OF ADMISSION: 02/02/2017 DATE OF DISCHARGE: 02/07/2017 NEUROLOGIST: Dr. Casas and Dr. Schultz PRIMARY CARE PROVIDER: Dr. Tiwari. PROJECT DEVELOPMENT COORDINATOR: Dr. Shahid. FINAL DIAGNOSES: 1. CVA with expressive aphasia. 2. Atrial fibrillation. 3. History of tachybrady syndrome. 4. Idiopathic liver cirrhosis with esophageal varices and history of gastrointestinal bleed. 5. Gastroesophageal reflux disease (GERD). 6. History of Clostridium (C.) difficile. 7. Cirrhosis. HISTORY OF PRESENT ILLNESS: This is a 76-year-old female patient with underlying medical history of cryptogenic cirrhosis with esophageal varices, history of recurrent gastrointestinal bleed, atrial fibrillation not on anticoagulation due to gastrointestinal bleed, tachybrady syndrome with pacemaker, diastolic congestive heart failure (CHF), chronic abdominal pain with gastritis and duodenitis, anxiety, depression, GERD, hypertension, chronic anemic, C difficile with diarrhea in the past, who presented to the hospital for evaluation of trouble walking, left arm weakness and expressive aphasia. The patient is a poor historian. As per patient, the patient lives by herself. Recently ill with upper respiratory infection. The patient went to urgent care today prior to admission and prescribed Cefdinir for possible upper respiratory infection. Took antibiotics and then went to sleep. Woke up in the morning not feeling good and complained of trouble talking and some tingling sensation and weakness of the arms. She called her son. The patient called urgent care and then 911 was called. Subsequently was brought to the hospital for further evaluation. Otherwise, could not provide any additional details on admission. CT scan of the head was done in the hospital, as well as laboratories. The patient cannot receive MRI due to pacemaker. HOSPITAL COURSE: Neurology consultation was done. Repeat CT scan shows the patient had a frontal infarct. Further workup, including echocardiogram and carotid Doppler was done. Discussion was held between neurologist and health management consultant and it was decided to place the patient on aspirin 81, avoid anticoagulation given significant history of bleed with esophageal varices and also multiple transfusions in the past. Acute versus subacute ischemic stroke in right MCA territory. The patient was also started on statin. Home medication was continued. The patient had physical therapy (PT) and occupational therapy (OT) and speech and swallow was ordered. The patient currently is doing well and deemed safe by physical therapy to return home with home physical therapy. The patient is tolerating oral. VITAL SIGNS: Temperature 99.8, pulse 77, respirations 18, blood pressure 114/59, pulse oximetry 98% on room air. LABORATORY DATA: WBC 4.6, hemoglobin and hematocrit 8.4/26.1, platelets 162. Chemistry: Sodium 141, potassium 3.7, chloride 109, bicarbonate 25, BUN 13, creatinine 0.8. GENERAL: The patient is alert, comfortable and in no acute distress. HEENT: Normocephalic, atraumatic. PULMONARY: Bilaterally clear to auscultation. CARDIAC: Irregularly irregular. No tachycardia. S1, S2. ABDOMEN: Soft, nontender. Positive bowel sounds. EXTREMITIES: No clubbing, cyanosis or edema. DISCHARGE MEDICATIONS: - aspirin 81 mg enteric coated by mouth daily - Lipitor 40 mg by mouth daily - carboxymethylcellulose eye drops three times a day as needed - Digoxin 0.125 mg by mouth daily - ferrous gluconate 240 mg by mouth twice a day - Lasix 100 mg by mouth daily - Bacid one tablet by mouth daily - Protonix 40 mg by mouth daily - propranolol 10 mg by mouth twice a day - spironolactone 25 mg by mouth at night - Carafate 1 gram by mouth at night and before meals DISCHARGE INSTRUCTIONS: The patient is instructed to followup with primary care provider in 7 days, neurology in 2 weeks. Return to the hospital if symptoms worsen. Home with home physical therapy.
== END 2017-02-07 14:11 | disposition home health service (06) | DRG 65 ==
LOC: M ED 16:09 → M ED INP 20:38 → M PCU 02-03 14:11
PROVIDERS: ADMIT Hospitalist; ATTEND Hospitalist
DX: I63.9 Cerebral infarction, unspecified (principal); I69.354 Hemiplegia and hemiparesis following cerebral infarction affecting left non-dominant side; I85.10 Secondary esophageal varices without bleeding; I50.32 Chronic diastolic (congestive) heart failure; I69.320 Aphasia following cerebral infarction; I48.2 Chronic atrial fibrillation; K21.9 Gastro-esophageal reflux disease without esophagitis; K74.60 Unspecified cirrhosis of liver; Z95.0 Presence of cardiac pacemaker; I11.0 Hypertensive heart disease with heart failure; I49.5 Sick sinus syndrome; K29.70 Gastritis, unspecified, without bleeding; K29.80 Duodenitis without bleeding; D64.9 Anemia, unspecified; F32.9 Major depressive disorder, single episode, unspecified; F41.9 Anxiety disorder, unspecified; Z79.82 Long term (current) use of aspirin; Z79.899 Other long term (current) drug therapy; Z88.0 Allergy status to penicillin; Z88.2 Allergy status to sulfonamides; Z88.8 Allergy status to other drugs, medicaments and biological substances

== ENCOUNTER → 2017-02-22 | Outpatient (REF) | payer MEDICARE ==
[2017-02-22 16:59] LABS: BASO # 0.1 10^3/uL (0.0-0.2); BASO % 1.8 % (0.0-1.0); EOS # 0.3 10^3/uL (0.0-0.50); EOS % 5.9 % (0.0-3.0); HEMOGLOBIN 8.4 g/dl (12.0-16.0); IMMATURE GRANULOCYTE % 0.4 % (0-0); LYMPH # 0.7 10^3/uL (1.5-4.5); LYMPH % 12.4 % (24.0-44.0); MONO # 0.9 10^3/uL (0.0-0.8); MONO % 15.6 % (0.0-5.0); NEUTROPHILS # 3.6 10^3/uL (1.8-7.7); NEUTROPHILS % 63.9 % (36.0-66.0); PLATELET COUNT, AUTOMATED 235 10^3/uL (150-450); RED BLOOD COUNT 3.11 10^6/uL (4.00-5.40); RED CELL DISTRIBUTION WIDTH 16.3 % (11.5-14.5); WHITE BLOOD COUNT 5.6 10^3/uL (4.0-10.0)
[2017-02-22 17:28] LABS: ALBUMIN 3.1 GM/DL (3.2-5.2); ALBUMIN/GLOBULIN RATIO 1.03 (1.00-1.93); ALKALINE PHOSPHATASE 123 U/L (45-117); ALT/SGPT 31 U/L (12-78); ANION GAP 7 MEQ/L (8-16); AST/SGOT 44 U/L (7-37); BILIRUBIN,TOTAL 1.3 MG/DL (0.2-1.0); BLOOD UREA NITROGEN 11 MG/DL (7-18); CALCIUM LEVEL 8.5 MG/DL (8.8-10.2); CARBON DIOXIDE LEVEL 26 MEQ/L (21-32); CHLORIDE LEVEL 107 MEQ/L (98-107); CHOLESTEROL LEVEL 105 MG/DL (<200); CHOLESTEROL RISK RATIO 2.625 (<5); CREATININE FOR GFR 0.75 MG/DL (0.55-1.02); GLOMERULAR FILTRATION RATE > 60.0 (>39); GLUCOSE, FASTING 100 MG/DL (83-110); HDL CHOLESTEROL 40 MG/DL (>40); LDL CHOLESTEROL 40.4 MG/DL (<100); NON-HDL-C 65 MG/DL; SODIUM LEVEL 140 MEQ/L (136-145); TOTAL PROTEIN 6.1 GM/DL (6.4-8.2); TRIGLYCERIDES LEVEL 123 MG/DL (<150)
== END ==
LOC: M LAB REF 16:39
DX: I63.9 Cerebral infarction, unspecified (principal); I85.01 Esophageal varices with bleeding; D64.9 Anemia, unspecified; I10 Essential (primary) hypertension; K74.60 Unspecified cirrhosis of liver
CPT/HCPCS: 80053

== ENCOUNTER → 2017-03-12 | Outpatient (REF) | payer MEDICARE | LOC: M LAB REF 17:30 | DX: R35.0 Frequency of micturition (principal) | CPT/HCPCS: 87086 ==

== ENCOUNTER → 2017-03-21 | Outpatient (REF) | payer MEDICARE | LOC: M LAB REF 15:35 | DX: R19.7 Diarrhea, unspecified (principal); K92.1 Melena | CPT/HCPCS: 82270 ==

== ENCOUNTER 2017-04-02 17:16 | Inpatient (IN) | payer MEDICARE, MEDICAID ==
[2017-04-02 18:50] LABS: BASO # 0.1 10^3/uL (0.0-0.2); BASO % 1.9 % (0.0-1.0); EOS # 0.3 10^3/uL (0.0-0.50); EOS % 6.1 % (0.0-3.0); HEMATOCRIT 25.5 % (36.0-47.0); HEMOGLOBIN 7.1 g/dl (12.0-16.0); IMMATURE GRANULOCYTE % 0.4 % (0-3.0); LYMPH # 0.6 10^3/uL (1.5-4.5); LYMPH % 12.5 % (24.0-44.0); MEAN CORPUSCULAR HGB CONC 27.8 g/dl (32.0-36.5); MEAN CORPUSCULAR VOLUME 86.1 fl (80.0-96.0); MONO # 0.9 10^3/uL (0.0-0.8); MONO % 18.6 % (0.0-5.0); NEUTROPHILS # 2.9 10^3/uL (1.8-7.7); NEUTROPHILS % 60.5 % (36.0-66.0); PLATELET COUNT, AUTOMATED 271 10^3/uL (150-450); RED BLOOD COUNT 2.96 10^6/uL (4.00-5.40); RED CELL DISTRIBUTION WIDTH 16.5 % (11.5-14.5); WHITE BLOOD COUNT 4.8 10^3/uL (4.0-10.0)
[2017-04-02 18:56] LABS: ALBUMIN 3.1 GM/DL (3.2-5.2); ALBUMIN/GLOBULIN RATIO 0.94 (1.00-1.93); ALKALINE PHOSPHATASE 111 U/L (45-117); ALT/SGPT 25 U/L (12-78); ANION GAP 9 MEQ/L (8-16); AST/SGOT 53 U/L (7-37); BILIRUBIN,DIRECT 0.3 MG/DL (0.0-0.2); BILIRUBIN,TOTAL 1.2 MG/DL (0.2-1.0); BLOOD UREA NITROGEN 14 MG/DL (7-18); CALCIUM LEVEL 8.3 MG/DL (8.8-10.2); CARBON DIOXIDE LEVEL 23 MEQ/L (21-32); CHLORIDE LEVEL 108 MEQ/L (98-107); CPK CREATINE PHOSPHOKINASE 60 U/L (26-192); CREATININE FOR GFR 0.74 MG/DL (0.55-1.30); FREE T4 1.37 NG/DL (0.76-1.46); GLOMERULAR FILTRATION RATE > 60.0 (>39); GLUCOSE, FASTING 101 MG/DL (70-100); INR 1.16; LIPASE 206 U/L (73-393); PARTIAL THROMBOPLASTIN TIME 29.4 SECONDS (26.8-37.9); POTASSIUM SERUM 4.4 MEQ/L (3.5-5.1); SODIUM LEVEL 140 MEQ/L (136-145); TOTAL PROTEIN 6.4 GM/DL (6.4-8.2); TROPONIN I < 0.02 NG/ML (< 0.10)
[2017-04-02 19:02] LABS: MB/CK RELATIVE INDEX 1.66 (< OR =4)
[2017-04-02] MEDS ORDERED: ISOVUE-370 76% 100ML VIAL (Q9967) As Ordered (19:38)
[2017-04-02] MEDS: ACETAMINOPHEN TAB 650MG DOSE (2X325MG) PO (20:13)
[2017-04-02 22:33] LABS: CPK CREATINE PHOSPHOKINASE 30 U/L (26-192); TROPONIN I 0.02 NG/ML (< 0.10)
[2017-04-02 22:34] LABS: MB/CK RELATIVE INDEX 3.33 (< OR =4)
[2017-04-02] MEDS: SUCRALFATE 1 GM TAB PO (23:50)
[2017-04-02] MEDS: PROPRANOLOL 10 MG TAB PO (23:51)
[2017-04-02] MEDS: PANTOPRAZOLE 40MG INJ (PROTONIX) (C9113) IV (23:51)
[2017-04-02] MEDS: D5W/0.45% SODIUM CHLORIDE 1,000 ML IV (23:52)
[2017-04-02] MEDS: SPIRONOLACTONE 25 MG TAB PO (23:53)
[2017-04-03] MEDS: FERROUS GLUCONATE 324 MG TAB PO (01:45)
[2017-04-03 03:11] LABS: IMMEDIATE SPIN CROSSMATCH 1 2
[2017-04-03 06:41] LABS: BASO # 0.1 10^3/uL (0.0-0.2); BASO % 1.5 % (0.0-1.0); EOS # 0.3 10^3/uL (0.0-0.50); EOS % 6.1 % (0.0-3.0); HEMATOCRIT 26.6 % (36.0-47.0); HEMOGLOBIN 8.1 g/dl (12.0-16.0); IMMATURE GRANULOCYTE % 0.6 % (0-3.0); LYMPH # 0.5 10^3/uL (1.5-4.5); LYMPH % 10.1 % (24.0-44.0); MEAN CORPUSCULAR HEMOGLOBIN 26.1 pg (27.0-33.0); MEAN CORPUSCULAR HGB CONC 30.5 g/dl (32.0-36.5); MEAN CORPUSCULAR VOLUME 85.8 fl (80.0-96.0); MONO # 0.9 10^3/uL (0.0-0.8); MONO % 19.2 % (0.0-5.0); NEUTROPHILS % 62.5 % (36.0-66.0); PLATELET COUNT, AUTOMATED 182 10^3/uL (150-450); RED CELL DISTRIBUTION WIDTH 15.7 % (11.5-14.5); WHITE BLOOD COUNT 4.7 10^3/uL (4.0-10.0)
[2017-04-03 07:06] LABS: ALBUMIN 2.7 GM/DL (3.2-5.2); ALBUMIN/GLOBULIN RATIO 0.96 (1.00-1.93); ALKALINE PHOSPHATASE 92 U/L (45-117); ALT/SGPT 20 U/L (12-78); ANION GAP 8 MEQ/L (8-16); AST/SGOT 31 U/L (7-37); BILIRUBIN,TOTAL 4.5 MG/DL (0.2-1.0); BLOOD UREA NITROGEN 12 MG/DL (7-18); CALCIUM LEVEL 7.9 MG/DL (8.8-10.2); CARBON DIOXIDE LEVEL 24 MEQ/L (21-32); CHLORIDE LEVEL 111 MEQ/L (98-107); CPK CREATINE PHOSPHOKINASE 26 U/L (26-192); CREATININE FOR GFR 0.62 MG/DL (0.55-1.30); GLOMERULAR FILTRATION RATE > 60.0 (>39); GLUCOSE, FASTING 102 MG/DL (70-100); MAGNESIUM LEVEL 2.3 MG/DL (1.8-2.4); POTASSIUM SERUM 3.7 MEQ/L (3.5-5.1); SODIUM LEVEL 143 MEQ/L (136-145); TOTAL PROTEIN 5.5 GM/DL (6.4-8.2); TROPONIN I 0.02 NG/ML (< 0.10)
[2017-04-03 07:08] LABS: CK-MB VALUE MASS 1.2 NG/ML (0.0-3.6); MB/CK RELATIVE INDEX 4.61 (< OR =4)
[2017-04-03] MEDS: SUCRALFATE 1 GM TAB PO (07:59)
[2017-04-03] MEDS: PROPRANOLOL 10 MG TAB PO ×2 (09:00→21:00)
[2017-04-03] MEDS: TRIAMCINOLONE ACET 0.1% CREAM 80 GM TOP (09:17)
[2017-04-03] MEDS: ASPIRIN 81 MG ENTERIC TAB PO (09:18)
[2017-04-03] MEDS: LACTOBACILLUS ACIDOPHILUS CAP (BACID) PO (09:18)
[2017-04-03] MEDS: PANTOPRAZOLE 40MG INJ (PROTONIX) (C9113) IV ×2 (09:18→21:58)
[2017-04-03] MEDS: FUROSEMIDE 20 MG TAB PO (09:18)
[2017-04-03] MEDS: DIGOXIN 0.125 MG TAB PO (09:19)
[2017-04-03] MEDS: CIPROFLOXACIN 400 MG in APPROPRIATE DILUENT 1 EA IV ×2 (10:09→21:58)
[2017-04-03 11:49] LABS: CPK CREATINE PHOSPHOKINASE 51 U/L (26-192); MB/CK RELATIVE INDEX 1.96 (< OR =4); TROPONIN I 0.02 NG/ML (< 0.10)
[2017-04-03] MEDS: SUCRALFATE SUSP 1GM/10ML UD PO ×3 (12:00→21:58)
[2017-04-03 13:50] LABS: HEMATOCRIT 29.3 % (36.0-47.0); HEMOGLOBIN 8.7 g/dl (12.0-16.0); MEAN CORPUSCULAR HEMOGLOBIN 25.7 pg (27.0-33.0); MEAN CORPUSCULAR HGB CONC 29.7 g/dl (32.0-36.5); MEAN CORPUSCULAR VOLUME 86.7 fl (80.0-96.0); PLATELET COUNT, AUTOMATED 191 10^3/uL (150-450); RED BLOOD COUNT 3.38 10^6/uL (4.00-5.40); RED CELL DISTRIBUTION WIDTH 15.8 % (11.5-14.5); WHITE BLOOD COUNT 5.2 10^3/uL (4.0-10.0)
[2017-04-03 14:06] LABS: TYPE AND SCREEN 1
[2017-04-03 14:56] LABS: TYPE AND SCREEN 1
[2017-04-03 16:46] LABS: SPEC. GRAVITY BODY FLUIDS 1.008 (NOT ESTABLISHED)
[2017-04-03 16:58] LABS: BF MONONUCLEAR CELL % 95.4 % (0-0); BF POLYMORPHONUCLEAR CELL % 4.6 % (0-0); RBC BODY FLUID < 2 10^3/uL (<2); WBC BODY FLUID 176 /uL (0-10)
[2017-04-03 16:59] LABS: APPEARANCE, BODY FLUID CLEAR (CLEAR); ASCITES FL COLOR YELLOW (COLORLESS); BF DIFF IF INDICATED? YES (NO); SOURCE, BODY FLUID ASCITES
[2017-04-03 17:38] LABS: SOURCE, BODY FLUID ALBUMIN ASCITES; SOURCE, BODY FLUID GLUCOSE ASCITES; SOURCE, BODY FLUID TOT PROTEIN ASCITES; TOTAL PROTEIN, BODY FLUID 0.8 G/DL (NOT ESTABLISHED)
[2017-04-03 17:41] LABS: CPK CREATINE PHOSPHOKINASE 28 U/L (26-192); MB/CK RELATIVE INDEX 3.57 (< OR =4); TROPONIN I 0.02 NG/ML (< 0.10)
[2017-04-03] MEDS: ONDANSETRON 4MG/2ML VIAL (J2405) IV (23:56)
[2017-04-04 05:16] LABS: BASO # 0.1 10^3/uL (0.0-0.2); BASO % 1.9 % (0.0-1.0); EOS # 0.3 10^3/uL (0.0-0.50); EOS % 6.9 % (0.0-3.0); HEMATOCRIT 25.5 % (36.0-47.0); HEMOGLOBIN 7.7 g/dl (12.0-16.0); IMMATURE GRANULOCYTE % 0.5 % (0-3.0); LYMPH # 0.6 10^3/uL (1.5-4.5); LYMPH % 15.6 % (24.0-44.0); MEAN CORPUSCULAR HEMOGLOBIN 25.8 pg (27.0-33.0); MEAN CORPUSCULAR HGB CONC 30.2 g/dl (32.0-36.5); MEAN CORPUSCULAR VOLUME 85.6 fl (80.0-96.0); MONO # 0.7 10^3/uL (0.0-0.8); MONO % 17.2 % (0.0-5.0); NEUTROPHILS # 2.2 10^3/uL (1.8-7.7); NEUTROPHILS % 57.9 % (36.0-66.0); PLATELET COUNT, AUTOMATED 157 10^3/uL (150-450); RED BLOOD COUNT 2.98 10^6/uL (4.00-5.40); RED CELL DISTRIBUTION WIDTH 15.9 % (11.5-14.5); WHITE BLOOD COUNT 3.8 10^3/uL (4.0-10.0)
[2017-04-04 05:35] LABS: ALBUMIN 2.8 GM/DL (3.2-5.2); ALBUMIN/GLOBULIN RATIO 1.12 (1.00-1.93); ALKALINE PHOSPHATASE 85 U/L (45-117); ALT/SGPT 20 U/L (12-78); ANION GAP 8 MEQ/L (8-16); AST/SGOT 29 U/L (7-37); BILIRUBIN,TOTAL 2.4 MG/DL (0.2-1.0); BLOOD UREA NITROGEN 10 MG/DL (7-18); CALCIUM LEVEL 8.2 MG/DL (8.8-10.2); CARBON DIOXIDE LEVEL 23 MEQ/L (21-32); CHLORIDE LEVEL 114 MEQ/L (98-107); CREATININE FOR GFR 0.75 MG/DL (0.55-1.30); GLOMERULAR FILTRATION RATE > 60.0 (>39); GLUCOSE, FASTING 89 MG/DL (70-100); POTASSIUM SERUM 3.6 MEQ/L (3.5-5.1); SODIUM LEVEL 145 MEQ/L (136-145); TOTAL PROTEIN 5.3 GM/DL (6.4-8.2)
[2017-04-04] MEDS: SUCRALFATE SUSP 1GM/10ML UD PO ×5 (07:32→21:18)
[2017-04-04] MEDS: ASPIRIN 81 MG ENTERIC TAB PO (09:00)
[2017-04-04] MEDS: TRIAMCINOLONE ACET 0.1% CREAM 80 GM TOP (09:00)
[2017-04-04] MEDS: CIPROFLOXACIN 400 MG in APPROPRIATE DILUENT 1 EA IV ×2 (09:17→21:18)
[2017-04-04] MEDS: LACTOBACILLUS ACIDOPHILUS CAP (BACID) PO (09:17)
[2017-04-04] MEDS: PROPRANOLOL 10 MG TAB PO ×2 (09:18→21:00)
[2017-04-04] MEDS: PANTOPRAZOLE 40MG INJ (PROTONIX) (C9113) IV ×2 (09:18→21:18)
[2017-04-04] MEDS: DIGOXIN 0.125 MG TAB PO (09:18)
[2017-04-04 13:10] LABS: IMMEDIATE SPIN CROSSMATCH 1 2
[2017-04-04] MEDS ORDERED: LIDOCAINE 2% INJ 100 MG/5 ML SDV (FOR ANES.) As Ordered (14:52)
[2017-04-04] MEDS ORDERED: PROPOFOL 200 MG/20 ML VIAL As Ordered ×2 (14:52)
[2017-04-04] MEDS ORDERED: PHENYLephrine HCL 500 MCG/5 ML (100MCG/ML) SYRINGE (J2370) As Ordered (15:15)
[2017-04-04] MEDS: PERCOCET 5MG/325MG TAB PO (16:38)
[2017-04-04 17:24] LABS: HEMATOCRIT 32.5 % (36.0-47.0)
[2017-04-04 17:35] LABS: HEMOGLOBIN 9.8 g/dl (12.0-16.0)
[2017-04-04] MEDS: NS 1,000 ML IV (18:40)
[2017-04-04] MEDS: MORPHINE 4 MG/ML 1ML VIAL (J2270) IV (19:21)
[2017-04-04] MEDS: ONDANSETRON 4MG/2ML VIAL (J2405) IV (19:22)
[2017-04-05] MEDS: ONDANSETRON 4MG/2ML VIAL (J2405) IV (00:39)
[2017-04-05] MEDS: MORPHINE 4 MG/ML 1ML VIAL (J2270) IV (00:42)
[2017-04-05 05:20] LABS: BASO # 0.1 10^3/uL (0.0-0.2); BASO % 0.2 % (0.0-1.0); HEMATOCRIT 31.1 % (36.0-47.0); HEMOGLOBIN 9.4 g/dl (12.0-16.0); IMMATURE GRANULOCYTE % 0.5 % (0-3.0); LYMPH # 0.4 10^3/uL (1.5-4.5); LYMPH % 1.8 % (24.0-44.0); MEAN CORPUSCULAR HEMOGLOBIN 26.6 pg (27.0-33.0); MEAN CORPUSCULAR HGB CONC 30.2 g/dl (32.0-36.5); MEAN CORPUSCULAR VOLUME 88.1 fl (80.0-96.0); MONO % 4.9 % (0.0-5.0); NEUTROPHILS # 19.1 10^3/uL (1.8-7.7); NEUTROPHILS % 92.6 % (36.0-66.0); PLATELET COUNT, AUTOMATED 156 10^3/uL (150-450); RED BLOOD COUNT 3.53 10^6/uL (4.00-5.40); RED CELL DISTRIBUTION WIDTH 16.2 % (11.5-14.5); WHITE BLOOD COUNT 20.6 10^3/uL (4.0-10.0)
[2017-04-05 05:36] LABS: ALBUMIN 2.6 GM/DL (3.2-5.2); ALBUMIN/GLOBULIN RATIO 0.96 (1.00-1.93); ALKALINE PHOSPHATASE 135 U/L (45-117); ALT/SGPT 22 U/L (12-78); ANION GAP 10 MEQ/L (8-16); AST/SGOT 35 U/L (7-37); BILIRUBIN,TOTAL 5.5 MG/DL (0.2-1.0); BLOOD UREA NITROGEN 15 MG/DL (7-18); CALCIUM LEVEL 8.2 MG/DL (8.8-10.2); CARBON DIOXIDE LEVEL 20 MEQ/L (21-32); CHLORIDE LEVEL 112 MEQ/L (98-107); CREATININE FOR GFR 0.98 MG/DL (0.55-1.30); GLOMERULAR FILTRATION RATE 59.1 (>39); GLUCOSE, FASTING 109 MG/DL (70-100); MAGNESIUM LEVEL 2.2 MG/DL (1.8-2.4); POTASSIUM SERUM 3.8 MEQ/L (3.5-5.1); SODIUM LEVEL 142 MEQ/L (136-145); TOTAL PROTEIN 5.3 GM/DL (6.4-8.2)
[2017-04-05] MEDS: SUCRALFATE SUSP 1GM/10ML UD PO ×4 (07:45→20:28)
[2017-04-05] MEDS: PROPRANOLOL 10 MG TAB PO ×2 (09:13→20:32)
[2017-04-05] MEDS: LACTOBACILLUS ACIDOPHILUS CAP (BACID) PO (09:13)
[2017-04-05] MEDS: CIPROFLOXACIN 400 MG in APPROPRIATE DILUENT 1 EA IV (09:13)
[2017-04-05] MEDS: PANTOPRAZOLE 40MG INJ (PROTONIX) (C9113) IV ×2 (09:13→20:28)
[2017-04-05] MEDS: DIGOXIN 0.125 MG TAB PO (09:13)
[2017-04-05] MEDS: ASPIRIN 81 MG ENTERIC TAB PO (09:14)
[2017-04-05] MEDS: TRIAMCINOLONE ACET 0.1% CREAM 80 GM TOP (09:17)
[2017-04-05] MEDS: CLINDAMYCIN 600 MG in APPROPRIATE DILUENT 1 EA IV ×3 (12:38→22:35)
[2017-04-05] MEDS: NS 1,000 ML IV (12:39)
[2017-04-05] MEDS ORDERED: SODIUM CHLORIDE 0.9% INJ 10 ML SYR IV (17:30)
[2017-04-05] MEDS: MOXIFLOXACIN HCL 400 MG in APPROPRIATE DILUENT 1 EA IV (18:32)
[2017-04-05] MEDS: SODIUM CHLORIDE 0.9% INJ 10 ML SYR IV (18:35)
[2017-04-06] MEDS: CLINDAMYCIN 600 MG in APPROPRIATE DILUENT 1 EA IV ×4 (04:29→23:58)
[2017-04-06] MEDS: NS 1,000 ML IV (04:29)
[2017-04-06] MEDS: SODIUM CHLORIDE 0.9% INJ 10 ML SYR IV ×2 (05:39→16:49)
[2017-04-06 09:27] LABS: BASO # 0.1 10^3/uL (0.0-0.2); BASO % 0.9 % (0.0-1.0); EOS # 0.2 10^3/uL (0.0-0.50); EOS % 2.3 % (0.0-3.0); HEMATOCRIT 30.3 % (36.0-47.0); HEMOGLOBIN 9.2 g/dl (12.0-16.0); IMMATURE GRANULOCYTE % 0.5 % (0-3.0); LYMPH % 3.9 % (24.0-44.0); MEAN CORPUSCULAR HEMOGLOBIN 26.2 pg (27.0-33.0); MEAN CORPUSCULAR HGB CONC 30.4 g/dl (32.0-36.5); MEAN CORPUSCULAR VOLUME 86.3 fl (80.0-96.0); MONO # 1.1 10^3/uL (0.0-0.8); MONO % 13.2 % (0.0-5.0); NEUTROPHILS # 6.3 10^3/uL (1.8-7.7); NEUTROPHILS % 79.2 % (36.0-66.0); PLATELET COUNT, AUTOMATED 177 10^3/uL (150-450); RED BLOOD COUNT 3.51 10^6/uL (4.00-5.40); RED CELL DISTRIBUTION WIDTH 17.2 % (11.5-14.5); WHITE BLOOD COUNT 7.9 10^3/uL (4.0-10.0)
[2017-04-06 09:32] LABS: LYMPH # 0.3 10^3/uL (1.5-4.5)
[2017-04-06] MEDS: PANTOPRAZOLE 40MG INJ (PROTONIX) (C9113) IV ×2 (09:37→21:33)
[2017-04-06] MEDS: LACTOBACILLUS ACIDOPHILUS CAP (BACID) PO (09:37)
[2017-04-06] MEDS: ASPIRIN 81 MG ENTERIC TAB PO (09:37)
[2017-04-06] MEDS: DIGOXIN 0.125 MG TAB PO (09:38)
[2017-04-06] MEDS: PROPRANOLOL 10 MG TAB PO ×3 (09:38→21:33)
[2017-04-06] MEDS: TRIAMCINOLONE ACET 0.1% CREAM 80 GM TOP (09:39)
[2017-04-06] MEDS: SUCRALFATE SUSP 1GM/10ML UD PO ×4 (09:45→21:33)
[2017-04-06 10:04] LABS: ALBUMIN 2.9 GM/DL (3.2-5.2); ALBUMIN/GLOBULIN RATIO 1.12 (1.00-1.93); ALKALINE PHOSPHATASE 119 U/L (45-117); ALT/SGPT 19 U/L (12-78); ANION GAP 10 MEQ/L (8-16); AST/SGOT 28 U/L (7-37); BILIRUBIN,TOTAL 2.6 MG/DL (0.2-1.0); BLOOD UREA NITROGEN 17 MG/DL (7-18); CALCIUM LEVEL 7.6 MG/DL (8.8-10.2); CARBON DIOXIDE LEVEL 21 MEQ/L (21-32); CHLORIDE LEVEL 109 MEQ/L (98-107); GLOMERULAR FILTRATION RATE 57.7 (>39); GLUCOSE, FASTING 109 MG/DL (70-100); MAGNESIUM LEVEL 1.8 MG/DL (1.8-2.4); POTASSIUM SERUM 3.3 MEQ/L (3.5-5.1); SODIUM LEVEL 140 MEQ/L (136-145); TOTAL PROTEIN 5.5 GM/DL (6.4-8.2)
[2017-04-06] MEDS: POLYVINYL ALCOHOL OPHTH SOLN 15 ML(LIQUITEARS) OU (16:55)
[2017-04-06] MEDS: MOXIFLOXACIN HCL 400 MG in APPROPRIATE DILUENT 1 EA IV (17:19)
[2017-04-07] MEDS: CLINDAMYCIN 600 MG in APPROPRIATE DILUENT 1 EA IV ×4 (04:21→23:21)
[2017-04-07] MEDS: SODIUM CHLORIDE 0.9% INJ 10 ML SYR IV ×2 (05:50→17:39)
[2017-04-07 06:18] LABS: BASO # 0.1 10^3/uL (0.0-0.2); EOS # 0.3 10^3/uL (0.0-0.50); EOS % 4.1 % (0.0-3.0); HEMATOCRIT 28.3 % (36.0-47.0); HEMOGLOBIN 8.6 g/dl (12.0-16.0); IMMATURE GRANULOCYTE % 0.5 % (0-3.0); LYMPH # 0.4 10^3/uL (1.5-4.5); LYMPH % 5.9 % (24.0-44.0); MEAN CORPUSCULAR HEMOGLOBIN 26.5 pg (27.0-33.0); MEAN CORPUSCULAR HGB CONC 30.4 g/dl (32.0-36.5); MEAN CORPUSCULAR VOLUME 87.1 fl (80.0-96.0); MONO # 0.9 10^3/uL (0.0-0.8); MONO % 15.4 % (0.0-5.0); NEUTROPHILS # 4.5 10^3/uL (1.8-7.7); NEUTROPHILS % 73.1 % (36.0-66.0); PLATELET COUNT, AUTOMATED 157 10^3/uL (150-450); RED BLOOD COUNT 3.25 10^6/uL (4.00-5.40); RED CELL DISTRIBUTION WIDTH 17.3 % (11.5-14.5); WHITE BLOOD COUNT 6.1 10^3/uL (4.0-10.0)
[2017-04-07 06:27] LABS: ALBUMIN 2.6 GM/DL (3.2-5.2); ALBUMIN/GLOBULIN RATIO 1.04 (1.00-1.93); ALKALINE PHOSPHATASE 108 U/L (45-117); ALT/SGPT 18 U/L (12-78); ANION GAP 7 MEQ/L (8-16); AST/SGOT 22 U/L (7-37); BILIRUBIN,TOTAL 1.5 MG/DL (0.2-1.0); BLOOD UREA NITROGEN 14 MG/DL (7-18); CALCIUM LEVEL 7.6 MG/DL (8.8-10.2); CARBON DIOXIDE LEVEL 24 MEQ/L (21-32); CHLORIDE LEVEL 109 MEQ/L (98-107); CREATININE FOR GFR 0.76 MG/DL (0.55-1.30); GLOMERULAR FILTRATION RATE > 60.0 (>39); GLUCOSE, FASTING 103 MG/DL (70-100); MAGNESIUM LEVEL 1.9 MG/DL (1.8-2.4); POTASSIUM SERUM 3.3 MEQ/L (3.5-5.1); SODIUM LEVEL 140 MEQ/L (136-145); TOTAL PROTEIN 5.1 GM/DL (6.4-8.2)
[2017-04-07] MEDS: PROPRANOLOL 10 MG TAB PO ×2 (09:10→20:37)
[2017-04-07] MEDS: SUCRALFATE SUSP 1GM/10ML UD PO ×4 (09:27→20:37)
[2017-04-07] MEDS: LACTOBACILLUS ACIDOPHILUS CAP (BACID) PO (09:28)
[2017-04-07] MEDS: DIGOXIN 0.125 MG TAB PO (09:28)
[2017-04-07] MEDS: PANTOPRAZOLE 40MG INJ (PROTONIX) (C9113) IV ×2 (09:28→20:37)
[2017-04-07] MEDS: TRIAMCINOLONE ACET 0.1% CREAM 80 GM TOP (09:29)
[2017-04-07] MEDS: POTASSIUM CHLORIDE 10 MEQ SR TABLET PO (09:32)
[2017-04-07] MEDS: ASPIRIN 81 MG ENTERIC TAB PO (09:32)
[2017-04-07] MEDS: MOXIFLOXACIN HCL 400 MG in APPROPRIATE DILUENT 1 EA IV (17:38)
[2017-04-08] MEDS: CLINDAMYCIN 600 MG in APPROPRIATE DILUENT 1 EA IV ×2 (05:03→11:29)
[2017-04-08] MEDS: SODIUM CHLORIDE 0.9% INJ 10 ML SYR IV ×2 (05:03→18:13)
[2017-04-08 05:24] LABS: BASO # 0.1 10^3/uL (0.0-0.2); BASO % 1.5 % (0.0-1.0); EOS # 0.3 10^3/uL (0.0-0.50); EOS % 6.4 % (0.0-3.0); HEMATOCRIT 27.5 % (36.0-47.0); HEMOGLOBIN 8.4 g/dl (12.0-16.0); IMMATURE GRANULOCYTE % 0.4 % (0-3.0); LYMPH # 0.5 10^3/uL (1.5-4.5); LYMPH % 10.4 % (24.0-44.0); MEAN CORPUSCULAR HEMOGLOBIN 26.4 pg (27.0-33.0); MEAN CORPUSCULAR HGB CONC 30.5 g/dl (32.0-36.5); MEAN CORPUSCULAR VOLUME 86.5 fl (80.0-96.0); MONO # 0.8 10^3/uL (0.0-0.8); MONO % 17.8 % (0.0-5.0); NEUTROPHILS # 2.9 10^3/uL (1.8-7.7); NEUTROPHILS % 63.5 % (36.0-66.0); PLATELET COUNT, AUTOMATED 146 10^3/uL (150-450); RED BLOOD COUNT 3.18 10^6/uL (4.00-5.40); RED CELL DISTRIBUTION WIDTH 17.5 % (11.5-14.5); WHITE BLOOD COUNT 4.5 10^3/uL (4.0-10.0)
[2017-04-08 06:23] LABS: ALBUMIN 2.5 GM/DL (3.2-5.2); ALBUMIN/GLOBULIN RATIO 1.04 (1.00-1.93); ALKALINE PHOSPHATASE 96 U/L (45-117); ALT/SGPT 13 U/L (12-78); ANION GAP 9 MEQ/L (8-16); AST/SGOT 21 U/L (7-37); BILIRUBIN,TOTAL 1.2 MG/DL (0.2-1.0); BLOOD UREA NITROGEN 15 MG/DL (7-18); CALCIUM LEVEL 7.3 MG/DL (8.8-10.2); CARBON DIOXIDE LEVEL 22 MEQ/L (21-32); CHLORIDE LEVEL 111 MEQ/L (98-107); CREATININE FOR GFR 0.62 MG/DL (0.55-1.30); GLOMERULAR FILTRATION RATE > 60.0 (>39); GLUCOSE, FASTING 87 MG/DL (70-100); MAGNESIUM LEVEL 1.7 MG/DL (1.8-2.4); POTASSIUM SERUM 3.8 MEQ/L (3.5-5.1); SODIUM LEVEL 142 MEQ/L (136-145); TOTAL PROTEIN 4.9 GM/DL (6.4-8.2)
[2017-04-08] MEDS: guaiFENesin ER 600 MG TAB PO ×2 (08:11→20:25)
[2017-04-08] MEDS: SUCRALFATE SUSP 1GM/10ML UD PO ×4 (08:11→20:25)
[2017-04-08] MEDS: LACTOBACILLUS ACIDOPHILUS CAP (BACID) PO (08:11)
[2017-04-08] MEDS: DIGOXIN 0.125 MG TAB PO (08:11)
[2017-04-08] MEDS: PANTOPRAZOLE 40MG INJ (PROTONIX) (C9113) IV (08:11)
[2017-04-08] MEDS: ASPIRIN 81 MG ENTERIC TAB PO (08:11)
[2017-04-08] MEDS: TRIAMCINOLONE ACET 0.1% CREAM 80 GM TOP (08:12)
[2017-04-08] MEDS: PROPRANOLOL 10 MG TAB PO ×2 (08:12→20:28)
[2017-04-08] MEDS: ACETAMINOPHEN TAB 650MG DOSE (2X325MG) PO (11:29)
[2017-04-08] MEDS: MAGNESIUM OXIDE 400 MG TAB (MAG-OX) PO (12:10)
[2017-04-08] MEDS: MOXIFLOXACIN 400 MG TAB PO (15:28)
[2017-04-08] MEDS: PANTOPRAZOLE 40MG TAB (PROTONIX) PO (20:25)
[2017-04-09] MEDS: MOXIFLOXACIN 400 MG TAB PO (05:41)
[2017-04-09] MEDS: SODIUM CHLORIDE 0.9% INJ 10 ML SYR IV (05:42)
[2017-04-09 06:17] LABS: BASO # 0.1 10^3/uL (0.0-0.2); BASO % 1.3 % (0.0-1.0); EOS # 0.3 10^3/uL (0.0-0.50); EOS % 7.1 % (0.0-3.0); HEMATOCRIT 29.4 % (36.0-47.0); IMMATURE GRANULOCYTE % 0.9 % (0-3.0); LYMPH # 0.5 10^3/uL (1.5-4.5); LYMPH % 10.6 % (24.0-44.0); MEAN CORPUSCULAR HEMOGLOBIN 26.1 pg (27.0-33.0); MEAN CORPUSCULAR HGB CONC 30.6 g/dl (32.0-36.5); MEAN CORPUSCULAR VOLUME 85.2 fl (80.0-96.0); MONO # 0.9 10^3/uL (0.0-0.8); MONO % 18.8 % (0.0-5.0); NEUTROPHILS # 2.9 10^3/uL (1.8-7.7); NEUTROPHILS % 61.3 % (36.0-66.0); PLATELET COUNT, AUTOMATED 166 10^3/uL (150-450); RED BLOOD COUNT 3.45 10^6/uL (4.00-5.40); WHITE BLOOD COUNT 4.6 10^3/uL (4.0-10.0)
[2017-04-09 06:49] LABS: ALBUMIN 2.7 GM/DL (3.2-5.2); ALBUMIN/GLOBULIN RATIO 1.08 (1.00-1.93); ALKALINE PHOSPHATASE 101 U/L (45-117); ALT/SGPT 15 U/L (12-78); ANION GAP 8 MEQ/L (8-16); AST/SGOT 22 U/L (7-37); BILIRUBIN,TOTAL 1.2 MG/DL (0.2-1.0); BLOOD UREA NITROGEN 13 MG/DL (7-18); CALCIUM LEVEL 7.9 MG/DL (8.8-10.2); CARBON DIOXIDE LEVEL 23 MEQ/L (21-32); CHLORIDE LEVEL 111 MEQ/L (98-107); CREATININE FOR GFR 0.57 MG/DL (0.55-1.30); GLOMERULAR FILTRATION RATE > 60.0 (>39); GLUCOSE, FASTING 81 MG/DL (70-100); MAGNESIUM LEVEL 1.9 MG/DL (1.8-2.4); POTASSIUM SERUM 3.7 MEQ/L (3.5-5.1); SODIUM LEVEL 142 MEQ/L (136-145); TOTAL PROTEIN 5.2 GM/DL (6.4-8.2)
[2017-04-09] MEDS: SUCRALFATE SUSP 1GM/10ML UD PO ×2 (08:39→12:55)
[2017-04-09] MEDS: guaiFENesin ER 600 MG TAB PO (08:39)
[2017-04-09] MEDS: PANTOPRAZOLE 40MG TAB (PROTONIX) PO (08:39)
[2017-04-09] MEDS: PROPRANOLOL 10 MG TAB PO (08:39)
[2017-04-09] MEDS: LACTOBACILLUS ACIDOPHILUS CAP (BACID) PO (08:40)
[2017-04-09] MEDS: ASPIRIN 81 MG ENTERIC TAB PO (08:40)
[2017-04-09] MEDS: DIGOXIN 0.125 MG TAB PO (08:40)
[2017-04-09] MEDS: TRIAMCINOLONE ACET 0.1% CREAM 80 GM TOP (08:45)
== END 2017-04-09 13:05 | disposition home health service (06) | DRG 811 ==
LOC: M ICU 04-03 02:48 → M PCU 04-05 12:22 → M MS4PR 04-09 00:21 → M ED 17:16 → M ED INP 23:21
PROVIDERS: Pediatrics
PROC: 06L38CZ Occlusion of Esophageal Vein with Extraluminal Device, Via Natural or Artificial Opening Endoscopic (ICD-10-PCS; principal; 2017-04-04 14:30)
PROC: 0W3P8ZZ Control Bleeding in Gastrointestinal Tract, Via Natural or Artificial Opening Endoscopic (ICD-10-PCS; 2017-04-04 14:30)
PROC: 02HV33Z Insertion of Infusion Device into Superior Vena Cava, Percutaneous Approach (ICD-10-PCS; 2017-04-04 14:52)
PROC: 0W9G3ZZ Drainage of Peritoneal Cavity, Percutaneous Approach (ICD-10-PCS; 2017-04-04 14:52)
PROC: 30233N1 Transfusion of Nonautologous Red Blood Cells into Peripheral Vein, Percutaneous Approach (ICD-10-PCS; 2017-04-04 14:52)
PROC: 30233J1 Transfusion of Nonautologous Serum Albumin into Peripheral Vein, Percutaneous Approach (ICD-10-PCS; 2017-04-04 14:52)
DX: D62 Acute posthemorrhagic anemia (principal); K31.811 Angiodysplasia of stomach and duodenum with bleeding; J18.9 Pneumonia, unspecified organism; I50.32 Chronic diastolic (congestive) heart failure; I85.00 Esophageal varices without bleeding; R18.8 Other ascites; K74.69 Other cirrhosis of liver; I11.0 Hypertensive heart disease with heart failure; K44.9 Diaphragmatic hernia without obstruction or gangrene; K31.89 Other diseases of stomach and duodenum; Y95 Nosocomial condition; I48.2 Chronic atrial fibrillation; K21.9 Gastro-esophageal reflux disease without esophagitis; Z79.82 Long term (current) use of aspirin; Z79.899 Other long term (current) drug therapy; Z88.0 Allergy status to penicillin; Z88.2 Allergy status to sulfonamides; Z88.8 Allergy status to other drugs, medicaments and biological substances; Z90.710 Acquired absence of both cervix and uterus; Z90.49 Acquired absence of other specified parts of digestive tract; Z95.0 Presence of cardiac pacemaker; I95.9 Hypotension, unspecified

== ENCOUNTER → 2017-05-01 | Outpatient (REF) | payer MEDICARE, MEDICAID ==
[2017-05-01 16:22] LABS: BASO # 0.1 10^3/uL (0.0-0.2); BASO % 2.2 % (0.0-1.0); EOS # 0.2 10^3/uL (0.0-0.50); EOS % 4.9 % (0.0-3.0); HEMATOCRIT 32.7 % (36.0-47.0); HEMOGLOBIN 9.8 g/dl (12.0-16.0); IMMATURE GRANULOCYTE % 0.2 % (0-3.0); LYMPH # 0.6 10^3/uL (1.5-4.5); LYMPH % 13.8 % (24.0-44.0); MEAN CORPUSCULAR HEMOGLOBIN 25.6 pg (27.0-33.0); MEAN CORPUSCULAR VOLUME 85.4 fl (80.0-96.0); MONO # 0.9 10^3/uL (0.0-0.8); MONO % 19.6 % (0.0-5.0); NEUTROPHILS # 2.7 10^3/uL (1.8-7.7); NEUTROPHILS % 59.3 % (36.0-66.0); PLATELET COUNT, AUTOMATED 192 10^3/uL (150-450); RED BLOOD COUNT 3.83 10^6/uL (4.00-5.40); RED CELL DISTRIBUTION WIDTH 19.1 % (11.5-14.5); WHITE BLOOD COUNT 4.5 10^3/uL (4.0-10.0)
[2017-05-01 16:55] LABS: ALBUMIN 3.3 GM/DL (3.2-5.2); ALKALINE PHOSPHATASE 124 U/L (45-117); ALT/SGPT 25 U/L (12-78); ANION GAP 9 MEQ/L (8-16); AST/SGOT 33 U/L (7-37); BILIRUBIN,TOTAL 0.9 MG/DL (0.2-1.0); BLOOD UREA NITROGEN 14 MG/DL (7-18); CALCIUM LEVEL 8.6 MG/DL (8.8-10.2); CARBON DIOXIDE LEVEL 26 MEQ/L (21-32); CHLORIDE LEVEL 108 MEQ/L (98-107); CREATININE FOR GFR 0.74 MG/DL (0.55-1.30); GLOMERULAR FILTRATION RATE > 60.0 (>39); GLUCOSE, FASTING 93 MG/DL (70-100); POTASSIUM SERUM 4.3 MEQ/L (3.5-5.1); SODIUM LEVEL 143 MEQ/L (136-145); TOTAL PROTEIN 6.3 GM/DL (6.4-8.2)
== END ==
LOC: M LAB REF 16:00
DX: D50.9 Iron deficiency anemia, unspecified (principal); I85.01 Esophageal varices with bleeding
CPT/HCPCS: 80053

== ENCOUNTER 2017-06-18 12:02 | Emergency (ER) | payer MEDICARE, MEDICAID ==
[2017-06-18 13:13] LABS: BASO # 0.1 10^3/uL (0.0-0.2); BASO % 2.1 % (0.0-1.0); EOS # 0.2 10^3/uL (0.0-0.50); EOS % 4.9 % (0.0-3.0); HEMATOCRIT 27.4 % (36.0-47.0); IMMATURE GRANULOCYTE % 0.4 % (0-3.0); LYMPH # 0.6 10^3/uL (1.5-4.5); LYMPH % 13.6 % (24.0-44.0); MEAN CORPUSCULAR HEMOGLOBIN 25.7 pg (27.0-33.0); MEAN CORPUSCULAR HGB CONC 29.2 g/dl (32.0-36.5); MEAN CORPUSCULAR VOLUME 88.1 fl (80.0-96.0); MONO # 0.9 10^3/uL (0.0-0.8); MONO % 19.1 % (0.0-5.0); NEUTROPHILS # 2.8 10^3/uL (1.8-7.7); NEUTROPHILS % 59.9 % (36.0-66.0); PLATELET COUNT, AUTOMATED 196 10^3/uL (150-450); RED BLOOD COUNT 3.11 10^6/uL (4.00-5.40); RED CELL DISTRIBUTION WIDTH 16.9 % (11.5-14.5); WHITE BLOOD COUNT 4.7 10^3/uL (4.0-10.0)
[2017-06-18 13:26] LABS: INR 1.13; PROTHROMBIN TIME 14.7 SECONDS (12.4-14.5)
[2017-06-18 13:38] LABS: ALBUMIN 3.3 GM/DL (3.2-5.2); ALBUMIN/GLOBULIN RATIO 0.94 (1.00-1.93); ALKALINE PHOSPHATASE 126 U/L (45-117); ALT/SGPT 23 U/L (12-78); ANION GAP 5 MEQ/L (8-16); AST/SGOT 42 U/L (7-37); BILIRUBIN,DIRECT 0.4 MG/DL (0.0-0.2); BILIRUBIN,TOTAL 1.3 MG/DL (0.2-1.0); BLOOD UREA NITROGEN 12 MG/DL (7-18); CALCIUM LEVEL 8.9 MG/DL (8.8-10.2); CARBON DIOXIDE LEVEL 25 MEQ/L (21-32); CHLORIDE LEVEL 112 MEQ/L (98-107); CREATININE FOR GFR 0.85 MG/DL (0.55-1.30); GLOMERULAR FILTRATION RATE > 60.0 (>39); GLUCOSE, FASTING 95 MG/DL (70-100); LIPASE 180 U/L (73-393); POTASSIUM SERUM 4.7 MEQ/L (3.5-5.1); SODIUM LEVEL 142 MEQ/L (136-145); TOTAL PROTEIN 6.8 GM/DL (6.4-8.2)
[2017-06-18 13:42] LABS: LACTIC ACID SEPSIS PROTOCOL 1.9 MMOL/L (0.4-2.0)
[2017-06-18 13:43] LABS: POS COUNT POS FLAG
[2017-06-18 14:18] LABS: DIGOXIN LEVEL 0.8 NG/ML (0.5-2.0)
== END 2017-06-18 17:20 | disposition home or self-care (01) ==
LOC: M ED 12:02
DX: K74.60 Unspecified cirrhosis of liver (principal); D64.9 Anemia, unspecified; R14.0 Abdominal distension (gaseous); R06.02 Shortness of breath; Z88.2 Allergy status to sulfonamides; Z88.0 Allergy status to penicillin; Z88.8 Allergy status to other drugs, medicaments and biological substances; Z79.899 Other long term (current) drug therapy; Z79.82 Long term (current) use of aspirin
CPT/HCPCS: 49083

== ENCOUNTER 2017-07-06 15:51 | Inpatient (IN) | payer MEDICARE ==
[2017-07-06 17:00] LABS: BASO # 0.1 10^3/uL (0.0-0.2); BASO % 2.1 % (0.0-1.0); EOS # 0.3 10^3/uL (0.0-0.50); EOS % 7.4 % (0.0-3.0); HEMATOCRIT 25.4 % (36.0-47.0); HEMOGLOBIN 7.3 g/dl (12.0-15.5); IMMATURE GRANULOCYTE % 0.5 % (0-3.0); LYMPH # 0.6 10^3/uL (1.5-4.5); LYMPH % 13.3 % (24.0-44.0); MEAN CORPUSCULAR HEMOGLOBIN 24.5 pg (27.0-33.0); MEAN CORPUSCULAR HGB CONC 28.7 g/dl (32.0-36.5); MEAN CORPUSCULAR VOLUME 85.2 fl (80.0-96.0); MONO # 0.9 10^3/uL (0.0-0.8); NEUTROPHILS # 2.3 10^3/uL (1.8-7.7); NEUTROPHILS % 55.7 % (36.0-66.0); PLATELET COUNT, AUTOMATED 222 10^3/uL (150-450); RED BLOOD COUNT 2.98 10^6/uL (4.00-5.40); RED CELL DISTRIBUTION WIDTH 15.9 % (11.5-14.5); WHITE BLOOD COUNT 4.2 10^3/uL (4.0-10.0)
[2017-07-06 17:14] LABS: LACTIC ACID SEPSIS PROTOCOL 1.3 MMOL/L (0.4-2.0)
[2017-07-06] MEDS: PANTOPRAZOLE 40MG INJ (PROTONIX) (C9113) IV (17:17)
[2017-07-06] MEDS: PANTOPRAZOLE SODIUM 40 MG in D5W 50 ML IV ×2 (17:18→22:16)
[2017-07-06 17:19] LABS: INR 1.19; PROTHROMBIN TIME 15.3 SECONDS (12.4-14.5)
[2017-07-06 17:33] LABS: ALBUMIN/GLOBULIN RATIO 0.97 (1.00-1.93); ALKALINE PHOSPHATASE 119 U/L (45-117); ALT/SGPT 22 U/L (12-78); ANION GAP 5 MEQ/L (8-16); AST/SGOT 29 U/L (7-37); BILIRUBIN,DIRECT 0.3 MG/DL (0.0-0.2); BILIRUBIN,TOTAL 0.8 MG/DL (0.2-1.0); BLOOD UREA NITROGEN 13 MG/DL (7-18); CALCIUM LEVEL 8.2 MG/DL (8.8-10.2); CARBON DIOXIDE LEVEL 25 MEQ/L (21-32); CHLORIDE LEVEL 109 MEQ/L (98-107); CPK CREATINE PHOSPHOKINASE 31 U/L (26-192); CREATININE FOR GFR 0.75 MG/DL (0.55-1.30); GLOMERULAR FILTRATION RATE > 60.0 (>39); GLUCOSE, FASTING 91 MG/DL (70-100); POTASSIUM SERUM 3.8 MEQ/L (3.5-5.1); SODIUM LEVEL 139 MEQ/L (136-145); TOTAL PROTEIN 6.1 GM/DL (6.4-8.2); TROPONIN I < 0.02 NG/ML (< 0.10)
[2017-07-06 17:38] LABS: CK-MB VALUE MASS < 1.0 NG/ML (<3.6); MB/CK RELATIVE INDEX 3.22 (< OR =4)
[2017-07-06 18:24] LABS: DIGOXIN LEVEL 0.7 NG/ML (0.5-2.0)
[2017-07-06 18:29] LABS: IMMEDIATE SPIN CROSSMATCH 1 2
[2017-07-06] MEDS ORDERED: ISOVUE-370 76% 100ML VIAL (Q9967) As Ordered (20:08)
[2017-07-06] MEDS ORDERED: SPIRONOLACTONE 25 MG TAB PO (21:00)
[2017-07-06] MEDS ORDERED: HEPARIN SOD (PORCINE) 5000 UNITS/ML VIAL SC (22:00)
[2017-07-06] MEDS: NS 1,000 ML IV (22:16)
[2017-07-06] MEDS: LIDOCAINE 5% (LIDODERM) PATCH TD (22:16)
[2017-07-06] MEDS: PROPRANOLOL 10 MG TAB PO (22:57)
[2017-07-06] MEDS: SUCRALFATE 1 GM TAB PO (22:57)
[2017-07-07] MEDS: PANTOPRAZOLE SODIUM 40 MG in D5W 50 ML IV ×5 (00:50→20:04)
[2017-07-07 02:11] LABS: HEMATOCRIT 27.7 % (36.0-47.0); HEMOGLOBIN 8.4 g/dl (12.0-15.5)
[2017-07-07 06:20] LABS: HEMATOCRIT 27.4 % (36.0-47.0); HEMOGLOBIN 8.5 g/dl (12.0-15.5); MEAN CORPUSCULAR HEMOGLOBIN 25.5 pg (27.0-33.0); MEAN CORPUSCULAR VOLUME 82.3 fl (80.0-96.0); PLATELET COUNT, AUTOMATED 161 10^3/uL (150-450); RED BLOOD COUNT 3.33 10^6/uL (4.00-5.40); RED CELL DISTRIBUTION WIDTH 15.8 % (11.5-14.5); WHITE BLOOD COUNT 4.1 10^3/uL (4.0-10.0)
[2017-07-07 06:41] LABS: AMMONIA 91 uMOL/L (<32)
[2017-07-07 06:47] LABS: ALBUMIN 2.6 GM/DL (3.2-5.2); ALBUMIN/GLOBULIN RATIO 0.96 (1.00-1.93); ALKALINE PHOSPHATASE 104 U/L (45-117); ALT/SGPT 19 U/L (12-78); ANION GAP 8 MEQ/L (8-16); AST/SGOT 26 U/L (7-37); BILIRUBIN,TOTAL 2.1 MG/DL (0.2-1.0); BLOOD UREA NITROGEN 12 MG/DL (7-18); CALCIUM LEVEL 7.7 MG/DL (8.8-10.2); CARBON DIOXIDE LEVEL 22 MEQ/L (21-32); CHLORIDE LEVEL 114 MEQ/L (98-107); GLOMERULAR FILTRATION RATE > 60.0 (>39); GLUCOSE, FASTING 87 MG/DL (70-100); MAGNESIUM LEVEL 2.3 MG/DL (1.8-2.4); SODIUM LEVEL 144 MEQ/L (136-145); TOTAL PROTEIN 5.3 GM/DL (6.4-8.2)
[2017-07-07] MEDS: SUCRALFATE 1 GM TAB PO ×4 (07:46→20:02)
[2017-07-07] MEDS: LACTOBACILLUS ACIDOPHILUS CAP (BACID) PO ×3 (07:47→17:51)
[2017-07-07] MEDS: traMADol 50 MG TAB PO (07:47)
[2017-07-07] MEDS: PROPRANOLOL 10 MG TAB PO ×3 (09:00→20:00)
[2017-07-07] MEDS ORDERED: FUROSEMIDE 20 MG TAB PO (09:00)
[2017-07-07] MEDS: **NOTE PATIENT COMMENT** MISC XX (09:00)
[2017-07-07] MEDS: DIGOXIN 0.125 MG TAB PO (09:28)
[2017-07-07] MEDS: ASPIRIN 81 MG ENTERIC TAB PO (09:28)
[2017-07-07] MEDS ORDERED: SLF 3 ML SYR IV (19:00)
[2017-07-07] MEDS: SLF 3 ML SYR IV (20:01)
[2017-07-07] MEDS: LIDOCAINE 5% (LIDODERM) PATCH TD (20:02)
[2017-07-08] MEDS: PANTOPRAZOLE SODIUM 40 MG in D5W 50 ML IV ×5 (01:12→22:00)
[2017-07-08 05:01] LABS: HEMATOCRIT 27.1 % (36.0-47.0); HEMOGLOBIN 8.2 g/dl (12.0-15.5); MEAN CORPUSCULAR HEMOGLOBIN 25.2 pg (27.0-33.0); MEAN CORPUSCULAR HGB CONC 30.3 g/dl (32.0-36.5); MEAN CORPUSCULAR VOLUME 83.1 fl (80.0-96.0); PLATELET COUNT, AUTOMATED 153 10^3/uL (150-450); RED BLOOD COUNT 3.26 10^6/uL (4.00-5.40)
[2017-07-08 05:20] LABS: ALBUMIN 2.5 GM/DL (3.2-5.2); ALBUMIN/GLOBULIN RATIO 0.81 (1.00-1.93); ALKALINE PHOSPHATASE 108 U/L (45-117); ALT/SGPT 22 U/L (12-78); ANION GAP 5 MEQ/L (8-16); AST/SGOT 40 U/L (7-37); BILIRUBIN,TOTAL 1.5 MG/DL (0.2-1.0); BLOOD UREA NITROGEN 13 MG/DL (7-18); CALCIUM LEVEL 7.9 MG/DL (8.8-10.2); CARBON DIOXIDE LEVEL 24 MEQ/L (21-32); CHLORIDE LEVEL 114 MEQ/L (98-107); CREATININE FOR GFR 0.82 MG/DL (0.55-1.30); GLOMERULAR FILTRATION RATE > 60.0 (>39); GLUCOSE, FASTING 86 MG/DL (70-100); MAGNESIUM LEVEL 2.3 MG/DL (1.8-2.4); POTASSIUM SERUM 4.3 MEQ/L (3.5-5.1); SODIUM LEVEL 143 MEQ/L (136-145); TOTAL PROTEIN 5.6 GM/DL (6.4-8.2)
[2017-07-08] MEDS: SLF 3 ML SYR IV ×3 (05:58→22:00)
[2017-07-08] MEDS: SUCRALFATE 1 GM TAB PO ×4 (06:37→20:01)
[2017-07-08] MEDS: **NOTE PATIENT COMMENT** MISC XX (09:00)
[2017-07-08] MEDS: PROPRANOLOL 10 MG TAB PO ×2 (09:00→20:01)
[2017-07-08] MEDS: ASPIRIN 81 MG ENTERIC TAB PO (09:29)
[2017-07-08] MEDS: LACTOBACILLUS ACIDOPHILUS CAP (BACID) PO ×3 (09:29→17:16)
[2017-07-08] MEDS: DIGOXIN 0.125 MG TAB PO (09:29)
[2017-07-08] MEDS: LIDOCAINE 5% (LIDODERM) PATCH TD (20:00)
[2017-07-08] MEDS: traMADol 50 MG TAB PO (23:04)
[2017-07-09] MEDS: PANTOPRAZOLE SODIUM 40 MG in D5W 50 ML IV ×3 (02:09→11:13)
[2017-07-09] MEDS: SLF 3 ML SYR IV ×3 (04:58→19:57)
[2017-07-09 06:28] LABS: HEMATOCRIT 28.5 % (36.0-47.0); HEMOGLOBIN 8.7 g/dl (12.0-15.5); MEAN CORPUSCULAR HEMOGLOBIN 25.5 pg (27.0-33.0); MEAN CORPUSCULAR HGB CONC 30.5 g/dl (32.0-36.5); MEAN CORPUSCULAR VOLUME 83.6 fl (80.0-96.0); PLATELET COUNT, AUTOMATED 167 10^3/uL (150-450); RED BLOOD COUNT 3.41 10^6/uL (4.00-5.40)
[2017-07-09 06:46] LABS: ALBUMIN 2.7 GM/DL (3.2-5.2); ALBUMIN/GLOBULIN RATIO 0.84 (1.00-1.93); ALKALINE PHOSPHATASE 126 U/L (45-117); ALT/SGPT 23 U/L (12-78); ANION GAP 6 MEQ/L (8-16); AST/SGOT 34 U/L (7-37); BILIRUBIN,TOTAL 1.4 MG/DL (0.2-1.0); BLOOD UREA NITROGEN 14 MG/DL (7-18); CARBON DIOXIDE LEVEL 24 MEQ/L (21-32); CHLORIDE LEVEL 111 MEQ/L (98-107); CREATININE FOR GFR 0.87 MG/DL (0.55-1.30); GLOMERULAR FILTRATION RATE > 60.0 (>39); GLUCOSE, FASTING 92 MG/DL (70-100); MAGNESIUM LEVEL 2.2 MG/DL (1.8-2.4); POTASSIUM SERUM 4.3 MEQ/L (3.5-5.1); SODIUM LEVEL 141 MEQ/L (136-145); TOTAL PROTEIN 5.9 GM/DL (6.4-8.2)
[2017-07-09] MEDS: SUCRALFATE 1 GM TAB PO ×4 (07:30→19:54)
[2017-07-09] MEDS: LACTOBACILLUS ACIDOPHILUS CAP (BACID) PO ×3 (07:54→16:59)
[2017-07-09] MEDS: **NOTE PATIENT COMMENT** MISC XX (09:00)
[2017-07-09] MEDS: DIGOXIN 0.125 MG TAB PO (09:40)
[2017-07-09] MEDS: PROPRANOLOL 10 MG TAB PO ×2 (09:41→19:55)
[2017-07-09] MEDS: MORPHINE 4 MG/ML 1ML VIAL/SYRINGE (J2270) IV (16:15)
[2017-07-09] MEDS: diphenhydrAMINE CREAM 30GM TOP ×2 (16:16→19:56)
[2017-07-09] MEDS: ASPIRIN 81 MG ENTERIC TAB PO (16:16)
[2017-07-09] MEDS: EUCERIN 120GM CREAM TOP ×2 (16:16→19:56)
[2017-07-09] MEDS: GI COCKTAIL 50ML BTL(HYOSCYAMINE/MAALOX/LIDOCAINE VISCOUS)(1:3:1) PO (16:59)
[2017-07-09 17:18] LABS: CK-MB VALUE MASS 1.1 NG/ML (<3.6); CPK CREATINE PHOSPHOKINASE 30 U/L (26-192); MB/CK RELATIVE INDEX 3.66 (< OR =4); TROPONIN I < 0.02 NG/ML (< 0.10)
[2017-07-09] MEDS: LIDOCAINE 5% (LIDODERM) PATCH TD (19:55)
[2017-07-09] MEDS: PANTOPRAZOLE 40MG INJ (PROTONIX) (C9113) IV (19:55)
[2017-07-10] MEDS: SLF 3 ML SYR IV ×3 (05:39→20:44)
[2017-07-10 06:44] LABS: HEMATOCRIT 26.6 % (36.0-47.0); HEMOGLOBIN 8.2 g/dl (12.0-15.5); MEAN CORPUSCULAR HEMOGLOBIN 25.6 pg (27.0-33.0); MEAN CORPUSCULAR HGB CONC 30.8 g/dl (32.0-36.5); MEAN CORPUSCULAR VOLUME 83.1 fl (80.0-96.0); PLATELET COUNT, AUTOMATED 162 10^3/uL (150-450); WHITE BLOOD COUNT 5.6 10^3/uL (4.0-10.0)
[2017-07-10 07:10] LABS: ALBUMIN 2.4 GM/DL (3.2-5.2); ALBUMIN/GLOBULIN RATIO 0.77 (1.00-1.93); ALKALINE PHOSPHATASE 158 U/L (45-117); ALT/SGPT 22 U/L (12-78); ANION GAP 6 MEQ/L (8-16); AST/SGOT 46 U/L (7-37); BILIRUBIN,TOTAL 1.2 MG/DL (0.2-1.0); BLOOD UREA NITROGEN 15 MG/DL (7-18); CARBON DIOXIDE LEVEL 22 MEQ/L (21-32); CHLORIDE LEVEL 113 MEQ/L (98-107); CREATININE FOR GFR 0.74 MG/DL (0.55-1.30); GLOMERULAR FILTRATION RATE > 60.0 (>39); GLUCOSE, FASTING 86 MG/DL (70-100); MAGNESIUM LEVEL 2.2 MG/DL (1.8-2.4); POTASSIUM SERUM 4.6 MEQ/L (3.5-5.1); SODIUM LEVEL 141 MEQ/L (136-145); TOTAL PROTEIN 5.5 GM/DL (6.4-8.2)
[2017-07-10] MEDS: **NOTE PATIENT COMMENT** MISC XX (09:00)
[2017-07-10] MEDS: PANTOPRAZOLE 40MG INJ (PROTONIX) (C9113) IV ×2 (09:12→20:43)
[2017-07-10] MEDS: PROPRANOLOL 10 MG TAB PO ×2 (09:13→20:45)
[2017-07-10] MEDS: SUCRALFATE 1 GM TAB PO ×4 (09:13→20:44)
[2017-07-10] MEDS: LACTOBACILLUS ACIDOPHILUS CAP (BACID) PO ×3 (09:13→17:00)
[2017-07-10] MEDS: ASPIRIN 81 MG ENTERIC TAB PO (09:13)
[2017-07-10] MEDS: DIGOXIN 0.125 MG TAB PO (09:14)
[2017-07-10] MEDS: diphenhydrAMINE CREAM 30GM TOP ×2 (09:14→20:44)
[2017-07-10] MEDS: EUCERIN 120GM CREAM TOP ×2 (09:14→20:44)
[2017-07-10] MEDS: LIDOCAINE 5% (LIDODERM) PATCH TD (20:44)
[2017-07-11] MEDS: SLF 3 ML SYR IV ×3 (06:00→20:33)
[2017-07-11 06:09] LABS: IMMEDIATE SPIN CROSSMATCH 1 2
[2017-07-11 06:43] LABS: HEMATOCRIT 27.5 % (36.0-47.0); HEMOGLOBIN 8.3 g/dl (12.0-15.5); MEAN CORPUSCULAR HEMOGLOBIN 25.5 pg (27.0-33.0); MEAN CORPUSCULAR HGB CONC 30.2 g/dl (32.0-36.5); MEAN CORPUSCULAR VOLUME 84.4 fl (80.0-96.0); PLATELET COUNT, AUTOMATED 151 10^3/uL (150-450); RED BLOOD COUNT 3.26 10^6/uL (4.00-5.40); WHITE BLOOD COUNT 4.4 10^3/uL (4.0-10.0)
[2017-07-11 07:05] LABS: ALBUMIN 2.5 GM/DL (3.2-5.2); ALBUMIN/GLOBULIN RATIO 0.83 (1.00-1.93); ALKALINE PHOSPHATASE 169 U/L (45-117); ALT/SGPT 22 U/L (12-78); ANION GAP 5 MEQ/L (8-16); AST/SGOT 37 U/L (7-37); BILIRUBIN,TOTAL 1.1 MG/DL (0.2-1.0); BLOOD UREA NITROGEN 16 MG/DL (7-18); CALCIUM LEVEL 8.1 MG/DL (8.8-10.2); CARBON DIOXIDE LEVEL 23 MEQ/L (21-32); CHLORIDE LEVEL 114 MEQ/L (98-107); CREATININE FOR GFR 0.77 MG/DL (0.55-1.30); GLOMERULAR FILTRATION RATE > 60.0 (>39); GLUCOSE, FASTING 86 MG/DL (70-100); MAGNESIUM LEVEL 2.2 MG/DL (1.8-2.4); POTASSIUM SERUM 3.9 MEQ/L (3.5-5.1); SODIUM LEVEL 142 MEQ/L (136-145); TOTAL PROTEIN 5.5 GM/DL (6.4-8.2)
[2017-07-11] MEDS: PANTOPRAZOLE 40MG INJ (PROTONIX) (C9113) IV (08:47)
[2017-07-11] MEDS: LACTOBACILLUS ACIDOPHILUS CAP (BACID) PO ×3 (08:47→16:37)
[2017-07-11] MEDS: ASPIRIN 81 MG ENTERIC TAB PO (08:47)
[2017-07-11] MEDS: DIGOXIN 0.125 MG TAB PO (08:47)
[2017-07-11] MEDS: SUCRALFATE 1 GM TAB PO ×4 (08:47→20:31)
[2017-07-11] MEDS: **NOTE PATIENT COMMENT** MISC XX (08:48)
[2017-07-11] MEDS: diphenhydrAMINE CREAM 30GM TOP ×2 (08:48→20:32)
[2017-07-11] MEDS: EUCERIN 120GM CREAM TOP ×2 (08:48→20:33)
[2017-07-11] MEDS: PROPRANOLOL 10 MG TAB PO ×2 (08:52→20:30)
[2017-07-11] MEDS: FUROSEMIDE 40 MG TAB PO (14:22)
[2017-07-11 16:28] LABS: BF MONONUCLEAR CELL % 96.8 % (0-0); BF POLYMORPHONUCLEAR CELL % 3.2 % (0-0); RBC BODY FLUID < 2 10^3/uL (<2); WBC BODY FLUID 274 /uL (0-10)
[2017-07-11 16:30] LABS: APPEARANCE, BODY FLUID CLOUDY (CLEAR); ASCITES FL COLOR YELLOW (COLORLESS); BF DIFF IF INDICATED? YES (NO); SOURCE, BODY FLUID ASCITES
[2017-07-11] MEDS: SPIRONOLACTONE 25 MG TAB PO (16:37)
[2017-07-11] MEDS: traMADol 50 MG TAB PO (20:31)
[2017-07-11] MEDS: PANTOPRAZOLE 40MG TAB (PROTONIX) PO (20:31)
[2017-07-11] MEDS: LIDOCAINE 5% (LIDODERM) PATCH TD (20:32)
[2017-07-12] MEDS: SLF 3 ML SYR IV ×2 (05:30→12:29)
[2017-07-12 06:56] LABS: HEMATOCRIT 25.2 % (36.0-47.0); HEMOGLOBIN 7.7 g/dl (12.0-15.5); MEAN CORPUSCULAR HEMOGLOBIN 25.6 pg (27.0-33.0); MEAN CORPUSCULAR HGB CONC 30.6 g/dl (32.0-36.5); MEAN CORPUSCULAR VOLUME 83.7 fl (80.0-96.0); PLATELET COUNT, AUTOMATED 138 10^3/uL (150-450); RED BLOOD COUNT 3.01 10^6/uL (4.00-5.40); RED CELL DISTRIBUTION WIDTH 16.2 % (11.5-14.5); WHITE BLOOD COUNT 3.5 10^3/uL (4.0-10.0)
[2017-07-12 07:22] LABS: ALBUMIN 2.8 GM/DL (3.2-5.2); ALBUMIN/GLOBULIN RATIO 1.04 (1.00-1.93); ALKALINE PHOSPHATASE 158 U/L (45-117); ALT/SGPT 19 U/L (12-78); ANION GAP 9 MEQ/L (8-16); AST/SGOT 34 U/L (7-37); BILIRUBIN,TOTAL 1.4 MG/DL (0.2-1.0); BLOOD UREA NITROGEN 16 MG/DL (7-18); CALCIUM LEVEL 7.9 MG/DL (8.8-10.2); CARBON DIOXIDE LEVEL 21 MEQ/L (21-32); CHLORIDE LEVEL 113 MEQ/L (98-107); CREATININE FOR GFR 0.73 MG/DL (0.55-1.30); GLOMERULAR FILTRATION RATE > 60.0 (>39); GLUCOSE, FASTING 80 MG/DL (70-100); POTASSIUM SERUM 3.7 MEQ/L (3.5-5.1); SODIUM LEVEL 143 MEQ/L (136-145); TOTAL PROTEIN 5.5 GM/DL (6.4-8.2)
[2017-07-12] MEDS: SUCRALFATE 1 GM TAB PO ×2 (09:51→12:01)
[2017-07-12] MEDS: LACTOBACILLUS ACIDOPHILUS CAP (BACID) PO ×2 (09:51→12:01)
[2017-07-12] MEDS: PANTOPRAZOLE 40MG TAB (PROTONIX) PO (09:52)
[2017-07-12] MEDS: ASPIRIN 81 MG ENTERIC TAB PO (09:52)
[2017-07-12] MEDS: diphenhydrAMINE CREAM 30GM TOP (09:52)
[2017-07-12] MEDS: EUCERIN 120GM CREAM TOP (09:52)
[2017-07-12] MEDS: **NOTE PATIENT COMMENT** MISC XX (09:53)
[2017-07-12] MEDS: PROPRANOLOL 10 MG TAB PO (09:56)
[2017-07-12] MEDS: SPIRONOLACTONE 25 MG TAB PO (09:56)
[2017-07-12] MEDS: FUROSEMIDE 40 MG TAB PO (09:57)
[2017-07-12] MEDS: DIGOXIN 0.125 MG TAB PO (09:57)
== END 2017-07-12 15:15 | disposition home or self-care (01) | DRG 432 ==
LOC: M MS5PR 07-08 14:16 → M ED 15:51 → M ED INP 19:52 → M PCU 21:25
PROC: 0DB68ZZ Excision of Stomach, Via Natural or Artificial Opening Endoscopic (ICD-10-PCS; principal; 2017-07-09 14:31)
PROC: 0W3P8ZZ Control Bleeding in Gastrointestinal Tract, Via Natural or Artificial Opening Endoscopic (ICD-10-PCS; 2017-07-09 14:31)
PROC: 0W9G3ZZ Drainage of Peritoneal Cavity, Percutaneous Approach (ICD-10-PCS; 2017-07-09 14:31)
PROC: 30233N1 Transfusion of Nonautologous Red Blood Cells into Peripheral Vein, Percutaneous Approach (ICD-10-PCS; 2017-07-09 14:31)
PROC: 30233J1 Transfusion of Nonautologous Serum Albumin into Peripheral Vein, Percutaneous Approach (ICD-10-PCS; 2017-07-09 14:31)
DX: K74.69 Other cirrhosis of liver (principal); K31.811 Angiodysplasia of stomach and duodenum with bleeding; D62 Acute posthemorrhagic anemia; K76.6 Portal hypertension; I50.32 Chronic diastolic (congestive) heart failure; R18.8 Other ascites; I85.00 Esophageal varices without bleeding; K31.89 Other diseases of stomach and duodenum; M54.9 Dorsalgia, unspecified; R23.4 Changes in skin texture; K31.7 Polyp of stomach and duodenum; K21.9 Gastro-esophageal reflux disease without esophagitis; I48.2 Chronic atrial fibrillation; I11.0 Hypertensive heart disease with heart failure; D50.9 Iron deficiency anemia, unspecified; Z95.0 Presence of cardiac pacemaker; Z90.710 Acquired absence of both cervix and uterus; Z90.49 Acquired absence of other specified parts of digestive tract; Z79.82 Long term (current) use of aspirin; Z88.0 Allergy status to penicillin; Z88.2 Allergy status to sulfonamides; Z88.5 Allergy status to narcotic agent; Z88.8 Allergy status to other drugs, medicaments and biological substances; Z86.73 Personal history of transient ischemic attack (TIA), and cerebral infarction without residual deficits

== ENCOUNTER → 2017-07-06 | Outpatient (CLI) | payer MEDICARE ==
[2017-07-06 15:06] LABS: BASO # 0.1 10^3/uL (0.0-0.2); EOS # 0.3 10^3/uL (0.0-0.50); EOS % 7.2 % (0.0-3.0); HEMATOCRIT 25.4 % (36.0-47.0); HEMOGLOBIN 7.3 g/dl (12.0-15.5); IMMATURE GRANULOCYTE % 0.5 % (0-3.0); LYMPH # 0.6 10^3/uL (1.5-4.5); LYMPH % 14.6 % (24.0-44.0); MEAN CORPUSCULAR HEMOGLOBIN 24.8 pg (27.0-33.0); MEAN CORPUSCULAR HGB CONC 28.7 g/dl (32.0-36.5); MEAN CORPUSCULAR VOLUME 86.4 fl (80.0-96.0); MONO # 0.8 10^3/uL (0.0-0.8); MONO % 19.3 % (0.0-5.0); NEUTROPHILS # 2.3 10^3/uL (1.8-7.7); NEUTROPHILS % 56.4 % (36.0-66.0); PLATELET COUNT, AUTOMATED 227 10^3/uL (150-450); RED BLOOD COUNT 2.94 10^6/uL (4.00-5.40); RED CELL DISTRIBUTION WIDTH 15.8 % (11.5-14.5); WHITE BLOOD COUNT 4.1 10^3/uL (4.0-10.0)
[2017-07-06 15:22] LABS: ALBUMIN/GLOBULIN RATIO 0.94 (1.00-1.93); ALKALINE PHOSPHATASE 122 U/L (45-117); ALT/SGPT 23 U/L (12-78); ANION GAP 6 MEQ/L (8-16); AST/SGOT 28 U/L (7-37); BILIRUBIN,TOTAL 0.9 MG/DL (0.2-1.0); BLOOD UREA NITROGEN 15 MG/DL (7-18); CALCIUM LEVEL 8.2 MG/DL (8.8-10.2); CARBON DIOXIDE LEVEL 25 MEQ/L (21-32); CHLORIDE LEVEL 110 MEQ/L (98-107); CREATININE FOR GFR 0.83 MG/DL (0.55-1.30); FERRITIN 20 NG/ML (8-252); GLOMERULAR FILTRATION RATE > 60.0 (>39); GLUCOSE, FASTING 103 MG/DL (70-100); IRON (FE) 26 UG/DL (50-170); SODIUM LEVEL 141 MEQ/L (136-145); TOTAL PROTEIN 6.2 GM/DL (6.4-8.2)
== END ==
LOC: M RADPRO 14:07
DX: K74.60 Unspecified cirrhosis of liver (principal)

== ENCOUNTER → 2017-07-27 | Outpatient (REF) | payer MEDICARE | LOC: M LAB REF 15:21 | DX: R30.0 Dysuria (principal) | CPT/HCPCS: 87086 ==

== ENCOUNTER 2017-08-07 14:26 | Observation (INO) | payer MEDICARE ==
[2017-08-07 15:55] LABS: BASO # 0.1 10^3/uL (0.0-0.2); BASO % 2.3 % (0.0-1.0); EOS # 0.3 10^3/uL (0.0-0.50); EOS % 6.6 % (0.0-3.0); HEMATOCRIT 27.3 % (36.0-47.0); HEMOGLOBIN 7.9 g/dl (12.0-15.5); IMMATURE GRANULOCYTE % 0.5 % (0-3.0); LYMPH # 0.6 10^3/uL (1.5-4.5); LYMPH % 14.3 % (24.0-44.0); MEAN CORPUSCULAR HEMOGLOBIN 24.7 pg (27.0-33.0); MEAN CORPUSCULAR HGB CONC 28.9 g/dl (32.0-36.5); MEAN CORPUSCULAR VOLUME 85.3 fl (80.0-96.0); MONO # 0.8 10^3/uL (0.0-0.8); MONO % 18.1 % (0.0-5.0); NEUTROPHILS # 2.6 10^3/uL (1.8-7.7); NEUTROPHILS % 58.2 % (36.0-66.0); PLATELET COUNT, AUTOMATED 207 10^3/uL (150-450); WHITE BLOOD COUNT 4.4 10^3/uL (4.0-10.0)
[2017-08-07 16:07] LABS: PROTHROMBIN TIME 14.4 SECONDS (12.4-14.5)
[2017-08-07 16:21] LABS: ALBUMIN 3.1 GM/DL (3.2-5.2); ALBUMIN/GLOBULIN RATIO 0.82 (1.00-1.93); ALKALINE PHOSPHATASE 130 U/L (45-117); ALT/SGPT 28 U/L (12-78); ANION GAP 8 MEQ/L (8-16); AST/SGOT 42 U/L (7-37); BILIRUBIN,DIRECT 0.3 MG/DL (0.0-0.2); BLOOD UREA NITROGEN 20 MG/DL (7-18); CALCIUM LEVEL 8.7 MG/DL (8.8-10.2); CARBON DIOXIDE LEVEL 26 MEQ/L (21-32); CHLORIDE LEVEL 107 MEQ/L (98-107); CREATININE FOR GFR 0.97 MG/DL (0.55-1.30); GLOMERULAR FILTRATION RATE 59.8 (>39); GLUCOSE, FASTING 93 MG/DL (70-100); SODIUM LEVEL 141 MEQ/L (136-145); TOTAL PROTEIN 6.9 GM/DL (6.4-8.2)
[2017-08-07 16:28] LABS: AMMONIA 37 uMOL/L (<32)
[2017-08-07] MEDS ORDERED: ONDANSETRON 4MG/2ML VIAL (J2405) IV (18:15)
[2017-08-07] MEDS ORDERED: MORPHINE 4 MG/ML 1ML VIAL/SYRINGE (J2270) IV (18:15)
[2017-08-07] MEDS: LR 1,000 ML IV (20:20)
[2017-08-07] MEDS: PANTOPRAZOLE 40MG INJ (PROTONIX) (C9113) IV (20:21)
[2017-08-07] MEDS: SPIRONOLACTONE 25 MG TAB PO (20:27)
[2017-08-07] MEDS: PROPRANOLOL 10 MG TAB PO (20:27)
[2017-08-07 20:39] LABS: IMMEDIATE SPIN CROSSMATCH 1 1
[2017-08-08] MEDS ORDERED: diphenhydrAMINE INJ 50MG/ML VIAL (J1200) IV (00:30)
[2017-08-08] MEDS: hydrOXYzine 50 MG TAB PO (01:08)
[2017-08-08] MEDS: zolPIDEM TARTRATE 5 MG TAB PO (02:16)
[2017-08-08 02:18] LABS: KETONE, URINE AUTO RFX NEGATIVE (NEGATIVE); MUCUS, URINE RFX SMALL (NEGATIVE); NITRITE, URINE AUTO RFX NEGATIVE (NEGATIVE); RBC, URINE AUTO RFX 2 /HPF (0-3); SPECIFIC GRAVITY UR AUTO RFX 1.017 (1.002-1.035); SQUAM EPITHELIAL CELL UR AURFX 1 /HPF (0-6); WBC, URINE AUTO RFX 6 /HPF (0-3)
[2017-08-08 02:19] LABS: LEUKOCYTE ESTERASE UR AUTO RFX 1+ (NEGATIVE)
[2017-08-08] MEDS: PANTOPRAZOLE 40MG INJ (PROTONIX) (C9113) IV ×3 (05:51→18:27)
[2017-08-08] MEDS: LR 1,000 ML IV (05:51)
[2017-08-08 06:12] LABS: HEMATOCRIT 24.3 % (36.0-47.0); HEMOGLOBIN 7.5 g/dl (12.0-15.5); MEAN CORPUSCULAR HEMOGLOBIN 25.2 pg (27.0-33.0); MEAN CORPUSCULAR HGB CONC 30.9 g/dl (32.0-36.5); MEAN CORPUSCULAR VOLUME 81.5 fl (80.0-96.0); PLATELET COUNT, AUTOMATED 134 10^3/uL (150-450); RED BLOOD COUNT 2.98 10^6/uL (4.00-5.40); RED CELL DISTRIBUTION WIDTH 18.8 % (11.5-14.5); WHITE BLOOD COUNT 3.5 10^3/uL (4.0-10.0)
[2017-08-08 06:34] LABS: ALBUMIN 2.6 GM/DL (3.2-5.2); ALKALINE PHOSPHATASE 109 U/L (45-117); ALT/SGPT 17 U/L (12-78); ANION GAP 7 MEQ/L (8-16); AST/SGOT 28 U/L (7-37); BILIRUBIN,TOTAL 1.9 MG/DL (0.2-1.0); BLOOD UREA NITROGEN 18 MG/DL (7-18); CARBON DIOXIDE LEVEL 25 MEQ/L (21-32); CHLORIDE LEVEL 112 MEQ/L (98-107); CREATININE FOR GFR 0.74 MG/DL (0.55-1.30); GLOMERULAR FILTRATION RATE > 60.0 (>39); GLUCOSE, FASTING 78 MG/DL (70-100); POTASSIUM SERUM 3.7 MEQ/L (3.5-5.1); SODIUM LEVEL 144 MEQ/L (136-145); TOTAL PROTEIN 5.5 GM/DL (6.4-8.2)
[2017-08-08] MEDS: PROPRANOLOL 10 MG TAB PO ×2 (09:20→21:00)
[2017-08-08 11:15] LABS: IMMEDIATE SPIN CROSSMATCH 1 2
[2017-08-08] MEDS ORDERED: FUROSEMIDE 20 MG/2 ML VIAL (J1940) IV (11:15)
[2017-08-08] MEDS: FUROSEMIDE 20 MG/2 ML VIAL (J1940) IV (14:37)
[2017-08-08] MEDS ORDERED: PROPOFOL 200 MG/20 ML VIAL As Ordered (16:09)
[2017-08-08] MEDS ORDERED: ONDANSETRON 4MG/2ML VIAL (J2405) IV (17:15)
[2017-08-08 17:26] LABS: FERRITIN 21 NG/ML (8-252); IRON (FE) 67 UG/DL (50-170); PERCENT SATURATION 20.6 % (13.2-45.0); TOTAL IRON BINDING CAPACITY 325 UG/DL (250-450)
[2017-08-08] MEDS: SPIRONOLACTONE 25 MG TAB PO (22:22)
[2017-08-09] MEDS: PANTOPRAZOLE 40MG INJ (PROTONIX) (C9113) IV ×2 (06:00→17:18)
[2017-08-09 06:40] LABS: HEMATOCRIT 31.5 % (36.0-47.0); MEAN CORPUSCULAR HEMOGLOBIN 25.9 pg (27.0-33.0); MEAN CORPUSCULAR HGB CONC 31.7 g/dl (32.0-36.5); MEAN CORPUSCULAR VOLUME 81.6 fl (80.0-96.0); PLATELET COUNT, AUTOMATED 150 10^3/uL (150-450); RED BLOOD COUNT 3.86 10^6/uL (4.00-5.40); WHITE BLOOD COUNT 3.7 10^3/uL (4.0-10.0)
[2017-08-09 07:05] LABS: ALBUMIN 2.7 GM/DL (3.2-5.2); ALBUMIN/GLOBULIN RATIO 0.84 (1.00-1.93); ALKALINE PHOSPHATASE 124 U/L (45-117); ALT/SGPT 19 U/L (12-78); ANION GAP 9 MEQ/L (8-16); AST/SGOT 32 U/L (7-37); BILIRUBIN,TOTAL 2.2 MG/DL (0.2-1.0); BLOOD UREA NITROGEN 18 MG/DL (7-18); CARBON DIOXIDE LEVEL 23 MEQ/L (21-32); CHLORIDE LEVEL 113 MEQ/L (98-107); GLOMERULAR FILTRATION RATE > 60.0 (>39); GLUCOSE, FASTING 76 MG/DL (70-100); MAGNESIUM LEVEL 2.2 MG/DL (1.8-2.4); POTASSIUM SERUM 3.6 MEQ/L (3.5-5.1); SODIUM LEVEL 145 MEQ/L (136-145); TOTAL PROTEIN 5.9 GM/DL (6.4-8.2)
[2017-08-09] MEDS: PROPRANOLOL 10 MG TAB PO ×2 (09:14→21:00)
[2017-08-09] MEDS: POTASSIUM CHLORIDE 10 MEQ SR TABLET PO (09:15)
[2017-08-09] MEDS: ASPIRIN 81 MG ENTERIC TAB PO (10:22)
[2017-08-09] MEDS: FUROSEMIDE 40 MG TAB PO (10:22)
[2017-08-09] MEDS: DIGOXIN 0.125 MG TAB PO (10:22)
[2017-08-09] MEDS: SUCRALFATE 1 GM TAB PO ×2 (18:23→21:19)
[2017-08-09] MEDS: OMEPRAZOLE 20 MG CAP PO (21:19)
[2017-08-09] MEDS: SPIRONOLACTONE 25 MG TAB PO (21:19)
[2017-08-09] MEDS: hydrOXYzine 50 MG TAB PO (21:24)
[2017-08-10 06:15] LABS: HEMATOCRIT 30.9 % (36.0-47.0); HEMOGLOBIN 9.7 g/dl (12.0-15.5); MEAN CORPUSCULAR HEMOGLOBIN 25.5 pg (27.0-33.0); MEAN CORPUSCULAR HGB CONC 31.4 g/dl (32.0-36.5); MEAN CORPUSCULAR VOLUME 81.3 fl (80.0-96.0); PLATELET COUNT, AUTOMATED 147 10^3/uL (150-450); RED CELL DISTRIBUTION WIDTH 17.9 % (11.5-14.5); WHITE BLOOD COUNT 4.7 10^3/uL (4.0-10.0)
[2017-08-10 06:33] LABS: ALBUMIN 2.6 GM/DL (3.2-5.2); ALBUMIN/GLOBULIN RATIO 0.76 (1.00-1.93); ALKALINE PHOSPHATASE 136 U/L (45-117); ALT/SGPT 23 U/L (12-78); ANION GAP 9 MEQ/L (8-16); AST/SGOT 38 U/L (7-37); BILIRUBIN,TOTAL 1.9 MG/DL (0.2-1.0); BLOOD UREA NITROGEN 18 MG/DL (7-18); CALCIUM LEVEL 8.2 MG/DL (8.8-10.2); CARBON DIOXIDE LEVEL 22 MEQ/L (21-32); CHLORIDE LEVEL 113 MEQ/L (98-107); CREATININE FOR GFR 0.77 MG/DL (0.55-1.30); GLOMERULAR FILTRATION RATE > 60.0 (>39); GLUCOSE, FASTING 85 MG/DL (70-100); MAGNESIUM LEVEL 2.2 MG/DL (1.8-2.4); SODIUM LEVEL 144 MEQ/L (136-145)
[2017-08-10] MEDS: DIGOXIN 0.125 MG TAB PO (09:11)
[2017-08-10] MEDS: SUCRALFATE 1 GM TAB PO (09:11)
[2017-08-10] MEDS: ASPIRIN 81 MG ENTERIC TAB PO (09:11)
[2017-08-10] MEDS: FUROSEMIDE 40 MG TAB PO (09:11)
[2017-08-10] MEDS: OMEPRAZOLE 20 MG CAP PO (09:12)
[2017-08-10] MEDS: PROPRANOLOL 10 MG TAB PO (09:13)
== END 2017-08-10 10:59 | disposition home or self-care (01) ==
LOC: M ED 14:26 → M ED INP 18:08 → M MSPAV 22:11
DX: D50.0 Iron deficiency anemia secondary to blood loss (chronic) (principal); K76.6 Portal hypertension; K31.819 Angiodysplasia of stomach and duodenum without bleeding; I85.00 Esophageal varices without bleeding; K31.7 Polyp of stomach and duodenum; K74.69 Other cirrhosis of liver; I48.2 Chronic atrial fibrillation; Z95.0 Presence of cardiac pacemaker; Z86.73 Personal history of transient ischemic attack (TIA), and cerebral infarction without residual deficits; I50.30 Unspecified diastolic (congestive) heart failure; K21.9 Gastro-esophageal reflux disease without esophagitis; Z79.82 Long term (current) use of aspirin; Z79.899 Other long term (current) drug therapy; Z88.0 Allergy status to penicillin; Z88.2 Allergy status to sulfonamides; Z88.8 Allergy status to other drugs, medicaments and biological substances
CPT/HCPCS: 43255

== ENCOUNTER → 2017-08-20 | Outpatient (CLI) | payer MEDICARE ==
[2017-08-20 20:03] LABS: BASO # 0.1 10^3/uL (0.0-0.2); BASO % 1.7 % (0.0-1.0); EOS # 0.3 10^3/uL (0.0-0.50); EOS % 5.4 % (0.0-3.0); HEMATOCRIT 33.1 % (36.0-47.0); HEMOGLOBIN 9.8 g/dl (12.0-15.5); IMMATURE GRANULOCYTE % 0.4 % (0-3.0); LYMPH # 0.6 10^3/uL (1.5-4.5); LYMPH % 12.2 % (24.0-44.0); MEAN CORPUSCULAR HEMOGLOBIN 26.2 pg (27.0-33.0); MEAN CORPUSCULAR HGB CONC 29.6 g/dl (32.0-36.5); MEAN CORPUSCULAR VOLUME 88.5 fl (80.0-96.0); MONO % 19.8 % (0.0-5.0); NEUTROPHILS # 3.1 10^3/uL (1.8-7.7); NEUTROPHILS % 60.5 % (36.0-66.0); PLATELET COUNT, AUTOMATED 211 10^3/uL (150-450); RED BLOOD COUNT 3.74 10^6/uL (4.00-5.40); RED CELL DISTRIBUTION WIDTH 19.7 % (11.5-14.5); WHITE BLOOD COUNT 5.2 10^3/uL (4.0-10.0)
== END ==
LOC: M SMT 15:07
DX: I48.0 Paroxysmal atrial fibrillation (principal)
CPT/HCPCS: 85025

== ENCOUNTER 2017-08-29 12:43 | Outpatient (CLI) | payer MEDICARE ==
[2017-08-29 16:18] LABS: IMMEDIATE SPIN CROSSMATCH 1 1
== END 2017-08-29 19:05 | disposition home or self-care (01) ==
LOC: M OPCLI4PR 12:43 → M MS4PR 13:10 → M OPCLI4PR 19:05
DX: D50.9 Iron deficiency anemia, unspecified (principal); Z79.82 Long term (current) use of aspirin; Z79.899 Other long term (current) drug therapy
CPT/HCPCS: 36430

== ENCOUNTER → 2017-09-11 | Outpatient (CLI) | payer MEDICARE ==
[2017-09-11 17:21] LABS: BASO # 0.1 10^3/uL (0.0-0.2); BASO % 1.6 % (0.0-1.0); EOS # 0.3 10^3/uL (0.0-0.50); EOS % 4.9 % (0.0-3.0); HEMATOCRIT 31.9 % (36.0-47.0); HEMOGLOBIN 9.5 g/dl (12.0-15.5); IMMATURE GRANULOCYTE % 0.6 % (0-3.0); LYMPH # 0.7 10^3/uL (1.5-4.5); LYMPH % 13.4 % (24.0-44.0); MEAN CORPUSCULAR HEMOGLOBIN 27.4 pg (27.0-33.0); MEAN CORPUSCULAR HGB CONC 29.8 g/dl (32.0-36.5); MEAN CORPUSCULAR VOLUME 91.9 fl (80.0-96.0); MONO % 20.2 % (0.0-5.0); NEUTROPHILS # 3.1 10^3/uL (1.8-7.7); NEUTROPHILS % 59.3 % (36.0-66.0); PLATELET COUNT, AUTOMATED 202 10^3/uL (150-450); RED BLOOD COUNT 3.47 10^6/uL (4.00-5.40); RED CELL DISTRIBUTION WIDTH 19.4 % (11.5-14.5); WHITE BLOOD COUNT 5.2 10^3/uL (4.0-10.0)
== END ==
LOC: M SMT 14:17
DX: K74.60 Unspecified cirrhosis of liver (principal); K31.811 Angiodysplasia of stomach and duodenum with bleeding; F50.9 Eating disorder, unspecified
CPT/HCPCS: 85025

== ENCOUNTER → 2017-09-13 | Outpatient (CLI) | payer MEDICARE | LOC: M RADPRO 08:23 | DX: K74.60 Unspecified cirrhosis of liver (principal) | CPT/HCPCS: 76705 ==

== ENCOUNTER → 2017-09-26 | Outpatient (CLI) | payer MEDICARE ==
[2017-09-26 17:48] LABS: BASO # 0.1 10^3/uL (0.0-0.2); BASO % 1.8 % (0.0-1.0); EOS # 0.3 10^3/uL (0.0-0.50); EOS % 5.7 % (0.0-3.0); HEMATOCRIT 27.1 % (36.0-47.0); HEMOGLOBIN 8.2 g/dl (12.0-15.5); IMMATURE GRANULOCYTE % 0.5 % (0-3.0); LYMPH # 0.5 10^3/uL (1.5-4.5); LYMPH % 11.8 % (24.0-44.0); MEAN CORPUSCULAR HEMOGLOBIN 27.2 pg (27.0-33.0); MEAN CORPUSCULAR HGB CONC 30.3 g/dl (32.0-36.5); MONO # 0.8 10^3/uL (0.0-0.8); NEUTROPHILS # 2.7 10^3/uL (1.8-7.7); NEUTROPHILS % 61.2 % (36.0-66.0); PLATELET COUNT, AUTOMATED 220 10^3/uL (150-450); RED BLOOD COUNT 3.01 10^6/uL (4.00-5.40); RED CELL DISTRIBUTION WIDTH 17.5 % (11.5-14.5); WHITE BLOOD COUNT 4.4 10^3/uL (4.0-10.0)
[2017-09-26 17:56] LABS: ALBUMIN 3.1 GM/DL (3.2-5.2); ALBUMIN/GLOBULIN RATIO 0.86 (1.00-1.93); ALKALINE PHOSPHATASE 126 U/L (45-117); ALT/SGPT 27 U/L (12-78); ANION GAP 10 MEQ/L (8-16); AST/SGOT 36 U/L (7-37); BILIRUBIN,TOTAL 1.1 MG/DL (0.2-1.0); BLOOD UREA NITROGEN 16 MG/DL (7-18); CALCIUM LEVEL 8.6 MG/DL (8.8-10.2); CARBON DIOXIDE LEVEL 26 MEQ/L (21-32); CHLORIDE LEVEL 105 MEQ/L (98-107); CREATININE FOR GFR 0.98 MG/DL (0.55-1.30); FERRITIN 22 NG/ML (8-252); FREE T4 1.29 NG/DL (0.76-1.46); GLOMERULAR FILTRATION RATE 58.9 (>39); GLUCOSE, FASTING 76 MG/DL (70-100); POTASSIUM SERUM 3.8 MEQ/L (3.5-5.1); SODIUM LEVEL 141 MEQ/L (136-145); TOTAL PROTEIN 6.7 GM/DL (6.4-8.2)
== END ==
LOC: M LAB 16:30
DX: I48.0 Paroxysmal atrial fibrillation (principal); D50.9 Iron deficiency anemia, unspecified
CPT/HCPCS: 84443

== ENCOUNTER → 2017-09-26 | Outpatient (CLI) | payer MEDICARE | LOC: M SMT 15:15 | DX: I48.0 Paroxysmal atrial fibrillation (principal); D50.9 Iron deficiency anemia, unspecified ==

== ENCOUNTER 2017-09-28 11:33 | Outpatient (CLI) | payer MEDICARE | END 2017-09-28 16:00 | disposition home or self-care (01) | LOC: M INFU 11:33 | DX: D50.9 Iron deficiency anemia, unspecified (principal); Z95.0 Presence of cardiac pacemaker; Z88.8 Allergy status to other drugs, medicaments and biological substances; Z88.0 Allergy status to penicillin; Z88.2 Allergy status to sulfonamides; Z79.82 Long term (current) use of aspirin; Z79.899 Other long term (current) drug therapy | CPT/HCPCS: 36430 ==

== ENCOUNTER → 2017-09-28 | Outpatient (CLI) | payer MEDICARE ==
[2017-09-28 13:10] LABS: IMMEDIATE SPIN CROSSMATCH 1 1
== END ==
LOC: M LAB 11:37
DX: D50.9 Iron deficiency anemia, unspecified (principal)
CPT/HCPCS: 86900

== ENCOUNTER → 2017-10-15 | Outpatient (CLI) | payer MEDICARE ==
[2017-10-15 19:00] LABS: BASO # 0.1 10^3/uL (0.0-0.2); BASO % 1.9 % (0.0-1.0); EOS # 0.2 10^3/uL (0.0-0.50); EOS % 4.6 % (0.0-3.0); HEMATOCRIT 25.9 % (36.0-47.0); HEMOGLOBIN 7.5 g/dl (12.0-15.5); IMMATURE GRANULOCYTE % 0.2 % (0-3.0); LYMPH # 0.6 10^3/uL (1.5-4.5); LYMPH % 12.9 % (24.0-44.0); MEAN CORPUSCULAR HEMOGLOBIN 26.9 pg (27.0-33.0); MEAN CORPUSCULAR VOLUME 92.8 fl (80.0-96.0); MONO % 21.5 % (0.0-5.0); NEUTROPHILS # 2.8 10^3/uL (1.8-7.7); NEUTROPHILS % 58.9 % (36.0-66.0); PLATELET COUNT, AUTOMATED 235 10^3/uL (150-450); RED BLOOD COUNT 2.79 10^6/uL (4.00-5.40); RED CELL DISTRIBUTION WIDTH 16.9 % (11.5-14.5); WHITE BLOOD COUNT 4.8 10^3/uL (4.0-10.0)
[2017-10-15 19:25] LABS: ALBUMIN 3.1 GM/DL (3.2-5.2); ALBUMIN/GLOBULIN RATIO 0.91 (1.00-1.93); ALKALINE PHOSPHATASE 117 U/L (45-117); ALT/SGPT 27 U/L (12-78); ANION GAP 9 MEQ/L (8-16); AST/SGOT 36 U/L (7-37); BILIRUBIN,TOTAL 1.1 MG/DL (0.2-1.0); BLOOD UREA NITROGEN 16 MG/DL (7-18); CALCIUM LEVEL 8.7 MG/DL (8.8-10.2); CARBON DIOXIDE LEVEL 26 MEQ/L (21-32); CHLORIDE LEVEL 106 MEQ/L (98-107); CREATININE FOR GFR 1.04 MG/DL (0.55-1.30); GLUCOSE, FASTING 97 MG/DL (70-100); POTASSIUM SERUM 3.9 MEQ/L (3.5-5.1); SODIUM LEVEL 141 MEQ/L (136-145); TOTAL PROTEIN 6.5 GM/DL (6.4-8.2)
== END ==
LOC: M SMT 14:57
DX: D50.9 Iron deficiency anemia, unspecified (principal); K74.60 Unspecified cirrhosis of liver
CPT/HCPCS: 80053

== ENCOUNTER 2017-10-18 10:07 | Outpatient (CLI) | payer MEDICARE ==
[2017-10-18 14:51] LABS: IMMEDIATE SPIN CROSSMATCH 1 2
== END 2017-10-18 17:40 | disposition home or self-care (01) ==
LOC: M OPCLI4PV 10:07 → M MSPAV 10:31 → M OPCLI4PV 17:40
DX: D50.9 Iron deficiency anemia, unspecified (principal); K74.60 Unspecified cirrhosis of liver
CPT/HCPCS: 36430

== ENCOUNTER → 2017-10-31 | Outpatient (CLI) | payer MEDICARE ==
[2017-11-01 10:51] LABS: BASO # 0.1 10^3/uL (0.0-0.2); EOS # 0.3 10^3/uL (0.0-0.50); EOS % 4.7 % (0.0-3.0); HEMATOCRIT 31.9 % (36.0-47.0); HEMOGLOBIN 8.5 g/dl (12.0-15.5); IMMATURE GRANULOCYTE % 0.5 % (0-3.0); LYMPH # 0.9 10^3/uL (1.5-4.5); LYMPH % 16.1 % (24.0-44.0); MEAN CORPUSCULAR HEMOGLOBIN 26.2 pg (27.0-33.0); MEAN CORPUSCULAR HGB CONC 26.6 g/dl (32.0-36.5); MEAN CORPUSCULAR VOLUME 98.5 fl (80.0-96.0); MONO # 0.9 10^3/uL (0.0-0.8); MONO % 16.6 % (0.0-5.0); NEUTROPHILS # 3.3 10^3/uL (1.8-7.7); NEUTROPHILS % 60.1 % (36.0-66.0); RED BLOOD COUNT 3.24 10^6/uL (4.00-5.40); RED CELL DISTRIBUTION WIDTH 17.1 % (11.5-14.5); WHITE BLOOD COUNT 5.5 10^3/uL (4.0-10.0)
[2017-11-01 11:18] LABS: POS COUNT POS FLAG
[2017-11-01 11:21] LABS: PLATELET COUNT, AUTOMATED 207 10^3/uL (150-450)
[2017-11-01 11:24] LABS: ALBUMIN 3.6 GM/DL (3.2-5.2); ALBUMIN/GLOBULIN RATIO 1.09 (1.00-1.93); ALKALINE PHOSPHATASE 120 U/L (45-117); ALT/SGPT 29 U/L (12-78); ANION GAP 7 MEQ/L (8-16); AST/SGOT 41 U/L (7-37); BILIRUBIN,TOTAL 0.9 MG/DL (0.2-1.0); BLOOD UREA NITROGEN 18 MG/DL (7-18); CALCIUM LEVEL 9.1 MG/DL (8.8-10.2); CARBON DIOXIDE LEVEL 26 MEQ/L (21-32); CHLORIDE LEVEL 107 MEQ/L (98-107); CREATININE FOR GFR 0.87 MG/DL (0.55-1.30); GLOMERULAR FILTRATION RATE > 60.0 (>39); GLUCOSE, FASTING 84 MG/DL (70-100); POTASSIUM SERUM 4.2 MEQ/L (3.5-5.1); SODIUM LEVEL 140 MEQ/L (136-145); TOTAL PROTEIN 6.9 GM/DL (6.4-8.2)
== END ==
LOC: M SMT 14:06
DX: D50.9 Iron deficiency anemia, unspecified (principal)
CPT/HCPCS: 80053

== ENCOUNTER → 2017-10-31 | Outpatient (CLI) | payer MEDICARE | LOC: M SMT 14:09 | DX: M54.5 Low back pain (principal) | CPT/HCPCS: 72114; 80053 ==

== ENCOUNTER 2017-11-07 12:46 | Day surgery (SDC) | payer MEDICARE ==
[2017-11-07] MEDS ORDERED: NS 1,000 ML IV (13:00)
[2017-11-07] MEDS ORDERED: PROPOFOL 200 MG/20 ML VIAL As Ordered ×2 (13:39)
[2017-11-07] MEDS ORDERED: LIDOCAINE 2% INJ 100 MG/5 ML SDV (FOR ANES.) As Ordered (13:39)
[2017-11-07] MEDS ORDERED: ePHEDrine INJ 50 MG/ML VIAL As Ordered (13:40)
[2017-11-07] MEDS ORDERED: ePHEDrine SULFATE 25 MG/5 ML(5MG/ML) SYRINGE As Ordered (13:40)
== END 2017-11-07 15:05 | disposition home or self-care (01) ==
LOC: M OPP 15:05
DX: D50.9 Iron deficiency anemia, unspecified (principal); K64.0 First degree hemorrhoids; K57.30 Diverticulosis of large intestine without perforation or abscess without bleeding; K55.20 Angiodysplasia of colon without hemorrhage; I85.00 Esophageal varices without bleeding; K31.811 Angiodysplasia of stomach and duodenum with bleeding; K44.9 Diaphragmatic hernia without obstruction or gangrene; R74.8 Abnormal levels of other serum enzymes; K74.60 Unspecified cirrhosis of liver; K21.9 Gastro-esophageal reflux disease without esophagitis; R12 Heartburn; M19.90 Unspecified osteoarthritis, unspecified site; Z86.73 Personal history of transient ischemic attack (TIA), and cerebral infarction without residual deficits; Z95.0 Presence of cardiac pacemaker; Z88.8 Allergy status to other drugs, medicaments and biological substances; Z88.0 Allergy status to penicillin; Z88.2 Allergy status to sulfonamides; Z88.5 Allergy status to narcotic agent; Z79.82 Long term (current) use of aspirin; Z79.899 Other long term (current) drug therapy; Z80.0 Family history of malignant neoplasm of digestive organs
CPT/HCPCS: 45378

== ENCOUNTER 2017-11-23 14:11 | Inpatient (IN) | payer MEDICARE ==
[2017-11-23 15:17] LABS: BASO # 0.1 10^3/uL (0.0-0.2); BASO % 1.7 % (0.0-1.0); EOS # 0.2 10^3/uL (0.0-0.50); HEMATOCRIT 23.3 % (36.0-47.0); IMMATURE GRANULOCYTE % 0.2 % (0-3.0); LYMPH # 0.5 10^3/uL (1.5-4.5); LYMPH % 12.1 % (24.0-44.0); MEAN CORPUSCULAR HEMOGLOBIN 25.1 pg (27.0-33.0); MEAN CORPUSCULAR HGB CONC 29.2 g/dl (32.0-36.5); MONO % 22.6 % (0.0-5.0); NEUTROPHILS # 2.5 10^3/uL (1.8-7.7); NEUTROPHILS % 58.4 % (36.0-66.0); PLATELET COUNT, AUTOMATED 203 10^3/uL (150-450); RED BLOOD COUNT 2.71 10^6/uL (4.00-5.40); RED CELL DISTRIBUTION WIDTH 16.2 % (11.5-14.5); WHITE BLOOD COUNT 4.2 10^3/uL (4.0-10.0)
[2017-11-23 15:18] LABS: INR 1.25; PROTHROMBIN TIME 15.9 SECONDS (12.1-14.4)
[2017-11-23 15:30] LABS: ALBUMIN/GLOBULIN RATIO 0.94 (1.00-1.93); ALKALINE PHOSPHATASE 119 U/L (45-117); ALT/SGPT 24 U/L (12-78); ANION GAP 7 MEQ/L (8-16); AST/SGOT 31 U/L (7-37); BILIRUBIN,DIRECT 0.4 MG/DL (0.0-0.2); BILIRUBIN,TOTAL 1.1 MG/DL (0.2-1.0); BLOOD UREA NITROGEN 15 MG/DL (7-18); CALCIUM LEVEL 8.5 MG/DL (8.8-10.2); CARBON DIOXIDE LEVEL 26 MEQ/L (21-32); CHLORIDE LEVEL 107 MEQ/L (98-107); CK-MB VALUE MASS < 1.0 NG/ML (<3.6); CPK CREATINE PHOSPHOKINASE 29 U/L (26-192); CREATININE FOR GFR 0.94 MG/DL (0.55-1.30); GLOMERULAR FILTRATION RATE > 60.0 (>39); GLUCOSE, FASTING 115 MG/DL (70-100); MB/CK RELATIVE INDEX 3.45 (< OR =4); POTASSIUM SERUM 3.4 MEQ/L (3.5-5.1); SODIUM LEVEL 140 MEQ/L (136-145); TOTAL PROTEIN 6.2 GM/DL (6.4-8.2); TROPONIN I 0.02 NG/ML (< 0.10)
[2017-11-23 15:31] LABS: HEMOGLOBIN 6.8 g/dl (12.0-15.5)
[2017-11-23] MEDS: ASPIRIN 81 MG CHEW TABLET PO (15:34)
[2017-11-23] MEDS: NS 1,000 ML IV (15:34)
[2017-11-23 15:59] LABS: DIGOXIN LEVEL 0.7 NG/ML (0.5-2.0)
[2017-11-23] MEDS: POTASSIUM CHLORIDE 10 MEQ SR TABLET PO (16:30)
[2017-11-23 16:41] LABS: RETIC HEMOGLOBIN EQUIVALENT 22.5 pg (24-36); RETICULOCYTE % 3.1 % (0.5-1.5)
[2017-11-23] MEDS: PANTOPRAZOLE SODIUM 40 MG in D5W 50 ML IV (16:45)
[2017-11-23 16:48] LABS: FERRITIN 18 NG/ML (8-252); IRON (FE) 18 UG/DL (50-170); TOTAL IRON BINDING CAPACITY 360 UG/DL (250-450)
[2017-11-23 16:58] LABS: REASON FOR REVIEW RBC MORPHOLOGY; SLIDE REVIEW Report; SOURCE PERIPHERAL SMEAR
[2017-11-23] MEDS: SPIRONOLACTONE 25 MG TAB PO (17:00)
[2017-11-23] MEDS: SUCRALFATE SUSP 1GM/10ML UD PO (18:00)
[2017-11-23] MEDS ORDERED: OCTREOTIDE ACETATE 1,200 MCG in NS 238.8 ML IV (18:00)
[2017-11-23 18:45] LABS: CPK CREATINE PHOSPHOKINASE 63 U/L (26-192); TROPONIN I < 0.02 NG/ML (< 0.10)
[2017-11-23 20:59] LABS: HEMATOCRIT 26.4 % (36.0-47.0); HEMOGLOBIN 7.7 g/dl (12.0-15.5)
[2017-11-23] MEDS: PROPRANOLOL 10 MG TAB PO (21:00)
[2017-11-24 00:09] LABS: HEMATOCRIT 27.2 % (36.0-47.0); HEMOGLOBIN 8.1 g/dl (12.0-15.5)
[2017-11-24] MEDS: SUCRALFATE SUSP 1GM/10ML UD PO ×4 (00:39→17:30)
[2017-11-24] MEDS: ONDANSETRON 4MG/2ML VIAL (J2405) IV ×2 (00:39→10:18)
[2017-11-24 00:46] LABS: CPK CREATINE PHOSPHOKINASE 27 U/L (26-192); MB/CK RELATIVE INDEX 4.07 (< OR =4); TROPONIN I < 0.02 NG/ML (< 0.10)
[2017-11-24] MEDS: PANTOPRAZOLE SODIUM 40 MG in D5W 50 ML IV ×6 (01:39→20:52)
[2017-11-24] MEDS: FUROSEMIDE 40 MG/4 ML VIAL (J1940) IV (03:36)
[2017-11-24] MEDS: RAMELTEON 8 MG TAB (ROZEREM) PO ×2 (03:58→20:53)
[2017-11-24 05:02] LABS: IMMEDIATE SPIN CROSSMATCH 1 3
[2017-11-24] MEDS: NS 1,000 ML IV ×2 (08:57→13:37)
[2017-11-24] MEDS: PROPRANOLOL 10 MG TAB PO ×2 (08:57→21:00)
[2017-11-24] MEDS: SPIRONOLACTONE 25 MG TAB PO ×2 (08:58→17:30)
[2017-11-24] MEDS: DIGOXIN 0.125 MG TAB PO (08:58)
[2017-11-24] MEDS ORDERED: clonazePAM 0.5 MG TAB PO (09:00)
[2017-11-24 10:03] LABS: HEMATOCRIT 36.8 % (36.0-47.0); MEAN CORPUSCULAR HEMOGLOBIN 26.1 pg (27.0-33.0); MEAN CORPUSCULAR VOLUME 84.4 fl (80.0-96.0); PLATELET COUNT, AUTOMATED 172 10^3/uL (150-450); RED BLOOD COUNT 4.36 10^6/uL (4.00-5.40); RED CELL DISTRIBUTION WIDTH 15.7 % (11.5-14.5)
[2017-11-24 10:13] LABS: HEMOGLOBIN 11.4 g/dl (12.0-15.5)
[2017-11-24 10:26] LABS: ANION GAP 8 MEQ/L (8-16); BLOOD UREA NITROGEN 16 MG/DL (7-18); CALCIUM LEVEL 8.5 MG/DL (8.8-10.2); CARBON DIOXIDE LEVEL 24 MEQ/L (21-32); CHLORIDE LEVEL 111 MEQ/L (98-107); CREATININE FOR GFR 0.84 MG/DL (0.55-1.30); GLOMERULAR FILTRATION RATE > 60.0 (>39); GLUCOSE, FASTING 80 MG/DL (70-100); POTASSIUM SERUM 4.3 MEQ/L (3.5-5.1); SODIUM LEVEL 143 MEQ/L (136-145)
[2017-11-24] MEDS ORDERED: PILL CRUSHER/CUTTER 1 EACH XX (12:00)
[2017-11-24] MEDS: clonazePAM 0.5 MG TAB PO (12:34)
[2017-11-24] MEDS ORDERED: DEXTRAN/HYPROMELLOSE OPHTH SOLN 15 ML(GENTEAL TEARS) OU (13:00)
[2017-11-24 17:58] LABS: HEMATOCRIT 35.3 % (36.0-47.0); HEMOGLOBIN 10.8 g/dl (12.0-15.5)
[2017-11-25] MEDS: SUCRALFATE SUSP 1GM/10ML UD PO ×5 (00:09→23:37)
[2017-11-25] MEDS: PANTOPRAZOLE SODIUM 40 MG in D5W 50 ML IV ×2 (01:45→05:52)
[2017-11-25] MEDS: NS 1,000 ML IV (04:55)
[2017-11-25 05:38] LABS: HEMATOCRIT 30.2 % (36.0-47.0); HEMOGLOBIN 9.3 g/dl (12.0-15.5); MEAN CORPUSCULAR HEMOGLOBIN 26.1 pg (27.0-33.0); MEAN CORPUSCULAR HGB CONC 30.8 g/dl (32.0-36.5); MEAN CORPUSCULAR VOLUME 84.8 fl (80.0-96.0); PLATELET COUNT, AUTOMATED 174 10^3/uL (150-450); RED BLOOD COUNT 3.56 10^6/uL (4.00-5.40); RED CELL DISTRIBUTION WIDTH 15.8 % (11.5-14.5); WHITE BLOOD COUNT 4.6 10^3/uL (4.0-10.0)
[2017-11-25 06:04] LABS: ANION GAP 8 MEQ/L (8-16); BLOOD UREA NITROGEN 13 MG/DL (7-18); CALCIUM LEVEL 7.7 MG/DL (8.8-10.2); CARBON DIOXIDE LEVEL 23 MEQ/L (21-32); CHLORIDE LEVEL 110 MEQ/L (98-107); GLOMERULAR FILTRATION RATE 57.5 (>39); GLUCOSE, FASTING 82 MG/DL (70-100); POTASSIUM SERUM 3.5 MEQ/L (3.5-5.1); SODIUM LEVEL 141 MEQ/L (136-145)
[2017-11-25] MEDS: PANTOPRAZOLE 40MG TAB (PROTONIX) PO ×2 (08:31→21:23)
[2017-11-25] MEDS: SPIRONOLACTONE 25 MG TAB PO ×2 (08:31→17:47)
[2017-11-25] MEDS: DIGOXIN 0.125 MG TAB PO (08:32)
[2017-11-25] MEDS: PROPRANOLOL 10 MG TAB PO ×2 (08:32→21:24)
[2017-11-25 18:15] LABS: HEMATOCRIT 31.9 % (36.0-47.0); HEMOGLOBIN 10.1 g/dl (12.0-15.5)
[2017-11-25] MEDS: ACETAMINOPHEN TAB 650MG DOSE (2X325MG) PO (19:53)
[2017-11-25] MEDS: RAMELTEON 8 MG TAB (ROZEREM) PO (21:23)
[2017-11-25] MEDS ORDERED: SLF 3 ML SYR IV (21:45)
[2017-11-25] MEDS: SLF 3 ML SYR IV (22:00)
[2017-11-26 05:42] LABS: HEMATOCRIT 30.9 % (36.0-47.0); HEMOGLOBIN 9.4 g/dl (12.0-15.5); MEAN CORPUSCULAR HEMOGLOBIN 26.1 pg (27.0-33.0); MEAN CORPUSCULAR HGB CONC 30.4 g/dl (32.0-36.5); MEAN CORPUSCULAR VOLUME 85.8 fl (80.0-96.0); PLATELET COUNT, AUTOMATED 161 10^3/uL (150-450); RED CELL DISTRIBUTION WIDTH 16.1 % (11.5-14.5); WHITE BLOOD COUNT 4.4 10^3/uL (4.0-10.0)
[2017-11-26 05:57] LABS: INR 1.25; PROTHROMBIN TIME 15.9 SECONDS (12.1-14.4)
[2017-11-26] MEDS: SLF 3 ML SYR IV ×3 (06:00→19:51)
[2017-11-26 06:02] LABS: ANION GAP 8 MEQ/L (8-16); BLOOD UREA NITROGEN 13 MG/DL (7-18); CALCIUM LEVEL 7.9 MG/DL (8.8-10.2); CARBON DIOXIDE LEVEL 23 MEQ/L (21-32); CHLORIDE LEVEL 110 MEQ/L (98-107); CREATININE FOR GFR 0.88 MG/DL (0.55-1.30); GLOMERULAR FILTRATION RATE > 60.0 (>39); GLUCOSE, FASTING 83 MG/DL (70-100); POTASSIUM SERUM 3.7 MEQ/L (3.5-5.1); SODIUM LEVEL 141 MEQ/L (136-145)
[2017-11-26] MEDS: SUCRALFATE SUSP 1GM/10ML UD PO ×4 (06:02→23:45)
[2017-11-26] MEDS: DIGOXIN 0.125 MG TAB PO (08:57)
[2017-11-26] MEDS: PANTOPRAZOLE 40MG TAB (PROTONIX) PO ×2 (08:57→19:50)
[2017-11-26] MEDS: SPIRONOLACTONE 25 MG TAB PO ×3 (08:57→17:22)
[2017-11-26] MEDS: PROPRANOLOL 10 MG TAB PO ×2 (08:57→19:51)
[2017-11-26] MEDS: ACETAMINOPHEN TAB 650MG DOSE (2X325MG) PO (14:37)
[2017-11-26] MEDS: RAMELTEON 8 MG TAB (ROZEREM) PO (19:50)
[2017-11-26] MEDS ORDERED: ONDANSETRON 4 MG TAB (S0181) PO (21:00)
[2017-11-27] MEDS: ACETAMINOPHEN TAB 650MG DOSE (2X325MG) PO (01:12)
[2017-11-27] MEDS: SUCRALFATE SUSP 1GM/10ML UD PO ×2 (05:27→12:11)
[2017-11-27] MEDS: SLF 3 ML SYR IV (05:27)
[2017-11-27 07:03] LABS: HEMATOCRIT 30.8 % (36.0-47.0); HEMOGLOBIN 9.4 g/dl (12.0-15.5); MEAN CORPUSCULAR HGB CONC 30.5 g/dl (32.0-36.5); MEAN CORPUSCULAR VOLUME 85.3 fl (80.0-96.0); PLATELET COUNT, AUTOMATED 160 10^3/uL (150-450); RED BLOOD COUNT 3.61 10^6/uL (4.00-5.40); RED CELL DISTRIBUTION WIDTH 16.4 % (11.5-14.5); WHITE BLOOD COUNT 3.9 10^3/uL (4.0-10.0)
[2017-11-27 07:21] LABS: ANION GAP 6 MEQ/L (8-16); BLOOD UREA NITROGEN 12 MG/DL (7-18); CALCIUM LEVEL 8.4 MG/DL (8.8-10.2); CARBON DIOXIDE LEVEL 25 MEQ/L (21-32); CHLORIDE LEVEL 111 MEQ/L (98-107); CREATININE FOR GFR 0.72 MG/DL (0.55-1.30); GLOMERULAR FILTRATION RATE > 60.0 (>39); GLUCOSE, FASTING 82 MG/DL (70-100); SODIUM LEVEL 142 MEQ/L (136-145)
[2017-11-27] MEDS: SPIRONOLACTONE 25 MG TAB PO (10:01)
[2017-11-27] MEDS: PROPRANOLOL 10 MG TAB PO (10:01)
[2017-11-27] MEDS: DIGOXIN 0.125 MG TAB PO (10:02)
[2017-11-27] MEDS: PANTOPRAZOLE 40MG TAB (PROTONIX) PO (10:02)
== END 2017-11-27 12:50 | disposition home or self-care (01) | DRG 812 ==
LOC: M MS5PR 11-26 23:17 → M ED 14:11 → M ED INP 16:16 → M PCU 21:51
PROC: 0W9G3ZZ Drainage of Peritoneal Cavity, Percutaneous Approach (ICD-10-PCS; principal; 2017-11-26)
DX: D64.9 Anemia, unspecified (principal); I50.30 Unspecified diastolic (congestive) heart failure; R18.8 Other ascites; I85.10 Secondary esophageal varices without bleeding; K74.69 Other cirrhosis of liver; K29.50 Unspecified chronic gastritis without bleeding; F41.9 Anxiety disorder, unspecified; K55.20 Angiodysplasia of colon without hemorrhage; K31.819 Angiodysplasia of stomach and duodenum without bleeding; F32.9 Major depressive disorder, single episode, unspecified; I11.0 Hypertensive heart disease with heart failure; Z86.73 Personal history of transient ischemic attack (TIA), and cerebral infarction without residual deficits; I48.2 Chronic atrial fibrillation; Z95.0 Presence of cardiac pacemaker; K21.9 Gastro-esophageal reflux disease without esophagitis; Z90.710 Acquired absence of both cervix and uterus; Z90.49 Acquired absence of other specified parts of digestive tract; Z79.82 Long term (current) use of aspirin; Z79.899 Other long term (current) drug therapy; Z88.2 Allergy status to sulfonamides; Z88.0 Allergy status to penicillin; Z88.8 Allergy status to other drugs, medicaments and biological substances; K29.80 Duodenitis without bleeding

== ENCOUNTER → 2017-12-06 | Outpatient (CLI) | payer MEDICARE ==
[2017-12-06 16:14] LABS: BASO # 0.1 10^3/uL (0.0-0.2); BASO % 1.6 % (0.0-1.0); EOS # 0.3 10^3/uL (0.0-0.50); EOS % 5.8 % (0.0-3.0); HEMATOCRIT 34.2 % (36.0-47.0); HEMOGLOBIN 10.2 g/dl (12.0-15.5); IMMATURE GRANULOCYTE % 0.8 % (0-3.0); LYMPH # 0.6 10^3/uL (1.5-4.5); LYMPH % 11.7 % (24.0-44.0); MEAN CORPUSCULAR HEMOGLOBIN 26.4 pg (27.0-33.0); MEAN CORPUSCULAR HGB CONC 29.8 g/dl (32.0-36.5); MEAN CORPUSCULAR VOLUME 88.4 fl (80.0-96.0); MONO # 0.9 10^3/uL (0.0-0.8); MONO % 18.5 % (0.0-5.0); NEUTROPHILS % 61.6 % (36.0-66.0); PLATELET COUNT, AUTOMATED 212 10^3/uL (150-450); RED BLOOD COUNT 3.87 10^6/uL (4.00-5.40); RED CELL DISTRIBUTION WIDTH 17.4 % (11.5-14.5); WHITE BLOOD COUNT 4.9 10^3/uL (4.0-10.0)
[2017-12-06 16:47] LABS: BLOOD UREA NITROGEN 15 MG/DL (7-18); CARBON DIOXIDE LEVEL 24 MEQ/L (21-32); CHLORIDE LEVEL 110 MEQ/L (98-107); CREATININE FOR GFR 0.84 MG/DL (0.55-1.30); GLOMERULAR FILTRATION RATE > 60.0 (>39); GLUCOSE, FASTING 99 MG/DL (70-100); SODIUM LEVEL 142 MEQ/L (136-145)
[2017-12-06 16:48] LABS: ALBUMIN 3.1 GM/DL (3.2-5.2); ALBUMIN/GLOBULIN RATIO 0.89 (1.00-1.93); ALKALINE PHOSPHATASE 168 U/L (45-117); ALT/SGPT 27 U/L (12-78); ANION GAP 8 MEQ/L (8-16); AST/SGOT 44 U/L (7-37); BILIRUBIN,TOTAL 1.1 MG/DL (0.2-1.0); CALCIUM LEVEL 8.4 MG/DL (8.8-10.2); TOTAL PROTEIN 6.6 GM/DL (6.4-8.2)
== END ==
LOC: M LAB 15:42
DX: D50.9 Iron deficiency anemia, unspecified (principal); K74.60 Unspecified cirrhosis of liver
CPT/HCPCS: 80053

== ENCOUNTER → 2018-01-11 | Outpatient (CLI) | payer MEDICARE ==
[2018-01-11 13:40] LABS: BASO # 0.1 10^3/uL (0.0-0.2); BASO % 2.2 % (0.0-1.0); EOS # 0.2 10^3/uL (0.0-0.50); EOS % 4.7 % (0.0-3.0); HEMATOCRIT 34.7 % (36.0-47.0); HEMOGLOBIN 10.7 g/dl (12.0-15.5); IMMATURE GRANULOCYTE % 0.4 % (0-3.0); LYMPH # 0.6 10^3/uL (1.5-4.5); LYMPH % 11.3 % (24.0-44.0); MEAN CORPUSCULAR HEMOGLOBIN 27.8 pg (27.0-33.0); MEAN CORPUSCULAR HGB CONC 30.8 g/dl (32.0-36.5); MEAN CORPUSCULAR VOLUME 90.1 fl (80.0-96.0); MONO # 0.9 10^3/uL (0.0-0.8); NEUTROPHILS # 3.2 10^3/uL (1.8-7.7); NEUTROPHILS % 63.4 % (36.0-66.0); PLATELET COUNT, AUTOMATED 195 10^3/uL (150-450); RED BLOOD COUNT 3.85 10^6/uL (4.00-5.40); RED CELL DISTRIBUTION WIDTH 18.6 % (11.5-14.5); WHITE BLOOD COUNT 5.1 10^3/uL (4.0-10.0)
[2018-01-11 14:09] LABS: ALBUMIN/GLOBULIN RATIO 0.83 (1.00-1.93); ALKALINE PHOSPHATASE 171 U/L (45-117); ALT/SGPT 32 U/L (12-78); ANION GAP 7 MEQ/L (8-16); AST/SGOT 43 U/L (7-37); BILIRUBIN,TOTAL 1.1 MG/DL (0.2-1.0); BLOOD UREA NITROGEN 16 MG/DL (7-18); CALCIUM LEVEL 8.4 MG/DL (8.8-10.2); CARBON DIOXIDE LEVEL 28 MEQ/L (21-32); CHLORIDE LEVEL 108 MEQ/L (98-107); CREATININE FOR GFR 0.99 MG/DL (0.55-1.30); GLOMERULAR FILTRATION RATE 58.2 (>39); GLUCOSE, FASTING 94 MG/DL (70-100); POTASSIUM SERUM 3.7 MEQ/L (3.5-5.1); SODIUM LEVEL 143 MEQ/L (136-145); TOTAL PROTEIN 6.6 GM/DL (6.4-8.2)
== END ==
LOC: M LAB 13:23
DX: R53.83 Other fatigue (principal)
CPT/HCPCS: 80053

== ENCOUNTER 2018-01-21 12:41 | Emergency (ER) | payer MEDICARE ==
[~2018-01-21] VITALS: Ht 167.6 cm; Wt 59.1 kg
[~2018-01-21 12:41] MED LIST changes: +ACIDCAP PO; +ALDA25TA2 PO; +ASPI81TAEC PO; +ATOR1TAB21 PO; +AVEL1TAB3 PO; +CEFD1CAP8 PO; +CIPR-249 PO; +DILT180C22 PO; -DILT180C71 PO; +FERR325T16 PO; +FURO40TA2 PO; +KLOR10TA76 PO; -LASI20TA PO; +LASI20TA3 PO; -LASI40TA PO; +LASI40TA9 PO; +LIDO5TD TOP; +OMEP20TA PO; -PANT40TA2 PO; +PANT40TA3; +PANT40TA3 PO; -POTA10CA PO; +PROP20TA72 PO; +REST0.05 OD; +REST0.05 OU; +ROZE8TAB16 PO; +SPIR-10 PO; -SPIR25TA2 PO; +TOBROPO OU; +TRIA1CR80 TOP
[2018-01-21 14:16] LABS: BASO # 0.1 10^3/uL (0.0-0.2); BASO % 1.9 % (0.0-1.0); EOS # 0.2 10^3/uL (0.0-0.50); EOS % 3.6 % (0.0-3.0); HEMOGLOBIN 9.3 g/dl (12.0-15.5); LYMPH # 0.6 10^3/uL (1.5-4.5); LYMPH % 12.8 % (24.0-44.0); MEAN CORPUSCULAR HEMOGLOBIN 28.4 pg (27.0-33.0); MEAN CORPUSCULAR VOLUME 91.7 fl (80.0-96.0); MONO # 0.9 10^3/uL (0.0-0.8); MONO % 19.5 % (0.0-5.0); PLATELET COUNT, AUTOMATED 200 10^3/uL (150-450); RED BLOOD COUNT 3.27 10^6/uL (4.00-5.40); WHITE BLOOD COUNT 4.8 10^3/uL (4.0-10.0)
[2018-01-21 14:35] LABS: INR 1.1; PROTHROMBIN TIME 14.3 SECONDS (12.1-14.4)
[2018-01-21 14:51] LABS: ALBUMIN 2.9 GM/DL (3.2-5.2); ALT/SGPT 31 U/L (12-78); BILIRUBIN,DIRECT 0.4 MG/DL (0.0-0.2); BILIRUBIN,TOTAL 1.2 MG/DL (0.2-1.0); BLOOD UREA NITROGEN 15 MG/DL (7-18); CARBON DIOXIDE LEVEL 27 MEQ/L (21-32); CHLORIDE LEVEL 107 MEQ/L (98-107); CPK CREATINE PHOSPHOKINASE 32 U/L (26-192); CREATININE FOR GFR 0.88 MG/DL (0.55-1.30); FREE T4 1.26 NG/DL (0.76-1.46); GLOMERULAR FILTRATION RATE > 60.0 (>39); GLUCOSE, FASTING 94 MG/DL (70-100); LIPASE 235 U/L (73-393); MB/CK RELATIVE INDEX 3.44 (< OR =4); NT-PRO BNP 950 PG/ML (<450); POTASSIUM SERUM 3.6 MEQ/L (3.5-5.1); SODIUM LEVEL 142 MEQ/L (136-145); TOTAL PROTEIN 6.2 GM/DL (6.4-8.2); TROPONIN I < 0.02 NG/ML (< 0.10)
--- NOTE | 2018-01-21 15:06 | REP ---
REASON FOR EXAM: Dyspnea. COMPARISON: Multiple latest 11/24/2017. The technique utilized in obtaining the radiograph has magnified the cardiac silhouette and accentuated the interstitial markings. The cardiomediastinal silhouette is unchanged. There is cardiomegaly status quo accentuated by technique. There are mitral annular calcifications status quo. Single chambered bipolar pacemaker device unchanged. No acute patchy parenchymal opacities or pleural effusions have developed. The lung [place] are stable. The osseous structures are stable and intact. IMPRESSION: Stable appearing chronic changes as described above without plain radiographic evidence of acute cardiopulmonary disease. Electronically Signed by Freddie Self DO 01/21/2018 04:18 P
[2018-01-21 15:10] LABS: INFLUENZA A AMPLIFICATION NEGATIVE (NEGATIVE); INFLUENZA B AMPLIFICATION NEGATIVE (NEGATIVE)
[2018-01-21 16:46] VITALS: BP 121/59
--- NOTE | 2018-01-21 18:43 | ECGEPIP ---
Stationary ECG Study [facility] - ED Test Date: 2018-01-21 Pat Name: CONCEPCION GERMAIN Department: Room: - Gender: F Window Trimmer: verónica : [id number] Requested By: Kaylah Uribe Order Number: [id number] Reading MD: Darwin Correa Measurements Intervals [place] Rate: 58 P: MO: 0 QRS: 0 QRSD: 9 T: 0 QT: 118 QTc: 116 Interpretive Statements ATRIAL FIBRILLATION WITH SLOW VENTRICULAR RESPONSE ELECTRONIC VENTRICULAR PACEMAKER LOW QRS VOLTAGE IN PRECORDIAL LEADS NSTTW ABNORMALITIES SIMILAR TO 12/19/17 Electronically Signed On 01-21-2018 18:42:50 EST by Darwin Correa
[2018-02-05] MEDS ORDERED: TYLE325T5 PO (14:34)
== END 2018-01-21 16:47 | disposition home or self-care (01) ==
LOC: M ED 12:41
DX: R53.1 Weakness (principal); I10 Essential (primary) hypertension; I48.91 Unspecified atrial fibrillation; K21.9 Gastro-esophageal reflux disease without esophagitis; K74.69 Other cirrhosis of liver; D64.9 Anemia, unspecified; Z79.899 Other long term (current) drug therapy; Z88.0 Allergy status to penicillin; Z88.2 Allergy status to sulfonamides; Z88.8 Allergy status to other drugs, medicaments and biological substances

== ENCOUNTER 2018-02-05 13:02 | Inpatient (IN) | payer MEDICARE ==
[2018-02-05 13:40] LABS: BASO # 0.1 10^3/uL (0.0-0.2); BASO % 1.7 % (0.0-1.0); EOS # 0.2 10^3/uL (0.0-0.50); EOS % 3.9 % (0.0-3.0); HEMATOCRIT 23.4 % (36.0-47.0); IMMATURE GRANULOCYTE % 0.6 % (0-3.0); LYMPH # 0.7 10^3/uL (1.5-4.5); LYMPH % 15.4 % (24.0-44.0); MEAN CORPUSCULAR HEMOGLOBIN 26.8 pg (27.0-33.0); MEAN CORPUSCULAR HGB CONC 29.5 g/dl (32.0-36.5); MEAN CORPUSCULAR VOLUME 91.1 fl (80.0-96.0); MONO # 0.9 10^3/uL (0.0-0.8); MONO % 19.1 % (0.0-5.0); NEUTROPHILS # 2.8 10^3/uL (1.8-7.7); NEUTROPHILS % 59.3 % (36.0-66.0); PLATELET COUNT, AUTOMATED 230 10^3/uL (150-450); RED BLOOD COUNT 2.57 10^6/uL (4.00-5.40); RED CELL DISTRIBUTION WIDTH 16.7 % (11.5-14.5); WHITE BLOOD COUNT 4.7 10^3/uL (4.0-10.0)
[2018-02-05] MEDS: NS 1,000 ML IV (13:47)
[2018-02-05] MEDS: LORazepam 2 MG/ML VIAL (J2060) IV (13:48)
[2018-02-05] MEDS: ASPIRIN 81 MG CHEW TABLET PO (13:48)
[2018-02-05 14:03] LABS: HEMOGLOBIN 6.9 g/dl (12.0-15.5)
[2018-02-05 14:08] LABS: ALBUMIN 3.1 GM/DL (3.2-5.2); ALKALINE PHOSPHATASE 120 U/L (45-117); ALT/SGPT 24 U/L (12-78); ANION GAP 8 MEQ/L (8-16); AST/SGOT 63 U/L (7-37); BILIRUBIN,DIRECT 0.2 MG/DL (0.0-0.2); BILIRUBIN,TOTAL 1.1 MG/DL (0.2-1.0); BLOOD UREA NITROGEN 19 MG/DL (7-18); CALCIUM LEVEL 8.7 MG/DL (8.8-10.2); CARBON DIOXIDE LEVEL 25 MEQ/L (21-32); CHLORIDE LEVEL 105 MEQ/L (98-107); CK-MB VALUE MASS < 1.0 NG/ML (<3.6); CPK CREATINE PHOSPHOKINASE 85 U/L (26-192); CREATININE FOR GFR 1.02 MG/DL (0.55-1.30); GLOMERULAR FILTRATION RATE 56.2 (>39); GLUCOSE, FASTING 83 MG/DL (70-100); LIPASE 259 U/L (73-393); MB/CK RELATIVE INDEX 1.18 (< OR =4); POTASSIUM SERUM 4.9 MEQ/L (3.5-5.1); SODIUM LEVEL 138 MEQ/L (136-145); TOTAL PROTEIN 6.2 GM/DL (6.4-8.2); TROPONIN I < 0.02 NG/ML (< 0.10)
[2018-02-05 14:13] LABS: INR 1.14; PROTHROMBIN TIME 14.7 SECONDS (12.1-14.4)
[2018-02-05 15:16] LABS: IMMEDIATE SPIN CROSSMATCH 1 2
[2018-02-05] MEDS ORDERED: ONDANSETRON 4MG/2ML VIAL (J2405) IV (16:45)
[2018-02-05] MEDS: GOLYTELY SOLN 4000 ML BTL PO (21:40)
[2018-02-05] MEDS: PANTOPRAZOLE 40MG INJ (PROTONIX) (C9113) IV (23:04)
[2018-02-05] MEDS: D5W/0.9% SODIUM CHLORIDE 1,000 ML IV (23:47)
[2018-02-06 00:45] LABS: HEMATOCRIT 29.3 % (36.0-47.0)
[2018-02-06 00:50] LABS: HEMOGLOBIN 8.9 g/dl (12.0-15.5)
[2018-02-06 05:39] LABS: HEMATOCRIT 28.6 % (36.0-47.0); HEMOGLOBIN 8.8 g/dl (12.0-15.5)
[2018-02-06 05:59] LABS: ANION GAP 8 MEQ/L (8-16); BLOOD UREA NITROGEN 18 MG/DL (7-18); CALCIUM LEVEL 7.8 MG/DL (8.8-10.2); CARBON DIOXIDE LEVEL 23 MEQ/L (21-32); CHLORIDE LEVEL 110 MEQ/L (98-107); CREATININE FOR GFR 0.81 MG/DL (0.55-1.30); GLOMERULAR FILTRATION RATE > 60.0 (>39); GLUCOSE, FASTING 84 MG/DL (70-100); POTASSIUM SERUM 3.8 MEQ/L (3.5-5.1); SODIUM LEVEL 141 MEQ/L (136-145)
[2018-02-06] MEDS: FUROSEMIDE 40 MG TAB PO (09:00)
[2018-02-06] MEDS: PANTOPRAZOLE 40MG INJ (PROTONIX) (C9113) IV ×2 (09:16→20:20)
[2018-02-06] MEDS: METOPROLOL SUCC *XL* 12.5MG PER 1/2 TAB (TopROL *XL*) PO (09:18)
[2018-02-06] MEDS: DIGOXIN 0.125 MG TAB PO (09:19)
[2018-02-06 12:33] LABS: HEMATOCRIT 29.2 % (36.0-47.0); HEMOGLOBIN 8.9 g/dl (12.0-15.5)
[2018-02-06] MEDS ORDERED: LIDOCAINE 2% INJ 100 MG/5 ML SDV (FOR ANES.) As Ordered (14:22)
[2018-02-06] MEDS ORDERED: PROPOFOL 200 MG/20 ML VIAL As Ordered ×3 (14:22)
[2018-02-06] MEDS ORDERED: PHENYLephrine HCL 500 MCG/5 ML (100MCG/ML) SYRINGE (J2370) As Ordered (14:29)
[2018-02-06 18:23] LABS: HEMATOCRIT 29.3 % (36.0-47.0); HEMOGLOBIN 8.7 g/dl (12.0-15.5)
[2018-02-06 18:50] LABS: FERRITIN 44 NG/ML (8-252); IRON (FE) 31 UG/DL (50-170); PERCENT SATURATION 9.3 % (13.2-45.0); TOTAL IRON BINDING CAPACITY 334 UG/DL (250-450)
[2018-02-06 19:00] LABS: VITAMIN B12 LEVEL 585 PG/ML (247-911)
[2018-02-06 19:37] LABS: FOLATE 8.7 NG/ML (>5.4)
[2018-02-07] MEDS: ACETAMINOPHEN 325 MG TAB PO
[2018-02-07 00:37] LABS: HEMATOCRIT 25.1 % (36.0-47.0); HEMOGLOBIN 7.7 g/dl (12.0-15.5)
[2018-02-07 02:06] LABS: IMMEDIATE SPIN CROSSMATCH 1 1
[2018-02-07 05:57] LABS: HEMATOCRIT 27.3 % (36.0-47.0); HEMOGLOBIN 8.5 g/dl (12.0-15.5); MEAN CORPUSCULAR HGB CONC 31.1 g/dl (32.0-36.5); MEAN CORPUSCULAR VOLUME 86.7 fl (80.0-96.0); PLATELET COUNT, AUTOMATED 144 10^3/uL (150-450); RED BLOOD COUNT 3.15 10^6/uL (4.00-5.40); RED CELL DISTRIBUTION WIDTH 17.4 % (11.5-14.5); WHITE BLOOD COUNT 4.5 10^3/uL (4.0-10.0)
[2018-02-07 06:23] LABS: ANION GAP 7 MEQ/L (8-16); BLOOD UREA NITROGEN 18 MG/DL (7-18); CALCIUM LEVEL 7.4 MG/DL (8.8-10.2); CARBON DIOXIDE LEVEL 23 MEQ/L (21-32); CHLORIDE LEVEL 112 MEQ/L (98-107); CREATININE FOR GFR 0.99 MG/DL (0.55-1.30); GLOMERULAR FILTRATION RATE 58.2 (>39); GLUCOSE, FASTING 89 MG/DL (70-100); POTASSIUM SERUM 3.7 MEQ/L (3.5-5.1); SODIUM LEVEL 142 MEQ/L (136-145)
[2018-02-07 07:32] LABS: C REACTIVE PROTEIN QUANTITATIV 2.44 MG/DL (0.00-0.30)
[2018-02-07 08:34] LABS: ERYTHROCYTE SEDIMENTATION RATE 23 mm/hr (0-30)
[2018-02-07] MEDS: DIGOXIN 0.125 MG TAB PO (10:05)
[2018-02-07] MEDS: PANTOPRAZOLE 40MG INJ (PROTONIX) (C9113) IV ×2 (10:06→20:03)
[2018-02-07] MEDS: FUROSEMIDE 40 MG TAB PO (10:06)
[2018-02-07] MEDS: METOPROLOL SUCC *XL* 12.5MG PER 1/2 TAB (TopROL *XL*) PO (10:06)
[2018-02-07 12:33] LABS: IMMEDIATE SPIN CROSSMATCH 1 1
[2018-02-07 20:17] LABS: HEMOGLOBIN 9.7 g/dl (12.0-15.5)
[2018-02-08 05:44] LABS: HEMATOCRIT 29.3 % (36.0-47.0); HEMOGLOBIN 9.2 g/dl (12.0-15.5); MEAN CORPUSCULAR HEMOGLOBIN 27.4 pg (27.0-33.0); MEAN CORPUSCULAR HGB CONC 31.4 g/dl (32.0-36.5); MEAN CORPUSCULAR VOLUME 87.2 fl (80.0-96.0); PLATELET COUNT, AUTOMATED 143 10^3/uL (150-450); RED BLOOD COUNT 3.36 10^6/uL (4.00-5.40); RED CELL DISTRIBUTION WIDTH 17.6 % (11.5-14.5); WHITE BLOOD COUNT 4.7 10^3/uL (4.0-10.0)
[2018-02-08 06:01] LABS: ANION GAP 7 MEQ/L (8-16); BLOOD UREA NITROGEN 16 MG/DL (7-18); CALCIUM LEVEL 7.8 MG/DL (8.8-10.2); CARBON DIOXIDE LEVEL 21 MEQ/L (21-32); CHLORIDE LEVEL 113 MEQ/L (98-107); CREATININE FOR GFR 0.82 MG/DL (0.55-1.30); GLOMERULAR FILTRATION RATE > 60.0 (>39); GLUCOSE, FASTING 84 MG/DL (70-100); POTASSIUM SERUM 3.8 MEQ/L (3.5-5.1); SODIUM LEVEL 141 MEQ/L (136-145)
[2018-02-08] MEDS: METOPROLOL SUCC *XL* 12.5MG PER 1/2 TAB (TopROL *XL*) PO (10:31)
[2018-02-08] MEDS: PANTOPRAZOLE 40MG INJ (PROTONIX) (C9113) IV (10:31)
[2018-02-08] MEDS: DIGOXIN 0.125 MG TAB PO (10:32)
[2018-02-08] MEDS: FUROSEMIDE 40 MG TAB PO (10:32)
== END 2018-02-08 14:30 | disposition home or self-care (01) | DRG 369 ==
LOC: M ED 13:02 → M ED INP 16:32 → M PCU 20:58
PROC: 0DB98ZX Excision of Duodenum, Via Natural or Artificial Opening Endoscopic, Diagnostic (ICD-10-PCS; principal; 2018-02-06 13:33)
PROC: 0DBH8ZX Excision of Cecum, Via Natural or Artificial Opening Endoscopic, Diagnostic (ICD-10-PCS; 2018-02-06 13:33)
PROC: 0W3P8ZZ Control Bleeding in Gastrointestinal Tract, Via Natural or Artificial Opening Endoscopic (ICD-10-PCS; 2018-02-06 13:33)
PROC: 30233N1 Transfusion of Nonautologous Red Blood Cells into Peripheral Vein, Percutaneous Approach (ICD-10-PCS; 2018-02-06 13:33)
DX: I85.00 Esophageal varices without bleeding (principal); I50.32 Chronic diastolic (congestive) heart failure; K31.819 Angiodysplasia of stomach and duodenum without bleeding; D50.0 Iron deficiency anemia secondary to blood loss (chronic); K74.69 Other cirrhosis of liver; I48.2 Chronic atrial fibrillation; F41.9 Anxiety disorder, unspecified; F32.9 Major depressive disorder, single episode, unspecified; Z86.73 Personal history of transient ischemic attack (TIA), and cerebral infarction without residual deficits; K64.8 Other hemorrhoids; D12.0 Benign neoplasm of cecum; K57.30 Diverticulosis of large intestine without perforation or abscess without bleeding; D17.79 Benign lipomatous neoplasm of other sites

== ENCOUNTER → 2018-02-25 | Outpatient (CLI) | payer MEDICARE ==
[2018-02-25 18:35] LABS: BASO # 0.1 10^3/uL (0.0-0.2); BASO % 1.8 % (0.0-1.0); EOS # 0.3 10^3/uL (0.0-0.50); EOS % 5.6 % (0.0-3.0); HEMATOCRIT 29.2 % (36.0-47.0); HEMOGLOBIN 8.6 g/dl (12.0-15.5); LYMPH # 0.5 10^3/uL (1.5-4.5); LYMPH % 10.2 % (24.0-44.0); MEAN CORPUSCULAR HEMOGLOBIN 26.8 pg (27.0-33.0); MEAN CORPUSCULAR HGB CONC 29.5 g/dl (32.0-36.5); MONO % 19.6 % (0.0-5.0); NEUTROPHILS # 3.1 10^3/uL (1.8-7.7); NEUTROPHILS % 62.6 % (36.0-66.0); PLATELET COUNT, AUTOMATED 283 10^3/uL (150-450); RED BLOOD COUNT 3.21 10^6/uL (4.00-5.40)
== END ==
LOC: M SMT 14:43
PROVIDERS: ATTEND Physician Assistant
DX: I48.0 Paroxysmal atrial fibrillation (principal); D50.9 Iron deficiency anemia, unspecified

== ENCOUNTER 2018-02-26 10:15 | Outpatient (CLI) | payer MEDICARE | END 2018-02-26 16:25 | disposition home or self-care (01) | LOC: M OPCLI5PR 10:15 → M MS5PR 10:40 → M OPCLI5PR 16:25 | PROVIDERS: ATTEND Family Medicine | DX: D64.9 Anemia, unspecified (principal) | CPT/HCPCS: 36415; 36430; 86850; 86900; 86901; 86920; P9016 ==

== ENCOUNTER → 2018-03-12 | Outpatient (CLI) | payer MEDICARE, MEDICAID ==
[~2018-03-12] MED LIST changes: +OMEP40CA2 PO
[2018-03-12 18:40] LABS: BASO # 0.1 10^3/uL (0.0-0.2); BASO % 1.8 % (0.0-1.0); EOS # 0.4 10^3/uL (0.0-0.50); EOS % 5.6 % (0.0-3.0); HEMATOCRIT 24.5 % (36.0-47.0); HEMOGLOBIN 7.2 g/dl (12.0-15.5); LYMPH # 0.7 10^3/uL (1.5-4.5); LYMPH % 11.6 % (24.0-44.0); MEAN CORPUSCULAR HEMOGLOBIN 26.2 pg (27.0-33.0); MEAN CORPUSCULAR HGB CONC 29.4 g/dl (32.0-36.5); MEAN CORPUSCULAR VOLUME 89.1 fl (80.0-96.0); MONO # 1.3 10^3/uL (0.0-0.8); MONO % 20.6 % (0.0-5.0); NEUTROPHILS # 3.7 10^3/uL (1.8-7.7); NEUTROPHILS % 59.4 % (36.0-66.0); PLATELET COUNT, AUTOMATED 246 10^3/uL (150-450); RED BLOOD COUNT 2.75 10^6/uL (4.00-5.40); WHITE BLOOD COUNT 6.2 10^3/uL (4.0-10.0)
== END ==
LOC: M SMT 14:04
PROVIDERS: ATTEND Internal Medicine Gastroenterology
DX: K74.60 Unspecified cirrhosis of liver (principal); K31.811 Angiodysplasia of stomach and duodenum with bleeding; D50.9 Iron deficiency anemia, unspecified

== ENCOUNTER 2018-03-13 15:13 | Inpatient (IN) | payer MEDICARE ==
[~2018-03-13] VITALS: Ht 167.6 cm; Wt 66.2 kg
[~2018-03-13 15:13] MED LIST changes: -OMEP40CA2 PO
[2018-03-13] MEDS ORDERED: OMEP40CA2 PO (15:24)
[2018-03-13] MEDS ORDERED: SPIR-10 PO (15:27)
[2018-03-13 16:21] LABS: BASO # 0.1 10^3/uL (0.0-0.2); BASO % 1.9 % (0.0-1.0); EOS # 0.3 10^3/uL (0.0-0.50); EOS % 5.8 % (0.0-3.0); HEMATOCRIT 22.2 % (36.0-47.0); LYMPH # 0.7 10^3/uL (1.5-4.5); LYMPH % 12.9 % (24.0-44.0); MEAN CORPUSCULAR HEMOGLOBIN 26.4 pg (27.0-33.0); MEAN CORPUSCULAR HGB CONC 29.7 g/dl (32.0-36.5); MEAN CORPUSCULAR VOLUME 88.8 fl (80.0-96.0); MONO % 18.1 % (0.0-5.0); NEUTROPHILS # 3.3 10^3/uL (1.8-7.7); NEUTROPHILS % 60.7 % (36.0-66.0); PLATELET COUNT, AUTOMATED 234 10^3/uL (150-450); WHITE BLOOD COUNT 5.4 10^3/uL (4.0-10.0)
[2018-03-13 16:26] LABS: HEMOGLOBIN 6.6 g/dl (12.0-15.5)
[2018-03-13 16:35] LABS: INR 1.14; PROTHROMBIN TIME 14.7 SECONDS (12.1-14.4)
[2018-03-13 16:59] LABS: BLOOD UREA NITROGEN 18 MG/DL (7-18); CALCIUM LEVEL 8.3 MG/DL (8.8-10.2); CARBON DIOXIDE LEVEL 23 MEQ/L (21-32); CHLORIDE LEVEL 107 MEQ/L (98-107); CPK CREATINE PHOSPHOKINASE 28 U/L (26-192); CREATININE FOR GFR 0.93 MG/DL (0.55-1.30); DIGOXIN LEVEL 0.8 NG/ML (0.5-2.0); GLOMERULAR FILTRATION RATE > 60.0 (>39); GLUCOSE, FASTING 93 MG/DL (70-100); MB/CK RELATIVE INDEX 4.64 (< OR =4); POTASSIUM SERUM 3.9 MEQ/L (3.5-5.1); SODIUM LEVEL 139 MEQ/L (136-145); TROPONIN I 0.03 NG/ML (< 0.10)
[2018-03-13] MEDS ORDERED: POLYVINYL ALCOHOL OPHTH SOLN 15 ML(LIQUITEARS) OU PRN (18:15)
[2018-03-13] MEDS ORDERED: NS 1,000 ML IV SCH (19:00)
--- NOTE | 2018-03-13 19:05 | HPEPDOC ---
General Date of Admission 03/13/2018 Primary Care Physician: CLARENCE STOUT DO Attending Physician: HOLLIE RAMOS MD Chief Complaint The patient is a 77-year-old female admitted with a reason for visit of Abnormal Labs. Source: Patient, RN notes reviewed, Old records Exam Limitations: No limitations History of Present Illness Ms. Brown is a 77-year-old female who presents to [facility]'s Emergency Department for abnormal labs. Patient is accompanied by herself. Patient states that she was called by her primary care provider's office and told to report to the Emergency Department for abnormal labs and was told that her "counts were down." She was most recently seen in her insulator helper's office yesterday where blood work was ordered. She is not currently actively bleeding. She states she has a history of cirrhosis that was diagnosed about 5 years ago and that no cause has been identified. She has no hemoptysis, hematemesis, epistaxis, easy bruising or bleeding into the skin, or hematuria. She states that she takes iron and her stool is dark, so she is unable to tell if there is blood in her stool; however, she states she does not notice any bright red blood. She does not feel short of breath. Her biggest concern is that she feels lightheaded and dizzy. She walks with a cane and does not report any falls. Furthermore she reports a headache, but no acute changes to her vision. She is not currently experiencing chest pain. She does feel as though her hands and feet are swollen and attributes that to her cirrhosis. Denies skin rashes/lesions. She states that her left leg is painful. Patient was most recently admitted from 02/05/2018 to 02/08/2018 for symptomatic anemia. She had presented with worsening shortness of breath with exertion for one week prior to presentation. She tested positive on guaiac test. Gastroenterology was consulted. She underwent upper and lower endoscopies. She received blood transfusions. Physical therapy was ordered. She returned to baseline and was discharged. Current Emergency Department evaluation reveals a hemoglobin of 6.6. Electrolytes are stable. Blood pressure is low, but other vitals are stable. Hospitalist was consulted and patient was admitted for further medical management. Home Medications Scheduled (Digoxin) 125 Mcg Tab, 125 MCG PO DAILY, (Reported) Ferrous Gluconate (Ferrous Gluconate) 240 Mg Tab, 240 MG PO DAILY, (Reported) Furosemide (Furosemide) 40 Mg Tab, 40 MG PO DAILY, (Reported) Omeprazole (Omeprazole) 40 Mg Cap, 20 MG PO DAILY, (Reported) Propranolol HCl (Propranolol HCl) 10 Mg Tab, 10 MG PO BID, (Reported) DOES NOT TAKE IF BP<120 OR HR<60 Spironolactone (Spironolactone) 25 Mg Tab, 25 MG PO DAILY, (Reported) Scheduled PRN Acetaminophen (Tylenol) 325 Mg Tab, 650 MG PO Q4H PRN for PAIN, (Reported) Carboxymethylcellulose Sod (Refresh 1.4-0.6 %) 1 Ea Mese[place], 2 DROP OU PRN PRN for DRY EYES, (Reported) Allergies Coded Allergies: Penicillins (Verified Allergy, Severe, childhood reaction of throat closing, 11/23/17) Diphenhydramine (Verified Allergy, Mild, itchy, 11/23/17) Meperidine (Verified Allergy, Mild, itchy/hyper, 11/23/17) Sulfa Drugs (Verified Allergy, Mild, itchy, 11/23/17) Past Medical History Medical History 1. Cryptogenic cirrhosis with esophageal varices. 2. Chronic anemia secondary to gastrointestinal bleed. 3. Frequent sinusitis. 4. Hypertension. 5. Variceal bleed. 6. Diastolic dysfunction congestive heart failure. 7. Chronic atrial fibrillation status post pacemaker placement. 8. Chronic gastritis and duodenitis. 9. Prior history of Clostridium difficile. 10. Anxiety and depression. 11. Prior history of transient ischemic attacks. 12. Gastroesophageal reflux disease. 13. Hiatal hernia. 14. Nonbleeding internal hemorrhoids. 15. Diverticulosis. 17. Multiple nonbleeding colonic angiectasias. Surgical History 1. Upper endoscopy/colonoscopy. 2. Cholecystectomy. 3. Pacemaker placement. 4. Hysterectomy. Family History Mother is from gastric cancer. Sibling from homicide. Other siblings from surgical complications and diabetes. Has one adult son who has cardiac history. Social History Lives independently in [place]. Is . Has one adult son. Denies alcohol, tobacco, or illicit drug use. Review of Systems Constitutional: Reports: Weakness; Denies: Chills, Fever, Night Sweats Eyes: Denies: Vision change ENT: Reports: Head Aches; Denies: Dysphagia, Sinus Congestion, Post Nasal Drip, Sore Throat, Epistaxis Skin: Denies: Rash, Lesions, Bruising Pulmonary: Denies: Dyspnea, Cough Cardiovascular: Reports: Edema (hands, feet), Lt Headedness; Denies: Chest Pain, Palpitations, Orthopnea, Paroxysmal Noc. Dyspnea Gastrointestinal: Denies: Nausea, Vomiting, Abdominal Pain, Diarrhea, Constipation, Melena, Hematochezia Genitourinary: Denies: Dysuria, Frequency, Incontinence, Hematuria Hematologic: Denies: Bruising, Bleeding Excessively Musculoskeletal: Denies: Neck Pain, Back Pain, Joint Pain, Muscle Pain Neurological: Reports: Weakness; Denies: Numbness Physical Examination General Exam: Positive: Alert, Cooperative, No Acute Distress Eye Exam: Positive: PERRLA, Conjunctiva & lids normal, EOMI; Negative: Sclera icteric, Ptosis ENT Exam: Positive: Pharynx Normal, Tongue Midline (fissured and dry appearing), Nares Patent; Negative: Atraumatic, Mucous membr. moist/pink, Pharyngeal Edema Neck Exam: Positive: Supple, +2 carotid pulse wo bruit; Negative: JVD, thyromegaly, Lymphadenopathy Chest Exam: Positive: Clear to auscultation (upper lobes bilaterally), Normal air movement, Rales (left lower lobe); Negative: Rhonchi, Wheezing Heart Exam: Positive: Irregular Rhythm; Negative: Normal S1, Normal S2, Gallops, Murmurs, Rubs Telemetry: Positive: Atrial fibrillation Abdomen Exam: Positive: Normal bowel sounds, Soft, Tenderness (right upper quadrant); Negative: Hepatospenomegaly, Mass, Hernia Extremity Exam: Negative: Clubbing, Cyanosis, Edema, Normal pulses (irregularly irregular), Tenderness, Swelling Skin Exam: Negative: Rash, Lesion Neuro Exam: Positive: Normal Speech, Cranial Nerves 3-12 NL Psych Exam: Positive: Oriented x 3 Vital Signs Vital Signs Date Time Temp Pulse Resp B/P (MAP) Pulse Ox O2 Delivery O2 Flow Rate FiO2 03/13/18 16:43 73 98 03/13/18 16:30 92/46 (61) 03/13/18 15:14 96.5 23 Room Air Height (in): 66 Weight (kg): 63.64 BMI (kg): 22.6 Laboratory Data Labs 24H Laboratory Tests 2 03/13/18 16:08: Immature Granulocyte % (Auto) 0.6, White Blood Count 5.4, Red Blood Count 2.50L, Hemoglobin 6.6*L, Hematocrit 22.2L, Mean Corpuscular Volume 88.8, Mean Corpuscular Hemoglobin 26.4L, Mean Corpuscular Hemoglobin Concent 29.7L, Red Cell Distribution Width 17.3H, Platelet Count 234, Neutrophils (%) (Auto) 60.7, Lymphocytes (%) (Auto) 12.9L, Monocytes (%) (Auto) 18.1H, Eosinophils (%) (Auto) 5.8H, Basophils (%) (Auto) 1.9H, Neutrophils # (Auto) 3.3, Lymphocytes # (Auto) 0.7L, Monocytes # (Auto) 1.0H, Eosinophils # (Auto) 0.3, Basophils # (Auto) 0.1, Nucleated Red Blood Cells % (auto) 0.4H, Prothrombin Time 14.7H, Prothromb Time International Ratio 1.14, Anion Gap 9, Glomerular Filtration Rate > 60.0, Blood Urea Nitrogen 18, Creatinine 0.93, Sodium Level 139, Potassium Level 3.9, Chloride Level 107, Carbon Dioxide Level 23, Calcium Level 8.3L, Total Creatine Kinase 28, Creatine Kinase MB 1.0, Creatine Kinase MB Relative Index 4.64H, Troponin I 0.03, Digoxin Level 0.8 CBC/BMP Laboratory Tests 03/13/18 16:08 Red Blood Count 2.50 L, Mean Corpuscular Volume 88.8, Mean Corpuscular Hemoglobin 26.4 L, Mean Corpuscular Hemoglobin Concent 29.7 L, Red Cell Distribution Width 17.3 H, Neutrophils (%) (Auto) 60.7, Lymphocytes (%) (Auto) 12.9 L, Monocytes (%) (Auto) 18.1 H, Eosinophils (%) (Auto) 5.8 H, Basophils (%) (Auto) 1.9 H, Neutrophils # (Auto) 3.3, Lymphocytes # (Auto) 0.7 L, Monocytes # (Auto) 1.0 H, Eosinophils # (Auto) 0.3, Basophils # (Auto) 0.1, Calcium Level 8.3 L, Total Creatine Kinase 28 Plan / VTE VTE Prophylaxis Ordered?: Yes (TEDs, sequentials, knee high compression) Plan Plan 1. Abnormal labs: Found to be profoundly and symptomatically anemic with lightheadedness and dizziness. Typed and screened. Consented for blood transfusion. 2 units PRBC ordered for transfusion. H/H at midnight. Labs daily. Could consider, as an out-patient, IM Sandostatin LAR that may help red uce transfusion demands. Patient also reports hematology/oncology appointment on 03/28/2018 for further evaluation. 2. Hypotension: Blood pressures have been soft. Likely secondary to profound anemia. Gentle fluid resuscitation with NS @ 50 mLs/hr. Holding Lasix. 3. Lightheadedness with dizziness: Likely secondary to profound anemia. Transfusing PRBC. Could consider orthostatic vital signs status-post blood transfusions if patient continues to admit to symptoms. OOB to chair with as sist. Physical therapy has been ordered. Gentle fluid resuscitation with NS @ 50 mLs/hr. 4. Cryptogenic cirrhosis with esophageal varices: Continue Propanolol and Spironolactone with hold parameters for SBP < 100 and/or HR < 60. Providing gentle fluid resuscitation with NS @ 50 mLs/hr. Fluid restriction of 1700 mLs/day. Continue iron supplementation. Discussed case telephonically with on-call insulator helper. No urgent need for evaluation currently by gastroenterology although they remain available for consult should the need arise. 5. Gastroesophageal reflux disease: Continue Omeprazole. 6. Diastolic congestive heart failure: Currently compensated. Continue 1700 mLs/day fluid restriction. Continue Spironolactone with hold parameters. Monitor I/Os and daily weights. 7. Atrial fibrillation: Continue Digoxin. EKG reveals atrial fibrillation. No anticoagulation, likely secondary to chronic gastrointestinal bleeds. Disposition Admit: Medical-surgical unit with remote telemetry Anticipated hospitalization: 2 nights Attending: Dr. De Santiago IVF: Initiate (NS @ 50 mLs/hr x 1L) Diet: Continue Current (regular) Activity: Continue Current (OOB to chair with assist) Therapy: PT Diagnostics: Check Labs, Repeat Labs in AM Anticipated Discharge: Home SIA ROLDAN DO Mar 13, 2018 19:04
[2018-03-13] MEDS: ACETAMINOPHEN TAB 650MG DOSE (2X325MG) PO PRN (20:43)
[2018-03-13 20:50] VITALS: BP 123/59
[2018-03-13] MEDS: PROPRANOLOL 10 MG TAB PO SCH (21:00)
[2018-03-13 21:23] VITALS: BP 96/46
[2018-03-13 22:00] VITALS: BP 96/46
[2018-03-13 22:30] VITALS: BP 96/53
[2018-03-13 22:59] VITALS: BP 92/48
[2018-03-13 23:15] VITALS: BP 92/46
[2018-03-14] VITALS (7 sets, daily range): BP systolic 91–166; BP diastolic 46–86
[2018-03-14 06:42] LABS: HEMATOCRIT 24.6 % (36.0-47.0); HEMOGLOBIN 7.9 g/dl (12.0-15.5); MEAN CORPUSCULAR HEMOGLOBIN 27.9 pg (27.0-33.0); MEAN CORPUSCULAR HGB CONC 32.1 g/dl (32.0-36.5); MEAN CORPUSCULAR VOLUME 86.9 fl (80.0-96.0); PLATELET COUNT, AUTOMATED 175 10^3/uL (150-450); RED BLOOD COUNT 2.83 10^6/uL (4.00-5.40); WHITE BLOOD COUNT 4.2 10^3/uL (4.0-10.0)
[2018-03-14 07:02] LABS: ALBUMIN 2.5 GM/DL (3.2-5.2); ALT/SGPT 23 U/L (12-78); BILIRUBIN,TOTAL 2.8 MG/DL (0.2-1.0); BLOOD UREA NITROGEN 17 MG/DL (7-18); CALCIUM LEVEL 8.3 MG/DL (8.8-10.2); CARBON DIOXIDE LEVEL 23 MEQ/L (21-32); CHLORIDE LEVEL 108 MEQ/L (98-107); CREATININE FOR GFR 0.79 MG/DL (0.55-1.30); GLOMERULAR FILTRATION RATE > 60.0 (>39); GLUCOSE, FASTING 91 MG/DL (70-100); POTASSIUM SERUM 3.5 MEQ/L (3.5-5.1); SODIUM LEVEL 141 MEQ/L (136-145); TOTAL PROTEIN 5.1 GM/DL (6.4-8.2)
[2018-03-14] MEDS: PROPRANOLOL 10 MG TAB PO SCH ×2 (08:59→21:00)
[2018-03-14] MEDS: SPIRONOLACTONE 25 MG TAB PO SCH (08:59)
[2018-03-14] MEDS ORDERED: FUROSEMIDE 40 MG TAB PO SCH ×2 (09:00)
[2018-03-14] MEDS: DIGOXIN 0.125 MG TAB PO SCH (09:02)
[2018-03-14] MEDS: OMEPRAZOLE 20 MG CAP PO SCH (09:02)
[2018-03-14] MEDS: FERROUS GLUCONATE 324 MG TAB PO SCH (09:02)
--- NOTE | 2018-03-14 11:42 | IPNPDOC ---
Subjective Date Seen The patient was seen on 03/14/18. Subjective Chief Complaint/HPI Patient seen and examined at the bedside. No acute overnight events noted. The patient denies any complaints of bright red blood per rectum. She reports that her stools have been dark, but this is her baseline as she does take iron supplementation. Objective Physical Examination General Exam: Positive: Alert, Cooperative, No Acute Distress Chest Exam: Positive: Clear to auscultation, Normal air movement Heart Exam: Positive: Rate Normal, Normal S1, Normal S2 Abdomen Exam: Positive: Soft; Negative: Tenderness Extremity Exam: Positive: Swelling (trace pitting edema in the lower extremities bilaterally); Negative: Tenderness Neuro Exam: Positive: Cranial Nerves 3-12 NL Psych Exam: Positive: Oriented x 3 Assessment /Plan Plan/VTE VTE Prophylaxis Ordered?: Yes Plan Symptomatic Anemia in a Patient with Hx of Cryptogensis Cirrhosis wit Esophageal Varices, Gastric Antral Vascular Ectasia (Watermelon Stomach) s/p 2 Units of PRBC's since admission--we will cont to serially trend H&H's Patient underwent EGD and Colonoscopy last month when she was admitted for the same, and it revealed no acute bleeding source. GI contacted in the ER--no urgent need for scope at this time. The patient has had multiple scopes done in the past, and has been transfused over 30 units of blood here since 2016 according to records Cont PPI, Propranolol We will cont to monitor Hypertension. Cont Spironolactone, Lasix. Diastolic congestive heart failure. Currently appears compensated. Cont diuretic regimen History of chronic gastritis, duodenitis. Cont PPI Iron Deficiency Anemia Cont iron supplementation Patient also scheduled to follow up with Hematology as an outpatient for further anemia work up Anxiety/depression, chronic. History of C. difficile History of TIA. Aspirin will be held for now despite history of atrial fibrillation due to anemia and risk of recurrent GI bleed. Atrial fibrillation. Rate controlled Cont Digoxin 0.125 mg daily Not on AC 2/2 Hx of GI Bleed DVT prophylaxis SCD/TEDS VS, I&O, 24H, Fishbone Vital Signs/I&O Vital Signs Date Time Temp Pulse Resp B/P (MAP) Pulse Ox O2 Delivery O2 Flow Rate FiO2 03/14/18 09:02 71 03/14/18 06:00 98.3 15 91/50 (64) 100 Room Air I&O- Last 24 Hours up to 6 AM 03/14/18 06:00 Intake Total 1120 ml Output Total 650 ml Balance 470 ml Laboratory Data 24H LABS Laboratory Tests 2 03/13/18 16:08: Immature Granulocyte % (Auto) 0.6, White Blood Count 5.4, Red Blood Count 2.50L, Hemoglobin 6.6*L, Hematocrit 22.2L, Mean Corpuscular Volume 88.8, Mean Cor puscular Hemoglobin 26.4L, Mean Corpuscular Hemoglobin Concent 29.7L, Red Cell Distribution Width 17.3H, Platelet Count 234, Neutrophils (%) (Auto) 60.7, Lymphocytes (%) (Auto) 12.9L, Monocytes (%) (Auto) 18.1H, Eosinophils (%) (Auto) 5.8H, Basophils (%) (Auto) 1.9H, Neutrophils # (Auto) 3.3, Lymphocytes # (Auto) 0.7L, Monocytes # (Auto) 1.0H, Eosinophils # (Auto) 0.3, Basophils # (Auto) 0.1, Nucleated Red Blood Cells % (auto) 0.4H, Prothrombin Time 14.7H, Prothromb Time International Ratio 1.14, Anion Gap 9, Glomerular Filtration Rate > 60.0, Blood Urea Nitrogen 18, Creatinine 0.93, Sodium Level 139, Potassium Level 3.9, Chloride Level 107, Carbon Dioxide Level 23, Calcium Level 8.3L, Total Creatine Kinase 28, Creatine Kinase MB 1.0, Creatine Kinase MB Relative Index 4.64H, Troponin I 0.03, Digoxin Level 0.8 03/14/18 06:15: Nucleated Red Blood Cells % (auto) 0.5H, Anion Gap 10, Glomerular Filtration Rate > 60.0, Blood Urea Nitrogen 17, Creatinine 0.79, Sodium Level 141, Potassium Level 3.5, Chloride Level 108H, Carbon Dioxide Level 23, Calcium Level 8.3L, Aspartate Amino Transf (AST/SGOT) 32, Alanine Aminotransferase (ALT/SGPT) 23, Alkaline Phosphatase 114, Total Bilirubin 2.8H, Total Protein 5.1L, Albumin 2.5L, Albumin/Globulin Ratio 0.96L CBC/BMP Laboratory Tests 03/13/18 16:08 Red Blood Count 2.50 L, Mean Corpuscular Volume 88.8, Mean Corpuscular Hemoglobin 26.4 L, Mean Corpuscular Hemoglobin Concent 29.7 L, Red Cell Distribution Width 17.3 H, Neutrophils (%) (Auto) 60.7, Lymphocytes (%) (Auto) 12.9 L, Monocytes (%) (Auto) 18.1 H, Eosinophils (%) (Auto) 5.8 H, Basophils (%) (Auto) 1.9 H, Neutrophils # (Auto) 3.3, Lymphocytes # (Auto) 0.7 L, Monocytes # (Auto) 1.0 H, Eosinophils # (Auto) 0.3, Basophils # (Auto) 0.1, Calcium Level 8.3 L, Total Creatine Kinase 28 03/14/18 06:15 Red Blood Count 2.83 L, Mean Corpuscular Volume 86.9, Mean Corpuscular Hemoglobin 27.9, Mean Corpuscular Hemoglobin Concent 32.1, Red Cell Distribution Width 16.4 H, Calcium Level 8.3 L, Aspartate Amino Transf (AST/SGOT) 32, Alanine Aminotransferase (ALT/SGPT) 23, Alkaline Phosphatase 114, Total Bilirubin 2.8 H, Total Protein 5.1 L, Albumin 2.5 L JOAN BOWLING MD Mar 14, 2018 11:42
[2018-03-14 13:28] LABS: HEMATOCRIT 27.9 % (36.0-47.0); HEMOGLOBIN 8.8 g/dl (12.0-15.5)
[2018-03-15 05:50] LABS: HEMOGLOBIN 7.7 g/dl (12.0-15.5); MEAN CORPUSCULAR HGB CONC 30.8 g/dl (32.0-36.5); MEAN CORPUSCULAR VOLUME 87.7 fl (80.0-96.0); PLATELET COUNT, AUTOMATED 170 10^3/uL (150-450); RED BLOOD COUNT 2.85 10^6/uL (4.00-5.40); WHITE BLOOD COUNT 4.5 10^3/uL (4.0-10.0)
[2018-03-15 06:00] VITALS: BP 101/58
[2018-03-15 06:18] LABS: ALBUMIN 2.4 GM/DL (3.2-5.2); ALT/SGPT 27 U/L (12-78); BLOOD UREA NITROGEN 16 MG/DL (7-18); CARBON DIOXIDE LEVEL 23 MEQ/L (21-32); CHLORIDE LEVEL 110 MEQ/L (98-107); GLOMERULAR FILTRATION RATE > 60.0 (>39); GLUCOSE, FASTING 88 MG/DL (70-100); POTASSIUM SERUM 3.6 MEQ/L (3.5-5.1); SODIUM LEVEL 142 MEQ/L (136-145); TOTAL PROTEIN 5.4 GM/DL (6.4-8.2)
[2018-03-15] MEDS: PROPRANOLOL 10 MG TAB PO SCH ×2 (09:00→21:03)
[2018-03-15] MEDS: DIGOXIN 0.125 MG TAB PO SCH (09:53)
[2018-03-15] MEDS: FERROUS GLUCONATE 324 MG TAB PO SCH (09:53)
[2018-03-15] MEDS: OMEPRAZOLE 20 MG CAP PO SCH (09:53)
[2018-03-15] MEDS: SPIRONOLACTONE 25 MG TAB PO SCH (09:53)
[2018-03-15] MEDS: FUROSEMIDE 40 MG TAB PO SCH (09:53)
--- NOTE | 2018-03-15 11:40 | IPNPDOC ---
Subjective Date Seen The patient was seen on 03/15/18. Subjective Chief Complaint/HPI Patient seen and examined at the bedside. Her hemoglobin this morning was noted to be 7.7, the patient denies any episodes of hematemesis or hematochezia. We will repeat an H&H this afternoon and transfuse the patient if hemoglobin is less than 8.0. Objective Physical Examination General Exam: Positive: Alert, Cooperative, No Acute Distress Chest Exam: Positive: Clear to auscultation, Normal air movement Heart Exam: Positive: Rate Normal, Normal S1, Normal S2 Abdomen Exam: Positive: Soft; Negative: Tenderness Extremity Exam: Positive: Swelling (trace pitting edema in the lower extremities bilaterally); Negative: Tenderness Neuro Exam: Positive: Cranial Nerves 3-12 NL Psych Exam: Positive: Oriented x 3 Assessment /Plan Plan/VTE VTE Prophylaxis Ordered?: Yes Plan Symptomatic Anemia in a Patient with Hx of Cryptogensis Cirrhosis wit Esophageal Varices, Gastric Antral Vascular Ectasia (Watermelon Stomach) s/p 2 Units of PRBC's since admission--we will cont to serially trend H&H's Patient underwent EGD and Colonoscopy last month when she was admitted for the same, and it revealed no acute bleeding source. GI contacted in the ER--no urgent need for scope at this time. The patient has had multiple scopes done in the past, and has been transfused over 30 units of blood here since 2016 according to records Cont PPI, Propranolol We will cont to monitor and transfuse as indicated PT on board for functional optimization Hypertension. Cont Spironolactone, Lasix. Diastolic congestive heart failure. Currently appears compensated. Cont diuretic regimen History of chronic gastritis, duodenitis. Cont PPI Iron Deficiency Anemia Cont iron supplementation Patient also scheduled to follow up with Hematology as an outpatient for further anemia work up Anxiety/depression, chronic. History of C. difficile History of TIA. Aspirin will be held for now despite history of atrial fibrillation due to anemia and risk of recurrent GI bleed. Atrial fibrillation. Rate controlled Cont Digoxin 0.125 mg daily Not on AC 2/2 Hx of GI Bleed DVT prophylaxis SCD/TEDS VS, I&O, 24H, Fishbone Vital Signs/I&O Vital Signs Date Time Temp Pulse Resp B/P (MAP) Pulse Ox O2 Delivery O2 Flow Rate FiO2 03/15/18 09:53 66 03/15/18 09:00 110/53 03/15/18 06:00 97.0 20 96 Room Air I&O- Last 24 Hours up to 6 AM 03/15/18 06:00 Intake Total 940 ml Output Total 800 ml Balance 140 ml Laboratory Data 24H LABS Laboratory Tests 2 03/15/18 05:28: Nucleated Red Blood Cells % (auto) 0.0, Anion Gap 9, Glomerular Filtration Rate > 60.0, Blood Urea Nitrogen 16, Creatinine 0.80, Sodium Level 142, Potassium Level 3.6, Chloride Level 110H, Carbon Dioxide Level 23, Calcium Level 8.0L, Aspartate Amino Transf (AST/SGOT) 33, Alanine Aminotransferase (ALT/SGPT) 27, Alkaline Phosphatase 121H, Total Bilirubin 2.0H, Total Protein 5.4L, Albumin 2.4L, Albumin/Globulin Ratio 0.80L CBC/BMP Laboratory Tests 03/14/18 13:17 03/15/18 05:28 Red Blood Count 2.85 L, Mean Corpuscular Volume 87.7, Mean Corpuscular Hemoglobin 27.0, Mean Corpuscular Hemoglobin Concent 30.8 L, Red Cell Distribution Width 16.4 H, Calcium Level 8.0 L, Aspartate Amino Transf (AST/SGOT) 33, Alanine Aminotransferase (ALT/SGPT) 27, Alkaline Phosphatase 121 H, Total Bilirubin 2.0 H, Total Protein 5.4 L, Albumin 2.4 L JOAN BOWLING MD Mar 15, 2018 11:40
[2018-03-15 12:13] LABS: HEMATOCRIT 28.7 % (36.0-47.0); HEMOGLOBIN 8.7 g/dl (12.0-15.5)
[2018-03-15] MEDS: ACETAMINOPHEN TAB 650MG DOSE (2X325MG) PO PRN (21:31)
[2018-03-15 22:00] VITALS: BP 107/51
[2018-03-16 06:00] VITALS: BP 107/58
[2018-03-16 06:23] LABS: HEMATOCRIT 24.6 % (36.0-47.0); HEMOGLOBIN 7.6 g/dl (12.0-15.5); MEAN CORPUSCULAR HGB CONC 30.9 g/dl (32.0-36.5); MEAN CORPUSCULAR VOLUME 87.5 fl (80.0-96.0); PLATELET COUNT, AUTOMATED 162 10^3/uL (150-450); RED BLOOD COUNT 2.81 10^6/uL (4.00-5.40); WHITE BLOOD COUNT 4.7 10^3/uL (4.0-10.0)
[2018-03-16 06:42] LABS: ALBUMIN 2.5 GM/DL (3.2-5.2); ALT/SGPT 25 U/L (12-78); BILIRUBIN,TOTAL 1.5 MG/DL (0.2-1.0); BLOOD UREA NITROGEN 17 MG/DL (7-18); CALCIUM LEVEL 8.2 MG/DL (8.8-10.2); CARBON DIOXIDE LEVEL 23 MEQ/L (21-32); CHLORIDE LEVEL 110 MEQ/L (98-107); CREATININE FOR GFR 0.75 MG/DL (0.55-1.30); GLOMERULAR FILTRATION RATE > 60.0 (>39); GLUCOSE, FASTING 98 MG/DL (70-100); POTASSIUM SERUM 3.5 MEQ/L (3.5-5.1); SODIUM LEVEL 141 MEQ/L (136-145); TOTAL PROTEIN 5.3 GM/DL (6.4-8.2)
[2018-03-16] MEDS ORDERED: POTASSIUM CHLORIDE 10 MEQ SR TABLET PO ONE (08:15)
[2018-03-16] MEDS: OMEPRAZOLE 20 MG CAP PO SCH (08:28)
[2018-03-16] MEDS: FERROUS GLUCONATE 324 MG TAB PO SCH (08:28)
[2018-03-16] MEDS: DIGOXIN 0.125 MG TAB PO SCH (08:29)
[2018-03-16] MEDS: FUROSEMIDE 40 MG TAB PO SCH (08:29)
[2018-03-16] MEDS: SPIRONOLACTONE 25 MG TAB PO SCH (08:29)
[2018-03-16] MEDS: PROPRANOLOL 10 MG TAB PO SCH ×2 (08:30→20:27)
[2018-03-16 14:00] VITALS: BP 105/56
--- NOTE | 2018-03-16 14:32 | IPNPDOC ---
Subjective Date Seen The patient was seen on 03/16/18. Subjective Chief Complaint/HPI Patient seen and examined at the bedside. The patient's hemoglobin was noted to be below 8 again this morning. She denies any overt source of bleeding at this time. We will transfuse the patient 1 more unit. Objective Physical Examination General Exam: Positive: Alert, Cooperative, No Acute Distress Chest Exam: Positive: Clear to auscultation, Normal air movement Heart Exam: Positive: Rate Normal, Normal S1, Normal S2 Abdomen Exam: Positive: Soft; Negative: Tenderness Extremity Exam: Positive: Swelling (trace pitting edema in the lower extremities bilaterally); Negative: Tenderness Neuro Exam: Positive: Cranial Nerves 3-12 NL Psych Exam: Positive: Oriented x 3 Assessment /Plan Plan/VTE VTE Prophylaxis Ordered?: Yes Plan Symptomatic Anemia in a Patient with Hx of Cryptogensis Cirrhosis wit Esophageal Varices, Gastric Antral Vascular Ectasia (Watermelon Stomach) s/p 2 Units of PRBC's since admission Hgb Noted to be <8.0 this AM, we will transfuse the patient another unit Patient underwent EGD and Colonoscopy last month when she was admitted for the same, and it revealed no acute bleeding source. GI contacted in the ER--no urgent need for scope at this time. The patient has had multiple scopes done in the past, and has been transfused over 30 units of blood here since 2016 according to records Cont PPI, Propranolol We will cont to monitor and transfuse as indicated Patient has an appt with Hematology on 03/28/18 for further work up PT on board for functional optimization Hypertension. Cont Spironolactone, Lasix. Diastolic congestive heart failure. Currently appears compensated. Cont diuretic regimen History of chronic gastritis, duodenitis. Cont PPI Iron Deficiency Anemia Cont iron supplementation Patient also scheduled to follow up with Hematology as an outpatient for further anemia work up Anxiety/depression, chronic. History of C. difficile History of TIA. Aspirin will be held for now despite history of atrial fibrillation due to anemia and risk of recurrent GI bleed. Atrial fibrillation. Rate controlled Cont Digoxin 0.125 mg daily Not on AC 2/2 Hx of GI Bleed DVT prophylaxis SCD/TEDS VS, I&O, 24H, Fishbone Vital Signs/I&O Vital Signs Date Time Temp Pulse Resp B/P (MAP) Pulse Ox O2 Delivery O2 Flow Rate FiO2 1/26/19 08:30 75 107/58 03/16/18 06:00 98.4 19 97 Room Air I&O- Last 24 Hours up to 6 AM 03/16/18 06:00 Intake Total 630 ml Output Total 1800 ml Balance -1170 ml Laboratory Data 24H LABS Laboratory Tests 2 03/16/18 05:39: Nucleated Red Blood Cells % (auto) 0.0, Anion Gap 8, Glomerular Filtration Rate > 60.0, Blood Urea Nitrogen 17, Creatinine 0.75, Sodium Level 141, Potassium Level 3.5, Chloride Level 110H, Carbon Dioxide Level 23, Calcium Level 8.2L, Aspartate Amino Transf (AST/SGOT) 36, Alanine Aminotransferase (ALT/SGPT) 25, Alkaline Phosphatase 126H, Total Bilirubin 1.5H, Total Protein 5.3L, Albumin 2.5L, Albumin/Globulin Ratio 0.89L CBC/BMP Laboratory Tests 03/16/18 05:39 Red Blood Count 2.81 L, Mean Corpuscular Volume 87.5, Mean Corpuscular Hemoglobin 27.0, Mean Corpuscular Hemoglobin Concent 30.9 L, Red Cell Dist ribution Width 16.9 H, Calcium Level 8.2 L, Aspartate Amino Transf (AST/SGOT) 36, Alanine Aminotransferase (ALT/SGPT) 25, Alkaline Phosphatase 126 H, Total Bilirubin 1.5 H, Total Protein 5.3 L, Albumin 2.5 L JOAN BOWLING MD Mar 16, 2018 14:32
--- NOTE | 2018-03-16 16:49 | REP ---
Clinical: Bilateral lower extremity pain Technique: Weiss scale and color Doppler evaluation using linear high frequency transducer. Findings: Ultrasound examination of the right and left lower extremity deep venous structures from the common femoral vein to the popliteal vein demonstrates normal compressibility flow and wave patterns in response to respiration and augmentation. There is no evidence for deep venous thrombosis. Impression: No evidence for deep venous thrombosis. Electronically Signed by Sony White MD 03/16/2018 04:39 P
[2018-03-16 20:00] VITALS: BP 119/57
[2018-03-16] MEDS ORDERED: ALPRAZolam 0.25 MG TAB PO ONE (20:15)
[2018-03-16] MEDS: ACETAMINOPHEN TAB 650MG DOSE (2X325MG) PO PRN (20:21)
[2018-03-16 22:00] VITALS: BP 115/56
[2018-03-17 06:00] VITALS: BP 103/56
[2018-03-17 06:20] LABS: HEMATOCRIT 28.1 % (36.0-47.0); HEMOGLOBIN 8.8 g/dl (12.0-15.5); MEAN CORPUSCULAR HEMOGLOBIN 27.7 pg (27.0-33.0); MEAN CORPUSCULAR HGB CONC 31.3 g/dl (32.0-36.5); MEAN CORPUSCULAR VOLUME 88.4 fl (80.0-96.0); PLATELET COUNT, AUTOMATED 165 10^3/uL (150-450); RED BLOOD COUNT 3.18 10^6/uL (4.00-5.40); WHITE BLOOD COUNT 4.3 10^3/uL (4.0-10.0)
[2018-03-17 06:43] LABS: ALBUMIN 2.6 GM/DL (3.2-5.2); ALT/SGPT 28 U/L (12-78); BILIRUBIN,TOTAL 2.1 MG/DL (0.2-1.0); BLOOD UREA NITROGEN 16 MG/DL (7-18); CARBON DIOXIDE LEVEL 23 MEQ/L (21-32); CHLORIDE LEVEL 111 MEQ/L (98-107); CREATININE FOR GFR 0.72 MG/DL (0.55-1.30); GLOMERULAR FILTRATION RATE > 60.0 (>39); GLUCOSE, FASTING 85 MG/DL (70-100); POTASSIUM SERUM 3.9 MEQ/L (3.5-5.1); SODIUM LEVEL 142 MEQ/L (136-145); TOTAL PROTEIN 5.4 GM/DL (6.4-8.2)
[2018-03-17] MEDS: PROPRANOLOL 10 MG TAB PO SCH ×3 (09:00→21:46)
[2018-03-17] MEDS: SPIRONOLACTONE 25 MG TAB PO SCH (09:49)
[2018-03-17] MEDS: FERROUS GLUCONATE 324 MG TAB PO SCH (09:49)
[2018-03-17] MEDS: DIGOXIN 0.125 MG TAB PO SCH (09:50)
[2018-03-17] MEDS: OMEPRAZOLE 20 MG CAP PO SCH (09:50)
[2018-03-17] MEDS: FUROSEMIDE 40 MG TAB PO SCH (09:50)
[2018-03-17 09:53] VITALS: BP_SYST 114; BP_SYST 117; BP_SYST 118; BP_DIAS 56; BP_DIAS 59; BP_DIAS 75
--- NOTE | 2018-03-17 09:53 | ECGEPIP ---
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
--- NOTE | 2018-03-17 11:45 | IPNPDOC ---
Subjective Date Seen The patient was seen on 03/17/18. Subjective Chief Complaint/HPI Patient seen and examined at the bedside. Her hemoglobin has appropriately trend up following a transfusion yesterday. The patient's underlying atrial fibrillation has been with a labile HR. We will check a digoxin level and continue to monitor the patient on Telemetry. Cont Propranolol. Patient asymptomatic while walking the hallways. Objective Physical Examination General Exam: Positive: Alert, Cooperative, No Acute Distress Chest Exam: Positive: Clear to auscultation, Normal air movement Heart Exam: Positive: Tachycardic, Normal S1, Normal S2 Telemetry: Positive: Atrial fibrillation Abdomen Exam: Positive: Soft; Negative: Tenderness Extremity Exam: Positive: Swelling (trace pitting edema in the lower extremities bilaterally); Negative: Tenderness Neuro Exam: Positive: Cranial Nerves 3-12 NL Psych Exam: Positive: Oriented x 3 Assessment /Plan Plan/VTE VTE Prophylaxis Ordered?: Yes Plan Symptomatic Anemia in a Patient with Hx of Cryptogensis Cirrhosis wit Esophageal Varices, Gastric Antral Vascular Ectasia (Watermelon Stomach) s/p 3 Units of PRBC's since admission Hgb Noted to be >8.0 this AM Patient underwent EGD and Colonoscopy last month when she was admitted for the same, and it revealed no acute bleeding source. GI contacted in the ER--no urgent need for scope at this time. The patient has had multiple scopes done in the past, and has been transfused over 30 units of blood here since 2016 according to records Cont PPI, Propranolol We will cont to monitor and transfuse as indicated Patient has an appt with Hematology on 03/28/18 for further work up PT on board for functional optimization Atrial fibrillation. Rate has been labile yesterday evening into this morning. However patient remains asymptomatic Cont Digoxin 0.125 mg daily--we will check a digoxin level Cont Propranolol 2D ECHO ordered Not on AC 2/ Hx of GI Bleed Hypertension. Cont Spironolactone, Lasix. Diastolic congestive heart failure. Currently appears compensated. Cont diuretic regimen History of chronic gastritis, duodenitis. Cont PPI Iron Deficiency Anemia Cont iron supplementation Patient also scheduled to follow up with Hematology as an outpatient for further anemia work up Anxiety/depression, chronic. History of C. difficile History of TIA. Aspirin will be held for now despite history of atrial fibrillation due to anemia and risk of recurrent GI bleed. DVT prophylaxis SCD/TEDS VS, I&O, 24H, [facility] Vital Signs/I&O Vital Signs Date Time Temp Pulse Resp B/P (MAP) Pulse Ox O2 Delivery O2 Flow Rate FiO2 03/17/18 10:59 90 114/59 03/17/18 06:00 98.3 17 95 Room Air I&O- Last 24 Hours up to 6 AM 03/17/18 06:00 Intake Total 1460 ml Output Total 1200 ml Balance 260 ml Laboratory Data 24H LABS Laboratory Tests 2 03/17/18 05:49: Nucleated Red Blood Cells % (auto) 0.0, Anion Gap 8, Glomerular Filtration Rate > 60.0, Blood Urea Nitrogen 16, Creatinine 0.72, Sodium Level 142, Potassium Level 3.9, Chloride Level 111H, Carbon Dioxide Level 23, Calcium Level 8.0L, Aspartate Amino Transf (AST/SGOT) 39H, Alanine Aminotransferase (ALT/SGPT) 28, Alkaline Phosphatase 130H, Total Bilirubin 2.1H, Total Protein 5.4L, Albumin 2.6L, Albumin/Globulin Ratio 0.93L CBC/BMP Laboratory Tests 03/17/18 05:49 Red Blood Count 3.18 L, Mean Corpuscular Volume 88.4, Mean Corpuscular Hemoglobin 27.7, Mean Corpuscular Hemoglobin Concent 31.3 L, Red Cell Distribution Width 17.2 H, Calcium Level 8.0 L, Aspartate Amino Transf (AST/SGOT) 39 H, Alanine Aminotransferase (ALT/SGPT) 28, Alkaline Phosphatase 130 H, Total Bilirubin 2.1 H, Total Protein 5.4 L, Albumin 2.6 L JOAN BOWLING MD Mar 17, 2018 11:45
[2018-03-17] MEDS ORDERED: ISOVUE-370 76% 100ML VIAL (Q9967) As Ordered ONE (12:19)
--- NOTE | 2018-03-17 13:25 | REP ---
Clinical: Acute chest pain. Technique: Axial contrast enhanced images from the thoracic inlet to the upper abdomen using 100 ml Isovue 370 intravenous contrast material with multiplanar re-formations. Findings: Satisfactory enhancement of the pulmonary vasculature is achieved and no filling defects are identified to suggest pulmonary embolus. Cardiomegaly is appreciated with atherosclerotic changes to the coronary arteries, mitral valve calcification, and small pericardial effusion. Thoracic aorta demonstrates atherosclerotic changes without aneurysm or obvious dissection. The lung [place] demonstrate age-related interstitial changes and mild bronchiectasis along with minimal left basilar atelectasis. Partially calcified left posterior pleural plaque noted. No obvious adenopathy. Upper abdomen demonstrates evidence for cirrhosis along with moderate ascites and portal varices. Impression: 1. No evidence for pulmonary embolus. No acute mediastinal or pleural parenchymal process. 2. Cardiomegaly with atherosclerotic changes and small pericardial effusion. 3. Chronic interstitial changes and bronchiectasis with partially calcified left posterior pleural plaque. 4. Cirrhosis with ascites and varices. Electronically Signed by Sony White MD 03/17/2018 01:16 P
[2018-03-17 14:00] VITALS: BP 112/55
[2018-03-17 17:00] VITALS: BP_SYST 108; BP_SYST 109; BP_DIAS 55; BP_DIAS 57; BP_DIAS 58
[2018-03-17 21:46] VITALS: BP 106/54
[2018-03-17] MEDS: ACETAMINOPHEN TAB 650MG DOSE (2X325MG) PO PRN (21:46)
[2018-03-17 22:00] VITALS: BP 100/54
[2018-03-18 06:00] VITALS: BP 101/59
[2018-03-18 06:17] LABS: HEMATOCRIT 27.9 % (36.0-47.0); HEMOGLOBIN 8.9 g/dl (12.0-15.5); MEAN CORPUSCULAR HEMOGLOBIN 27.9 pg (27.0-33.0); MEAN CORPUSCULAR HGB CONC 31.9 g/dl (32.0-36.5); MEAN CORPUSCULAR VOLUME 87.5 fl (80.0-96.0); PLATELET COUNT, AUTOMATED 175 10^3/uL (150-450); RED BLOOD COUNT 3.19 10^6/uL (4.00-5.40); WHITE BLOOD COUNT 5.2 10^3/uL (4.0-10.0)
[2018-03-18 06:43] LABS: ALBUMIN 2.6 GM/DL (3.2-5.2); ALT/SGPT 24 U/L (12-78); BLOOD UREA NITROGEN 18 MG/DL (7-18); CALCIUM LEVEL 8.5 MG/DL (8.8-10.2); CARBON DIOXIDE LEVEL 22 MEQ/L (21-32); CHLORIDE LEVEL 111 MEQ/L (98-107); CREATININE FOR GFR 0.72 MG/DL (0.55-1.30); GLOMERULAR FILTRATION RATE > 60.0 (>39); GLUCOSE, FASTING 95 MG/DL (70-100); POTASSIUM SERUM 3.9 MEQ/L (3.5-5.1); SODIUM LEVEL 142 MEQ/L (136-145); TOTAL PROTEIN 5.4 GM/DL (6.4-8.2)
[2018-03-18] MEDS: SPIRONOLACTONE 25 MG TAB PO SCH (09:00)
[2018-03-18] MEDS: DIGOXIN 0.125 MG TAB PO SCH (09:13)
[2018-03-18] MEDS: PROPRANOLOL 10 MG TAB PO SCH ×2 (09:14→20:43)
[2018-03-18] MEDS: FUROSEMIDE 40 MG TAB PO SCH (09:14)
[2018-03-18] MEDS: FERROUS GLUCONATE 324 MG TAB PO SCH (09:15)
[2018-03-18] MEDS: OMEPRAZOLE 20 MG CAP PO SCH (09:15)
[2018-03-18 09:45] VITALS: BP_SYST 101; BP_SYST 108; BP_SYST 119; BP_DIAS 58; BP_DIAS 59
--- NOTE | 2018-03-18 10:05 | IPNPDOC ---
Subjective Date Seen The patient was seen on 03/18/18. Subjective Chief Complaint/HPI Patient seen and examined at the bedside. Reports that she is feeling better today, and denies any complaints of chest pain, palpitations, or shortness of breath. Her hemoglobin count this morning has remained stable. She is scheduled to work with physical therapy today. Objective Physical Examination General Exam: Positive: Alert, Cooperative, No Acute Distress Chest Exam: Positive: Clear to auscultation, Normal air movement Heart Exam: Positive: Rate Normal, Normal S1, Normal S2 Telemetry: Positive: Atrial fibrillation Abdomen Exam: Positive: Soft; Negative: Tenderness Extremity Exam: Positive: Swelling (trace pitting edema in the lower extremities bilaterally); Negative: Tenderness Neuro Exam: Positive: Cranial Nerves 3-12 NL Psych Exam: Positive: Oriented x 3 Assessment /Plan Plan/VTE VTE Prophylaxis Ordered?: Yes Plan Symptomatic Anemia in a Patient with Hx of Cryptogensis Cirrhosis wit Esophageal Varices, Gastric Antral Vascular Ectasia (Watermelon Stomach) s/p 3 Units of PRBC's since admission Hgb Noted to be >8.0 this AM Patient underwent EGD and Colonoscopy last month when she was admitted for the same, and it revealed no acute bleeding source. GI contacted in the ER--no urgent need for scope at this time. The patient has had multiple scopes done in the past, and has been transfused over 30 units of blood here since 2016 according to records Cont PPI, Propranolol We will cont to monitor and transfuse as indicated Patient has an appt with Hematology on 03/28/18 for further work up PT on board for functional optimization Atrial fibrillation. Rate better controlled this AM Cont Digoxin 0.125 mg daily--digoxin level therapeutic Cont Propranolol 2D ECHO ordered Not on AC 03/23 Hx of GI Bleed Hypertension. Cont Spironolactone, Lasix. Diastolic congestive heart failure. Currently appears compensated. Cont diuretic regimen History of chronic gastritis, duodenitis. Cont PPI Iron Deficiency Anemia Cont iron supplementation Patient also scheduled to follow up with Hematology as an outpatient for further anemia work up Anxiety/depression, chronic. History of C. difficile History of TIA. Aspirin will be held for now despite history of atrial fibrillation due to anemia and risk of recurrent GI bleed. DVT prophylaxis SCD/TEDS Dispo--pending PT clearance. VS, I&O, 24H, [facility] Vital Signs/I&O Vital Signs Date Time Temp Pulse Resp B/P (MAP) Pulse Ox O2 Delivery O2 Flow Rate FiO2 03/18/18 09:45 64 108/58 (75) 63 101/59 (73) 67 119/58 (78) 03/18/18 06:00 98.9 18 96 Room Air I&O- Last 24 Hours up to 6 AM 03/18/18 06:00 Intake Total 1650 ml Output Total 1850 ml Balance -200 ml Laboratory Data 24H LABS Laboratory Tests 2 03/18/18 05:46: Nucleated Red Blood Cells % (auto) 0.0, Anion Gap 9, Glomerular Filtration Rate > 60.0, Blood Urea Nitrogen 18, Creatinine 0.72, Sodium Level 142, Potassium Level 3.9, Chloride Level 111H, Carbon Dioxide Level 22, Calcium Level 8.5L, Aspartate Amino Transf (AST/SGOT) 38H, Alanine Aminotransferase (ALT/SGPT) 24, Alkaline Phosphatase 137H, Total Bilirubin 1.0#, Total Protein 5.4L, Albumin 2.6 L, Albumin/Globulin Ratio 0.93L CBC/BMP Laboratory Tests 03/18/18 05:46 Red Blood Count 3.19 L, Mean Corpuscular Volume 87.5, Mean Corpuscular Hemoglobin 27.9, Mean Corpuscular Hemoglobin Concent 31.9 L, Red Cell Distribution Width 17.8 H, Calcium Level 8.5 L, Aspartate Amino Transf (AST/SGOT) 38 H, Alanine Aminotransferase (ALT/SGPT) 24, Alkaline Phosphatase 137 H, Total Bilirubin 1.0 #, Total Protein 5.4 L, Albumin 2.6 L JOAN BOWLING MD Mar 18, 2018 10:05
[2018-03-18 14:00] VITALS: BP 103/51
[2018-03-18 19:11] VITALS: BP_SYST 102; BP_SYST 112; BP_SYST 117; BP_DIAS 50; BP_DIAS 57; BP_DIAS 60
[2018-03-18 20:00] VITALS: BP 116/64
--- NOTE | 2018-03-18 20:22 | ECHO ---
DATE OF PROCEDURE: AGE: 77 GENDER: Female HEIGHT: 66 inches WEIGHT: 147 pounds BODY SURFACE AREA: 1.76 sq m INPATIENT: 4 [facility] room 4233 REFERRING PHYSICIAN: Dr. De Santiago INDICATION: CHF (unspecified). MEASUREMENTS: 2D MEASUREMENTS: RV: 4.2 cm LV: 3.9 cm Septum: 1.3 cm Posterior wall: 1.3 cm Aortic root: 3.0 cm LA: 4.9 cm LVEF: 75% DOPPLER MEASUREMENTS: AV: 1.28 m/s LVOT: 1.16 m/s LVOT diameter: 1.9 cm MV-E: 148 Early mitral deceleration time: 180 ms E prime: 6.1 E/E prime ratio: 24 PV: 1.0 m/s Pulmonary artery acceleration time: 81 ms RVSP: 45 mmHg IVC: 2.1 cm COMMENTS: Underlying atrial fibrillation with controlled ventricular response. Very infrequent ventricular paced QRS complex most were spontaneous narrow QRS complexes. M-mode and two-dimensional echocardiography was performed with pulsed, continuous wave, color flow, and tissue Doppler studies. Mild concentric left ventricular hypertrophy with hyperkinetic wall motion. Prominently dilated left atrium. Unable to define LV diastolic function in light of atrial fibrillation but based on the observed, E/E prime ratio, we would anticipate her mean left atrial pressure was quite elevated. At least mildly dilated right heart chambers with normal right ventricular free wall motion and Doppler evidence of at least moderate pulmonary hypertension. IVC size upper limits of normal with adequate respiratory collapse against a significantly elevated central venous pressure. Very subtle aortic valvular sclerosis without stenosis and very mild aortic insufficiency. Normal aortic root size. Severe mitral annular calcification without inflow tract obstruction but severe eccentrically directed mitral insufficiency to the roof of the left atrium. Normal appearing tricuspid valve with moderately severe to severe tricuspid insufficiency. Pacing lead could be visualized traversing right heart structures. No separate intracardiac mass. Minuscule posterior pericardial effusion. In light of the observed mitral insufficiency and her heart failure, if she was otherwise a candidate for possible cardiac surgery would advise referral for cardiac catheterization and mitral valve replacement. SHANEKA
[2018-03-18] MEDS: ACETAMINOPHEN TAB 650MG DOSE (2X325MG) PO PRN (23:50)
[2018-03-19 06:00] VITALS: BP 144/69
[2018-03-19 06:17] LABS: HEMOGLOBIN 8.5 g/dl (12.0-15.5); MEAN CORPUSCULAR HEMOGLOBIN 27.4 pg (27.0-33.0); MEAN CORPUSCULAR HGB CONC 30.4 g/dl (32.0-36.5); MEAN CORPUSCULAR VOLUME 90.3 fl (80.0-96.0); PLATELET COUNT, AUTOMATED 164 10^3/uL (150-450); WHITE BLOOD COUNT 4.2 10^3/uL (4.0-10.0)
[2018-03-19 06:38] LABS: ALBUMIN 2.4 GM/DL (3.2-5.2); ALT/SGPT 23 U/L (12-78); BLOOD UREA NITROGEN 16 MG/DL (7-18); CALCIUM LEVEL 7.8 MG/DL (8.8-10.2); CARBON DIOXIDE LEVEL 23 MEQ/L (21-32); CHLORIDE LEVEL 110 MEQ/L (98-107); CREATININE FOR GFR 0.73 MG/DL (0.55-1.30); GLOMERULAR FILTRATION RATE > 60.0 (>39); GLUCOSE, FASTING 91 MG/DL (70-100); POTASSIUM SERUM 3.6 MEQ/L (3.5-5.1); SODIUM LEVEL 140 MEQ/L (136-145); TOTAL PROTEIN 5.3 GM/DL (6.4-8.2)
[2018-03-19] MEDS: SPIRONOLACTONE 25 MG TAB PO SCH (09:06)
[2018-03-19 09:07] VITALS: BP 110/64
[2018-03-19] MEDS: PROPRANOLOL 10 MG TAB PO SCH (09:07)
[2018-03-19] MEDS: DIGOXIN 0.125 MG TAB PO SCH (09:07)
[2018-03-19] MEDS: FUROSEMIDE 40 MG TAB PO SCH (09:07)
[2018-03-19] MEDS: FERROUS GLUCONATE 324 MG TAB PO SCH (09:07)
[2018-03-19] MEDS: OMEPRAZOLE 20 MG CAP PO SCH (09:08)
[2018-03-19 09:54] VITALS: BP_SYST 102; BP_SYST 95; BP_DIAS 53; BP_DIAS 54
--- NOTE | 2018-03-19 21:07 | DSES ---
DATE OF ADMISSION: 03/13/2018 DATE OF DISCHARGE: 03/19/2018 PRIMARY CARE PROVIDER: Dr. Rhiannon Tiwari CONSULTANTS: None. DISCHARGE DIAGNOSES: 1. Symptomatic anemia. 2. History of cryptogenic cirrhosis with esophageal varices and gastric antral vascular ectasia. 3. Atrial fibrillation. 4. Hypertension. 5. Diastolic congestive heart failure. 6. Chronic gastritis and duodenitis. 7. Iron deficiency anemia. 8. Anxiety/depression. 9. History of Clostridium difficile (C diff). 10. History of transient ischemic attack (TIA). HOSPITALIZATION COURSE: The patient is a 77-year-old female who presented to [facility] on 03/13/2018 for abnormal labs. The patient was called by the primary care provider to come to [facility] for a low hemoglobin and hematocrit. The patient was admitted under the hospitalist service for symptomatic anemia. Blood consent obtained, patient received packed red blood transfusion. The patient had a recent esophagogastroduodenoscopy (EGD) and colonoscopy and results were reviewed. When the patient was in the emergency room, GI was contacted, and there was no urgency for repeat scope. On 03/16/2018, the patient had a decreased hemoglobin and hematocrit again and additional packed red blood cell transfusion ordered. Physical therapy on board for functional optimization. With the patient demonstrating stable hemoglobin and hematocrit after transfusion, later the patient passed a physical therapy evaluation and patient determined stable for discharge with the recommendation to followup with primary care provider in 1 week. Patient also recommended to followup with hematology in the outpatient setting for further workup of her anemia. The patient was also recommended to followup with GI specialist at the scheduled time. It was also recommended the patient should get more frequent laboratory tests to help with close monitoring of her anemia. Vital signs on the day of discharge show temperature of 97.8, pulse 64, respiration rate is 18, blood pressure is 114/69, pulse oximetry is 96% in room air. Laboratory data on the day of discharge showed WBC 4.2, hemoglobin 8.5, hematocrit 28, platelet count is 164. Sodium is 140, potassium 3.6, chloride 110, carbon dioxide 23, BUN 16, creatinine 0.73, GFR greater than 60, fasting glucose 91, calcium is 7.8, total bilirubin is 1. AST 33, ALT is 23, alkaline phosphatase is 141, total protein 5.3, albumin 2.4. IMAGING STUDIES: Bilateral lower extremity Doppler demonstrated no evidence of deep vein thrombosis (DVT). CT angiogram of the chest demonstrated no evidence of pulmonary embolus. No acute mediastinal or pleural parenchymal process. Cardiomegaly with atherosclerotic changes and small pericardial effusion. Chronic interstitial changes and bronchiectasis with partial calcified left posterior pleural plaque. Cirrhosis with ascites and varices. Echocardiogram demonstrated moderate pulmonary hypertension. Unable to define diastolic dysfunction in the presence of the atrial fibrillation. Severe mitral insufficiency. DISCHARGE MEDICATIONS: - Digoxin 125 mcg by mouth daily - ferrous gluconate 240 mg by mouth daily - Lasix 40 mg by mouth daily - omeprazole 20 mg by mouth daily - propranolol 10 mg by mouth twice a day - spironolactone 25 mg by mouth daily DISCHARGE INSTRUCTIONS: Discontinue line. Discharge home. Activity as tolerated. Diet as tolerated. Patient should followup with her primary care provider in 1 week. Patient should followup with hematology/oncology at the scheduled appointment. Patient should also followup with cardiology, Dr. Gibbs, to discuss echo report and her cardiac condition. Patient was also recommended to have routine blood work every 1-2 weeks. Patient did have on admission due to symptomatic anemia. DISCHARGE CONDITION: Fair. DISCHARGE TIME: Greater than 30 minutes.
== END 2018-03-19 11:44 | disposition home or self-care (01) | DRG 812 ==
LOC: M ED 15:13 → M ED INP 18:24 → M MSPAV 20:52
PROVIDERS: ADMIT Internal Medicine; ATTEND Internal Medicine
PROC: 30233N1 Transfusion of Nonautologous Red Blood Cells into Peripheral Vein, Percutaneous Approach (ICD-10-PCS; principal; 2018-03-13)
DX: D50.9 Iron deficiency anemia, unspecified (principal); I85.10 Secondary esophageal varices without bleeding; I50.32 Chronic diastolic (congestive) heart failure; K74.69 Other cirrhosis of liver; I95.9 Hypotension, unspecified; K21.9 Gastro-esophageal reflux disease without esophagitis; I10 Essential (primary) hypertension; I48.2 Chronic atrial fibrillation; K31.819 Angiodysplasia of stomach and duodenum without bleeding; K29.50 Unspecified chronic gastritis without bleeding; I34.0 Nonrheumatic mitral (valve) insufficiency; F41.9 Anxiety disorder, unspecified; F32.9 Major depressive disorder, single episode, unspecified; K44.9 Diaphragmatic hernia without obstruction or gangrene; K64.8 Other hemorrhoids; K57.90 Diverticulosis of intestine, part unspecified, without perforation or abscess without bleeding; Z95.0 Presence of cardiac pacemaker; Z90.49 Acquired absence of other specified parts of digestive tract; Z79.899 Other long term (current) drug therapy; Z86.73 Personal history of transient ischemic attack (TIA), and cerebral infarction without residual deficits

== ENCOUNTER → 2018-04-03 | Outpatient (CLI) | payer MEDICARE ==
[~2018-04-03] MED LIST changes: +CARA1TAB6 PO; +OMEP40CA2 PO; +PANT-23 PO
[2018-04-03 13:36] LABS: BASO # 0.1 10^3/uL (0.0-0.2); BASO % 1.6 % (0.0-1.0); EOS # 0.2 10^3/uL (0.0-0.50); EOS % 4.9 % (0.0-3.0); HEMATOCRIT 23.1 % (36.0-47.0); LYMPH # 0.7 10^3/uL (1.5-4.5); LYMPH % 14.4 % (24.0-44.0); MEAN CORPUSCULAR HEMOGLOBIN 27.1 pg (27.0-33.0); MEAN CORPUSCULAR HGB CONC 29.9 g/dl (32.0-36.5); MEAN CORPUSCULAR VOLUME 90.6 fl (80.0-96.0); MONO % 19.8 % (0.0-5.0); NEUTROPHILS # 2.9 10^3/uL (1.8-7.7); NEUTROPHILS % 58.7 % (36.0-66.0); PLATELET COUNT, AUTOMATED 253 10^3/uL (150-450); RED BLOOD COUNT 2.55 10^6/uL (4.00-5.40); WHITE BLOOD COUNT 4.9 10^3/uL (4.0-10.0)
[2018-04-03 13:40] LABS: HEMOGLOBIN 6.9 g/dl (12.0-15.5)
--- NOTE | 2018-04-04 09:18 | REP ---
Ultrasound-guided paracentesis The procedure was performed under the direct supervision of Dr. Weiss. The risks and benefits of the procedure were explained to the patient and informed consent was obtained. The largest pocket of fluid was localized in the right flank using ultrasound guidance. The skin was prepped and draped in a sterile fashion. 1% lidocaine was used as a local anesthetic. An 8-Yi multi side-hole catheter was inserted using trocar technique. 2850 ml of clear yellow fluid was withdrawn and discarded. The patient tolerated the procedure well and there were no immediate complications. After the appropriate amount of monitored convalescence the patient was discharged from the department. Reviewed by ADELE Davila 04/03/2018 04:52 P Electronically Signed by Kadeem Weiss MD 04/04/2018 09:09 A
== END ==
LOC: M RADPRO 12:54
PROVIDERS: ATTEND Family Medicine
DX: K74.60 Unspecified cirrhosis of liver (principal); R18.8 Other ascites; D64.9 Anemia, unspecified

== ENCOUNTER 2018-04-04 07:38 | Outpatient (CLI) | payer MEDICARE ==
[2018-04-04] VITALS (8 sets, daily range): BP systolic 89–115; BP diastolic 46–59
[~2018-04-04] VITALS: Ht 167.6 cm; Wt 66.2 kg
[~2018-04-04 07:38] MED LIST changes: -CARA1TAB6 PO; -PANT-23 PO
[2018-04-11] MEDS ORDERED: CARA1TAB6 PO (10:50)
[2018-04-11] MEDS ORDERED: PANT-23 PO (10:50)
== END 2018-04-04 12:45 | disposition home or self-care (01) ==
LOC: M INFU 07:38
PROVIDERS: ATTEND Family Medicine
DX: D64.9 Anemia, unspecified (principal)
CPT/HCPCS: 36430; P9016

== ENCOUNTER → 2018-04-24 | Outpatient (CLI) | payer MEDICARE ==
[~2018-04-24] MED LIST changes: +CARA1TAB6 PO; +PANT-23 PO
--- NOTE | 2018-04-24 15:37 | REP ---
Whole body radionuclide bone scan: History: Back pain. T12 area. Technique: 22.0 mCi technetium 99m MDP is injected and standard whole body bone scan imaging is acquired. Scintigraphic findings: There is a mild arthritic pattern of increased uptake in the medial compartment of each knee. There is arthritic uptake in each wrist. There is a gentle curvature in the lumbar spine. Mild degenerative uptake pattern is seen in the lumbar spine facets at L5-S1, left more so than right. There is uptake in bilateral kidneys and in the urinary bladder. There is no evidence to suggest skeletal metastatic disease. There is no abnormal uptake in the region of the thoracolumbar junction. Impression: Mild arthritic and degenerative pattern as above. No evidence to suggest skeletal metastatic disease. Electronically Signed by Kong Love MD 04/24/2018 05:09 P
== END ==
LOC: M RAD 09:23
PROVIDERS: ATTEND Internal Medicine Hematology & Oncology
DX: M54.9 Dorsalgia, unspecified (principal)
CPT/HCPCS: 78306; A9503

== ENCOUNTER → 2018-04-26 | Outpatient (CLI) | payer MEDICARE ==
--- NOTE | 2018-04-29 10:59 | REP ---
Ultrasound-guided paracentesis The procedure was performed under the direct supervision of Dr. Weiss. The risks and benefits of the procedure were explained to the patient and informed consent was obtained. The largest pocket of fluid was localized in the left lower quadrant using ultrasound guidance. The skin was prepped and draped in a sterile fashion. 1% lidocaine was used as a local anesthetic. An 8-[place] multi side-hole catheter was inserted using trocar technique. 4500 ml of clear yellow fluid was withdrawn and discarded. The patient tolerated the procedure well and there were no immediate complications. After the appropriate amount of monitored convalescence the patient was discharged from the department. Reviewed by ADELE Davila 04/26/2018 05:04 P Electronically Signed by Kadeem Weiss MD 04/29/2018 10:50 A
== END ==
LOC: M RADPRO 13:28
PROVIDERS: ATTEND Physician Assistant
DX: R18.8 Other ascites (principal); Z79.899 Other long term (current) drug therapy

== ENCOUNTER 2018-05-15 12:28 | Inpatient (IN) | payer MEDICARE ==
[~2018-05-15] VITALS: Ht 167.6 cm; Wt 68.2 kg
[~2018-05-15 12:28] MED LIST changes: +ERYT1OIN26 OU; -ERYT5OPO OU; +MUPI1OIN2 TOP; -MUPI2OI TOP
--- NOTE | 2018-05-15 14:13 | REP ---
chest, portable: AP portable view of the chest is performed and compared to a prior study of 02/05/2018. Cardiomegaly is again noted. There is no acute infiltrate. There is a hiatal hernia again noted. Left single lead pacemaker is seen. There appears to be calcification of the mitral annulus. IMPRESSION: Stable cardiomegaly with no acute infiltrate. Electronically Signed by Kadeem Weiss MD 05/15/2018 04:56 P
[2018-05-15 15:40] LABS: BASO # 0.1 10^3/uL (0.0-0.2); EOS # 0.2 10^3/uL (0.0-0.50); EOS % 2.4 % (0.0-3.0); HEMATOCRIT 27.9 % (36.0-47.0); HEMOGLOBIN 8.6 g/dl (12.0-15.5); LYMPH # 0.6 10^3/uL (1.5-4.5); LYMPH % 8.4 % (24.0-44.0); MEAN CORPUSCULAR HEMOGLOBIN 31.9 pg (27.0-33.0); MEAN CORPUSCULAR HGB CONC 30.8 g/dl (32.0-36.5); MEAN CORPUSCULAR VOLUME 103.3 fl (80.0-96.0); MONO # 0.8 10^3/uL (0.0-0.8); MONO % 12.2 % (0.0-5.0); NEUTROPHILS # 4.9 10^3/uL (1.8-7.7); NEUTROPHILS % 74.7 % (36.0-66.0); PLATELET COUNT, AUTOMATED 248 10^3/uL (150-450); WHITE BLOOD COUNT 6.6 10^3/uL (4.0-10.0)
[2018-05-15 15:51] LABS: INR 1.12; PROTHROMBIN TIME 14.6 SECONDS (12.1-14.4)
[2018-05-15 15:52] LABS: PARTIAL THROMBOPLASTIN TIME 29.5 SECONDS (25.4-37.6)
[2018-05-15 16:26] LABS: ALT/SGPT 28 U/L (12-78); BILIRUBIN,DIRECT 0.5 MG/DL (0.0-0.2); BILIRUBIN,TOTAL 1.7 MG/DL (0.2-1.0); BLOOD UREA NITROGEN 20 MG/DL (7-18); CALCIUM LEVEL 7.9 MG/DL (8.8-10.2); CARBON DIOXIDE LEVEL 24 MEQ/L (21-32); CHLORIDE LEVEL 108 MEQ/L (98-107); CPK CREATINE PHOSPHOKINASE 38 U/L (26-192); CREATININE FOR GFR 0.87 MG/DL (0.55-1.30); GLOMERULAR FILTRATION RATE > 60.0 (>39); GLUCOSE, FASTING 95 MG/DL (70-100); POTASSIUM SERUM 3.8 MEQ/L (3.5-5.1); SODIUM LEVEL 142 MEQ/L (136-145)
[2018-05-15 16:27] LABS: ALBUMIN 2.8 GM/DL (3.2-5.2); IRON (FE) 75 UG/DL (50-170); TOTAL PROTEIN 6.2 GM/DL (6.4-8.2)
[2018-05-15] MEDS ORDERED: PANT40TA3 PO (17:14)
[2018-05-15] MEDS ORDERED: THER1GEL OU (17:19)
[2018-05-15] MEDS ORDERED: RISATAB3 PO (17:23)
[2018-05-15] MEDS ORDERED: REST0.05 OU (17:23)
[2018-05-15 20:26] LABS: DIGOXIN LEVEL 0.8 NG/ML (0.5-2.0); PERCENT SATURATION 19.2 % (13.2-45.0); TOTAL 25(OH) VITAMIN D 20.2 NG/ML (30.0-100.0)
[2018-05-15] MEDS: SUCRALFATE 1 GM TAB PO SCH (21:46)
[2018-05-15] MEDS: PANTOPRAZOLE 40MG TAB (PROTONIX) PO SCH (21:46)
--- NOTE | 2018-05-15 21:46 | HPE ---
DATE OF ADMISSION: 05/15/2018 77-year-old female with a past medical history of recurrent iron deficiency anemia requiring IV iron and blood transfusion, history of chronic atrial fibrillation status post pacemaker, history of hypertension, who presents to the emergency room with generalized weakness that has been progressive since her last visit with hematology/oncology approximately 2 weeks ago where she had received IV iron for a transferrin saturation of 7. The patient denies any other associated symptoms, such as nausea or vomiting, decreased appetite or chest pain, shortness of breath, complete generalized weakness that it is decreasing her performance status. In the emergency room, we found no incidentals except that her hemoglobin did drop a bit from previous where she was 9.9 on the and now she is down to 8.6. She does take digoxin; however, the digoxin levels are pending at this time. She will be admitted under observation status for further management and micromanagement of this issue. PAST MEDICAL HISTORY: Again, past medical history of: 1. Cryptogenic cirrhosis with esophageal varices. 2. Chronic anemia secondary to gastrointestinal bleeding. 3. History of hypertension. 4. History of variceal bleed. 5. History of chronic diastolic heart failure. 6. Chronic atrial fibrillation, status post pacemaker placement. 7. Anxiety. 8. Depression. 9. Gastroesophageal reflux disease (GERD). 10. Diverticulosis. 11. Multiple nonbleeding colonic angiectasia. ALLERGIES: She has drug allergy to PENICILLIN, DIPHENHYDRAMINE, MEPERIDINE. FAMILY HISTORY: Noncontributory. SOCIAL HISTORY: The patient denies tobacco, alcohol, or illicit drugs. MEDICATIONS: She takes at home: - digoxin 0.125 mcg by mouth daily - Lasix 40 mg by mouth daily - pantoprazole 40 mg by mouth daily - propranolol 10 mg by mouth daily - Restasis one drop to both eyes twice a day - probiotic one tablet by mouth daily - aldactone 25 mg by mouth daily - sucralfate 1 gram orally before food and nightly REVIEW OF SYSTEMS: Negative for all ten major systems except what is mentioned in the history of present illness. PHYSICAL EXAMINATION: VITAL SIGNS: Blood pressure 121/63, heart rate is 92 and regular, respiratory rate 15, temperature 96.6, oxygen saturation 96% on room air. Head is atraumatic, normocephalic. Neck is supple with no jugular venous distention (JVD). Lungs clear to auscultation. S1, S2 audible. No murmurs appreciated. Abdomen is soft. Positive bowel sounds. No pedal edema. Skin is intact. Neurologic examination, the patient is awake, alert and oriented times three. LABORATORIES: WBC 6.6, hemoglobin 8.6, hematocrit 27.9, platelets are 248,000. Sodium 142, potassium 3.8, chloride 108, CO2 of 24, BUN 20, creatinine 0.87, glucose 95. Transferrin saturation, TIBC, iron and ferritin are all pending. 25-hydroxy vitamin D levels are pending. Digoxin levels are pending. Chest x-ray was negative. IMPRESSION: 1. Generalized weakness. 2. Anemia. PLAN: The patient is to be admitted to the medical/surgical floor. I recommend following the transferrin saturation level and if they are below 20% then we will give IV iron if necessary or 1 unit of blood. If her 25-hydroxy vitamin D level is low that could also attest to her being very weak, generally speaking, and we could always supplement. Once these primaries are done, the patient should be able to be discharged home with followup with hematology/oncology as an outpatient. We will continue all preadmission medications and follow her care on the medical/surgical floor.
[2018-05-15 21:47] VITALS: BP 146/66
[2018-05-15] MEDS: PROPRANOLOL 10 MG TAB PO SCH (21:47)
[2018-05-16 06:00] VITALS: BP 108/55
[2018-05-16 06:16] LABS: BASO # 0.1 10^3/uL (0.0-0.2); BASO % 2.2 % (0.0-1.0); EOS # 0.2 10^3/uL (0.0-0.50); EOS % 4.1 % (0.0-3.0); HEMATOCRIT 23.6 % (36.0-47.0); HEMOGLOBIN 7.4 g/dl (12.0-15.5); LYMPH # 0.5 10^3/uL (1.5-4.5); LYMPH % 10.9 % (24.0-44.0); MEAN CORPUSCULAR HEMOGLOBIN 31.4 pg (27.0-33.0); MEAN CORPUSCULAR HGB CONC 31.4 g/dl (32.0-36.5); MONO # 0.9 10^3/uL (0.0-0.8); MONO % 19.6 % (0.0-5.0); NEUTROPHILS # 2.9 10^3/uL (1.8-7.7); PLATELET COUNT, AUTOMATED 183 10^3/uL (150-450); RED BLOOD COUNT 2.36 10^6/uL (4.00-5.40); WHITE BLOOD COUNT 4.6 10^3/uL (4.0-10.0)
[2018-05-16 06:44] LABS: BLOOD UREA NITROGEN 22 MG/DL (7-18); CALCIUM LEVEL 7.7 MG/DL (8.8-10.2); CARBON DIOXIDE LEVEL 24 MEQ/L (21-32); CHLORIDE LEVEL 109 MEQ/L (98-107); CREATININE FOR GFR 0.78 MG/DL (0.55-1.30); GLOMERULAR FILTRATION RATE > 60.0 (>39); GLUCOSE, FASTING 81 MG/DL (70-100); POTASSIUM SERUM 3.6 MEQ/L (3.5-5.1); SODIUM LEVEL 142 MEQ/L (136-145)
[2018-05-16] MEDS: SUCRALFATE 1 GM TAB PO SCH ×4 (09:31→20:54)
[2018-05-16] MEDS: FUROSEMIDE 40 MG TAB PO SCH (09:31)
[2018-05-16] MEDS: PANTOPRAZOLE 40MG TAB (PROTONIX) PO SCH ×2 (09:31→20:54)
[2018-05-16] MEDS: SPIRONOLACTONE 25 MG TAB PO SCH (09:32)
[2018-05-16] MEDS: PROPRANOLOL 10 MG TAB PO SCH ×3 (09:32→21:00)
--- NOTE | 2018-05-16 10:15 | ECGEPIP ---
Stationary ECG Study [facility] - ED Test Date: 2018-05-15 Pat Name: CONCEPCION GERMANI Department: Room: - Gender: F Pickle [employer] Maker: RANI : 1940 Requested By: Darwin Anaya Order Number: [id number] Reading MD: Kaylah Uribe Measurements Intervals [place] Rate: 76 P: CA: 0 QRS: 2 QRSD: 77 T: -3 QT: 290 QTc: 326 Interpretive Statements ATRIAL FIBRILLATION MODERATE ST DEPRESSION BASELINE ARTIFACT LIMITS INTERPRETATION SIMILAR 03/13/18 Electronically Signed On 05-16-2018 10:15:22 EDT by Kaylah Uribe
[2018-05-16] MEDS ORDERED: FUROSEMIDE 40 MG/4 ML VIAL (J1940) IV ONE (11:00)
[2018-05-16 14:00] VITALS: BP 101/54
[2018-05-16] MEDS: ONDANSETRON 4MG/2ML VIAL (J2405) IV PRN (15:59)
--- NOTE | 2018-05-16 17:02 | IPN ---
DATE: 05/16/2018 SUBJECTIVE: Patient is seen and examined in the room today. Patient complained about abdominal discomfort. Still complained about weakness. Patient stated she has not had her paracentesis she is not sure why the appointment is not set up for her. Blood count obtained for symptomatic anemia. OBJECTIVE: Vital signs: Temperature 96.7, pulse is 62, respirations 15, blood pressure 106/55, pulse ox 97% on room air. GENERAL: Patient is alert, awake, fatigued, mild distress. HEENT: Normocephalic, atraumatic, extraocular motor grossly intact. CARDIOVASCULAR: Positive S1, S2, regular rate. ABDOMEN: Distended, soft, bowel sounds present. EXTREMITIES: Positive lower extremity edema. LABORATORY DATA: WBC is 4.6, hemoglobin 7.4, hematocrit 23.6, platelet count is 183, sodium 142, potassium 3.6, chloride 109, carbon dioxide 24, BUN 22, creatinine 0.78. Glomerular filtration rate (GFR) greater than 60, fasting glucose is 81, calcium7.7. ASSESSMENT AND PLAN: 1. Symptomatic anemia. Blood count obtained. Packed red blood cell transfusion ordered. Patient did demonstrate some sign of fluid overload. Will continue with current thyroid regimen with supplemented additional dose of IV Lasix. Continue monitor patient. Patient has established with hematology in the outpatient setting. Patient has received iron transfusion in the past. 2. Cryptogenic cirrhosis with esophageal varices. Patient has history of recurrent ascites. Currently on Protonix, spironolactone and propranolol. Will order the paracentesis for symptomatic relief. 3. History of variceal bleed. No sign of bleeding at this moment. Continue to monitor. 4. Chronic atrial fibrillation status post pacemaker placement. 5. Anxiety/depression. 6. History of chronic diastolic heart failure. Patient shows some swelling of the lower extremity. Patient does not demonstrate respiratory distress. Continue with Lasix and spironolactone. 7. Multiple non bleeding colonic angiectasia. In outpatient setting patient follows with Dr. Shahid. 8. Deep vein thrombosis prophylaxis on thromboembolic deterrent stockings (TEDS) compression.
[2018-05-16 19:45] VITALS: BP 94/54
[2018-05-16] MEDS ORDERED: PROMETHAZINE INJ 25 MG/ML VIAL (J2550) IM ONE (20:45)
[2018-05-16 21:31] LABS: HEMOGLOBIN 9.7 g/dl (12.0-15.5)
[2018-05-17 06:00] VITALS: BP 111/55
[2018-05-17 06:12] LABS: HEMATOCRIT 27.5 % (36.0-47.0); MEAN CORPUSCULAR HEMOGLOBIN 32.5 pg (27.0-33.0); MEAN CORPUSCULAR HGB CONC 32.7 g/dl (32.0-36.5); MEAN CORPUSCULAR VOLUME 99.3 fl (80.0-96.0); PLATELET COUNT, AUTOMATED 162 10^3/uL (150-450); RED BLOOD COUNT 2.77 10^6/uL (4.00-5.40); WHITE BLOOD COUNT 4.6 10^3/uL (4.0-10.0)
[2018-05-17 06:35] LABS: BLOOD UREA NITROGEN 22 MG/DL (7-18); CALCIUM LEVEL 7.7 MG/DL (8.8-10.2); CARBON DIOXIDE LEVEL 25 MEQ/L (21-32); CHLORIDE LEVEL 111 MEQ/L (98-107); CREATININE FOR GFR 0.84 MG/DL (0.55-1.30); GLOMERULAR FILTRATION RATE > 60.0 (>39); GLUCOSE, FASTING 89 MG/DL (70-100); POTASSIUM SERUM 3.5 MEQ/L (3.5-5.1); SODIUM LEVEL 144 MEQ/L (136-145)
[2018-05-17] MEDS: PANTOPRAZOLE 40MG TAB (PROTONIX) PO SCH ×2 (08:27→20:50)
[2018-05-17] MEDS: FUROSEMIDE 40 MG TAB PO SCH (08:27)
[2018-05-17] MEDS: SUCRALFATE 1 GM TAB PO SCH ×4 (08:27→20:51)
[2018-05-17] MEDS: SPIRONOLACTONE 25 MG TAB PO SCH (08:27)
[2018-05-17] MEDS: DIGOXIN 0.125 MG TAB PO SCH (08:28)
[2018-05-17] MEDS: PROPRANOLOL 10 MG TAB PO SCH ×2 (08:28→20:50)
[2018-05-17 14:00] VITALS: BP 110/55
--- NOTE | 2018-05-17 15:58 | IPNPDOC ---
Text Note Date of Service The patient was seen on 05/17/18. NOTE SUBJECTIVE: Patient is seen and examined in the room today. Patient states her abdominal discomfort improved after paracentesis this morning. Patient had blood transfusions yesterday and patient tolerated well. Denies acute bleeding. OBJECTIVE: Listed below. GENERAL: Patient is alert, awake, fatigued, mild distress. HEENT: Normocephalic, atraumatic, extraocular motor grossly intact. CARDIOVASCULAR: Positive S1, S2, regular rate. ABDOMEN: Distended, soft, bowel sounds present. EXTREMITIES: Positive lower extremity edema. LABORATORY DATA: Listed below. ASSESSMENT AND PLAN: #. Recurrent symptomatic anemia. - Blood consent obtained. 2 packed red blood cell transfusion on 05/16/18. Patient has established with hematology in the outpatient setting. Patient has received iron transfusion in the past. Patient follows with GI (Dr. Shahid) and Hem/Onc (Dr. Byers) in the outpatient setting. - Continue physical therapy. Continue following blood count. #. Cryptogenic cirrhosis with esophageal varices. - Patient has history of recurrent ascites. Currently on Protonix, spironolactone and propranolol. - Paracentesis on 05/17/18. #. History of variceal bleed. - No sign of bleeding at this moment. Continue to monitor. Follow up stool occult. #. Chronic atrial fibrillation status post pacemaker placement. #. Anxiety/depression. #. Chronic diastolic heart failure. - Patient shows some swelling of the lower extremity. Patient does not demonstrate respiratory distress. Continue with Lasix and spironolactone. #. Multiple non bleeding colonic angiectasia. - In outpatient setting patient follows with Dr. Shahid. #. Deep vein thrombosis prophylaxis on thromboembolic deterrent stockings (TEDS) compression. VS,Fishbone, I+O VS, Fishbone, I+O Laboratory Tests 05/16/18 20:59 05/17/18 05:52 Red Blood Count 2.77 L, Mean Corpuscular Volume 99.3 H, Mean Corpuscular Hemoglobin 32.5, Mean Corpuscular Hemoglobin Concent 32.7, Red Cell Distribution Width 22.7 H, Calcium Level 7.7 L Vital Signs Date Time Temp Pulse Resp B/P (MAP) Pulse Ox O2 Delivery O2 Flow Rate FiO2 05/17/18 14:00 98.1 74 18 110/55 (73) 98 05/15/18 19:42 Room Air I&O- Last 24 Hours up to 6 AM 05/17/18 06:00 Intake Total 1030 ml Balance 1030 ml YVONNE AGUILAR DO May 17, 2018 15:58
[2018-05-17 16:12] LABS: HEMATOCRIT 30.7 % (36.0-47.0); HEMOGLOBIN 9.8 g/dl (12.0-15.5); MEAN CORPUSCULAR HEMOGLOBIN 32.2 pg (27.0-33.0); MEAN CORPUSCULAR HGB CONC 31.9 g/dl (32.0-36.5); PLATELET COUNT, AUTOMATED 183 10^3/uL (150-450); RED BLOOD COUNT 3.04 10^6/uL (4.00-5.40); WHITE BLOOD COUNT 6.1 10^3/uL (4.0-10.0)
[2018-05-17 22:00] VITALS: BP 109/53
[2018-05-18 06:00] VITALS: BP 103/51
[2018-05-18 06:20] LABS: HEMATOCRIT 27.8 % (36.0-47.0); MEAN CORPUSCULAR HEMOGLOBIN 31.5 pg (27.0-33.0); MEAN CORPUSCULAR HGB CONC 32.4 g/dl (32.0-36.5); MEAN CORPUSCULAR VOLUME 97.2 fl (80.0-96.0); PLATELET COUNT, AUTOMATED 180 10^3/uL (150-450); RED BLOOD COUNT 2.86 10^6/uL (4.00-5.40); WHITE BLOOD COUNT 5.4 10^3/uL (4.0-10.0)
[2018-05-18 06:45] LABS: BLOOD UREA NITROGEN 21 MG/DL (7-18); CALCIUM LEVEL 7.7 MG/DL (8.8-10.2); CARBON DIOXIDE LEVEL 22 MEQ/L (21-32); CHLORIDE LEVEL 110 MEQ/L (98-107); CREATININE FOR GFR 0.82 MG/DL (0.55-1.30); GLOMERULAR FILTRATION RATE > 60.0 (>39); GLUCOSE, FASTING 105 MG/DL (70-100); MAGNESIUM LEVEL 2.1 MG/DL (1.8-2.4); POTASSIUM SERUM 3.3 MEQ/L (3.5-5.1); SODIUM LEVEL 142 MEQ/L (136-145)
[2018-05-18] MEDS: PANTOPRAZOLE 40MG TAB (PROTONIX) PO SCH ×2 (08:42→20:12)
[2018-05-18] MEDS: DIGOXIN 0.125 MG TAB PO SCH (08:42)
[2018-05-18] MEDS: SPIRONOLACTONE 25 MG TAB PO SCH (08:42)
[2018-05-18] MEDS: FUROSEMIDE 40 MG TAB PO SCH (08:42)
[2018-05-18] MEDS: SUCRALFATE 1 GM TAB PO SCH ×4 (08:42→20:11)
[2018-05-18] MEDS: PROPRANOLOL 10 MG TAB PO SCH ×2 (08:43→20:11)
[2018-05-18 08:45] VITALS: BP 116/59
[2018-05-18] MEDS ORDERED: POTASSIUM CHLORIDE 10 MEQ SR TABLET PO ONE (09:00)
[2018-05-18] MEDS ORDERED: LACTULOSE 20 GM/30 ML SYRUP UD PO PRN (12:30)
[2018-05-18 14:00] VITALS: BP 106/55
[2018-05-18] MEDS: ONDANSETRON 4MG/2ML VIAL (J2405) IV PRN (14:21)
--- NOTE | 2018-05-18 16:03 | IPNPDOC ---
Text Note Date of Service The patient was seen on 05/18/18. NOTE SUBJECTIVE: Patient is seen and examined in the room today. Patient denies acute bleeding. Patient complains about constipation. OBJECTIVE: Listed below. GENERAL: Patient is alert, awake, fatigued. No distress. HEENT: Normocephalic, atraumatic, extraocular motor grossly intact. CARDIOVASCULAR: Positive S1, S2, regular rate. ABDOMEN: Distended, soft, bowel sounds present. EXTREMITIES: Positive lower extremity edema. LABORATORY DATA: Listed below. ASSESSMENT AND PLAN: #. Recurrent symptomatic anemia. - Blood consent obtained. 2 packed red blood cell transfusion on 05/16/18. Patient has established with hematology in the outpatient setting. Patient has received iron transfusion in the past. Patient follows with GI (Dr. Shahid) and Hem/Onc (Dr. Byers) in the outpatient setting. - Continue physical therapy. Continue following blood count. No active bleeding noted. #. Cryptogenic cirrhosis with esophageal varices. - Patient has history of recurrent ascites. Currently on Protonix, spironolactone and propranolol. - Paracentesis on 05/17/18. - PRN lactulose. #. Multiple non bleeding colonic angiectasia. - In outpatient setting patient follows with Dr. Shahid. #. History of variceal bleed. - No sign of bleeding at this moment. Continue to monitor. Follow up stool occult. #. Chronic atrial fibrillation status post pacemaker placement. #. Anxiety/depression. #. Chronic diastolic heart failure. - Patient has no respiratory distress. Continue with Lasix and spironolactone. #. Deep vein thrombosis prophylaxis on thromboembolic deterrent stockings (TEDS) compression. VS,Fishbone, I+O VS, Fishbone, I+O Laboratory Tests 05/17/18 16:02 Red Blood Count 3.04 L, Mean Corpuscular Volume 101.0 H, Mean Corpuscular Hemoglobin 32.2, Mean Corpuscular Hemoglobin Concent 31.9 L, Red Cell Distribution Width 22.7 H 05/18/18 06:04 Red Blood Count 2.86 L, Mean Corpuscular Volume 97.2 H, Mean Corpuscular Hemoglobin 31.5, Mean Corpuscular Hemoglobin Concent 32.4, Red Cell Distribution Width 22.1 H, Calcium Level 7.7 L Vital Signs Date Time Temp Pulse Resp B/P (MAP) Pulse Ox O2 Delivery O2 Flow Rate FiO2 05/18/18 14:00 98.1 58 18 106/55 (72) 98 05/15/18 19:42 Room Air I&O- Last 24 Hours up to 6 AM 05/18/18 06:00 Intake Total 1170 ml Output Total 250 ml Balance 920 ml YVONNE AGUILAR DO May 18, 2018 16:03
[2018-05-18 22:00] VITALS: BP 108/56
[2018-05-19 06:00] VITALS: BP 110/59
[2018-05-19] MEDS: LACTULOSE 20 GM/30 ML SYRUP UD PO SCH ×3 (06:00→21:04)
[2018-05-19 06:33] LABS: HEMATOCRIT 29.8 % (36.0-47.0); HEMOGLOBIN 9.4 g/dl (12.0-15.5); MEAN CORPUSCULAR HEMOGLOBIN 31.5 pg (27.0-33.0); MEAN CORPUSCULAR HGB CONC 31.5 g/dl (32.0-36.5); PLATELET COUNT, AUTOMATED 193 10^3/uL (150-450); RED BLOOD COUNT 2.98 10^6/uL (4.00-5.40); WHITE BLOOD COUNT 5.9 10^3/uL (4.0-10.0)
[2018-05-19 06:59] LABS: BLOOD UREA NITROGEN 19 MG/DL (7-18); CARBON DIOXIDE LEVEL 23 MEQ/L (21-32); CHLORIDE LEVEL 111 MEQ/L (98-107); CREATININE FOR GFR 0.82 MG/DL (0.55-1.30); GLOMERULAR FILTRATION RATE > 60.0 (>39); GLUCOSE, FASTING 83 MG/DL (70-100); MAGNESIUM LEVEL 2.1 MG/DL (1.8-2.4); POTASSIUM SERUM 3.4 MEQ/L (3.5-5.1); SODIUM LEVEL 142 MEQ/L (136-145)
[2018-05-19] MEDS: PANTOPRAZOLE 40MG TAB (PROTONIX) PO SCH ×2 (08:55→21:04)
[2018-05-19] MEDS: FUROSEMIDE 40 MG TAB PO SCH (08:55)
[2018-05-19] MEDS: SPIRONOLACTONE 25 MG TAB PO SCH (08:55)
[2018-05-19] MEDS: SUCRALFATE 1 GM TAB PO SCH ×4 (08:55→21:04)
[2018-05-19] MEDS: DIGOXIN 0.125 MG TAB PO SCH (08:56)
[2018-05-19] MEDS: PROPRANOLOL 10 MG TAB PO SCH ×2 (08:56→21:04)
[2018-05-19 14:00] VITALS: BP 118/58
--- NOTE | 2018-05-19 15:25 | IPNPDOC ---
Text Note Date of Service The patient was seen on 05/19/18. NOTE SUBJECTIVE: Patient is seen and examined in the room today. Patient has several episodes of bowel movements in last 24 hours. OBJECTIVE: Listed below. GENERAL: Patient is alert, awake, fatigued. No distress. HEENT: Normocephalic, atraumatic, extraocular motor grossly intact. CARDIOVASCULAR: Positive S1, S2, regular rate. ABDOMEN: Distended, soft, bowel sounds present. EXTREMITIES: Positive lower extremity edema. LABORATORY DATA: Listed below. ASSESSMENT AND PLAN: #. Recurrent symptomatic anemia. - Blood consent obtained. 2 packed red blood cell transfusion on 05/16/18. P atient has established with hematology in the outpatient setting. Patient has received iron transfusion in the past. Patient follows with GI (Dr. Shahid) and Hem/Onc (Dr. Byers) in the outpatient setting. - Continue physical therapy. Continue following blood count. No active bleeding noted. #. Cryptogenic cirrhosis with esophageal varices. - Patient has history of recurrent ascites. Currently on Protonix, spironolactone and propranolol. - Paracentesis on 05/17/18. 3.5L ascites removed. - On lactulose with holding parameter. #. Multiple non bleeding colonic angiectasia. - In outpatient setting, patient follows with Dr. Shahid. #. History of variceal bleed. - No sign of bleeding at this moment. Continue to monitor. Follow up stool occult. #. Chronic atrial fibrillation status post pacemaker placement. #. Anxiety/depression. #. Chronic diastolic heart failure. - Patient has no respiratory distress. Continue with Lasix and spironolactone. #. Deep vein thrombosis prophylaxis on thromboembolic deterrent stockings (TEDS) compression. VS,Fishbone, I+O VS, Fishbone, I+O Laboratory Tests 05/19/18 06:04 Red Blood Count 2.98 L, Mean Corpuscular Volume 100.0 H, Mean Corpuscular Hemoglobin 31.5, Mean Corpuscular Hemoglobin Concent 31.5 L, Red Cell Distribution Width 21.4 H, Calcium Level 8.0 L Vital Signs Date Time Temp Pulse Resp B/P (MAP) Pulse Ox O2 Delivery O2 Flow Rate FiO2 05/19/18 14:00 98.6 61 19 118/58 (78) 100 3/27/19 19:42 Room Air I&O- Last 24 Hours up to 6 AM 05/19/18 06:00 Intake Total 1380 ml Output Total 200 ml Balance 1180 ml YVONNE AGUILAR DO May 19, 2018 15:25
[2018-05-19] MEDS: POTASSIUM CHLORIDE 10 MEQ SR TABLET PO SCH (16:48)
[2018-05-19 22:00] VITALS: BP 126/52
[2018-05-20] MEDS: LACTULOSE 20 GM/30 ML SYRUP UD PO SCH ×4 (05:09→21:15)
[2018-05-20 06:00] VITALS: BP 122/55
[2018-05-20 06:28] LABS: HEMATOCRIT 29.8 % (36.0-47.0); HEMOGLOBIN 9.5 g/dl (12.0-15.5); MEAN CORPUSCULAR HEMOGLOBIN 31.3 pg (27.0-33.0); MEAN CORPUSCULAR HGB CONC 31.9 g/dl (32.0-36.5); PLATELET COUNT, AUTOMATED 199 10^3/uL (150-450); RED BLOOD COUNT 3.04 10^6/uL (4.00-5.40); WHITE BLOOD COUNT 6.9 10^3/uL (4.0-10.0)
[2018-05-20 06:46] LABS: BLOOD UREA NITROGEN 16 MG/DL (7-18); CALCIUM LEVEL 7.6 MG/DL (8.8-10.2); CARBON DIOXIDE LEVEL 21 MEQ/L (21-32); CHLORIDE LEVEL 111 MEQ/L (98-107); GLOMERULAR FILTRATION RATE > 60.0 (>39); GLUCOSE, FASTING 93 MG/DL (70-100); MAGNESIUM LEVEL 2.2 MG/DL (1.8-2.4); POTASSIUM SERUM 3.4 MEQ/L (3.5-5.1); SODIUM LEVEL 141 MEQ/L (136-145)
[2018-05-20] MEDS: SUCRALFATE 1 GM TAB PO SCH ×4 (08:28→21:12)
[2018-05-20] MEDS: POTASSIUM CHLORIDE 10 MEQ SR TABLET PO SCH (08:28)
[2018-05-20] MEDS: PANTOPRAZOLE 40MG TAB (PROTONIX) PO SCH ×2 (08:29→21:12)
[2018-05-20] MEDS: DIGOXIN 0.125 MG TAB PO SCH (08:29)
[2018-05-20] MEDS: PROPRANOLOL 10 MG TAB PO SCH ×2 (08:29→21:07)
[2018-05-20] MEDS: FUROSEMIDE 40 MG TAB PO SCH (08:29)
[2018-05-20] MEDS: SPIRONOLACTONE 25 MG TAB PO SCH (08:30)
--- NOTE | 2018-05-20 11:55 | REP ---
Ultrasound-guided paracentesis The procedure was performed under the direct supervision of Dr. Weiss. The risks and benefits of the procedure were explained to the patient and informed consent was obtained. The largest pocket of fluid was localized in the right flank using ultrasound guidance. The skin was prepped and draped in a sterile fashion. 1% lidocaine was used as a local anesthetic. An 8-Indonesian multi side-hole catheter was inserted using trocar technique. 3500 ml of yellow fluid was withdrawn and discarded. The patient tolerated the procedure well and there were no immediate complications. After the appropriate amount of monitored convalescence the patient was discharged from the department. Reviewed by ADELE Davila 05/17/2018 04:45 P Electronically Signed by Kadeem Weiss MD 05/20/2018 11:47 A
[2018-05-20 14:00] VITALS: BP 117/64
--- NOTE | 2018-05-20 15:10 | IPNPDOC ---
Text Note Date of Service The patient was seen on 05/20/18. NOTE SUBJECTIVE: Patient is seen and examined in the room today. Patient states her mentation is improving. Denies abdominal pain. She had brownish stool production. No visible blood noted. OBJECTIVE: Listed below. GENERAL: Alert, awake and fatigued. No distress. HEENT: Normocephalic, atraumatic, extraocular motor grossly intact. CARDIOVASCULAR: Positive S1, S2, regular rate. ABDOMEN: Distended, soft, bowel sounds present. EXTREMITIES: Positive lower extremity edema. LABORATORY DATA: Listed below. ASSESSMENT AND PLAN: #. Recurrent symptomatic anemia. - Blood consent obtained. 2 packed red blood cell transfusion on 05/16/18. Patient has established with hematology in the outpatient setting. Patient has received iron transfusion in the past. Patient follows with GI (Dr. Shahid) and Hem/Onc (Dr. Byers) in the outpatient setting. - History of variceal bleed. Stool Occult is positive. Consulted GI (Dr. Shahid). Scheduled EGD on 05/22/18. - Continue physical therapy. Continue following blood count. #. Cryptogenic cirrhosis with esophageal varices. - Patient has history of recurrent ascites. Currently on Protonix, spironolactone and propranolol. - Paracentesis on 05/17/18. 3.5L ascites removed. - On lactulose with holding parameter. #. Multiple non bleeding colonic angiectasia. - In outpatient setting, patient follows with Dr. Shahid. #. Chronic atrial fibrillation status post pacemaker placement. #. Anxiety/depression. #. Chronic diastolic heart failure. - Patient has no respiratory distress. Continue with Lasix and spironolactone. #. Deep vein thrombosis prophylaxis on thromboembolic deterrent stockings (TEDS) compression. VS,Fishbone, I+O VS, Fishbone, I+O Laboratory Tests 05/20/18 06:10 Red Blood Count 3.04 L, Mean Corpuscular Volume 98.0 H, Mean Corpuscular Hemoglobin 31.3, Mean Corpuscular Hemoglobin Concent 31.9 L, Red Cell Distribution Width 20.9 H, Calcium Level 7.6 L Vital Signs Date Time Temp Pulse Resp B/P (MAP) Pulse Ox O2 Delivery O2 Flow Rate FiO2 05/20/18 08:29 73 05/20/18 08:29 120/63 05/20/18 06:00 97.0 18 97 05/15/18 19:42 Room Air I&O- Last 24 Hours up to 6 AM 05/20/18 06:00 Intake Total 1410 ml Output Total 100 ml Balance 1310 ml YVONNE AGUILAR DO May 20, 2018 15:10
[2018-05-20 22:00] VITALS: BP 91/54
[2018-05-20 23:25] VITALS: BP 100/58
[2018-05-21] MEDS: LACTULOSE 20 GM/30 ML SYRUP UD PO SCH ×3 (05:44→21:53)
[2018-05-21 06:00] VITALS: BP 102/52
[2018-05-21 06:34] LABS: HEMATOCRIT 28.3 % (36.0-47.0); MEAN CORPUSCULAR HEMOGLOBIN 31.3 pg (27.0-33.0); MEAN CORPUSCULAR HGB CONC 31.8 g/dl (32.0-36.5); MEAN CORPUSCULAR VOLUME 98.3 fl (80.0-96.0); PLATELET COUNT, AUTOMATED 202 10^3/uL (150-450); RED BLOOD COUNT 2.88 10^6/uL (4.00-5.40); WHITE BLOOD COUNT 4.9 10^3/uL (4.0-10.0)
[2018-05-21 06:54] LABS: BLOOD UREA NITROGEN 14 MG/DL (7-18); CALCIUM LEVEL 7.8 MG/DL (8.8-10.2); CARBON DIOXIDE LEVEL 22 MEQ/L (21-32); CHLORIDE LEVEL 111 MEQ/L (98-107); CREATININE FOR GFR 0.76 MG/DL (0.55-1.30); GLOMERULAR FILTRATION RATE > 60.0 (>39); GLUCOSE, FASTING 89 MG/DL (70-100); MAGNESIUM LEVEL 2.2 MG/DL (1.8-2.4); POTASSIUM SERUM 3.5 MEQ/L (3.5-5.1); SODIUM LEVEL 140 MEQ/L (136-145)
[2018-05-21] MEDS: DIGOXIN 0.125 MG TAB PO SCH (08:09)
[2018-05-21] MEDS: SUCRALFATE 1 GM TAB PO SCH ×4 (08:09→21:56)
[2018-05-21] MEDS: PANTOPRAZOLE 40MG TAB (PROTONIX) PO SCH ×2 (08:09→21:56)
[2018-05-21] MEDS: FUROSEMIDE 40 MG TAB PO SCH (08:09)
[2018-05-21] MEDS: POTASSIUM CHLORIDE 10 MEQ SR TABLET PO SCH (08:09)
[2018-05-21] MEDS: SPIRONOLACTONE 25 MG TAB PO SCH (08:09)
[2018-05-21] MEDS: PROPRANOLOL 10 MG TAB PO SCH ×2 (08:10→21:56)
[2018-05-21 14:00] VITALS: BP 113/53
--- NOTE | 2018-05-21 16:31 | CR ---
DATE OF CONSULTATION: 05/20/2018 This is a 77-year-old white female well-known to me who was again admitted to the with anemia and ascites with a generalized fatigue. The patient had no complaints of abdominal pain, fevers, night sweats or shaking chills. The patient did have mental status changes which is new on this admission. The patient is found to have a high ammonia level. In reviewing of patient's record, she had 37 units of packed cells at least over the past three years. She has had numerous upper endoscopies and colonoscopies in January of 2018 in which we removed some polyps. The patient does have a large what appears to be lipoma of the cecum ascending colon. The patient had some shortness of breath and weakness. No melena, hematochezia or bright blood per rectum. Patient past medical history is positive for 1. Cryptogenic cirrhosis with known mild esophageal varices. 2. 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 3. Hypertension. 4. Status post variceal bleed. 5. Chronic CHF and atrial fibrillation. The patient has a pacemaker and continues to stay off anticoagulation due to chronic blood loss and her cirrhosis of the liver. 6. The patient has also chronic anxiety and depression. The patient has had previous history of TIA. 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 The patient is also known to have diverticulosis and colonic angioectasia with polyps previously. PAST SURGICAL HISTORY: 1. Positive for upper and lower endoscopy in January 2018. 2. Cholecystectomy. 3. Pacemaker placement,. 4. Hysterectomy. SOCIAL HISTORY: . Patient retired. The patient denies any alcohol or cigarettes. FAMILY HISTORY: Noncontributory to above problems. 7 POINT REVIEW OF SYSTEMS: Is noncontributory. PHYSICAL EXAMINATION: General: Thin white female in no obvious acute distress masses. Chest: Clear to auscultation. Cardiovascular exam: Showed a regular rhythm. Normal physiological split, S1, S2. Abdomen: Soft, nontender. No masses, guarding, rebound, hepatosplenomegaly. Bowel sounds positive. Extremities: Patient shows 2+ to 3+ pitting edema. Laboratory studies on this admission showed a hemoglobin of 6.9 and 23.4. The patient's platelets were normal at 230,000. The patient's INR is 1.14. The patient's chemistry shows a albumin of 3.1. The patient's liver function is basically normal with a slight elevation of AST and this admission was 63. The patient's labs from 05/15/2018 showed a hemoglobin 8.6 and medically of 27.9 and previous labs, any other dates are incorrect. The patient has been given during this admission 2 units of packed cells. The patient's most recent CBC showed 05/20 a cap of 9.5 and 29.8. The patient's coagulation studies show INR 1.12. The patient's chemistry on again this admission on 05/15/2018 shows a total bili 1.67, AST was 43 and ALT 28. The patient albumin is 2.8. The patient's ferritin was 1.66, iron is low at 47, apparent toxicology studies, digoxin level is 0.8. Stool occult blood is positive but it is always positive. The patient had a paracentesis of at least 3 liters. ASSESSMENT AND PLAN: 1. Chronic anemia secondary to the above. Plan will be to treat the patient with upper endoscopy: Colonoscopy is not necessary at this point since she has had a recent colonoscopy in January 19, so plan will be to repeat EGD with possible. 2. Also has apparent hepatic encephalopathy related to high ammonia levels. She has been started on lactulose which seems to have improved back. Her ammonia was on 05/20 is 76. 05/15 it was 61. I t went up from 331 to 109, but she seems to be somewhat clearer with the lactulose, which she may need to stay on. PLAN: 1. EGD. 2. Maintain lactulose to control hepatic encephalopathy.
--- NOTE | 2018-05-21 17:02 | IPNPDOC ---
Subjective Date Seen The patient was seen on 05/21/18. Subjective Chief Complaint/HPI The patient is a 76-year-old female who presented to the ER with general weakness and anemia Events since last encounter Patient denies any problems with abdominal pain/nausea/vomiting. Reports some slight tenderness at the site of paracentesis over right abdominal wall. Denies any chest shortness of breath. No headaches. Denies any problems with bladder/bowel habits. Objective Physical Examination General Exam: Positive: Cooperative, No Acute Distress Chest Exam: Positive: Clear to auscultation, Other (normal rales/rhonchi/wheezing/distress) Heart Exam: Positive: Other (S1, S2 heard, no rubs or gallops.) Abdomen Exam: Positive: Other (soft. No significant tenderness. No guarding or rigidity.) Neuro Exam: Positive: Other (awake, alert. Answering questions appropriately.) Assessment /Plan Assessment Recurrent symptomatic anemia: -Patient is status post 2 unit packed RBCs on 05/16/18 -Patient has received iron infusions previously and follows up with Dr. Shahid from GI and Dr Byers from heme onc -Plan is for EGD tomorrow -Monitor H&H -No indication for transfusion at this time -Stool occult was positive and patient also has a history of variceal bleed Cryptogenic cirrhosis with esophageal varices: -Patient has a history of recurrent ascitesshe is status post 3.5 L paracentesis on 05/17/18 -Continue Protonix cause prolactin, propranolol -Continue lactulose Multiple nonbleeding colonic angiectasia: -Follows GI as outpatient Chronic atrial fibrillation status post permanent pacemaker: -Continue propranolol, digoxin -No blood thinners in setting of symptomatic anemia Anxiety/depression Chronic diastolic heart failure: -Continue Lasix, spironolactone, propranolol DVT prophylaxis -NNEKA stockings Disposition: Anticipate possible discharge home in next 24-48 hours pending results of EGD and once hemoglobin stabilizes. Patient lives by herself and feels she will be able to return back home on discharge Plan/VTE VTE Prophylaxis Ordered?: Yes VS, I&O, 24H, Fishbone Vital Signs/I&O Vital Signs Date Time Temp Pulse Resp B/P (MAP) Pulse Ox O2 Delivery O2 Flow Rate FiO2 05/21/18 14:00 98.3 58 18 113/53 (73) 100 05/15/18 19:42 Room Air I&O- Last 24 Hours up to 6 AM 05/21/18 06:00 Intake Total 1110 ml Output Total 0 ml Balance 1110 ml Laboratory Data 24H LABS Laboratory Tests 2 05/21/18 06:13: Nucleated Red Blood Cells % (auto) 0.0, Anion Gap 7L, Glomerular Filtration Rate > 60.0, Blood Urea Nitrogen 14, Creatinine 0.76, Sodium Level 140, Potassium Level 3.5, Chloride Level 111H, Carbon Dioxide Level 22, Calcium Level 7.8L, Magnesium Level 2.2, Ammonia 158H CBC/BMP Laboratory Tests 05/21/18 06:13 Red Blood Count 2.88 L, Mean Corpuscular Volume 98.3 H, Mean Corpuscular Hemoglobin 31.3, Mean Corpuscular Hemoglobin Concent 31.8 L, Red Cell Distribution Width 20.2 H, Calcium Level 7.8 L Microbiology Microbiology 05/19/18 Stool Occult Blood (SCARLETT) - Final, Complete FIGUEROA,SHELTON French MD May 21, 2018 17:02
[2018-05-21 22:00] VITALS: BP 112/55
[2018-05-22] MEDS: LACTULOSE 20 GM/30 ML SYRUP UD PO SCH ×3 (05:41→21:58)
[2018-05-22 06:00] VITALS: BP 105/55
[2018-05-22 06:08] LABS: HEMATOCRIT 28.7 % (36.0-47.0); HEMOGLOBIN 9.1 g/dl (12.0-15.5); MEAN CORPUSCULAR HEMOGLOBIN 31.6 pg (27.0-33.0); MEAN CORPUSCULAR HGB CONC 31.7 g/dl (32.0-36.5); MEAN CORPUSCULAR VOLUME 99.7 fl (80.0-96.0); PLATELET COUNT, AUTOMATED 146 10^3/uL (150-450); RED BLOOD COUNT 2.88 10^6/uL (4.00-5.40); WHITE BLOOD COUNT 4.8 10^3/uL (4.0-10.0)
[2018-05-22 06:30] LABS: BLOOD UREA NITROGEN 14 MG/DL (7-18); CALCIUM LEVEL 7.5 MG/DL (8.8-10.2); CARBON DIOXIDE LEVEL 22 MEQ/L (21-32); CHLORIDE LEVEL 111 MEQ/L (98-107); CREATININE FOR GFR 0.74 MG/DL (0.55-1.30); GLOMERULAR FILTRATION RATE > 60.0 (>39); GLUCOSE, FASTING 90 MG/DL (70-100); MAGNESIUM LEVEL 1.9 MG/DL (1.8-2.4); POTASSIUM SERUM 3.7 MEQ/L (3.5-5.1); SODIUM LEVEL 140 MEQ/L (136-145)
[2018-05-22] MEDS: PROPRANOLOL 10 MG TAB PO SCH ×2 (08:40→21:00)
[2018-05-22] MEDS: SPIRONOLACTONE 25 MG TAB PO SCH (08:40)
[2018-05-22] MEDS: PANTOPRAZOLE 40MG TAB (PROTONIX) PO SCH ×2 (08:40→21:57)
[2018-05-22] MEDS: SUCRALFATE 1 GM TAB PO SCH ×4 (08:41→21:57)
[2018-05-22] MEDS: FUROSEMIDE 40 MG TAB PO SCH (08:41)
[2018-05-22] MEDS: DIGOXIN 0.125 MG TAB PO SCH (08:41)
[2018-05-22] MEDS: POTASSIUM CHLORIDE 10 MEQ SR TABLET PO SCH (08:50)
[2018-05-22] MEDS: ONDANSETRON 4MG/2ML VIAL (J2405) IV PRN (11:26)
[2018-05-22] MEDS ORDERED: LIDOCAINE 2% INJ 100 MG/5 ML SDV (FOR ANES.) As Ordered ONE (13:18)
[2018-05-22] MEDS ORDERED: PROPOFOL 200 MG/20 ML VIAL As Ordered ONE (13:18)
[2018-05-22] MEDS ORDERED: fentaNYL 100 MCG/2 ML INJECTION (J3010) As Ordered ONE (13:39)
[2018-05-22] MEDS ORDERED: ONDANSETRON 4MG/2ML VIAL (J2405) As Ordered ONE (13:48)
[2018-05-22 14:00] VITALS: BP 108/52
--- NOTE | 2018-05-22 14:01 | ROOR ---
Patient Name: Pilar Brown Procedure Date: 05/22/2018 1:33 PM Date of : 1940 Age: 77 Room: [facility] Gender: Female Note Status: Finalized Procedure: Egd + Apc Indications: Iron deficiency anemia secondary to chronic blood loss, Suspected upper gastrointestinal bleeding in patient with chronic blood loss Providers: Armen Shahid MD Referring MD: 2. Inpatient 2. Inpatient, Rhiannon STOUT DO Requesting Provider: Medicines: Monitored Anesthesia Care Complications: No immediate complications. Procedure: Pre-Anesthesia Assessment: - The heart rate, respiratory rate, oxygen saturations, blood pressure, adequacy of pulmonary ventilation, and response to care were monitored throughout the procedure. The Endoscope was introduced through the mouth, and advanced to the second part of duodenum. The upper GI endoscopy was accomplished without difficulty. The patient tolerated the procedure well. Findings: The Z-line was regular and was found 35 cm from the incisors. Grade I varices were found in the lower third of the esophagus. 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 Coagulation for hemostasis using argon plasma at 0.8 liters/minute and 35 cash was successful. The exam of the duodenum was otherwise normal. The exam was otherwise without abnormality. Impression: - Z-line regular, 35 cm from the incisors. - Grade I esophageal varices. - Gastric antral vascular ectasia with bleeding. Treated with argon plasma coagulation (APC). - The examination was otherwise normal. - No specimens collected. - The examination was otherwise normal. Recommendation: - Patient has a contact number available for emergencies. The signs and symptoms of potential delayed complications were discussed with the patient. Return to normal activities tomorrow. Written discharge instructions were provided to the patient. - Continue present medications. - Return patient to [facility] for [facility] care. - Return to referring physician. - The findings and recommendations were discussed with the patient. Armen Shahid MD Armen Shahid MD 05/22/2018 2:00:40 PM Electronically signed by Armen Shahid MD Number of Addenda: 0 Note Initiated On: 05/22/2018 1:33 PM Estimated Blood Loss: Estimated blood loss: none.
[2018-05-22] MEDS ORDERED: PROMETHAZINE 25 MG TAB PO PRN (15:15)
--- NOTE | 2018-05-22 15:31 | ECGEPIP ---
Stationary ECG Study [facility] Test Date: 2018-05-22 Pat Name: CONCEPCION GERMAIN Department: Room: [place] [address] Gender: F [employer] Fe[employer]: SONIYA : 1940 Requested By: SHELTON French Order Number: [id number] Reading MD: Ashley Degroot Measurements Intervals [place] Rate: 67 P: GA: 0 QRS: 20 QRSD: 86 T: -53 QT: 410 QTc: 435 Interpretive Statements ATRIAL FIBRILLATION LOW VOLTAGE LIMB LEADS STTWAVE ABN ANTERIOR ON 05/15/18 POSSIBLE OLD HIGH LATERAL INFARCT Electronically Signed On 05-22-2018 15:30:53 EDT by Ashley Degroot
--- NOTE | 2018-05-22 19:46 | IPNPDOC ---
Subjective Date Seen The patient was seen on 05/22/18. Subjective Chief Complaint/HPI Generalized weakness, anemia Events since last encounter The patient was seen both before EGD and following her EGD. This morning, she denied any problems with nausea /vomiting /chest pain /shortness of breath, /fevers /chills or sweats. Following the EGD, the patient did report having some chest pain that lasted about a few minutes on the left side of her chest resolved spontaneously. At the time of my evaluation, she denied any active chest pain. Objective Physical Examination General Exam: Positive: Cooperative, No Acute Distress Chest Exam: Positive: Clear to auscultation, Other; Negative: Rales, Rhonchi, Wheezing Heart Exam: Positive: Other (S1, S2 heard, no rubs or gallops, irregular) Abdomen Exam: Positive: Other (soft. No tenderness. No guarding or rigidity.) Neuro Exam: Positive: Other (awake, alert. Answering questions appropriately.) Assessment /Plan Assessment Recurrent symptomatic anemia: -Patient is status post 2 unit packed RBCs on 05/16/18 -Patient has received iron infusions previously and follows up with Dr. Shahid from GI and Dr Byers from heme onc -Patient is status post EGD 05/22/18- she was found to have grade 1 esophageal varices. She also had gastric antral vascular ectasia with bleeding treated with argon plasma coagulation -Monitor H&H - stable so far -No indication for transfusion at this time -Stool occult was positive and patient also has a history of variceal bleed Cryptogenic cirrhosis with esophageal varices: -Patient has a history of recurrent ascitesshe is status post 3.5 L paracentesis on 05/17/18 -Continue lactulose, propranolol Chest pain: -Atypical -May have been related to her EGD -EKG was done stat and personally reviewedno new findings and no acute ST changes -Check serial troponins - first set was negative Multiple nonbleeding colonic angiectasia: -Follows GI as outpatient Chronic atrial fibrillation status post permanent pacemaker: -Continue propranolol, digoxin -No blood thinners in setting of symptomatic anemia Anxiety/depression Chronic diastolic heart failure: -Continue Lasix, spironolactone, propranolol DVT prophylaxis -NNEKA stockings Disposition: Anticipate possible discharge home tomorrow if tolerating oral intake and troponins remain negative Plan/VTE VTE Prophylaxis Ordered?: Yes VS, I&O, 24H, Fishbone Vital Signs/I&O Vital Signs Date Time Temp Pulse Resp B/P (MAP) Pulse Ox O2 Delivery O2 Flow Rate FiO2 05/22/18 14:35 62 18 117/57 (77) 98 05/22/18 14:35 98.8 I&O- Last 24 Hours up to 6 AM 05/22/18 06:00 Intake Total 1390 ml Output Total 0 ml Balance 1390 ml Laboratory Data 24H LABS Laboratory Tests 2 05/22/18 05:33: Nucleated Red Blood Cells % (auto) 0.0, Anion Gap 7L, Glomerular Filtration Rate > 60.0, Blood Urea Nitrogen 14, Creatinine 0.74, Sodium Level 140, Potassium Level 3.7, Chloride Level 111H, Carbon Dioxide Level 22, Calcium Level 7.5L, Magnesium Level 1.9 05/22/18 15:29: Troponin I < 0.02 CBC/BMP Laboratory Tests 05/22/18 05:33 Red Blood Count 2.88 L, Mean Corpuscular Volume 99.7 H, Mean Corpuscular Hemoglobin 31.6, Mean Corpuscular Hemoglobin Concent 31.7 L, Red Cell Distribution Width 19.5 H, Calcium Level 7.5 L Microbiology Microbiology 05/19/18 Stool Occult Blood (SCARLETT) - Final, Complete FIGUEROA,SHELTON French MD May 22, 2018 19:46
[2018-05-22 22:00] VITALS: BP 102/58
[2018-05-23] MEDS: LACTULOSE 20 GM/30 ML SYRUP UD PO SCH (05:47)
[2018-05-23 06:00] VITALS: BP 102/55
[2018-05-23 06:15] LABS: HEMATOCRIT 29.2 % (36.0-47.0); HEMOGLOBIN 9.3 g/dl (12.0-15.5); MEAN CORPUSCULAR HEMOGLOBIN 31.7 pg (27.0-33.0); MEAN CORPUSCULAR HGB CONC 31.8 g/dl (32.0-36.5); MEAN CORPUSCULAR VOLUME 99.7 fl (80.0-96.0); PLATELET COUNT, AUTOMATED 220 10^3/uL (150-450); RED BLOOD COUNT 2.93 10^6/uL (4.00-5.40); WHITE BLOOD COUNT 5.2 10^3/uL (4.0-10.0)
[2018-05-23 06:33] LABS: BLOOD UREA NITROGEN 15 MG/DL (7-18); CALCIUM LEVEL 7.4 MG/DL (8.8-10.2); CARBON DIOXIDE LEVEL 22 MEQ/L (21-32); CHLORIDE LEVEL 110 MEQ/L (98-107); CREATININE FOR GFR 0.82 MG/DL (0.55-1.30); GLOMERULAR FILTRATION RATE > 60.0 (>39); GLUCOSE, FASTING 84 MG/DL (70-100); MAGNESIUM LEVEL 1.9 MG/DL (1.8-2.4); POTASSIUM SERUM 3.8 MEQ/L (3.5-5.1); SODIUM LEVEL 139 MEQ/L (136-145)
[2018-05-23 08:25] VITALS: BP 104/53
[2018-05-23] MEDS: PANTOPRAZOLE 40MG TAB (PROTONIX) PO SCH (08:26)
[2018-05-23] MEDS: DIGOXIN 0.125 MG TAB PO SCH (08:26)
[2018-05-23] MEDS: SUCRALFATE 1 GM TAB PO SCH ×2 (08:27→12:00)
[2018-05-23] MEDS: FUROSEMIDE 40 MG TAB PO SCH (08:27)
[2018-05-23] MEDS: POTASSIUM CHLORIDE 10 MEQ SR TABLET PO SCH (08:27)
[2018-05-23 08:28] VITALS: BP 104/53
[2018-05-23] MEDS: PROPRANOLOL 10 MG TAB PO SCH (08:28)
[2018-05-23] MEDS: SPIRONOLACTONE 25 MG TAB PO SCH (08:29)
[2018-05-23] MEDS ORDERED: LACT10SO3 PO (11:47)
[2018-05-23] MEDS ORDERED: KLOR10TA76 PO (11:47)
--- NOTE | 2018-05-23 17:42 | DS.PDOC ---
Discharge Summary General Date of Admission May 17, 2018 at 15:37 Date of Discharge 05/23/18 Specialist/Consultants Involve: Armen Shahid Discharge Summary PROCEDURES PERFORMED DURING STAY: EGD: Impression: - Z-line regular, 35 cm from the incisors. - Grade I esophageal varices. - Gastric antral vascular ectasia with bleeding. Treated with argon plasma coagulation (APC). - The examination was otherwise normal. - No specimens collected. Ultrasound-guided paracentesis 05/17/18 with removal of 3.5 L fluid ADMITTING DIAGNOSES: 1. Generalized weakness. 2. Anemia. DISCHARGE DIAGNOSES: Recurrent symptomatically continues to undergo upper GI bleed secondary to gastric antral vascular ectasia status post EGD with APC, cryptogenic cirrhosis with esophageal varices, chest pain, multiple nonbleeding colonic angiectasia, chronic atrial fibrillation status post permanent pacemaker, anxiety/depression, chronic diastolic heart failure COMPLICATIONS/CHIEF COMPLAINT: Weakness. HISTORY OF PRESENT ILLNESS: The patient is an 6-year-old female who presents to the ER with compressive generalized weakness found to have worsening anemia admi tted to our facility for further evaluation. HOSPITAL COURSE: Recurrent symptomatic anemia, secondary to upper gastrointestinal bleed secondary to gastric antral vascular ectasia status post EGD with APC -Patient is status post 2 unit packed RBCs on 05/16/18 -Patient has received iron infusions previously and follows up with Dr. Shahid from GI and Dr Byers from heme onc -Patient is status post EGD 05/22/18- she was found to have grade 1 esophageal varices. She also had gastric antral vascular ectasia with bleeding treated with argon plasma coagulation -H/H has been stable after initial transfusions Cryptogenic cirrhosis with esophageal varices: -Patient has a history of recurrent ascitesshe is status post 3.5 L paracentesis on 05/17/18 -Continue lactulose, propranolol Chest pain: -Patient had an episode of chest pain lasting a few minutes following EGD -Atypical -May have been related to her EGD -EKG was done stat and personally reviewedno new findings and no acute ST changes -Serial troponins were negative Multiple nonbleeding colonic angiectasia: -Follows GI as outpatient Chronic atrial fibrillation status post permanent pacemaker: -Continue propranolol, digoxin -No blood thinners in setting of symptomatic anemia Anxiety/depression Chronic diastolic heart failure: -Continue Lasix, spironolactone, propranolol Under discharge, patient is doing better. Denies any abdominal pain. Tolerating oral intake. No nausea or vomiting. Hemoglobin has remained stable. Plan is to discharge home with home health today. DISCHARGE MEDICATIONS: Please see below. ALLERGIES: Please see below. PHYSICAL EXAMINATION ON DISCHARGE: VITAL SIGNS: Please see below. GENERAL: No acute distress. Lying in bed CARDIOVASCULAR EXAMINATION: S1, S2 heard, or gallops RESPIRATORY EXAMINATION: Clear to auscultation bilaterally ABDOMINAL EXAMINATION: Soft, nontender NEUROLOGICAL EXAMINATION: Awake, alert, answering questions appropriately LABORATORY DATA: Please see below. IMAGING: CXR: IMPRESSION: Stable cardiomegaly with no acute infiltrate. ACTIVITY: As tolerated with walker DIET: 2 g sodium diet DISCHARGE PLAN: Plan is for patient to be discharged home with home health today. Outpatient follow-up with primary care provider in one week. DISPOSITION: Home with home health ITEMS TO FOLLOWUP ON ON OUTPATIENT: 1. Periodic monitoring of CBC as an outpatient DISCHARGE CONDITION: Stable. TIME SPENT ON DISCHARGE: 36 minutes. Vital Signs/I&Os Vital Signs Date Time Temp Pulse Resp B/P (MAP) Pulse Ox O2 Delivery O2 Flow Rate FiO2 05/23/18 08:28 104/53 05/23/18 08:26 66 05/23/18 08:25 20 05/23/18 06:00 98.5 98 I&O- Last 24 Hours up to 6 AM 05/23/18 06:00 Intake Total 0 ml Output Total 1300 ml Balance -1300 ml Laboratory Data Labs 24H Laboratory Tests 2 05/22/18 15:29: Troponin I < 0.02 05/22/18 20:54: Troponin I < 0.02 05/23/18 05:54: Nucleated Red Blood Cells % (auto) 0.0, Anion Gap 7L, Glomerular Filtration Rate > 60.0, Blood Urea Nitrogen 15, Creatinine 0.82, Sodium Level 139, Potassium Level 3.8, Chloride Level 110H, Carbon Dioxide Level 22, Calcium Level 7.4L, Magnesium Level 1.9 CBC/BMP Laboratory Tests 05/23/18 05:54 Red Blood Count 2.93 L, Mean Corpuscular Volume 99.7 H, Mean Corpuscular Hem oglobin 31.7, Mean Corpuscular Hemoglobin Concent 31.8 L, Red Cell Distribution Width 19.0 H, Calcium Level 7.4 L Microbiology Microbiology 05/19/18 Stool Occult Blood (SCARLETT) - Final, Complete Discharge Medications Scheduled (Digoxin) 125 Mcg Tab, 125 MCG PO DAILY, (Reported) (Theratears) 1 % Gel, 1 DOSE OU QHS, (Reported) (Anahi-Bid Probiotic) 1 Tab Tab, 1 TAB PO DAILY, (Reported) (Restasis) 0.05 % Emu, 1 DROP OU BID, (Reported) Furosemide (Furosemide) 40 Mg Tab, 40 MG PO DAILY, (Reported) Lactulose (Lactulose) 10 Gm/15 Ml Meseret, 30 ML PO Q8H Hold if you have more than 4 BM/day and resume from the next day. Pantoprazole Sodium (Pantoprazole Sodium) 40 Mg Tab, 40 MG PO BID, (Reported) Potassium Chloride (Klor-Con M10) 10 Meq Tabcr, 20 MEQ PO DAILY Propranolol HCl (Propranolol HCl) 10 Mg Tab, 10 MG PO BID, (Reported) DOES NOT TAKE IF BP< 120/60 Spironolactone (Spironolactone) 25 Mg Tab, 25 MG PO DAILY, (Reported) Sucralfate (Carafate) 1 Gm Tab, 1 GRAM PO ACHS, (Reported) Scheduled PRN Carboxymethylcellulose Sod (Refresh 1.4-0.6 %) 1 Ea Meseret, 1 DROP OU QID PRN for DRY EYES, (Reported) Allergies Coded Allergies: Penicillins (Verified Allergy, Severe, CHILDHOOD REACTION OF THROAT CLOSING, 05/15/18) Sulfa (Sulfonamide Antibiotics) (Verified Allergy, Mild, ITCHY, 05/15/18) meperidine (Verified Allergy, Mild, ITCHY/HYPER, 05/15/18) diphenhydramine (Verified Adverse Reaction, Mild, INCREASED ENERGY/ SHAKY, 05/15/18) SHELTON FIGUEROA MD May 23, 2018 11:47
== END 2018-05-23 14:15 | disposition home health service (06) | DRG 811 ==
LOC: M ED 12:28 → M ED INP 18:48 → M MSPAV 20:33 → OBSVTOIN 05-17 15:37
PROVIDERS: ADMIT Internal Medicine; ATTEND Internal Medicine
PROC: 30233N1 Transfusion of Nonautologous Red Blood Cells into Peripheral Vein, Percutaneous Approach (ICD-10-PCS; 2018-05-16)
PROC: 0W9G3ZZ Drainage of Peritoneal Cavity, Percutaneous Approach (ICD-10-PCS; 2018-05-17)
PROC: 0W3P8ZZ Control Bleeding in Gastrointestinal Tract, Via Natural or Artificial Opening Endoscopic (ICD-10-PCS; principal; 2018-05-22 15:50)
DX: D50.0 Iron deficiency anemia secondary to blood loss (chronic) (principal); K31.811 Angiodysplasia of stomach and duodenum with bleeding; I85.10 Secondary esophageal varices without bleeding; I50.32 Chronic diastolic (congestive) heart failure; R18.8 Other ascites; K74.69 Other cirrhosis of liver; I11.0 Hypertensive heart disease with heart failure; I48.2 Chronic atrial fibrillation; F41.9 Anxiety disorder, unspecified; K72.90 Hepatic failure, unspecified without coma; F32.9 Major depressive disorder, single episode, unspecified; K21.9 Gastro-esophageal reflux disease without esophagitis; Z95.0 Presence of cardiac pacemaker; K57.90 Diverticulosis of intestine, part unspecified, without perforation or abscess without bleeding; Z88.0 Allergy status to penicillin; Z88.8 Allergy status to other drugs, medicaments and biological substances; Z79.899 Other long term (current) drug therapy; Z86.73 Personal history of transient ischemic attack (TIA), and cerebral infarction without residual deficits

== ENCOUNTER → 2018-06-10 | Outpatient (CLI) | payer MEDICARE ==
[~2018-06-10] MED LIST changes: -ASPI1TAB PO; +ASPI81TA26 PO; -DILT180C22 PO; +DILT180C78 PO; +LACT10SO3 PO; +RISATAB3 PO; +THER1GEL OU
--- NOTE | 2018-06-10 17:30 | REP ---
Ultrasound-guided paracentesis The procedure was performed under the direct supervision of Dr. Weiss. The risks and benefits of the procedure were explained to the patient and informed consent was obtained. The largest pocket of fluid was localized in the left flank using ultrasound guidance. The skin was prepped and draped in a sterile fashion. 1% lidocaine was used as a local anesthetic. An 8-Uzbek multi side-hole catheter was inserted using trocar technique. 5900 ml of yellow fluid was withdrawn and discarded. The patient tolerated the procedure well and there were no immediate complications. After the appropriate amount of monitored convalescence the patient was discharged from the department. Reviewed by ADELE Davila 06/10/2018 02:59 P Electronically Signed by Kadeem Weiss MD 06/10/2018 05:21 P
== END ==
LOC: M RADPRO 11:48
PROVIDERS: ATTEND Physician Assistant
DX: R18.8 Other ascites (principal); Z79.899 Other long term (current) drug therapy; Z88.0 Allergy status to penicillin; Z88.8 Allergy status to other drugs, medicaments and biological substances

== ENCOUNTER → 2018-06-25 | Outpatient (REF) | payer MEDICARE ==
[2018-06-25 14:15] LABS: INR 1.08; PROTHROMBIN TIME 14.1 SECONDS (12.1-14.4)
[2018-06-25 14:16] LABS: PARTIAL THROMBOPLASTIN TIME 30.3 SECONDS (25.4-37.6)
[2018-06-25 14:19] LABS: BASO # 0.1 10^3/uL (0.0-0.2); EOS # 0.2 10^3/uL (0.0-0.50); EOS % 3.6 % (0.0-3.0); HEMOGLOBIN 8.6 g/dl (12.0-15.5); LYMPH # 0.5 10^3/uL (1.5-4.5); LYMPH % 9.6 % (24.0-44.0); MEAN CORPUSCULAR HEMOGLOBIN 27.3 pg (27.0-33.0); MEAN CORPUSCULAR HGB CONC 29.7 g/dl (32.0-36.5); MEAN CORPUSCULAR VOLUME 92.1 fl (80.0-96.0); MONO # 0.8 10^3/uL (0.0-0.8); MONO % 15.8 % (0.0-5.0); NEUTROPHILS # 3.4 10^3/uL (1.8-7.7); NEUTROPHILS % 68.4 % (36.0-66.0); PLATELET COUNT, AUTOMATED 287 10^3/uL (150-450); RED BLOOD COUNT 3.15 10^6/uL (4.00-5.40)
[2018-06-25 14:41] LABS: ALBUMIN 3.1 GM/DL (3.2-5.2); ALT/SGPT 27 U/L (12-78); BILIRUBIN,DIRECT 0.6 MG/DL (0.0-0.2); BILIRUBIN,TOTAL 1.5 MG/DL (0.2-1.0); BLOOD UREA NITROGEN 18 MG/DL (7-18); CALCIUM LEVEL 8.3 MG/DL (8.8-10.2); CARBON DIOXIDE LEVEL 26 MEQ/L (21-32); CHLORIDE LEVEL 104 MEQ/L (98-107); CREATININE FOR GFR 0.93 MG/DL (0.55-1.30); FERRITIN 32 NG/ML (8-252); GLOMERULAR FILTRATION RATE > 60.0 (>39); GLUCOSE, FASTING 91 MG/DL (70-100); IRON (FE) 34 UG/DL (50-170); PERCENT SATURATION 10.4 % (13.2-45.0); POTASSIUM SERUM 3.6 MEQ/L (3.5-5.1); SODIUM LEVEL 137 MEQ/L (136-145); TOTAL IRON BINDING CAPACITY 326 UG/DL (250-450); TOTAL PROTEIN 6.3 GM/DL (6.4-8.2)
== END ==
LOC: M SHH 13:08
PROVIDERS: ATTEND Physician Assistant
DX: K74.60 Unspecified cirrhosis of liver (principal); I85.00 Esophageal varices without bleeding

== ENCOUNTER → 2018-06-26 | Outpatient (REF) | payer MEDICARE | LOC: M LAB REF 11:27 | PROVIDERS: ATTEND Physician Assistant | DX: K74.60 Unspecified cirrhosis of liver (principal); I85.00 Esophageal varices without bleeding ==

== ENCOUNTER → 2018-07-01 | Outpatient (CLI) | payer MEDICAID, MEDICARE ==
--- NOTE | 2018-07-01 19:13 | REP ---
Ultrasound-guided paracentesis The procedure was performed by Ana Maria Mckee, under the direct supervision of Dr. Love. The risks and benefits of the procedure were explained to the patient and informed consent was obtained both verbally and written. Directly prior to the start of the procedure, a formal timeout was completed in the procedure room. Under ultrasound guidance, the largest pocket of fluid in the left flank was localized and skin was marked. The skin was then prepped and draped in a sterile fashion. 10 ml of 1% lidocaine was used as a local anesthetic. Using ultrasound guidance, an 8-Mosotho multiphase side-hole catheter was inserted using trocar technique. 4,000 mL of clear yellow colored fluid was withdrawn and discarded. The patient tolerated the procedure well and there were no immediate complications. After the appropriate monitored convalescence the patient was discharged from the department. Reviewed by Mary Garcia, ADELE 07/01/2018 01:06 P Electronically Signed by Kong Love MD 07/01/2018 07:05 P
== END ==
LOC: M RADPRO 10:16
PROVIDERS: ATTEND Physician Assistant
DX: R18.8 Other ascites (principal); K74.60 Unspecified cirrhosis of liver; Z79.899 Other long term (current) drug therapy; Z88.0 Allergy status to penicillin; Z88.2 Allergy status to sulfonamides; Z88.8 Allergy status to other drugs, medicaments and biological substances